=== PATIENT | female | born 1955 | race Caucasian/White ===

== ENCOUNTER 2016-07-10 08:30 | Outpatient (RCR) | payer MEDICARE, MEDICAID ==
[~2016-07-10 08:30] MED LIST: ESTR1TAB3 PO; SENN8.6C PO; TOPA100T8 PO; VITA400T PO
== END 2016-07-15 ==
LOC: M PT 08:30
PROVIDERS: ATTEND Physician Assistant Medical
DX: Z51.89 Encounter for other specified aftercare (principal); M54.5 Low back pain

== ENCOUNTER 2016-07-16 15:49 | Outpatient (RCR) | payer MEDICARE, MEDICAID | END 2016-08-12 | LOC: M PT 15:49 | PROVIDERS: ATTEND Physician Assistant Medical | DX: Z51.89 Encounter for other specified aftercare (principal); M54.5 Low back pain | CPT/HCPCS: 97110; G8979; G8980 ==

== ENCOUNTER → 2016-07-24 | Outpatient (CLI) | payer MEDICARE, MEDICAID | LOC: M HL 11:14 | PROVIDERS: ATTEND Family Medicine | DX: F50.2 Bulimia nervosa (principal) ==

== ENCOUNTER → 2016-10-17 | Outpatient (CLI) | payer MEDICARE, MEDICAID ==
--- NOTE | 2016-10-17 18:01 | REP ---
LEFT SHOULDER: REASON: Pain. PRIOR EXAM: None. FINDINGS: Three views of the left shoulder were performed. The acromioclavicular and glenohumeral relationships are within normal limits. There is no acute fracture or destructive osseous lesion. Signed by Mehul Alberto DO 10/17/2016 07:20 P
== END ==
LOC: M LAB 10:34
PROVIDERS: ATTEND Physician Assistant Medical
DX: M25.512 Pain in left shoulder (principal)

== ENCOUNTER 2016-11-11 15:13 | Outpatient (RCR) | payer MEDICARE, MEDICAID | END 2016-11-12 | LOC: M PT 15:13 | PROVIDERS: ATTEND Physician Assistant Medical | DX: Z51.89 Encounter for other specified aftercare (principal); M25.512 Pain in left shoulder | CPT/HCPCS: 97110; 97140; 97161; G8978; G8979 ==

== ENCOUNTER 2016-12-10 07:00 | Outpatient (RCR) | payer MEDICARE, MEDICAID ==
[~2016-12-10 07:00] MED LIST changes: +TOPA100T12 PO; -TOPA100T8 PO
== END 2016-12-12 ==
LOC: M PT 07:00
PROVIDERS: ATTEND Physician Assistant Medical
DX: Z51.89 Encounter for other specified aftercare (principal); M25.512 Pain in left shoulder
CPT/HCPCS: 97110; 97140; G8978; G8979

== ENCOUNTER → 2017-01-12 | Outpatient (RCR) | payer MEDICARE, MEDICAID ==
[~2017-01-12] MED LIST changes: +CEFD1CAP8 PO; +PROBCAP4 PO; +SUCR1SUS PO
== END ==
LOC: M PT 12-17 07:47
PROVIDERS: ATTEND Physician Assistant Medical
DX: Z51.89 Encounter for other specified aftercare (principal); M25.512 Pain in left shoulder
CPT/HCPCS: 97110; 97140; G8978; G8979

== ENCOUNTER 2017-01-28 07:00 | Outpatient (RCR) | payer MEDICARE, MEDICAID ==
[~2017-01-28 07:00] MED LIST changes: -CEFD1CAP8 PO; -PROBCAP4 PO; -SUCR1SUS PO
[2017-02-09] MEDS ORDERED: PROBCAP4 PO (15:52)
[2017-02-09] MEDS ORDERED: SUCR1SUS PO (15:52)
[2017-02-09] MEDS ORDERED: CEFD1CAP8 PO (15:52)
== END 2017-02-12 ==
LOC: M PT 07:00
PROVIDERS: ATTEND Physician Assistant Medical
DX: Z51.89 Encounter for other specified aftercare (principal); M25.512 Pain in left shoulder
CPT/HCPCS: 97110; 97140; G8978; G8979; G8980

== ENCOUNTER → 2017-02-03 | Outpatient (CLI) | payer MEDICARE, MEDICAID ==
[~2017-02-03] MED LIST changes: +CEFD1CAP8 PO; +PROBCAP4 PO; +SUCR1SUS PO
--- NOTE | 2017-02-04 08:11 | REP ---
Chest x-ray: Two views. History: Bronchitis. Comparison chest x-ray June 17, 2012. Findings: Ventral discectomy and fusion plating is seen in the lower cervical spine. The lungs are well inflated and clear. Heart size is normal. Pulmonary vasculature is not increased. No significant bony abnormality is seen. Impression: No active disease. Signed by Melquiades Rain MD 02/04/2017 08:30 A
== END ==
LOC: M RAD 18:57
PROVIDERS: ATTEND Family Medicine
DX: J40 Bronchitis, not specified as acute or chronic (principal)
CPT/HCPCS: 71020; G0463

== ENCOUNTER → 2017-02-05 | Outpatient (CLI) | payer MEDICARE, MEDICAID ==
--- NOTE | 2017-02-06 10:54 | REP ---
Cervical spine series: Seven views. History: Neck pain. Comparison study April 22, 2013. Findings: The patient is status post ventral discectomy and fusion from C4 through C7. There is straightening. Alignment and appearance is unchanged from the comparison study of April 22, 2013. No subluxation or instability is seen although limited range of motion is seen on flexion/extension views. AP and open mouth odontoid views are unremarkable except for the fusion plate. Oblique images demonstrate intact neural foramina bilaterally at each cervical level and normally aligned facets. Impression: Status post ventral discectomy and fusion plating. Straightening. There is degenerative discogenic spurring at the C3-4 level unchanged from the 2013 comparison study. No neural foraminal narrowing. Signed by Melquiades Rain MD 02/06/2017 09:22 A
== END ==
LOC: M RAD 19:03
PROVIDERS: ATTEND Physician Assistant Medical
DX: M54.2 Cervicalgia (principal); K21.9 Gastro-esophageal reflux disease without esophagitis

== ENCOUNTER → 2017-02-05 | Outpatient (CLI) | payer MEDICARE, MEDICAID ==
[~2017-02-05] MED LIST changes: +E-Z-GAS II EFFERVESCENT PACKET (SODIUM BICARB./CITRIC ACID/SIMETHICONE) As Ordered ONE; +E-Z-HD 98% w/w 340GM SUSP BTL As Ordered ONE; +E-Z-PAQUE 96% w/w SUSP 176GM BTL As Ordered ONE
--- NOTE | 2017-02-06 13:19 | REP ---
Double contrast upper GI series: History: Reflux. 1 minute 14 seconds of fluoroscopy time was utilized. Findings: Preliminary commissioner of conciliation view is noncontributory. Incidental note is made of ventral cervical discectomy fusion plate. No morphologic abnormality is seen in the esophagus. Gastroesophageal reflux was observed in the prone position. The stomach displays normal rugal folds and a normal mucosal pattern. No mass or ulcer seen. Pylorus is smooth. Duodenal bulb was fully distensible and clear. C-loop is not widened. Remainder the visualized small bowel is unremarkable. Impression: Gastroesophageal reflux noted. Otherwise negative. Signed by Melquiades Rain MD 02/05/2017 10:48 A
== END ==
LOC: M RAD 09:19
PROVIDERS: ATTEND Surgery
DX: K21.9 Gastro-esophageal reflux disease without esophagitis (principal)

== ENCOUNTER 2017-02-11 07:52 | Outpatient (CLI) | payer MEDICARE, MEDICAID ==
[~2017-02-11] VITALS: Ht 152.4 cm; Wt 49.4 kg
[~2017-02-11 07:52] MED LIST changes: -E-Z-GAS II EFFERVESCENT PACKET (SODIUM BICARB./CITRIC ACID/SIMETHICONE) As Ordered ONE; -E-Z-HD 98% w/w 340GM SUSP BTL As Ordered ONE; -E-Z-PAQUE 96% w/w SUSP 176GM BTL As Ordered ONE
[2017-02-11] MEDS ORDERED: NS 1,000 ML IV ONE (08:15)
[2017-02-11] MEDS ORDERED: fentaNYL 100 MCG/2 ML INJECTION (J3010) As Ordered ONE (09:34)
[2017-02-11] MEDS ORDERED: PROPOFOL 200 MG/20 ML VIAL As Ordered ONE (09:45)
[2017-02-11] MEDS ORDERED: LIDOCAINE 2% INJ 100 MG/5 ML SDV (FOR ANES.) As Ordered ONE (09:45)
--- NOTE | 2017-02-11 09:58 | ROOR ---
Patient Name: Chasidy Casas Procedure Date: 02/11/2017 9:33 AM Date of : 1955 Age: 62 Room: [facility] Gender: Female Note Status: Finalized Procedure: Upper GI endoscopy Indications: Pharyngeal phase dysphagia, Globus sensation Providers: Pranay Duffy MD Referring MD: Tj Caal MD Requesting Provider: Medicines: Monitored Anesthesia Care Complications: No immediate complications. Procedure: Pre-Anesthesia Assessment: - Prior to the procedure, a History and Physical was performed, and patient medications and allergies were reviewed. The patient is competent. The risks and benefits of the procedure and the sedation options and risks were discussed with the patient. All questions were answered and informed consent was obtained. Patient identification and proposed procedure were verified by the physician, the nurse and the shelter supervisor in the endoscopy suite. Mental Status Examination: alert and oriented. Airway Examination: normal oropharyngeal airway and neck mobility. Respiratory Examination: clear to auscultation. CV Examination: normal. Prophylactic Antibiotics: The patient does not require prophylactic antibiotics. Prior Anticoagulants: The patient has taken no previous anticoagulant or antiplatelet agents. ASA Grade Assessment: II - A patient with mild systemic disease. After reviewing the risks and benefits, the patient was deemed in satisfactory condition to undergo the procedure. The anesthesia plan was to use monitored anesthesia care (MAC). Immediately prior to administration of medications, the patient was re-assessed for adequacy to receive sedatives. The heart rate, respiratory rate, oxygen saturations, blood pressure, adequacy of pulmonary ventilation, and response to care were monitored throughout the procedure. The physical status of the patient was re-assessed after the procedure. The Endoscope was introduced through the mouth, and advanced to the third part of duodenum. The upper GI endoscopy was accomplished without difficulty. The patient tolerated the procedure well. Findings: The Z-line was irregular and was found 38 cm from the incisors. Biopsies were taken with a cold forceps for histology. Estimated blood loss was minimal. A small hiatal hernia was present. Estimated blood loss: none. One diminutive sessile polyp with no bleeding and no stigmata of recent bleeding was found in the stomach. The polyp was removed with a jumbo cold forceps. Resection and retrieval were complete. Estimated blood loss was minimal. Diffuse nodular mucosa was found in the duodenal bulb. Biopsies were taken with a cold forceps for histology. Estimated blood loss was minimal. Impression: - Z-line irregular, 38 cm from the incisors. Biopsied. - Small hiatal hernia. - One gastric polyp. Resected and retrieved. - Nodular mucosa in the duodenal bulb. Biopsied. Recommendation: - Discharge patient to home (ambulatory). - Telephone my office for pathology results in 2 weeks. Pranay Duffy MD Pranay Duffy MD 02/11/2017 9:57:39 AM This report has been signed electronically. Number of Addenda: 0 Note Initiated On: 02/11/2017 9:33 AM Estimated Blood Loss: Estimated blood loss was minimal.
[2017-02-11 10:28] VITALS: BP 110/65
== END 2017-02-11 10:26 | disposition home or self-care (01) ==
LOC: M OPP 07:52
PROVIDERS: ATTEND Surgery
DX: K21.9 Gastro-esophageal reflux disease without esophagitis (principal); K22.8 Other specified diseases of esophagus; K44.9 Diaphragmatic hernia without obstruction or gangrene; K31.7 Polyp of stomach and duodenum; K31.89 Other diseases of stomach and duodenum; F33.9 Major depressive disorder, recurrent, unspecified; E55.9 Vitamin D deficiency, unspecified; Z77.120 Contact with and (suspected) exposure to mold (toxic); Z79.899 Other long term (current) drug therapy; Z88.5 Allergy status to narcotic agent; Z91.011 Allergy to milk products; Z88.2 Allergy status to sulfonamides; Z88.0 Allergy status to penicillin; Z88.1 Allergy status to other antibiotic agents; Z91.013 Allergy to seafood; Z87.891 Personal history of nicotine dependence
CPT/HCPCS: 43239; 88305; J3010

== ENCOUNTER → 2017-03-19 | Outpatient (REF) | payer MEDICARE, MEDICAID ==
[2017-03-19 17:48] LABS: MEAN CORPUSCULAR HEMOGLOBIN 30.7 pg (27.0-33.0); MEAN CORPUSCULAR HGB CONC 32.4 g/dl (32.0-36.5); MEAN CORPUSCULAR VOLUME 94.7 fl (80.0-96.0); RED CELL DISTRIBUTION WIDTH 12.4 % (11.5-14.5); WHITE BLOOD COUNT 6.3 10^3/uL (4.0-10.0)
[2017-03-19 17:51] LABS: CALCIUM OXALATE CRYSTALS SMALL
[2017-03-19 17:54] LABS: ALBUMIN 3.7 GM/DL (3.2-5.2); ALBUMIN/GLOBULIN RATIO 1.32 (1.00-1.93); ALKALINE PHOSPHATASE 95 U/L (45-117); ALT/SGPT 26 U/L (12-78); ANION GAP 5 MEQ/L (8-16); AST/SGOT 13 U/L (15-37); BILIRUBIN,TOTAL 0.3 MG/DL (0.2-1.0); BLOOD UREA NITROGEN 26 MG/DL (7-18); CALCIUM LEVEL 8.7 MG/DL (8.8-10.2); CARBON DIOXIDE LEVEL 28 MEQ/L (21-32); CHLORIDE LEVEL 112 MEQ/L (98-107); CREATININE FOR GFR 0.83 MG/DL (0.55-1.02); GLOMERULAR FILTRATION RATE > 60.0 (>45); GLUCOSE, FASTING 95 MG/DL (80-110); POTASSIUM SERUM 4.1 MEQ/L (3.5-5.1); SODIUM LEVEL 145 MEQ/L (136-145); TOTAL PROTEIN 6.5 GM/DL (6.4-8.2)
== END ==
LOC: M SFHCCLAY 11:50
PROVIDERS: ATTEND Family Medicine
DX: Z01.818 Encounter for other preprocedural examination (principal); K44.9 Diaphragmatic hernia without obstruction or gangrene; J38.3 Other diseases of vocal cords; Z79.899 Other long term (current) drug therapy

== ENCOUNTER → 2017-03-19 | Outpatient (CLI) | payer MEDICARE, MEDICAID ==
--- NOTE | 2017-03-19 14:27 | REP ---
PA and lateral chest: Comparison is 02/03/2017. The lung malin are clear. The cardiac size is normal The jun, mediastinum, and bony thorax are unremarkable except for a cervical spine stabilization plate, unchanged. Impression: Negative PA and lateral chest. There is no interval change.
== END ==
LOC: M CLY 12:30
PROVIDERS: ATTEND Family Medicine
DX: Z01.818 Encounter for other preprocedural examination (principal); K44.9 Diaphragmatic hernia without obstruction or gangrene; J38.3 Other diseases of vocal cords; Z79.899 Other long term (current) drug therapy
CPT/HCPCS: 71020; 80053; 81001; 83036; 85027; 93005; G0463

== ENCOUNTER 2017-05-18 15:54 | Outpatient (RCR) | payer MEDICARE, MEDICAID | END 2017-06-14 | LOC: M PT 15:54 | DX: Z51.89 Encounter for other specified aftercare (principal); M25.512 Pain in left shoulder | CPT/HCPCS: 97140 ==

== ENCOUNTER 2017-06-29 09:17 | Outpatient (RCR) | payer MEDICARE, MEDICAID | END 2017-07-15 | LOC: M PT 09:17 | DX: Z51.89 Encounter for other specified aftercare (principal); M75.122 Complete rotator cuff tear or rupture of left shoulder, not specified as traumatic | CPT/HCPCS: 97110 ==

== ENCOUNTER 2017-07-17 08:37 | Outpatient (RCR) | payer MEDICARE, MEDICAID | END 2017-08-12 | LOC: M PT 08:37 | DX: Z51.89 Encounter for other specified aftercare (principal); M75.122 Complete rotator cuff tear or rupture of left shoulder, not specified as traumatic | CPT/HCPCS: 97110 ==

== ENCOUNTER → 2017-08-04 | Outpatient (CLI) | payer MEDICARE, MEDICAID | LOC: M RAD 06:44 | DX: R59.1 Generalized enlarged lymph nodes (principal) | CPT/HCPCS: 76882 ==

== ENCOUNTER 2017-08-14 08:01 | Outpatient (RCR) | payer MEDICARE, MEDICAID | END 2017-09-12 | LOC: M PT 08:01 | DX: Z51.89 Encounter for other specified aftercare (principal); Z47.89 Encounter for other orthopedic aftercare | CPT/HCPCS: 97110 ==

== ENCOUNTER → 2017-09-11 | Outpatient (CLI) | payer MEDICARE, MEDICAID ==
[2017-09-11 12:41] LABS: C REACTIVE PROTEIN QUANTITATIV < 0.30 MG/DL (0.00-0.30)
[2017-09-11 13:09] LABS: ERYTHROCYTE SEDIMENTATION RATE 5 mm/hr (0-30)
== END ==
LOC: M LAB 11:34
DX: M35.3 Polymyalgia rheumatica (principal)
CPT/HCPCS: 86140

== ENCOUNTER 2017-09-14 07:57 | Outpatient (RCR) | payer MEDICARE, MEDICAID | END 2017-10-12 | LOC: M PT 07:57 | DX: Z51.89 Encounter for other specified aftercare (principal); M75.122 Complete rotator cuff tear or rupture of left shoulder, not specified as traumatic | CPT/HCPCS: 97110 ==

== ENCOUNTER → 2017-09-16 | Outpatient (CLI) | payer MEDICARE, MEDICAID | LOC: M PAIN 10:00 | DX: G89.29 Other chronic pain (principal); M79.1 Myalgia; M54.2 Cervicalgia; F50.2 Bulimia nervosa; F25.9 Schizoaffective disorder, unspecified; E73.9 Lactose intolerance, unspecified; Z79.899 Other long term (current) drug therapy; Z87.891 Personal history of nicotine dependence; Z88.0 Allergy status to penicillin; Z88.1 Allergy status to other antibiotic agents; Z88.5 Allergy status to narcotic agent; Z91.013 Allergy to seafood | CPT/HCPCS: G0463 ==

== ENCOUNTER → 2017-09-19 | Outpatient (REF) | payer MEDICARE, MEDICAID ==
[2017-09-23 14:34] LABS: FATS NEUTRAL Increased (.); FATS TOTAL Increased (.)
== END ==
LOC: M LAB REF 10:04
DX: R10.31 Right lower quadrant pain (principal); R19.7 Diarrhea, unspecified
CPT/HCPCS: 82705

== ENCOUNTER → 2017-09-25 | Outpatient (CLI) | payer MEDICARE, MEDICAID ==
[~2017-09-25] MED LIST changes: -CEFD1CAP8 PO; -ESTR1TAB3 PO; +GASTROGRAFIN SOLUTION 30ML (Q9963) As Ordered; +ISOVUE-370 76% 100ML VIAL (Q9967) As Ordered; -PROBCAP4 PO; -SENN8.6C PO; -SUCR1SUS PO; -TOPA100T12 PO; -VITA400T PO
== END ==
LOC: M RAD 07:46
DX: R10.11 Right upper quadrant pain (principal)
CPT/HCPCS: Q9963

== ENCOUNTER → 2017-09-30 | Outpatient (CLI) | payer MEDICARE, MEDICAID ==
[~2017-09-30] MED LIST changes: -ISOVUE-370 76% 100ML VIAL (Q9967) As Ordered
== END ==
LOC: M RAD 08:19
DX: K44.9 Diaphragmatic hernia without obstruction or gangrene (principal)
CPT/HCPCS: Q9963

== ENCOUNTER → 2017-10-01 | Outpatient (CLI) | payer MEDICARE, MEDICAID ==
[~2017-10-01] MED LIST changes: +BUPIVACAINE HCL 0.25% 10 ML VIAL As Ordered; +BUPIVACAINE HCL 0.25% 30 ML VIAL As Ordered; -GASTROGRAFIN SOLUTION 30ML (Q9963) As Ordered; +TRIAMCINOLONE ACETONIDE SUSP 40 MG/ML VIAL (J3301) As Ordered
== END ==
LOC: M PAIN 10:30
DX: G89.29 Other chronic pain (principal); M79.1 Myalgia; E04.1 Nontoxic single thyroid nodule; F50.2 Bulimia nervosa; F25.9 Schizoaffective disorder, unspecified; Z87.891 Personal history of nicotine dependence; Z79.899 Other long term (current) drug therapy; Z88.0 Allergy status to penicillin; Z88.8 Allergy status to other drugs, medicaments and biological substances; Z91.013 Allergy to seafood
CPT/HCPCS: J3301

== ENCOUNTER 2017-10-14 08:24 | Outpatient (RCR) | payer MEDICARE, MEDICAID | END 2017-11-12 | LOC: M PT 08:24 | DX: Z51.89 Encounter for other specified aftercare (principal); M75.122 Complete rotator cuff tear or rupture of left shoulder, not specified as traumatic | CPT/HCPCS: 97110 ==

== ENCOUNTER → 2017-10-15 | Outpatient (CLI) | payer MEDICARE, MEDICAID | LOC: M PAIN 11:30 | DX: G89.29 Other chronic pain (principal); M79.1 Myalgia; M54.2 Cervicalgia; E04.1 Nontoxic single thyroid nodule; K90.0 Celiac disease; F50.2 Bulimia nervosa; Z87.891 Personal history of nicotine dependence; Z91.013 Allergy to seafood; Z88.0 Allergy status to penicillin; Z88.1 Allergy status to other antibiotic agents; Z88.5 Allergy status to narcotic agent | CPT/HCPCS: G0463 ==

== ENCOUNTER → 2017-10-29 | Outpatient (CLI) | payer MEDICARE, MEDICAID ==
[2017-10-29 23:36] LABS: FREE T4 1.11 NG/DL (0.76-1.46)
[2017-10-30 11:31] LABS: HEPATITIS C VIRUS ABY INDEX < 0.0 INDEX (<0.8)
[2017-11-04 00:06] LABS: PANCREATIC ELASTASE STOOL >500 (>200)
[2017-11-04 00:06] LABS: DEAMIDATED GLIADIN ABS, IgA 3 units (0-19); DEAMIDATED GLIADIN ABS, IgG 4 units (0-19); ENDOMYSIAL ANTIBODY IgA Negative (Negative); IMMUNOGLOBULIN A 78 mg/dL (87-352); t-TRANSGLUTAMINASE(tTG) IgA <2 U/mL (0-3); t-TRANSGLUTAMINASE(tTG) IgG <2 U/mL (0-5)
== END ==
LOC: M LAB 17:39
DX: R53.82 Chronic fatigue, unspecified (principal); R19.7 Diarrhea, unspecified; Z11.59 Encounter for screening for other viral diseases; K90.9 Intestinal malabsorption, unspecified
CPT/HCPCS: 84443

== ENCOUNTER → 2017-11-03 | Outpatient (CLI) | payer MEDICARE, MEDICAID ==
[2017-11-03 09:55] LABS: INR 0.86; PROTHROMBIN TIME 11.8 SECONDS (12.4-14.5)
[2017-11-03 09:56] LABS: PARTIAL THROMBOPLASTIN TIME 30.6 SECONDS (26.8-37.9)
== END ==
LOC: M RAD 08:32
DX: Z12.31 Encounter for screening mammogram for malignant neoplasm of breast (principal); R59.1 Generalized enlarged lymph nodes
CPT/HCPCS: 77067

== ENCOUNTER → 2017-11-11 | Outpatient (CLI) | payer MEDICARE, MEDICAID ==
[~2017-11-11] MED LIST changes: -BUPIVACAINE HCL 0.25% 10 ML VIAL As Ordered; -BUPIVACAINE HCL 0.25% 30 ML VIAL As Ordered; +LIDOCAINE 1% MDV 20ML VIAL As Ordered; -TRIAMCINOLONE ACETONIDE SUSP 40 MG/ML VIAL (J3301) As Ordered
== END ==
LOC: M RADPRO 10:05
DX: R59.0 Localized enlarged lymph nodes (principal)
CPT/HCPCS: 38505

== ENCOUNTER → 2017-12-22 | Outpatient (CLI) | payer MEDICARE, MEDICAID | LOC: M PAIN 11:00 | DX: M46.92 Unspecified inflammatory spondylopathy, cervical region (principal); M79.1 Myalgia; M54.2 Cervicalgia; G89.29 Other chronic pain; F25.9 Schizoaffective disorder, unspecified; E73.9 Lactose intolerance, unspecified; Z79.899 Other long term (current) drug therapy; Z88.1 Allergy status to other antibiotic agents; Z88.5 Allergy status to narcotic agent; Z88.8 Allergy status to other drugs, medicaments and biological substances; Z91.013 Allergy to seafood; Z86.59 Personal history of other mental and behavioral disorders; Z87.891 Personal history of nicotine dependence | CPT/HCPCS: G0463 ==

== ENCOUNTER → 2018-01-06 | Outpatient (CLI) | payer MEDICARE, MEDICAID ==
[~2018-01-06] MED LIST changes: +BUPIVACAINE HCL 0.25% 30 ML VIAL As Ordered; +ISOVUE-M 300 61% 15ML VIAL (Q9967) As Ordered; -LIDOCAINE 1% MDV 20ML VIAL As Ordered; +LIDOCAINE 1% SDV INJ 30 ML VIAL As Ordered; +TRIAMCINOLONE ACETONIDE SUSP 40 MG/ML VIAL (J3301) As Ordered
== END ==
LOC: M PAIN 10:45
DX: G89.29 Other chronic pain (principal); M47.812 Spondylosis without myelopathy or radiculopathy, cervical region; F25.9 Schizoaffective disorder, unspecified; Z79.899 Other long term (current) drug therapy; Z88.1 Allergy status to other antibiotic agents; Z88.5 Allergy status to narcotic agent; Z88.8 Allergy status to other drugs, medicaments and biological substances; Z91.013 Allergy to seafood; Z86.59 Personal history of other mental and behavioral disorders; Z87.891 Personal history of nicotine dependence
CPT/HCPCS: J3301

== ENCOUNTER 2018-01-11 10:17 | Emergency (ER) | payer MEDICARE, MEDICAID ==
[2018-01-11] MEDS ORDERED: LIDOCAINE W/EPINEPHRINE 1% 20ML VIAL As Ordered (12:49)
[2018-01-11] MEDS: NORCO, ANEXSIA 5/325MG TABLET (HYDROcodone/ACETAMINOPHEN) PO (13:16)
[2018-01-11] MEDS: LIDOCAINE W/EPINEPHRINE 1% 20ML VIAL SC (13:17)
== END 2018-01-11 14:34 | disposition home or self-care (01) ==
LOC: M ED 10:17
DX: S42.215A Unspecified nondisplaced fracture of surgical neck of left humerus, initial encounter for closed fracture (principal); S01.112A Laceration without foreign body of left eyelid and periocular area, initial encounter; T14.8XXA Other injury of unspecified body region, initial encounter; W10.8XXA Fall (on) (from) other stairs and steps, initial encounter; Y92.89 Other specified places as the place of occurrence of the external cause; K21.9 Gastro-esophageal reflux disease without esophagitis; Z88.0 Allergy status to penicillin; Z88.8 Allergy status to other drugs, medicaments and biological substances; Z88.2 Allergy status to sulfonamides; Z91.018 Allergy to other foods; Z91.011 Allergy to milk products; Z79.899 Other long term (current) drug therapy; Z87.891 Personal history of nicotine dependence
CPT/HCPCS: 73030

== ENCOUNTER → 2018-01-19 | Outpatient (REF) | payer MEDICARE, MEDICAID ==
[2018-01-20 11:53] LABS: HEMATOCRIT 38.8 % (36.0-47.0); MEAN CORPUSCULAR HEMOGLOBIN 31.5 pg (27.0-33.0); MEAN CORPUSCULAR HGB CONC 33.5 g/dl (32.0-36.5); MEAN CORPUSCULAR VOLUME 93.9 fl (80.0-96.0); PLATELET COUNT, AUTOMATED 279 10^3/uL (150-450); RED BLOOD COUNT 4.13 10^6/uL (4.00-5.40); RED CELL DISTRIBUTION WIDTH 12.6 % (11.5-14.5); WHITE BLOOD COUNT 7.8 10^3/uL (4.0-10.0)
[2018-01-20 12:21] LABS: ANION GAP 10 MEQ/L (8-16); BLOOD UREA NITROGEN 11 MG/DL (7-18); CARBON DIOXIDE LEVEL 26 MEQ/L (21-32); CHLORIDE LEVEL 110 MEQ/L (98-107); CREATININE FOR GFR 0.87 MG/DL (0.55-1.30); GLOMERULAR FILTRATION RATE > 60.0 (>45); GLUCOSE, FASTING 71 MG/DL (70-100); MAGNESIUM LEVEL 2.5 MG/DL (1.8-2.4); POTASSIUM SERUM 3.9 MEQ/L (3.5-5.1); SODIUM LEVEL 146 MEQ/L (136-145)
== END ==
LOC: M SFHCCLAY 11:36
DX: R42 Dizziness and giddiness (principal)
CPT/HCPCS: 83735

== ENCOUNTER → 2018-02-17 | Outpatient (CLI) | payer MEDICARE, MEDICAID | LOC: M PAIN 13:45 | DX: M46.92 Unspecified inflammatory spondylopathy, cervical region (principal); M79.1 Myalgia; M54.2 Cervicalgia; F25.9 Schizoaffective disorder, unspecified; K90.0 Celiac disease; E73.9 Lactose intolerance, unspecified; Z79.899 Other long term (current) drug therapy; Z88.1 Allergy status to other antibiotic agents; Z88.5 Allergy status to narcotic agent; Z88.8 Allergy status to other drugs, medicaments and biological substances; Z91.013 Allergy to seafood; Z86.59 Personal history of other mental and behavioral disorders; Z87.891 Personal history of nicotine dependence | CPT/HCPCS: G0463 ==

== ENCOUNTER → 2018-02-24 | Outpatient (CLI) | payer MEDICARE, MEDICAID | LOC: M RAD 08:16 | DX: R10.11 Right upper quadrant pain (principal) | CPT/HCPCS: J2805 ==

== ENCOUNTER → 2018-03-23 | Outpatient (CLI) | payer MEDICARE, MEDICAID ==
[~2018-03-23] MED LIST changes: +BUPIVACAINE HCL 0.25% 10 ML VIAL As Ordered; -ISOVUE-M 300 61% 15ML VIAL (Q9967) As Ordered; -LIDOCAINE 1% SDV INJ 30 ML VIAL As Ordered
== END ==
LOC: M PAIN 10:30
DX: G89.29 Other chronic pain (principal); M79.12 Myalgia of auxiliary muscles, head and neck; M54.2 Cervicalgia; M25.511 Pain in right shoulder; M25.512 Pain in left shoulder; M54.6 Pain in thoracic spine; E73.9 Lactose intolerance, unspecified; Z79.899 Other long term (current) drug therapy; Z88.1 Allergy status to other antibiotic agents; Z88.5 Allergy status to narcotic agent; Z88.8 Allergy status to other drugs, medicaments and biological substances; Z91.013 Allergy to seafood; Z87.19 Personal history of other diseases of the digestive system; Z86.59 Personal history of other mental and behavioral disorders; Z87.891 Personal history of nicotine dependence
CPT/HCPCS: J3301

== ENCOUNTER 2018-03-24 07:10 | Day surgery (SDC) | payer MEDICARE, MEDICAID ==
[2018-03-24] MEDS: NS 1,000 ML IV (06:00)
[~2018-03-24 07:10] MED LIST changes: -BUPIVACAINE HCL 0.25% 10 ML VIAL As Ordered; -BUPIVACAINE HCL 0.25% 30 ML VIAL As Ordered; +LIDOCAINE 2% INJ 100 MG/5 ML SDV (FOR ANES.) As Ordered; +PROPOFOL 200 MG/20 ML VIAL As Ordered; -TRIAMCINOLONE ACETONIDE SUSP 40 MG/ML VIAL (J3301) As Ordered
[2018-03-24] MEDS ORDERED: PROPOFOL 200 MG/20 ML VIAL As Ordered (08:26)
== END 2018-03-24 09:13 | disposition home or self-care (01) ==
LOC: M OPP 07:10
DX: R10.11 Right upper quadrant pain (principal); R14.0 Abdominal distension (gaseous); R14.3 Flatulence; K44.9 Diaphragmatic hernia without obstruction or gangrene; K22.8 Other specified diseases of esophagus; K31.89 Other diseases of stomach and duodenum; Z98.0 Intestinal bypass and anastomosis status; R07.89 Other chest pain; K21.9 Gastro-esophageal reflux disease without esophagitis; R12 Heartburn; Z87.81 Personal history of (healed) traumatic fracture; M19.90 Unspecified osteoarthritis, unspecified site; F32.9 Major depressive disorder, single episode, unspecified; G43.909 Migraine, unspecified, not intractable, without status migrainosus; R56.9 Unspecified convulsions; Z87.828 Personal history of other (healed) physical injury and trauma; Z98.1 Arthrodesis status; Z87.891 Personal history of nicotine dependence; Z88.0 Allergy status to penicillin; Z88.2 Allergy status to sulfonamides; Z91.018 Allergy to other foods; Z88.3 Allergy status to other anti-infective agents; Z91.011 Allergy to milk products; Z79.899 Other long term (current) drug therapy; Z80.8 Family history of malignant neoplasm of other organs or systems
CPT/HCPCS: 43239

== ENCOUNTER → 2018-04-08 | Outpatient (CLI) | payer MEDICARE, MEDICAID | LOC: M PAIN 09:15 | DX: M46.92 Unspecified inflammatory spondylopathy, cervical region (principal); M79.18 Myalgia, other site; M54.2 Cervicalgia; F50.2 Bulimia nervosa; E73.9 Lactose intolerance, unspecified; Z79.899 Other long term (current) drug therapy; Z88.1 Allergy status to other antibiotic agents; Z88.5 Allergy status to narcotic agent; Z88.8 Allergy status to other drugs, medicaments and biological substances; Z91.013 Allergy to seafood; Z86.59 Personal history of other mental and behavioral disorders; Z87.19 Personal history of other diseases of the digestive system; Z87.891 Personal history of nicotine dependence | CPT/HCPCS: G0463 ==

== ENCOUNTER → 2018-04-28 | Outpatient (CLI) | payer MEDICARE, MEDICAID ==
[~2018-04-28] MED LIST changes: +BUPIVACAINE HCL 0.25% 30 ML VIAL As Ordered; +ISOVUE-M 300 61% 15ML VIAL (Q9967) As Ordered; +LIDOCAINE 1% SDV INJ 30 ML VIAL As Ordered; -LIDOCAINE 2% INJ 100 MG/5 ML SDV (FOR ANES.) As Ordered; -PROPOFOL 200 MG/20 ML VIAL As Ordered; +TRIAMCINOLONE ACETONIDE SUSP 40 MG/ML VIAL (J3301) As Ordered
== END ==
LOC: M PAIN 11:00
DX: G89.29 Other chronic pain (principal); M47.812 Spondylosis without myelopathy or radiculopathy, cervical region; E73.9 Lactose intolerance, unspecified; Z79.899 Other long term (current) drug therapy; Z88.1 Allergy status to other antibiotic agents; Z88.5 Allergy status to narcotic agent; Z88.8 Allergy status to other drugs, medicaments and biological substances; Z91.013 Allergy to seafood; Z87.19 Personal history of other diseases of the digestive system; Z86.59 Personal history of other mental and behavioral disorders; Z87.891 Personal history of nicotine dependence
CPT/HCPCS: J3301

== ENCOUNTER → 2018-05-12 | Outpatient (CLI) | payer MEDICARE, MEDICAID | LOC: M PAIN 11:15 | DX: M54.81 Occipital neuralgia (principal); Z79.899 Other long term (current) drug therapy; Z88.0 Allergy status to penicillin; Z88.1 Allergy status to other antibiotic agents; Z88.5 Allergy status to narcotic agent; Z91.013 Allergy to seafood; E73.9 Lactose intolerance, unspecified; Z86.19 Personal history of other infectious and parasitic diseases; Z87.19 Personal history of other diseases of the digestive system; Z87.891 Personal history of nicotine dependence | CPT/HCPCS: G0463 ==

== ENCOUNTER → 2018-06-09 | Outpatient (REF) | payer MEDICARE, MEDICAID ==
[~2018-06-09] MED LIST changes: +BREO1INH INH; -BUPIVACAINE HCL 0.25% 30 ML VIAL As Ordered; +CEFD1CAP8 PO; +ESTR1TAB3 PO; +ESTR625TA PV; +FLON1SPR; +FLUT1INH2 IN; +FLUT1LOT AD; +FLUT1LOT EX; -ISOVUE-M 300 61% 15ML VIAL (Q9967) As Ordered; -LIDOCAINE 1% SDV INJ 30 ML VIAL As Ordered; +NORCOTAB PO; +PANT40TA3 PO; +PROBCAP4 PO; +RANI300C PO; +SENN8.6C PO; +SUCR1SUS PO; +TOPA100T12 PO; -TRIAMCINOLONE ACETONIDE SUSP 40 MG/ML VIAL (J3301) As Ordered; +VITA400T PO; +ZANTTAB PO
[2018-06-09 15:56] LABS: APPEARANCE, URINE CLEAR (CLEAR); BACTERIA, URINE AUTO NEGATIVE (NEGATIVE); BILIRUBIN, URINE AUTO NEGATIVE (NEGATIVE); BLOOD, URINE BLOOD NEGATIVE (NEGATIVE); COLOR, URINE STRAW (YELLOW); GLUCOSE, URINE (UA) AUTO NEGATIVE (NEGATIVE); KETONE, URINE AUTO NEGATIVE (NEGATIVE); LEUKOCYTE ESTERASE, URINE AUTO 2+ (NEGATIVE); NITRITE, URINE AUTO NEGATIVE (NEGATIVE); PROTEIN, URINE AUTO NEGATIVE (NEGATIVE); RBC, URINE AUTO 1 /HPF (0-3); SPECIFIC GRAVITY URINE AUTO 1.003 (1.002-1.035); SQUAMOUS EPITHELIAL CELL UR AU 1 /HPF (0-6); UROBILINOGEN, URINE AUTO 0.2 mg/dL (0.0-2.0); WBC, URINE AUTO 4 /HPF (0-3)
== END ==
LOC: M LAB REF 15:19
PROVIDERS: ATTEND Physician Assistant
DX: N39.0 Urinary tract infection, site not specified (principal)

== ENCOUNTER → 2018-06-16 | Outpatient (CLI) | payer MEDICARE, MEDICAID ==
[~2018-06-16] MED LIST changes: +BUPIVACAINE HCL 0.25% 10 ML VIAL As Ordered ONE; +BUPIVACAINE HCL 0.25% 30 ML VIAL As Ordered ONE; +TRIAMCINOLONE ACETONIDE SUSP 40 MG/ML VIAL (J3301) As Ordered ONE
--- NOTE | 2018-07-03 23:36 | ECWPNPC ---
PATIENT NAME: BRIAN DAWSON : 1955 GENDER: FEMALE VISIT DATE: 06/16/2018 DISCHARGE DATE: 06/16/18 1054 VISIT LOCKED DATE TIME: PHYSICIAN: MARY JANE DON MD PHYSICIAN PAGER NO: [phone] RESOURCE: MARY JANE DON MD REASON FOR APPOINTMENT 1. BILAT OCCIPITAL NERVE BLOCK HISTORY OF PRESENT ILLNESS HISTORY OF PRESENT ILLNESS: PAIN THE PATIENT DESCRIBES THE PAIN... FALL RISK SCREENING: SCREENING :NO FALLS IN THE PAST YEAR CURRENT MEDICATIONS TAKING TOPAMAX 100 MG TABLET 1 TABLET ORALLY TWICE A DAY, NOTES: 06-16-17 0600 TAKING PREMARIN 0.625 MG/GM CREAM 1 VAGINAL TWICE A WEEK TAKING PANTOPRAZOLE SODIUM 40 MG TABLET DELAYED RELEASE 1 TABLET ORALLY ONCE A DAY TAKING CIPRO 500 MG TABLET 1 TABLET ORALLY EVERY 12 HRS UNKNOWN FLUTICASONE PROPIONATE 50 MCG/ACT SUSPENSION 1 SPRAY IN EACH NOSTRIL NASALLY NEEDED ONLY, NOTES: 06-15-18 2100 UNKNOWN RANITIDINE HCL 300 MG TABLET 1 TABLET AT BEDTIME ORALLY BID MEDICATION LIST REVIEWED AND RECONCILED WITH THE PATIENT PAST MEDICAL HISTORY THYROID NODULE LARYNGEAL NODULE CANDIDIASIS/BV-FREQUENTLY BULIMIA NERVOSA/SCHOZOAFFECTIVE D/O ([facility], 2012) 04-05-2014 DISTAL FIBULA FRACTURE 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 NODE, NEGATIVE BX, 2018 ALLERGIES DOXYCYCLINE HYCLATE: PHOTODERMATITIS: ALLERGY LACTOSE INTOLERANT: DIARRHEA: ALLERGY DEMEROL: LOW BP: CONTRAINDICATION DARVOCET-N 100: LOW BP: CONTRAINDICATION AMOXICILLIN: SWELLING: ALLERGY SHELLFISH: HIVES: ALLERGY SURGICAL HISTORY NECK SURGERY X 2 LEFT KNEE SURGERY BUNIONECTOMY OBDULIO FEET HYSTERECTOMY ABDOMINAL LAPOROSCOPY ABD BEFORE HYSTERECTOMY LASER EYE SURGERY OBDULIO COLONOSCOPY 08/2013 STERIOD INJECTIONS TO NECK BY 02/2016 HERNIA REPAIR 03/2017 FAMILY HISTORY FATHER: 84 YRS, PANCREATIC CANCER, DIAGNOSED WITH CANCER MOTHER: ALIVE, HYPERLIPIDEMIA, DIAGNOSED WITH DIABETES, HYPERTENSION, HEART DISEASE, CANCER 1 BROTHER(S) , 4 SISTER(S) - HEALTHY. 1 SON(S) , 1 DAUGHTER(S) - HEALTHY. FATHER ALSO POSITIVE FOR COLON, PANCREATIC CANCERMOM--SKIN CABROTHER-MISISTER BACK PROBLEMSSISTER X 2 LUPUSDAUGHTER-BRITTLE DIABETIC. HOSPITALIZATION/MAJOR DIAGNOSTIC PROCEDURE EATING DISORDER 01/20/2013 SURGERY REVIEW OF SYSTEMS REVIEWED BY: PROVIDER: . CONSTITUTIONAL: ANY CHANGE IN YOUR MEDICAL CONDITION? NO . CHILLS NO . FEVER NO . INFECTION: DO YOU HAVE NEW INFECTIONS? YES . DO YOU HAVE HISTORY OF MRSA? NO . MUSCULOSKELETAL: ANY NEW PATTERNS OF PAIN OR NUMBNESS? NO . GASTROENTEROLOGY: ANY NEW CHANGE IN BOWEL CONTROL? NO . GENITOURINARY: ANY NEW CHANGE IN BLADDER CONTROL? NO . IS THERE A CHANCE YOU COULD BE ? NO . HEMATOLOGY/LYMPH: DO YOU TAKE ANY BLOOD THINNERS? (FOR EXAMPLE- COUMADIN, PLAVIX, AGGRENOX, PLATEL, PRADAXA, OR XARELTO) NO . WHEN WAS YOUR LAST DOSE? DATE: TIME: . NEUROLOGY: HAVE YOU FALLEN IN THE PAST 6 MONTHS? NO . ANY NEW EXTREMITY NUMBNESS OR WEAKNESS? NO . CARDIOLOGY: DO YOU HAVE A PACEMAKER OR DEFIBRILLATOR? NO . RESPIRATORY: HAVE YOU BEEN SICK IN THE PAST WEEK? NO . FEVER NO . FLU LIKE SYMPTOMS? NO . COUGH NO . INTEGUMENTARY: DO YOU HAVE ANY RASHES OR OPEN SORES? NO . ALLERGIC/IMMUNO: ARE YOU ALLERGIC TO SHELLFISH OR IV DYE? NO . ANY NEW ALLERGIES? NO . PSYCHIATRIC: DO YOU HAVE THOUGHTS OF HURTING YOURSELF OR SOMEONE ELSE? NO . ARE YOU ABUSED, NEGLECTED, OR IN AN UNSAFE ENVIRONMENT? NO . ENDOCRINOLOGY: ARE YOU DIABETIC? NO . OTHER: DO YOU NEED ANY PRESCRIPTIONS? NO . IF YES, PLEASE LIST: ____ . ANY NEW PROBLEMS WITH YOUR MEDICATIONS? NO . WHEN DID YOU LAST EAT? ____LAST NIGHT 8 PM . WHEN DID YOU LAST DRINK? ____630 THIS MORNING . WHAT DID YOU LAST DRINK? ____WATER . NAME OF PERSON DRIVING YOU HOME? ____STEVE . DO YOU HAVE ANY OTHER QUESTIONS OR CONCERNS NO . VITAL SIGNS WT 106.2 LBS, HT 61 IN, BMI 20.06 INDEX, BP 138/74 MM HG, HR 85 /MIN, RR 18 /MIN, TEMP 98.3 F, OXYGEN SAT % 99%, SAFE IN ENV? (Y/N) YES, NA INITIALS AW 0936, KG. 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 MARY JANE DON OUTSIDE MACHINIST HELPER NONE ANESTHESIA LOCAL PRE PROCEDURE NOTE PATIENT WITH A HISTORY OF CHRONIC OCCIPITAL PAIN. THE PAIN IS LOCATED OVER THE OCCIPITAL AREA WITH RADIATION TOWARDS THE TEMPORAL AREA AND ALSO TO THE PARIETAL AREA OF THE CRANIUM. I EVALUATED THE PATIENT AND REVIEWED THE CHART. I WENT OVER THE RISKS, ALTERNATIVES, AND BENEFITS ASSOCIATED WITH THIS PROCEDURE. THE PATIENT WOULD LIKE TO PROCEED AND GAVE CONSENT TO PERFORM THE PROCEDURE. THE PATIENT DENIES UNEXPLAINABLE WEIGHT LOSS, FEVER, CHILLS, OR NEW CHANGES IN URINARY OR BOWEL CONTROL DESCRIPTION OF PROCEDURE THE PATIENT WAS BROUGHT TO THE PROCEDURE ROOM AND PLACED IN THE SITTING POSITION. THE RIGHT AND LEFT OCCIPITAL AREA WAS CLEANED WITH ALCOHOL. THE PROCEDURE WAS DONE USING STERILE TECHNIQUES. I CHECKED LATERALITY AND THE LEVEL WHERE THE PROCEDURE WAS GOING TO BE PERFORMED WITH THE PATIENT AND THE SUPPORTING STAFF AT THE MOMENT OF THE TIME OUT IN THE PROCEDURE ROOM. USING A 25-GAUGE NEEDLE, THE OCCIPITAL NERVES, BOTH THE GREATER AND THE LESSER WERE INJECTED AT THE RIGHT AND LEFT SIDE AT THE NUCHAL LINE, THE GREATER 1-INCH LATERAL OF MIDLINE AND THE LESSER 1-1/2 INCH LATERAL OF THE MIDLINE. I USED A TOTAL OF 10 ML OF BUPIVACAINE 0.25% WITH KENALOG 10 MG AT EACH NERVE. THERE WAS NO EVIDENCE OF BLOOD, PARESTHESIA OR CEREBROSPINAL FLUID DURING THE PROCEDURE. THE PATIENT WAS SENT TO THE RECOVERY ROOM. THE PATIENT WAS MOVING THE EXTREMITIES AND DOING WELL. THERE WAS NO COMPLICATION DURING THE PROCEDURE. POST PROCEDURE NOTE THE PATIENT WILL BE SEEN IN A FOLLOW UP IN THE NEXT FEW WEEKS. INSTRUCTIONS WERE GIVEN, QUESTIONS WERE ANSWERED, AND THE PATIENT EXPRESSED UNDERSTANDING AND AGREED WITH THE PLAN. I, TIAGO GUADARRAMA, DOCUMENTED THE ABOVE INFORMATION ACTING A SCRIBE FOR DR. DON. I HAVE REVIEWED THE ABOVE DOCUMENT, WRITTEN BY TIAGO GUADARRAMA SCRIBSerafin AND I VERIFY THAT IT IS ACCURATE PROCEDURE CODES 68594 N BLOCK INJ OCCIPITAL, MODIFIERS: 50 DISPOSITION & COMMUNICATION FOLLOW UP 3 WEEKS ELECTRONICALLY SIGNED BY MARY JANE DON MD, MD ON 07/03/2018 AT 06:57 PM EST DISCLAIMER : THIS IS A VISIT SUMMARY EXTRACTED FROM THE [facility] CHART. IT IS NOT A COPY OF THE [facility] PROGRESS NOTE. VARUN
== END ==
LOC: M PAIN 10:00
PROVIDERS: ATTEND Anesthesiology
DX: G89.29 Other chronic pain (principal); M54.81 Occipital neuralgia; E73.9 Lactose intolerance, unspecified; Z79.899 Other long term (current) drug therapy; Z88.1 Allergy status to other antibiotic agents; Z88.5 Allergy status to narcotic agent; Z88.8 Allergy status to other drugs, medicaments and biological substances; Z91.013 Allergy to seafood; Z86.59 Personal history of other mental and behavioral disorders; Z87.19 Personal history of other diseases of the digestive system
CPT/HCPCS: 64405; J3301

== ENCOUNTER → 2018-07-20 | Outpatient (CLI) | payer MEDICARE, MEDICAID ==
[~2018-07-20] MED LIST changes: -BUPIVACAINE HCL 0.25% 10 ML VIAL As Ordered ONE; -BUPIVACAINE HCL 0.25% 30 ML VIAL As Ordered ONE; -TRIAMCINOLONE ACETONIDE SUSP 40 MG/ML VIAL (J3301) As Ordered ONE
--- NOTE | 2018-08-05 00:24 | ECWPNPC ---
PATIENT NAME: BRIAN DAWSON : 1955 GENDER: FEMALE VISIT DATE: 07/20/2018 DISCHARGE DATE: 07/20/18 1233 VISIT LOCKED DATE TIME: PHYSICIAN: SUKHI GONZALES PHYSICIAN PAGER NO: [phone] RESOURCE: SUKHI GONZALES REASON FOR APPOINTMENT 1. POST PROC HISTORY OF PRESENT ILLNESS HISTORY OF PRESENT ILLNESS: HERE FOR POST PROCEDURE F/U.HAD BILAT.OCCIPITAL BLOCK ON 06-16-18.REPORTING GREATER THAN 50% IMPROVEMENT IN PAIN THAT CONTINUES TODAY.REPORTING A FALL 07/13 INJURING LOW BACK.FOLLOWING WITH DR. DYER ENCOURAGED CLOSE FOLLOW UP W PRIMARY CARE REGARDING THIS. PAIN THE PATIENT DESCRIBES THE PAIN... FALL RISK SCREENING: SCREENING :NO FALLS IN THE PAST YEAR CURRENT MEDICATIONS TAKING TOPAMAX 100 MG TABLET 1 TABLET ORALLY TWICE A DAY TAKING PREMARIN 0.625 MG/GM CREAM 1 VAGINAL TWICE A WEEK TAKING PANTOPRAZOLE SODIUM 40 MG TABLET DELAYED RELEASE 1 TABLET ORALLY ONCE A DAY TAKING SULFAMETHOXAZOLE-TRIMETHOPRIM 800-160 MG TABLET 1 TABLET ORALLY TWICE A DAY TAKING FLUTICASONE PROPIONATE 50 MCG/ACT SUSPENSION 1 SPRAY IN EACH NOSTRIL NASALLY ONCE A DAY MEDICATION LIST REVIEWED AND RECONCILED WITH THE PATIENT PAST MEDICAL HISTORY THYROID NODULE LARYNGEAL NODULE CANDIDIASIS/BV-FREQUENTLY BULIMIA NERVOSA/SCHOZOAFFECTIVE D/O ([facility], 2012) 04-05-2014 DISTAL FIBULA FRACTURE 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 NODE, NEGATIVE BX, 2018 ALLERGIES DOXYCYCLINE HYCLATE: PHOTODERMATITIS: ALLERGY LACTOSE INTOLERANT: DIARRHEA: ALLERGY DEMEROL: LOW BP: CONTRAINDICATION DARVOCET-N 100: LOW BP: CONTRAINDICATION AMOXICILLIN: SWELLING: ALLERGY SHELLFISH: HIVES: ALLERGY SURGICAL HISTORY NECK SURGERY X 2 LEFT KNEE SURGERY BUNIONECTOMY OBDULIO FEET HYSTERECTOMY ABDOMINAL LAPOROSCOPY ABD BEFORE HYSTERECTOMY LASER EYE SURGERY OBDULIO COLONOSCOPY 08/2013 STERIOD INJECTIONS TO NECK BY 02/2016 HERNIA REPAIR 03/2017 FAMILY HISTORY FATHER: 84 YRS, PANCREATIC CANCER, DIAGNOSED WITH CANCER MOTHER: ALIVE, HYPERLIPIDEMIA, DIAGNOSED WITH DIABETES, HYPERTENSION, HEART DISEASE, CANCER 1 BROTHER(S) , 4 SISTER(S) - HEALTHY. 1 SON(S) , 1 DAUGHTER(S) - HEALTHY. FATHER ALSO POSITIVE FOR COLON, PANCREATIC CANCERMOM--SKIN CABROTHER-MISISTER BACK PROBLEMSSISTER X 2 LUPUSDAUGHTER-BRITTLE DIABETIC. SOCIAL HISTORY GENERAL: TOBACCO USE ARE YOU A:FORMER SMOKER FORMER SMOKER HOW LONG HAS IT BEEN SINCE YOU LAST SMOKED?> 10 YEARS QUIT 2006 ADDITIONAL FINDINGS: TOBACCO USER NO ADDITIONAL FINDINGS: TOBACCO NON-USERCURRENT NON-SMOKER VAPORNO E-CIGARETTENO LUNG CANCER SCREENING SMOKING STATUS:FORMER SMOKER IS THE PATIENT BETWEEN THE AGE OF 57 AND 79?YES HAVE YOU QUIT SMOKING WITHIN THE PAST 15 YEARS?YES HAS THE PATIENT EVER BEEN DIAGNOSED WITH LUNG CANCER?NO BMI CARE GOAL FOLLOW-UP BELOW NORMAL BMI FOLLOW-UPDIETARY EDUCATION FOR WEIGHT GAIN ALCOHOL SCREENING DID YOU HAVE A DRINK CONTAINING ALCOHOL IN THE PAST YEAR?NO POINTS0 INTERPRETATIONNEGATIVE RECREATIONAL DRUG USE DRUG USE?NO DENIES 07/08/2018 CAFFEINE CAFFEINE USE?NO SEXUAL HX HAD SEX IN THE LAST 12 MONTHS (VAGINAL, ORAL, OR ANAL)?NO HAVE YOU EVER HAD AN STD?NO LMP:HYSTERECTOMY HIV / HEP-C SCREENING HIV TEST OFFERED TO PATIENT:YES DATE OFFERED:07/08/2018 TEST ACCEPTED:NO REASON:PATIENT DECLINED CONSENT ON FILE BROCHURE PROVIDED TO PATIENTNO HEP-C TEST OFFERED TO PATIENT:YES DATE OFFERED:07/08/2018 TEST ACCEPTED:YES CONSENT SIGNED CATHOLIC LUTHERAN. LANGUAGE [place]. EDUCATION SOME COLLEGE. LEARNING BARRIERS / SPECIAL NEEDS CHANGE FROM LAST VISIT?NO 07/08/2018 BARRIERS TO LEARNING?NO HEARING IMPAIRED?NO VISION IMPAIRED?YES :CORRECTIVE LENSES COGNITIVELY IMPAIRED?NO READINESS TO LEARN?YES LEARNING PREFERENCES?NO LEARNING CAPABILITIES PRESENT?YES EMOTIONAL BARRIERS?NO SPECIAL DEVICES?NO ATHLETIC EQUIPMENT CUSTODIAN NEEDED?NO DOMESTIC VIOLENCE NONE. 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 DIET: DIET ANGELA.. EXERCISE: DAILY-- ABLE. MARITAL STATUS: SINGLE, .. OTHERS AT HOME: LIVES ALONE. PAIN CLINIC PFS, CLERGY, PUBLIC HEALTH REFERRALS HAS THE PATIENT BEEN EDUCATED REGARDING HIS/HER PLAN OF CARE?YES HAS THE PATIENT BEEN EDUCATED REGARDING PAIN, THE RISK FOR PAIN, THE IMPORTANCE OF EFFECTIVE PAIN MANAGEMENT, AND THE PAIN ASSESSMENT PROCESS?YES HOUSING: RENTS APARTMENT. ADVANCE DIRECTIVE ADVANCE DIRECTIVE DISCUSSED WITH PATIENT:YES HCP - [facility] - SISTER [phone](C) [phone](W) ALSO HAS POA--SISTER-[facility]; LIVING WILL REVIEWED NL 05/12/18REVIEWED [facility] 07/20/18 1215. HOSPITALIZATION/MAJOR DIAGNOSTIC PROCEDURE EATING DISORDER 01/20/2013 SURGERY REVIEW OF SYSTEMS REVIEWED BY: PROVIDER: SUKHI ARIAS . CONSTITUTIONAL: ANY CHANGE IN YOUR MEDICAL CONDITION? NO . CHILLS NO . FEVER NO . INFECTION: DO YOU HAVE NEW INFECTIONS? NO . DO YOU HAVE HISTORY OF MRSA? NO . MUSCULOSKELETAL: ANY NEW PATTERNS OF PAIN OR NUMBNESS? NO . GASTROENTEROLOGY: ANY NEW CHANGE IN BOWEL CONTROL? NO . GENITOURINARY: ANY NEW CHANGE IN BLADDER CONTROL? NO . IS THERE A CHANCE YOU COULD BE ? NO . HEMATOLOGY/LYMPH: DO YOU TAKE ANY BLOOD THINNERS? (FOR EXAMPLE- COUMADIN, PLAVIX, AGGRENOX, PLATEL, PRADAXA, OR XARELTO) NO . WHEN WAS YOUR LAST DOSE? DATE: TIME: . NEUROLOGY: HAVE YOU FALLEN IN THE PAST 12 MONTHS? YES PT OUT CLEANING HER CAR 07/13, SLIPPED IN SNOW AND FELL ON HER BUTT, CAUGHT HERSELF WITH LEFT ARM. . ANY NEW EXTREMITY NUMBNESS OR WEAKNESS? YES FELL 07/13, STATES LEFT THIGH/BUTTOCKS/HIP WEAK, HAS ALWAYS BEEN WEAK, BUT WORSENED BY FALL. . CARDIOLOGY: DO YOU HAVE A PACEMAKER OR DEFIBRILLATOR? NO . RESPIRATORY: HAVE YOU BEEN SICK IN THE PAST WEEK? YES CHEST/HEAD COLD FOR THE LAST COUPLE OF WEEKS, SEEN BY HER PRIMARY, ON ANTIBIOTICS.. . FEVER NO . FLU LIKE SYMPTOMS? NO . COUGH NO . INTEGUMENTARY: DO YOU HAVE ANY RASHES OR OPEN SORES? NO . ALLERGIC/IMMUNO: ARE YOU ALLERGIC TO IV DYE? NO . ANY NEW ALLERGIES? NO . PSYCHIATRIC: DO YOU HAVE THOUGHTS OF HURTING YOURSELF OR SOMEONE ELSE? NO . ARE YOU ABUSED, NEGLECTED, OR IN AN UNSAFE ENVIRONMENT? NO . ENDOCRINOLOGY: ARE YOU DIABETIC? NO . OTHER: DO YOU NEED ANY PRESCRIPTIONS? NO . IF YES, PLEASE LIST: ____ . ANY NEW PROBLEMS WITH YOUR MEDICATIONS? NO . WHEN DID YOU LAST EAT? ____ . WHEN DID YOU LAST DRINK? ____ . WHAT DID YOU LAST DRINK? ____ . NAME OF PERSON DRIVING YOU HOME? ____ . DO YOU HAVE ANY OTHER QUESTIONS OR CONCERNS NO . VITAL SIGNS WT 102 LBS, HT 61 IN, BMI 19.27 INDEX, BP 115/69 MM HG, HR 84 /MIN, RR 18 /MIN, TEMP 96.0 F, OXYGEN SAT % 99%, SAFE IN ENV? (Y/N) YES, NA INITIALS AW 1153, REVIEWED BY: DEANDRE. EXAMINATION GENERAL EXAMINATION: GENERAL APPEARANCE:AWAKE,ALERT ,PLEAASANT . PSYCHAFFECT NORMAL . LUNGS:LUNG VAZ ARE CLEAR TO AUSCULTATION BILATERALLY. GOOD MOVEMENT OF AIR . HEART:S1, S2 IN A REGULAR RATE AND RHYTHM. NO SIGNIFICANT MURMURS, RUBS OR GALLOPS NOTED . 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 PROCEDURE CODES FA211 ESTABILISHED PATIENT [facility] CHARGE DISPOSITION & COMMUNICATION FOLLOW UP 2 MONTHS (REASON: NECK F/U) ELECTRONICALLY SIGNED BY HUGO NICOLE ON 08/04/2018 AT 01:18 PM EST DISCLAIMER : THIS IS A VISIT SUMMARY EXTRACTED FROM THE [employer] CHART. IT IS NOT A COPY OF THE [employer] PROGRESS NOTE. VARUN
== END ==
LOC: M PAIN 11:30
PROVIDERS: ATTEND Nurse Practitioner Family
DX: M46.92 Unspecified inflammatory spondylopathy, cervical region (principal); M79.18 Myalgia, other site; M54.2 Cervicalgia; E04.1 Nontoxic single thyroid nodule; F25.9 Schizoaffective disorder, unspecified; K90.0 Celiac disease; F50.2 Bulimia nervosa; Z87.891 Personal history of nicotine dependence; Z79.899 Other long term (current) drug therapy; Z88.0 Allergy status to penicillin; Z88.1 Allergy status to other antibiotic agents; Z88.8 Allergy status to other drugs, medicaments and biological substances; Z88.5 Allergy status to narcotic agent

== ENCOUNTER → 2018-08-04 | Outpatient (CLI) | payer MEDICARE, MEDICAID ==
--- NOTE | 2018-08-17 01:10 | ECWPNPC ---
PATIENT NAME: BRIAN DAWSON : 1955 GENDER: FEMALE VISIT DATE: 08/04/2018 DISCHARGE DATE: 08/04/18 1011 VISIT LOCKED DATE TIME: PHYSICIAN: SUKHI GONZALES PHYSICIAN PAGER NO: [phone] RESOURCE: SUKHI GONZALES REASON FOR APPOINTMENT 1. BACK PAIN- W/ SUKHI 30 MIN, NEW BODY PART HISTORY OF PRESENT ILLNESS HISTORY OF PRESENT ILLNESS: HERE FOR F/U OF CHRONIC LOW BACK PAIN AND LEFT LEG PAIN.PAIN BEGAN AFTER FALL INJURY June.IS ATTENDING PT AND DOING WELL.CHIEF AREA OF PAIN IS LEFT BUTTOCK. PAIN THE PATIENT DESCRIBES THE PAIN... FALL RISK SCREENING: SCREENING : NO FALLS IN THE PAST YEAR. CURRENT MEDICATIONS TAKING TOPAMAX 100 MG TABLET 1 TABLET ORALLY TWICE A DAY TAKING PREMARIN 0.625 MG/GM CREAM 1 VAGINAL TWICE A WEEK TAKING PANTOPRAZOLE SODIUM 40 MG TABLET DELAYED RELEASE 1 TABLET ORALLY ONCE A DAY TAKING FLUTICASONE PROPIONATE 50 MCG/ACT SUSPENSION 1 SPRAY IN EACH NOSTRIL NASALLY ONCE A DAY NOT-TAKING SULFAMETHOXAZOLE-TRIMETHOPRIM 800-160 MG TABLET 1 TABLET ORALLY TWICE A DAY MEDICATION LIST REVIEWED AND RECONCILED WITH THE PATIENT PAST MEDICAL HISTORY THYROID NODULE LARYNGEAL NODULE CANDIDIASIS/BV-FREQUENTLY BULIMIA NERVOSA/SCHOZOAFFECTIVE D/O ([facility], 2013) 04-05-2014 DISTAL FIBULA FRACTURE 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 NODE, NEGATIVE BX, 2018 ALLERGIES DOXYCYCLINE HYCLATE: PHOTODERMATITIS: ALLERGY LACTOSE INTOLERANT: DIARRHEA: ALLERGY DEMEROL: LOW BP: CONTRAINDICATION DARVOCET-N 100: LOW BP: CONTRAINDICATION AMOXICILLIN: SWELLING: ALLERGY SHELLFISH: HIVES: ALLERGY SURGICAL HISTORY NECK SURGERY X 2 LEFT KNEE SURGERY BUNIONECTOMY OBDULIO FEET HYSTERECTOMY ABDOMINAL LAPOROSCOPY ABD BEFORE HYSTERECTOMY LASER EYE SURGERY OBDULIO COLONOSCOPY 08/2013 STERIOD INJECTIONS TO NECK BY 02/2016 HERNIA REPAIR 03/2017 FAMILY HISTORY FATHER: 84 YRS, PANCREATIC CANCER, DIAGNOSED WITH CANCER MOTHER: ALIVE, HYPERLIPIDEMIA, DIAGNOSED WITH DIABETES, HYPERTENSION, HEART DISEASE, CANCER 1 BROTHER(S) , 4 SISTER(S) - HEALTHY. 1 SON(S) , 1 DAUGHTER(S) - HEALTHY. FATHER ALSO POSITIVE FOR COLON, PANCREATIC CANCERMOM--SKIN CABROTHER-MISISTER BACK PROBLEMSSISTER X 2 LUPUSDAUGHTER-BRITTLE DIABETIC. SOCIAL HISTORY REVIEWED NL 05/12/18REVIEWED LAS 07/20/18 1215. HOSPITALIZATION/MAJOR DIAGNOSTIC PROCEDURE EATING DISORDER 01/20/2013 SURGERY REVIEW OF SYSTEMS REVIEWED BY: PROVIDER: SUKHI ARIAS . CONSTITUTIONAL: ANY CHANGE IN YOUR MEDICAL CONDITION? NO . CHILLS NO . FEVER NO . INFECTION: DO YOU HAVE NEW INFECTIONS? YES, SINUSITIS RESOLVED . DO YOU HAVE HISTORY OF MRSA? NO . MUSCULOSKELETAL: ANY NEW PATTERNS OF PAIN OR NUMBNESS? YES, LOW BACK, BUTTOCKS, LEFT THIGH . GASTROENTEROLOGY: ANY NEW CHANGE IN BOWEL CONTROL? YES, FREQUENT BOWELS 5X/DAY X 1 1/2 MOS . GENITOURINARY: ANY NEW CHANGE IN BLADDER CONTROL? NO . IS THERE A CHANCE YOU COULD BE ? NO . HEMATOLOGY/LYMPH: DO YOU TAKE ANY BLOOD THINNERS? (FOR EXAMPLE- COUMADIN, PLAVIX, AGGRENOX, PLATEL, PRADAXA, OR XARELTO) NO . WHEN WAS YOUR LAST DOSE? DATE: TIME: . NEUROLOGY: HAVE YOU FALLEN IN THE PAST 12 MONTHS? YES, PRIOR TO LAST VISIT . ANY NEW EXTREMITY NUMBNESS OR WEAKNESS? YES, LEFT LEG . CARDIOLOGY: DO YOU HAVE A PACEMAKER OR DEFIBRILLATOR? NO . RESPIRATORY: HAVE YOU BEEN SICK IN THE PAST WEEK? NO . FEVER NO . FLU LIKE SYMPTOMS? NO . COUGH NO . INTEGUMENTARY: DO YOU HAVE ANY RASHES OR OPEN SORES? NO . ALLERGIC/IMMUNO: ARE YOU ALLERGIC TO IV DYE? NO . ANY NEW ALLERGIES? NO . PSYCHIATRIC: DO YOU HAVE THOUGHTS OF HURTING YOURSELF OR SOMEONE ELSE? NO . ARE YOU ABUSED, NEGLECTED, OR IN AN UNSAFE ENVIRONMENT? NO . ENDOCRINOLOGY: ARE YOU DIABETIC? NO . OTHER: DO YOU NEED ANY PRESCRIPTIONS? NO . IF YES, PLEASE LIST: ____ . ANY NEW PROBLEMS WITH YOUR MEDICATIONS? NO . WHEN DID YOU LAST EAT? ____ . WHEN DID YOU LAST DRINK? ____ . WHAT DID YOU LAST DRINK? ____ . NAME OF PERSON DRIVING YOU HOME? ____ . DO YOU HAVE ANY OTHER QUESTIONS OR CONCERNS NO . VITAL SIGNS WT 101.2 LBS, HT 61 IN, BMI 19.12 INDEX, BP 127/71 MM HG, HR 84 /MIN, RR 18 /MIN, TEMP 97.8 F, OXYGEN SAT % 99%, NA INITIALS SC 09:11, REVIEWED BY: EM. EXAMINATION GENERAL EXAMINATION: GENERAL APPEARANCE:ALERT,NO DISTRESS . PSYCHAFFECT NORMAL . LUNGS:LUNG SOUNDS ARE CLEAR . HEART:HEART RATE REGULAR . MUSCULOSKELETAL:MST 5/5 BILAT. LOWER EXTREMITIES . LUMBAR SACRAL SPINELEFT. SIJ TENDERNESS.POSITIVE SLE AT 45 DEGREES BILAT L>R. NEUROLOGIC EXAM:DTR'S-2/4 BILAT . DIAGNOSTIC TESTS REVIEWEDCT L/S [id number] . ASSESSMENTS SACROILIITIS - M46.1 (PRIMARY) TREATMENT SACROILIITIS NOTES: LEFT SIJ. PROCEDURE CODES FA211 ESTABILISHED PATIENT [facility] CHARGE DISPOSITION & COMMUNICATION FOLLOW UP POST (REASON: LEFT SIJ) ELECTRONICALLY SIGNED BY HUGO NICOLE ON 08/16/2018 AT 01:24 PM EST DISCLAIMER : THIS IS A VISIT SUMMARY EXTRACTED FROM THE [employer] CHART. IT IS NOT A COPY OF THE [employer] PROGRESS NOTE. VARUN
== END ==
LOC: M PAIN 09:15
PROVIDERS: ATTEND Nurse Practitioner Family
DX: M46.1 Sacroiliitis, not elsewhere classified (principal); G89.29 Other chronic pain; Z86.59 Personal history of other mental and behavioral disorders; Z87.19 Personal history of other diseases of the digestive system; Z88.1 Allergy status to other antibiotic agents; Z88.5 Allergy status to narcotic agent; Z88.8 Allergy status to other drugs, medicaments and biological substances; Z91.013 Allergy to seafood; Z91.011 Allergy to milk products; Z79.899 Other long term (current) drug therapy

== ENCOUNTER → 2018-08-12 | Outpatient (RCR) | payer MEDICARE, MEDICAID | LOC: M PT 07-27 11:59 | PROVIDERS: ATTEND Physician Assistant Medical | DX: Z51.89 Encounter for other specified aftercare (principal); M54.5 Low back pain ==

== ENCOUNTER → 2018-08-18 | Outpatient (CLI) | payer MEDICARE, MEDICAID ==
[~2018-08-18] MED LIST changes: +BUPIVACAINE HCL 0.25% 30 ML VIAL As Ordered ONE; +ISOVUE-M 300 61% 15ML VIAL (Q9967) As Ordered ONE; +LIDOCAINE 1% SDV INJ 30 ML VIAL As Ordered ONE; +TRIAMCINOLONE ACETONIDE SUSP 40 MG/ML VIAL (J3301) As Ordered ONE
--- NOTE | 2018-08-18 13:24 | REP ---
Partial SI joint series: Three views. History: Bilateral SI joint block for pain. 20 seconds of fluoroscopy time is reported. Findings: A sequence of three last image hold fluoroscopically obtained spot radiographs of the SI joints bilaterally document various needle positions associated with injection procedure. Electronically Signed by Melquiades Rain MD 08/18/2018 05:03 P
--- NOTE | 2018-08-29 00:24 | ECWPNPC ---
PATIENT NAME: BRIAN DAWSON : 1955 GENDER: FEMALE VISIT DATE: 08/18/2018 DISCHARGE DATE: 08/18/18 1228 VISIT LOCKED DATE TIME: PHYSICIAN: MARY JANE DON MD PHYSICIAN PAGER NO: [phone] RESOURCE: MARY JANE DON MD REASON FOR APPOINTMENT 1. BILAT SI HISTORY OF PRESENT ILLNESS HISTORY OF PRESENT ILLNESS: PAIN THE PATIENT DESCRIBES THE PAIN... FALL RISK SCREENING: SCREENING : NO FALLS IN THE PAST YEAR. CURRENT MEDICATIONS TAKING TOPAMAX 100 MG TABLET 1 TABLET ORALLY TWICE A DAY, NOTES: 08/18/18 0500 TAKING PREMARIN 0.625 MG/GM CREAM 1 VAGINAL TWICE A WEEK, NOTES: 08/15/18 TAKING PANTOPRAZOLE SODIUM 40 MG TABLET DELAYED RELEASE 1 TABLET ORALLY ONCE A DAY, NOTES: 08/18/18 050 TAKING FLUTICASONE PROPIONATE 50 MCG/ACT SUSPENSION 1 SPRAY IN EACH NOSTRIL NASALLY ONCE A DAY, NOTES: 08/18/18 050 NOT-TAKING SULFAMETHOXAZOLE-TRIMETHOPRIM 800-160 MG TABLET 1 TABLET ORALLY TWICE A DAY DISCONTINUED FLUCONAZOLE 150 MG TABLET 1 TABLET ORALLY ONCE, REPEAT IN 3 DAYS MEDICATION LIST REVIEWED AND RECONCILED WITH THE PATIENT PAST MEDICAL HISTORY THYROID NODULE LARYNGEAL NODULE CANDIDIASIS/BV-FREQUENTLY BULIMIA NERVOSA/SCHOZOAFFECTIVE D/O ([facility], 2013) 04-05-2014 DISTAL FIBULA FRACTURE 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 NODE, NEGATIVE BX, 2018 ALLERGIES DOXYCYCLINE HYCLATE: PHOTODERMATITIS: ALLERGY LACTOSE INTOLERANT: DIARRHEA: ALLERGY DEMEROL: LOW BP: CONTRAINDICATION DARVOCET-N 100: LOW BP: CONTRAINDICATION AMOXICILLIN: SWELLING: ALLERGY SHELLFISH: HIVES: ALLERGY SURGICAL HISTORY NECK SURGERY X 2 LEFT KNEE SURGERY BUNIONECTOMY OBDULIO FEET HYSTERECTOMY ABDOMINAL LAPOROSCOPY ABD BEFORE HYSTERECTOMY LASER EYE SURGERY OBDULIO COLONOSCOPY 08/2013 STERIOD INJECTIONS TO NECK BY 02/2016 HERNIA REPAIR 03/2017 FAMILY HISTORY FATHER: 84 YRS, PANCREATIC CANCER, DIAGNOSED WITH CANCER MOTHER: ALIVE, HYPERLIPIDEMIA, DIAGNOSED WITH DIABETES, HYPERTENSION, HEART DISEASE, CANCER 1 BROTHER(S) , 4 SISTER(S) - HEALTHY. 1 SON(S) , 1 DAUGHTER(S) - HEALTHY. FATHER ALSO POSITIVE FOR COLON, PANCREATIC CANCERMOM--SKIN CABROTHER-MISISTER BACK PROBLEMSSISTER X 2 LUPUSDAUGHTER-BRITTLE DIABETIC. SOCIAL HISTORY GENERAL: TOBACCO USE ARE YOU A:FORMER SMOKER FORMER SMOKER HOW LONG HAS IT BEEN SINCE YOU LAST SMOKED?> 10 YEARS QUIT 2006 ADDITIONAL FINDINGS: TOBACCO USER NO ADDITIONAL FINDINGS: TOBACCO NON-USERCURRENT NON-SMOKER VAPORNO E-CIGARETTENO LATEX QUESTIONNAIRE LATEX ALLERGY : HAVE YOU EVER DEVELOPED ANY TYPE OF REACTION AFTER HANDLING LATEX PRODUCTS SUCH RUBBER GLOVES, CONDOMS, DIAPHRAGMS, BALLOONS, SOCKS, OR UNDERWEAR?NO LATEX ALLERGY : HAVE YOU EVER DEVELOPED ANY TYPE OF REACTION DURING OR AFTER DENTAL APPOINTMENT, VAGINAL/RECTAL EXAMINATION, SURGICAL PROCEDURE, OR ANY OTHER EXPOSURE?NO LATEX RISK : HAVE YOU EVER HAD ANY DIFFICULTY BREATHING OR HIVES AFTER EATING OR HANDLING ANY FRUITS, OR VEGETABLES; SUCH KIWI, BANANAS, STONE FRUITS, OR CHESTNUTSNO LATEX RISK : DO YOU HAVE A PREVIOUS PERSONAL HISTORY OF MORE THAN NINE SURGERIES, SPINA BIFIDA, OR REPEATED CATHERTIZATIONS? NO LATEX RISK : ARE YOU FREQUENTLY EXPOSED TO LATEX PRODUCTS IN YOUR OCCUPATION?NO DATE ASKED : 08/18/2018 LUNG CANCER SCREENING SMOKING STATUS:FORMER SMOKER IS THE PATIENT BETWEEN THE AGE OF 57 AND 79?YES HAVE YOU QUIT SMOKING WITHIN THE PAST 15 YEARS?YES HAS THE PATIENT EVER BEEN DIAGNOSED WITH LUNG CANCER?NO BMI CARE GOAL FOLLOW-UP BELOW NORMAL BMI FOLLOW-UPDIETARY EDUCATION FOR WEIGHT GAIN ALCOHOL SCREENING DID YOU HAVE A DRINK CONTAINING ALCOHOL IN THE PAST YEAR?NO POINTS0 INTERPRETATIONNEGATIVE RECREATIONAL DRUG USE DRUG USE?NO DENIES 07/08/2018 CAFFEINE CAFFEINE USE?NO SEXUAL HX HAD SEX IN THE LAST 12 MONTHS (VAGINAL, ORAL, OR ANAL)?NO HAVE YOU EVER HAD AN STD?NO LMP:HYSTERECTOMY HIV / HEP-C SCREENING HIV TEST OFFERED TO PATIENT:YES DATE OFFERED:07/08/2018 TEST ACCEPTED:NO REASON:PATIENT DECLINED CONSENT ON FILE BROCHURE PROVIDED TO PATIENTNO HEP-C TEST OFFERED TO PATIENT:YES DATE OFFERED:07/08/2018 TEST ACCEPTED:YES CONSENT SIGNED MANDAEN GNOSTICIST. LANGUAGE SIERRA LEONEAN. EDUCATION SOME COLLEGE. LEARNING BARRIERS / SPECIAL NEEDS CHANGE FROM LAST VISIT?NO 07/08/2018 BARRIERS TO LEARNING?NO HEARING IMPAIRED?NO VISION IMPAIRED?YES :CORRECTIVE LENSES COGNITIVELY IMPAIRED?NO READINESS TO LEARN?YES LEARNING PREFERENCES?NO LEARNING CAPABILITIES PRESENT?YES EMOTIONAL BARRIERS?NO SPECIAL DEVICES?NO SUPERVISOR VACUUM METALIZING NEEDED?NO DOMESTIC VIOLENCE NONE. 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 DIET: DIET ANGELA.. EXERCISE: DAILY-- ABLE. MARITAL STATUS: SINGLE, .. OTHERS AT HOME: LIVES ALONE. PAIN CLINIC PFS, CLERGY, PUBLIC HEALTH REFERRALS HAS THE PATIENT BEEN EDUCATED REGARDING HIS/HER PLAN OF CARE?YES HAS THE PATIENT BEEN EDUCATED REGARDING PAIN, THE RISK FOR PAIN, THE IMPORTANCE OF EFFECTIVE PAIN MANAGEMENT, AND THE PAIN ASSESSMENT PROCESS?YES HOUSING: RENTS APARTMENT. ADVANCE DIRECTIVE ADVANCE DIRECTIVE DISCUSSED WITH PATIENT:YES HCP - MU LEACH - SISTER [phone](C) [phone](W) ALSO HAS POA--SISTER-MU LEACH; LIVING WILL REVIEWED NL 05/12/18REVIEWED LAS 07/20/18 1215REVIEWED WITH PT 08/18/18 1113 BV. HOSPITALIZATION/MAJOR DIAGNOSTIC PROCEDURE EATING DISORDER 01/20/2013 SURGERY REVIEW OF SYSTEMS REVIEWED BY: PROVIDER: . CONSTITUTIONAL: ANY CHANGE IN YOUR MEDICAL CONDITION? NO . CHILLS NO . FEVER NO . INFECTION: DO YOU HAVE NEW INFECTIONS? NO . DO YOU HAVE HISTORY OF MRSA? NO . MUSCULOSKELETAL: ANY NEW PATTERNS OF PAIN OR NUMBNESS? NO . GASTROENTEROLOGY: ANY NEW CHANGE IN BOWEL CONTROL? NO . GENITOURINARY: ANY NEW CHANGE IN BLADDER CONTROL? NO . IS THERE A CHANCE YOU COULD BE ? NO . HEMATOLOGY/LYMPH: DO YOU TAKE ANY BLOOD THINNERS? (FOR EXAMPLE- COUMADIN, PLAVIX, AGGRENOX, PLATEL, PRADAXA, OR XARELTO) NO . WHEN WAS YOUR LAST DOSE? DATE: TIME: . NEUROLOGY: HAVE YOU FALLEN IN THE PAST 12 MONTHS? PT HAD A FALL IN JUNE, DUE TO LEGS GIVING OUT. PT WAS TREATED AT HOSPITAL AND MRI DONE. PT CURRENTLY GOING TO PHYSICAL THERAPY. . ANY NEW EXTREMITY NUMBNESS OR WEAKNESS? NO . CARDIOLOGY: DO YOU HAVE A PACEMAKER OR DEFIBRILLATOR? NO . RESPIRATORY: HAVE YOU BEEN SICK IN THE PAST WEEK? NO . FEVER NO . FLU LIKE SYMPTOMS? NO . COUGH NO . INTEGUMENTARY: DO YOU HAVE ANY RASHES OR OPEN SORES? NO . ALLERGIC/IMMUNO: ARE YOU ALLERGIC TO IV DYE? NO . ANY NEW ALLERGIES? NO . PSYCHIATRIC: DO YOU HAVE THOUGHTS OF HURTING YOURSELF OR SOMEONE ELSE? NO . ARE YOU ABUSED, NEGLECTED, OR IN AN UNSAFE ENVIRONMENT? NO . ENDOCRINOLOGY: ARE YOU DIABETIC? NO . OTHER: DO YOU NEED ANY PRESCRIPTIONS? NO . IF YES, PLEASE LIST: ____ . ANY NEW PROBLEMS WITH YOUR MEDICATIONS? NO . WHEN DID YOU LAST EAT? 08/18/18 0500 . WHEN DID YOU LAST DRINK? 08/18/18 0700 . WHAT DID YOU LAST DRINK? WATER . NAME OF PERSON DRIVING YOU HOME? GLORIA . DO YOU HAVE ANY OTHER QUESTIONS OR CONCERNS NO . VITAL SIGNS WT 100.2 LBS, HT 61 IN, BMI 18.93 INDEX, BP 114/74 MM HG, HR 100 /MIN, RR 18 /MIN, TEMP 97.3 F, OXYGEN SAT % 99%, NA INITIALS AW 1044, REVIEWED BY: BV. ASSESSMENTS SACROILIITIS - M46.1 (PRIMARY) TREATMENT SACROILIITIS [facility] FLUORO GUIDANCE (PAIN)[id number] PROCEDURES PN SI PRE PROCEDURE DIAGNOSIS SACROILIITIS, SACROILIAC JOINT DYSFUNCTION POST PROCEDURE DIAGNOSIS SACROILIITIS, SACROILIAC JOINT DYSFUNCTION PROCEDURE BILATERAL SACROILIAC JOINT BLOCK SURGEON DR. MARY JANE DON MEDICAL REVIEW SPECIALIST NONE ANESTHESIA LOCAL PRE PROCEDURE NOTE PATIENT WITH HISTORY OF CHRONIC LOW BACK PAIN. I EVALUATED THE PATIENT AND REVIEWED THE CHART. I WENT OVER THE RISKS, ALTERNATIVES, AND BENEFITS ASSOCIATED WITH THIS PROCEDURE. THE PATIENT WOULD LIKE TO PROCEED AND GAVE CONSENT TO PERFORM THE PROCEDURE. THE PATIENT DENIES UNEXPLAINABLE WEIGHT LOSS, FEVER, CHILLS, OR NEW CHANGES IN URINARY OR BOWEL CONTROL DESCRIPTION OF PROCEDURE THE PATIENT WAS BROUGHT TO THE PROCEDURE ROOM AND PLACED IN THE PRONE POSITION. THE LUMBOSACRAL AREA WAS CLEANED WITH CHLORAPREP SOLUTION AND DRAPED ASEPTICALLY. THE PROCEDURE WAS DONE UNDER STERILE CONDITIONS. I CHECKED LATERALITY AND THE LEVEL WHERE THE PROCEDURE WAS GOING TO BE PERFORMED WITH THE PATIENT AND THE SUPPORTING STAFF AT THE MOMENT OF THE TIME OUT IN THE PROCEDURE ROOM. UNDER FLUOROSCOPIC GUIDANCE, TARGET POINT WAS SELECTED AT THE LOWER BORDER OF THE RIGHT AND LEFT SACROILIAC JOINT. TARGET POINT WAS SELECTED AFTER MEDIAL ROTATION AND TILT OF THE MAGNIFIER OF THE C-ARM. LIDOCAINE WAS USED TO NUMB THE SKIN AND SUBCUTANEOUS TISSUE BELOW IT. A SPINAL NEEDLE, 22-GAUGE, WAS ADVANCED UNDER FLUOROSCOPIC GUIDANCE AND FOLLOWING PATIENT FEEDBACK UNTIL THE TARGET AREA WAS TOUCHED. THE POSITION OF THE NEEDLE WAS VERIFIED WITH AP AND LATERAL VIEWS. AFTER PROPER POSITION OF THE NEEDLE WAS ACHIEVED, ISOVUE M DYE 30%, 0.25 ML, WAS INJECTED SHOWING SPREAD OF THE DYE. THEN, A SOLUTION OF 20 MG OF KENALOG WAS INJECTED IN RIGHT AND LEFT JOINT WITH 3 ML OF BUPIVACAINE 0.125%. THERE WAS NO EVIDENCE OF BLOOD, PARESTHESIA OR CEREBROSPINAL FLUID DURING THE PROCEDURE. THE PATIENT WAS SENT TO THE RECOVERY ROOM. THE PATIENT WAS MOVING THE EXTREMITIES AND DOING WELL. THERE WAS NO COMPLICATION DURING THE PROCEDURE. FLUOROSCOPY TIME WAS 20 SECONDS POST PROCEDURE NOTE THE PATIENT WILL BE SEEN IN A FOLLOW UP IN THE NEXT FEW WEEKS. INSTRUCTIONS WERE GIVEN, QUESTIONS WERE ANSWERED, AND THE PATIENT EXPRESSED UNDERSTANDING AND AGREED WITH THE PLAN. I, ERICK JESSICA, DOCUMENTED THE ABOVE INFORMATION ACTING A SCRIBE FOR DR. DON. I HAVE REVIEWED THE ABOVE DOCUMENT, WRITTEN BY ERICK FISHER AND I VERIFY THAT IT IS ACCURATE. PROCEDURE CODES 6045F RADXPS IN END [id number] PXD [id number] INJECT SACROILIAC JOINT, MODIFIERS: 50 DISPOSITION & COMMUNICATION FOLLOW UP 3 WEEKS ELECTRONICALLY SIGNED BY MARY JANE DON MD, MD ON 08/28/2018 AT 07:52 PM EDT DISCLAIMER : THIS IS A VISIT SUMMARY EXTRACTED FROM THE [employer] CHART. IT IS NOT A COPY OF THE [employer] PROGRESS NOTE. MTDD
== END ==
LOC: M PAIN 11:00
PROVIDERS: ATTEND Anesthesiology
DX: G89.29 Other chronic pain (principal); M46.1 Sacroiliitis, not elsewhere classified; M53.88 Other specified dorsopathies, sacral and sacrococcygeal region; Z79.899 Other long term (current) drug therapy; Z88.1 Allergy status to other antibiotic agents; Z88.5 Allergy status to narcotic agent; Z88.8 Allergy status to other drugs, medicaments and biological substances; Z91.013 Allergy to seafood; Z87.19 Personal history of other diseases of the digestive system; Z86.59 Personal history of other mental and behavioral disorders; Z87.891 Personal history of nicotine dependence
CPT/HCPCS: G0260; J3301; Q9967

== ENCOUNTER 2018-09-09 07:00 | Outpatient (RCR) | payer MEDICARE, MEDICAID ==
[~2018-09-09 07:00] MED LIST changes: -BUPIVACAINE HCL 0.25% 30 ML VIAL As Ordered ONE; -ISOVUE-M 300 61% 15ML VIAL (Q9967) As Ordered ONE; -LIDOCAINE 1% SDV INJ 30 ML VIAL As Ordered ONE; -TRIAMCINOLONE ACETONIDE SUSP 40 MG/ML VIAL (J3301) As Ordered ONE
== END 2018-09-12 ==
LOC: M PT 07:00
PROVIDERS: ATTEND Physician Assistant Medical
DX: Z51.89 Encounter for other specified aftercare (principal); M54.5 Low back pain

== ENCOUNTER → 2018-09-17 | Outpatient (CLI) | payer MEDICARE, MEDICAID ==
[~2018-09-17] MED LIST changes: +HYDR-3715 PO; -NORCOTAB PO
--- NOTE | 2018-10-07 01:17 | ECWPNPC ---
PATIENT NAME: BRIAN DAWSON : 1955 GENDER: FEMALE VISIT DATE: 09/17/2018 DISCHARGE DATE: 09/17/18 1119 VISIT LOCKED DATE TIME: PHYSICIAN: SUKHI GONZALES PHYSICIAN PAGER NO: [phone] RESOURCE: SUKHI GONZALES REASON FOR APPOINTMENT 1. NECK 2 MONTHS HISTORY OF PRESENT ILLNESS HISTORY OF PRESENT ILLNESS: HERE FOR POST PROCEDURE F/U.HAD BILAT. SIJ ON 08/18/18.DOING VERY WELL POST PROCEDURE.CONTINUES WITH PT.CHIEF AREA OF PAIN IS LEFT NECK AND OCCIPITAL PAIN THAT CAUSES TEMPORAL/OCCIPITAL HEADACHE. PAIN THE PATIENT DESCRIBES THE PAIN... FALL RISK SCREENING: SCREENING :NO FALLS REPORTED IN THE LAST YEAR CURRENT MEDICATIONS TAKING TOPAMAX 100 MG TABLET 1 TABLET ORALLY TWICE A DAY, NOTES: 08/18/18 0500 TAKING PREMARIN 0.625 MG/GM CREAM 1 VAGINAL TWICE A WEEK, NOTES: 08/15/18 TAKING PANTOPRAZOLE SODIUM 40 MG TABLET DELAYED RELEASE 1 TABLET ORALLY ONCE A DAY, NOTES: 08/18/18 050 TAKING FLUTICASONE PROPIONATE 50 MCG/ACT SUSPENSION 1 SPRAY IN EACH NOSTRIL NASALLY ONCE A DAY, NOTES: 08/18/18 0500 TAKING PROBIOTIC ACIDOPHILUS - TABLET DIRECTED ORALLY NOT-TAKING LEVOFLOXACIN 500 MG TABLET 1 TABLET ORALLY ONCE A DAY NOT-TAKING SULFAMETHOXAZOLE-TRIMETHOPRIM 800-160 MG TABLET 1 TABLET ORALLY TWICE A DAY MEDICATION LIST REVIEWED AND RECONCILED WITH THE PATIENT PAST MEDICAL HISTORY THYROID NODULE LARYNGEAL NODULE CANDIDIASIS/BV-FREQUENTLY BULIMIA NERVOSA/SCHOZOAFFECTIVE D/O ([facility], 2012) 04-05-2014 DISTAL FIBULA FRACTURE 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 NODE, NEGATIVE BX, 2018 ALLERGIES DOXYCYCLINE HYCLATE: PHOTODERMATITIS - ALLERGY LACTOSE INTOLERANT: DIARRHEA - ALLERGY DEMEROL: LOW BP - CONTRAINDICATION DARVOCET-N 100: LOW BP - CONTRAINDICATION AMOXICILLIN: SWELLING - ALLERGY SHELLFISH: HIVES - ALLERGY GLUTEN SURGICAL HISTORY NECK SURGERY X 2 LEFT KNEE SURGERY BUNIONECTOMY OBDULIO FEET HYSTERECTOMY ABDOMINAL LAPOROSCOPY ABD BEFORE HYSTERECTOMY LASER EYE SURGERY OBDULIO COLONOSCOPY 08/2013 STERIOD INJECTIONS TO NECK BY 02/2016 HERNIA REPAIR 03/2017 SKIN CANCER LESION REMOVED 2018 FAMILY HISTORY FATHER: 84 YRS, PANCREATIC CANCER, DIAGNOSED WITH CANCER MOTHER: ALIVE, HYPERLIPIDEMIA, CANCER, DIABETES, HYPERTENSION, HEART DISEASE 1 BROTHER(S) , 4 SISTER(S) - HEALTHY. 1 SON(S) , 1 DAUGHTER(S) - HEALTHY. FATHER ALSO POSITIVE FOR COLON, PANCREATIC CANCER\\NMOM--SKIN CA\\NBROTHER-LA\\NSISTER BACK PROBLEMS\\NSISTER X 2 LUPUS\\NDAUGHTER-BRITTLE DIABETIC\\N\N\NFATHER OF PANCREATIC CANCER, MOTHER AND SISTER HAD SKIN CANCER, UNKNOWN IF IT WAS MELANOMA. SOCIAL HISTORY GENERAL: TOBACCO USE ARE YOU A:FORMER SMOKER FORMER SMOKER HOW LONG HAS IT BEEN SINCE YOU LAST SMOKED?> 10 YEARS QUIT 2006 ADDITIONAL FINDINGS: TOBACCO USER NO ADDITIONAL FINDINGS: TOBACCO NON-USERCURRENT NON-SMOKER VAPORNO E-CIGARETTENO LATEX QUESTIONNAIRE LATEX ALLERGY : HAVE YOU EVER DEVELOPED ANY TYPE OF REACTION AFTER HANDLING LATEX PRODUCTS SUCH RUBBER GLOVES, CONDOMS, DIAPHRAGMS, BALLOONS, SOCKS, OR UNDERWEAR?NO LATEX ALLERGY : HAVE YOU EVER DEVELOPED ANY TYPE OF REACTION DURING OR AFTER DENTAL APPOINTMENT, VAGINAL/RECTAL EXAMINATION, SURGICAL PROCEDURE, OR ANY OTHER EXPOSURE?NO LATEX RISK : HAVE YOU EVER HAD ANY DIFFICULTY BREATHING OR HIVES AFTER EATING OR HANDLING ANY FRUITS, OR VEGETABLES; SUCH KIWI, BANANAS, STONE FRUITS, OR CHESTNUTSNO LATEX RISK : DO YOU HAVE A PREVIOUS PERSONAL HISTORY OF MORE THAN NINE SURGERIES, SPINA BIFIDA, OR REPEATED CATHERTIZATIONS? NO LATEX RISK : ARE YOU FREQUENTLY EXPOSED TO LATEX PRODUCTS IN YOUR OCCUPATION?NO DATE ASKED : 08/18/2018 LUNG CANCER SCREENING SMOKING STATUS:FORMER SMOKER IS THE PATIENT BETWEEN THE AGE OF 57 AND 79?YES HAVE YOU QUIT SMOKING WITHIN THE PAST 15 YEARS?YES HAS THE PATIENT EVER BEEN DIAGNOSED WITH LUNG CANCER?NO BMI CARE GOAL FOLLOW-UP BELOW NORMAL BMI FOLLOW-UPDIETARY EDUCATION FOR WEIGHT GAIN ALCOHOL SCREENING DID YOU HAVE A DRINK CONTAINING ALCOHOL IN THE PAST YEAR?NO POINTS0 INTERPRETATIONNEGATIVE RECREATIONAL DRUG USE DRUG USE?NO DENIES 07/08/2018 CAFFEINE CAFFEINE USE?NO SEXUAL HX HAD SEX IN THE LAST 12 MONTHS (VAGINAL, ORAL, OR ANAL)?NO HAVE YOU EVER HAD AN STD?NO LMP:HYSTERECTOMY HIV / HEP-C SCREENING HIV TEST OFFERED TO PATIENT:YES DATE OFFERED:07/08/2018 TEST ACCEPTED:NO REASON:PATIENT DECLINED CONSENT ON FILE BROCHURE PROVIDED TO PATIENTNO HEP-C TEST OFFERED TO PATIENT:YES DATE OFFERED:07/08/2018 TEST ACCEPTED:YES CONSENT SIGNED BUDDHIST BAPTISM. LANGUAGE SERBIAN. EDUCATION SOME COLLEGE. LEARNING BARRIERS / SPECIAL NEEDS CHANGE FROM LAST VISIT?NO 07/08/2018 BARRIERS TO LEARNING?NO HEARING IMPAIRED?NO VISION IMPAIRED?YES :CORRECTIVE LENSES COGNITIVELY IMPAIRED?NO READINESS TO LEARN?YES LEARNING PREFERENCES?NO LEARNING CAPABILITIES PRESENT?YES EMOTIONAL BARRIERS?NO SPECIAL DEVICES?NO DIVE SUPERINTENDENT NEEDED?NO DOMESTIC VIOLENCE NONE. 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 DIET: DIET ANGELA.. EXERCISE: DAILY-- ABLE. MARITAL STATUS: SINGLE, .. OTHERS AT HOME: LIVES ALONE. PAIN CLINIC PFS, CLERGY, PUBLIC HEALTH REFERRALS HAS THE PATIENT BEEN EDUCATED REGARDING HIS/HER PLAN OF CARE?YES HAS THE PATIENT BEEN EDUCATED REGARDING PAIN, THE RISK FOR PAIN, THE IMPORTANCE OF EFFECTIVE PAIN MANAGEMENT, AND THE PAIN ASSESSMENT PROCESS?YES HOUSING: RENTS APARTMENT. ADVANCE DIRECTIVE ADVANCE DIRECTIVE DISCUSSED WITH PATIENT:YES HCP - MU LEACH - SISTER [phone](C) [phone](W) ALSO HAS POA--SISTER-MU LEACH; LIVING WILL REVIEWED NL 05/12/18REVIEWED LAS 07/20/18 1215REVIEWED WITH PT 08/18/18 1113 BVREVIEWED WITH PT 09/17/18 1035 LAS. HOSPITALIZATION/MAJOR DIAGNOSTIC PROCEDURE EATING DISORDER 01/20/2013 SURGERY REVIEW OF SYSTEMS REVIEWED BY: PROVIDER: SUKHI ARIAS . CONSTITUTIONAL: ANY CHANGE IN YOUR MEDICAL CONDITION? NO . CHILLS NO . FEVER NO . INFECTION: DO YOU HAVE NEW INFECTIONS? NO . DO YOU HAVE HISTORY OF MRSA? NO . MUSCULOSKELETAL: ANY NEW PATTERNS OF PAIN OR NUMBNESS? NO . GASTROENTEROLOGY: ANY NEW CHANGE IN BOWEL CONTROL? NO . GENITOURINARY: ANY NEW CHANGE IN BLADDER CONTROL? NO . IS THERE A CHANCE YOU COULD BE ? NO . HEMATOLOGY/LYMPH: DO YOU TAKE ANY BLOOD THINNERS? (FOR EXAMPLE- COUMADIN, PLAVIX, AGGRENOX, PLATEL, PRADAXA, OR XARELTO) NO . WHEN WAS YOUR LAST DOSE? DATE: TIME: . NEUROLOGY: HAVE YOU FALLEN IN THE PAST 12 MONTHS? NO . ANY NEW EXTREMITY NUMBNESS OR WEAKNESS? NO . CARDIOLOGY: DO YOU HAVE A PACEMAKER OR DEFIBRILLATOR? NO . RESPIRATORY: HAVE YOU BEEN SICK IN THE PAST WEEK? NO . FEVER NO . FLU LIKE SYMPTOMS? NO . COUGH NO . INTEGUMENTARY: DO YOU HAVE ANY RASHES OR OPEN SORES? NO . ALLERGIC/IMMUNO: ARE YOU ALLERGIC TO IV DYE? NO . ANY NEW ALLERGIES? NO . PSYCHIATRIC: DO YOU HAVE THOUGHTS OF HURTING YOURSELF OR SOMEONE ELSE? NO . ARE YOU ABUSED, NEGLECTED, OR IN AN UNSAFE ENVIRONMENT? NO . ENDOCRINOLOGY: ARE YOU DIABETIC? NO . OTHER: DO YOU NEED ANY PRESCRIPTIONS? NO . IF YES, PLEASE LIST: ____ . ANY NEW PROBLEMS WITH YOUR MEDICATIONS? NO . WHEN DID YOU LAST EAT? ____ . WHEN DID YOU LAST DRINK? ____ . WHAT DID YOU LAST DRINK? ____ . NAME OF PERSON DRIVING YOU HOME? ____ . DO YOU HAVE ANY OTHER QUESTIONS OR CONCERNS NO . VITAL SIGNS WT 97.0 LBS, HT 61 IN, BMI 18.33 INDEX, BP 107/65 MM HG, HR 78 /MIN, RR 18 /MIN, TEMP 98.1 F, OXYGEN SAT % 98%, SAFE IN ENV? (Y/N) YES, NA INITIALS AW [id number], REVIEWED BY: DEANDRE. EXAMINATION GENERAL EXAMINATION: GENERAL APPEARANCE:ALERT,NO DISTRESS . LUNGS:LUNG VAZ ARE CLEAR TO AUSCULTATION BILATERALLY. GOOD MOVEMENT OF AIR . HEART:S1, S2 IN A REGULAR RATE AND RHYTHM. NO SIGNIFICANT MURMURS, RUBS OR GALLOPS NOTED . CERVICALTENDER WIH PALPATION OVER OCCIPITAL NERVE ROUTES BILAT. DIAGNOSTIC TESTS REVIEWEDMRI CERVICAL [id number]. 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 OCCIPITAL NERVE BLOCK . PROCEDURE CODES [id number] ESTABILISHED PATIENT [facility] FACILITY CHARGE DISPOSITION & COMMUNICATION FOLLOW UP POST (REASON: BILAT. OCCIPITAL NERVE BLOCK) ELECTRONICALLY SIGNED BY HUGO NICOLE ON 10/04/2018 AT 05:28 PM EDT DISCLAIMER : THIS IS A VISIT SUMMARY EXTRACTED FROM THE [facility] CHART. IT IS NOT A COPY OF THE [email or web address] PROGRESS NOTE. VARUN
== END ==
LOC: M PAIN 10:00
PROVIDERS: ATTEND Nurse Practitioner Family
DX: M54.81 Occipital neuralgia (principal); M54.2 Cervicalgia; Z87.891 Personal history of nicotine dependence; Z88.1 Allergy status to other antibiotic agents; Z91.011 Allergy to milk products; Z88.5 Allergy status to narcotic agent; Z91.013 Allergy to seafood; Z91.018 Allergy to other foods; Z79.899 Other long term (current) drug therapy

== ENCOUNTER → 2018-09-22 | Outpatient (CLI) | payer MEDICARE, MEDICAID ==
[~2018-09-22] MED LIST changes: +BUPIVACAINE HCL 0.25% 10 ML VIAL As Ordered ONE; +BUPIVACAINE HCL 0.25% 30 ML VIAL As Ordered ONE; +TRIAMCINOLONE ACETONIDE SUSP 40 MG/ML VIAL (J3301) As Ordered ONE
--- NOTE | 2018-10-11 00:20 | ECWPNPC ---
PATIENT NAME: BRIAN DAWSON : 1955 GENDER: FEMALE VISIT DATE: 09/22/2018 DISCHARGE DATE: 09/22/18 1128 VISIT LOCKED DATE TIME: PHYSICIAN: MARY JANE DON MD PHYSICIAN PAGER NO: [phone] RESOURCE: MARY JANE DON MD REASON FOR APPOINTMENT 1. OCCIPITAL FB HISTORY OF PRESENT ILLNESS HISTORY OF PRESENT ILLNESS: PAIN THE PATIENT DESCRIBES THE PAIN... FALL RISK SCREENING: SCREENING :NO FALLS REPORTED IN THE LAST YEAR CURRENT MEDICATIONS TAKING TOPAMAX 100 MG TABLET 1 TABLET ORALLY TWICE A DAY, NOTES: 09/22/18 0600 TAKING PREMARIN 0.625 MG/GM CREAM 1 VAGINAL TWICE A WEEK, NOTES: 09/22/18 TAKING PANTOPRAZOLE SODIUM 40 MG TABLET DELAYED RELEASE 1 TABLET ORALLY ONCE A DAY, NOTES: 09/21/18 TAKING FLUTICASONE PROPIONATE 50 MCG/ACT SUSPENSION 1 SPRAY IN EACH NOSTRIL NASALLY ONCE A DAY, NOTES: 09/21/18 TAKING PROBIOTIC ACIDOPHILUS - TABLET DIRECTED ORALLY , NOTES: 09/21/18 NOT-TAKING LEVOFLOXACIN 500 MG TABLET 1 TABLET ORALLY ONCE A DAY NOT-TAKING SULFAMETHOXAZOLE-TRIMETHOPRIM 800-160 MG TABLET 1 TABLET ORALLY TWICE A DAY MEDICATION LIST REVIEWED AND RECONCILED WITH THE PATIENT PAST MEDICAL HISTORY THYROID NODULE LARYNGEAL NODULE CANDIDIASIS/BV-FREQUENTLY BULIMIA NERVOSA/SCHOZOAFFECTIVE D/O ([facility], 2013) 04-05-2014 DISTAL FIBULA FRACTURE 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 NODE, NEGATIVE BX, 2018 ALLERGIES DOXYCYCLINE HYCLATE: PHOTODERMATITIS - ALLERGY LACTOSE INTOLERANT: DIARRHEA - ALLERGY DEMEROL: LOW BP - CONTRAINDICATION DARVOCET-N 100: LOW BP - CONTRAINDICATION AMOXICILLIN: SWELLING - ALLERGY SHELLFISH: HIVES - ALLERGY GLUTEN SURGICAL HISTORY NECK SURGERY X 2 LEFT KNEE SURGERY BUNIONECTOMY OBDULIO FEET HYSTERECTOMY ABDOMINAL LAPOROSCOPY ABD BEFORE HYSTERECTOMY LASER EYE SURGERY OBDULIO COLONOSCOPY 08/2013 STERIOD INJECTIONS TO NECK BY 02/2016 HERNIA REPAIR 03/2017 SKIN CANCER LESION REMOVED 2018 FAMILY HISTORY FATHER: 84 YRS, PANCREATIC CANCER, DIAGNOSED WITH CANCER MOTHER: ALIVE, HYPERLIPIDEMIA, CANCER, DIABETES, HYPERTENSION, HEART DISEASE 1 BROTHER(S) , 4 SISTER(S) - HEALTHY. 1 SON(S) , 1 DAUGHTER(S) - HEALTHY. FATHER ALSO POSITIVE FOR COLON, PANCREATIC CANCER\\\\NMOM--SKIN CA\\\\NBROTHER-[place]\\\\NSISTER BACK PROBLEMS\\\\NSISTER X 2 LUPUS\\\\NDAUGHTER-BRITTLE DIABETIC\\\\N\\N\\NFATHER OF PANCREATIC CANCER, MOTHER AND SISTER HAD SKIN CANCER, UNKNOWN IF IT WAS MELANOMA. SOCIAL HISTORY GENERAL: TOBACCO USE ARE YOU A:FORMER SMOKER FORMER SMOKER HOW LONG HAS IT BEEN SINCE YOU LAST SMOKED?> 10 YEARS QUIT 2006 ADDITIONAL FINDINGS: TOBACCO USER NO ADDITIONAL FINDINGS: TOBACCO NON-USERCURRENT NON-SMOKER VAPORNO E-CIGARETTENO LATEX QUESTIONNAIRE LATEX ALLERGY : HAVE YOU EVER DEVELOPED ANY TYPE OF REACTION AFTER HANDLING LATEX PRODUCTS SUCH RUBBER GLOVES, CONDOMS, DIAPHRAGMS, BALLOONS, SOCKS, OR UNDERWEAR?NO LATEX ALLERGY : HAVE YOU EVER DEVELOPED ANY TYPE OF REACTION DURING OR AFTER DENTAL APPOINTMENT, VAGINAL/RECTAL EXAMINATION, SURGICAL PROCEDURE, OR ANY OTHER EXPOSURE?NO LATEX RISK : HAVE YOU EVER HAD ANY DIFFICULTY BREATHING OR HIVES AFTER EATING OR HANDLING ANY FRUITS, OR VEGETABLES; SUCH KIWI, BANANAS, STONE FRUITS, OR CHESTNUTSNO LATEX RISK : DO YOU HAVE A PREVIOUS PERSONAL HISTORY OF MORE THAN NINE SURGERIES, SPINA BIFIDA, OR REPEATED CATHERTIZATIONS? NO LATEX RISK : ARE YOU FREQUENTLY EXPOSED TO LATEX PRODUCTS IN YOUR OCCUPATION?NO DATE ASKED : 08/18/2018 LUNG CANCER SCREENING SMOKING STATUS:FORMER SMOKER IS THE PATIENT BETWEEN THE AGE OF 57 AND 79?YES HAVE YOU QUIT SMOKING WITHIN THE PAST 15 YEARS?YES HAS THE PATIENT EVER BEEN DIAGNOSED WITH LUNG CANCER?NO BMI CARE GOAL FOLLOW-UP BELOW NORMAL BMI FOLLOW-UPDIETARY EDUCATION FOR WEIGHT GAIN ALCOHOL SCREENING DID YOU HAVE A DRINK CONTAINING ALCOHOL IN THE PAST YEAR?NO POINTS0 INTERPRETATIONNEGATIVE RECREATIONAL DRUG USE DRUG USE?NO DENIES 07/08/2018 CAFFEINE CAFFEINE USE?NO SEXUAL HX HAD SEX IN THE LAST 12 MONTHS (VAGINAL, ORAL, OR ANAL)?NO HAVE YOU EVER HAD AN STD?NO LMP:HYSTERECTOMY HIV / HEP-C SCREENING HIV TEST OFFERED TO PATIENT:YES DATE OFFERED:07/08/2018 TEST ACCEPTED:NO REASON:PATIENT DECLINED CONSENT ON FILE BROCHURE PROVIDED TO PATIENTNO HEP-C TEST OFFERED TO PATIENT:YES DATE OFFERED:07/08/2018 TEST ACCEPTED:YES CONSENT SIGNED AMISH UATSDIN. LANGUAGE INDONESIAN. EDUCATION SOME COLLEGE. LEARNING BARRIERS / SPECIAL NEEDS CHANGE FROM LAST VISIT?NO 07/08/2018 BARRIERS TO LEARNING?NO HEARING IMPAIRED?NO VISION IMPAIRED?YES :CORRECTIVE LENSES COGNITIVELY IMPAIRED?NO READINESS TO LEARN?YES LEARNING PREFERENCES?NO LEARNING CAPABILITIES PRESENT?YES EMOTIONAL BARRIERS?NO SPECIAL DEVICES?NO PODIATRY DOCTOR NEEDED?NO DOMESTIC VIOLENCE NONE. 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 DIET: DIET ANGELA.. EXERCISE: DAILY-- ABLE. MARITAL STATUS: SINGLE, .. OTHERS AT HOME: LIVES ALONE. PAIN CLINIC PFS, CLERGY, PUBLIC HEALTH REFERRALS HAS THE PATIENT BEEN EDUCATED REGARDING HIS/HER PLAN OF CARE?YES HAS THE PATIENT BEEN EDUCATED REGARDING PAIN, THE RISK FOR PAIN, THE IMPORTANCE OF EFFECTIVE PAIN MANAGEMENT, AND THE PAIN ASSESSMENT PROCESS?YES HOUSING: RENTS APARTMENT. ADVANCE DIRECTIVE ADVANCE DIRECTIVE DISCUSSED WITH PATIENT:YES HCP - [facility] LEACH - SISTER [phone](C) [phone](W) ALSO HAS POA--SISTER-MU LEACH; LIVING WILL REVIEWED NL 05/12/18REVIEWED LAS 07/20/18 1215REVIEWED WITH PT 08/18/18 1113 BVREVIEWED WITH PT 09/17/18 1035 LAS. HOSPITALIZATION/MAJOR DIAGNOSTIC PROCEDURE EATING DISORDER 01/20/2013 SURGERY REVIEW OF SYSTEMS REVIEWED BY: PROVIDER: . CONSTITUTIONAL: ANY CHANGE IN YOUR MEDICAL CONDITION? NO . CHILLS NO . FEVER NO . INFECTION: DO YOU HAVE NEW INFECTIONS? NO . DO YOU HAVE HISTORY OF MRSA? NO . MUSCULOSKELETAL: ANY NEW PATTERNS OF PAIN OR NUMBNESS? NO . GASTROENTEROLOGY: ANY NEW CHANGE IN BOWEL CONTROL? NO . GENITOURINARY: ANY NEW CHANGE IN BLADDER CONTROL? NO . IS THERE A CHANCE YOU COULD BE ? NO . HEMATOLOGY/LYMPH: DO YOU TAKE ANY BLOOD THINNERS? (FOR EXAMPLE- COUMADIN, PLAVIX, AGGRENOX, PLATEL, PRADAXA, OR XARELTO) NO . WHEN WAS YOUR LAST DOSE? DATE: TIME: . NEUROLOGY: HAVE YOU FALLEN IN THE PAST 12 MONTHS? YES, PRIOR TO LAST VISIT . ANY NEW EXTREMITY NUMBNESS OR WEAKNESS? NO . CARDIOLOGY: DO YOU HAVE A PACEMAKER OR DEFIBRILLATOR? NO . RESPIRATORY: HAVE YOU BEEN SICK IN THE PAST WEEK? NO . FEVER NO . FLU LIKE SYMPTOMS? NO . COUGH NO . INTEGUMENTARY: DO YOU HAVE ANY RASHES OR OPEN SORES? NO . ALLERGIC/IMMUNO: ARE YOU ALLERGIC TO IV DYE? NO . ANY NEW ALLERGIES? NO . PSYCHIATRIC: DO YOU HAVE THOUGHTS OF HURTING YOURSELF OR SOMEONE ELSE? NO . ARE YOU ABUSED, NEGLECTED, OR IN AN UNSAFE ENVIRONMENT? NO . ENDOCRINOLOGY: ARE YOU DIABETIC? NO . OTHER: DO YOU NEED ANY PRESCRIPTIONS? NO . IF YES, PLEASE LIST: ____ . ANY NEW PROBLEMS WITH YOUR MEDICATIONS? NO . WHEN DID YOU LAST EAT? 09/22/18 0200 . WHEN DID YOU LAST DRINK? 09/22/18 0530 . WHAT DID YOU LAST DRINK? PROTEIN SHAKE . NAME OF PERSON DRIVING YOU HOME? GLORIA . DO YOU HAVE ANY OTHER QUESTIONS OR CONCERNS NO . VITAL SIGNS WT 96.2 LBS, HT 61 IN, BMI 18.17 INDEX, BP 110/64 MM HG, HR 80 /MIN, RR 18 /MIN, TEMP 97.3 F, OXYGEN SAT % 98%, NA INITIALS AW 1044. 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 POST PROCEDURE DIAGNOSIS OCCIPITAL NEURALGIA. PROCEDURE BILATERAL GREATER OCCIPITAL NERVE BLOCK SURGEON DR. MARY JANE DON HR DIRECTOR NONE ANESTHESIA LOCAL PRE PROCEDURE NOTE 63 YEAR-OLD PATIENT WITH HISTORY OF CHRONIC OCCIPITAL PAIN. THE PAIN IS LOCATED OVER THE OCCIPITAL AREA WITH RADIATION TOWARDS THE PARIETAL AREA OF THE CRANIUM. I EVALUATED THE PATIENT AND REVIEWED THE CHART. I WENT OVER THE RISKS, ALTERNATIVES, AND BENEFITS ASSOCIATED WITH THIS PROCEDURE. THE PATIENT WOULD LIKE TO PROCEED AND GAVE CONSENT TO PERFORM THE PROCEDURE. THE PATIENT DENIES UNEXPLAINABLE WEIGHT LOSS, FEVER, CHILLS, OR NEW CHANGES IN URINARY OR BOWEL CONTROL. DESCRIPTION OF PROCEDURE THE PATIENT WAS BROUGHT TO THE PROCEDURE ROOM AND PLACED IN THE SITTING POSITION. THE RIGHT AND LEFT OCCIPITAL AREA WAS CLEANED WITH ALCOHOL. THE PROCEDURE WAS DONE USING STERILE TECHNIQUES. I CHECKED LATERALITY AND THE LEVEL WHERE THE PROCEDURE WAS GOING TO BE PERFORMED WITH THE PATIENT AND THE SUPPORTING STAFF AT THE MOMENT OF THE TIME OUT IN THE PROCEDURE ROOM. USING A 25-GAUGE NEEDLE, THE RIGHT AND LEFT OCCIPITAL NERVES WERE INJECTED AT THE NUCHAL LINE, 1-INCH LATERAL OF MIDLINE. I USED A TOTAL OF 15 ML OF BUPIVACAINE 0.25% WITH KENALOG 20 MG AT EACH NERVE. THERE WAS NO EVIDENCE OF BLOOD, PARESTHESIA OR CEREBROSPINAL FLUID DURING THE PROCEDURE. THE PATIENT WAS SENT TO THE RECOVERY ROOM. THE PATIENT WAS MOVING THE EXTREMITIES AND DOING WELL. THERE WAS NO COMPLICATION DURING THE PROCEDURE. POST PROCEDURE NOTE THE PATIENT WILL BE SEEN IN A FOLLOW UP IN THE NEXT FEW WEEKS. INSTRUCTIONS WERE GIVEN, QUESTIONS WERE ANSWERED, AND THE PATIENT EXPRESSED UNDERSTANDING AND AGREED WITH THE PLAN. I, MONISHA DHALIWAL, DOCUMENTED THE ABOVE INFORMATION ACTING A SCRIBE FOR DR. DON. I HAVE REVIEWED THE ABOVE DOCUMENT, WRITTEN BY MONISHA RICEIBSerafin AND I VERIFY THAT IT IS ACCURATE. PROCEDURE CODES 89993 N BLOCK INJ OCCIPITAL, MODIFIERS: 50 DISPOSITION & COMMUNICATION FOLLOW UP 3 WEEKS ELECTRONICALLY SIGNED BY MARY JANE DON MD, MD ON 10/10/2018 AT 06:50 PM EDT DISCLAIMER : THIS IS A VISIT SUMMARY EXTRACTED FROM THE [employer] CHART. IT IS NOT A COPY OF THE [employer] PROGRESS NOTE. VARUN
== END ==
LOC: M PAIN 10:45
PROVIDERS: ATTEND Anesthesiology
DX: G89.29 Other chronic pain (principal); M54.81 Occipital neuralgia; Z79.899 Other long term (current) drug therapy; Z88.1 Allergy status to other antibiotic agents; Z88.5 Allergy status to narcotic agent; Z88.8 Allergy status to other drugs, medicaments and biological substances; Z91.013 Allergy to seafood; Z91.02 Food additives allergy status; Z87.19 Personal history of other diseases of the digestive system; Z86.59 Personal history of other mental and behavioral disorders; Z87.891 Personal history of nicotine dependence
CPT/HCPCS: 64405; J3301

== ENCOUNTER → 2018-10-08 | Outpatient (REF) | payer MEDICARE, MEDICAID ==
[~2018-10-08] MED LIST changes: -BUPIVACAINE HCL 0.25% 10 ML VIAL As Ordered ONE; -BUPIVACAINE HCL 0.25% 30 ML VIAL As Ordered ONE; -TRIAMCINOLONE ACETONIDE SUSP 40 MG/ML VIAL (J3301) As Ordered ONE
[2018-10-08 18:21] LABS: HEMATOCRIT 43.2 % (36.0-47.0); MEAN CORPUSCULAR HEMOGLOBIN 31.9 pg (27.0-33.0); MEAN CORPUSCULAR HGB CONC 32.4 g/dl (32.0-36.5); MEAN CORPUSCULAR VOLUME 98.4 fl (80.0-96.0); PLATELET COUNT, AUTOMATED 225 10^3/uL (150-450); RED BLOOD COUNT 4.39 10^6/uL (4.00-5.40); WHITE BLOOD COUNT 4.9 10^3/uL (4.0-10.0)
[2018-10-08 18:32] LABS: ALBUMIN 3.8 GM/DL (3.2-5.2); ALT/SGPT 31 U/L (12-78); BILIRUBIN,TOTAL 0.4 MG/DL (0.2-1.0); BLOOD UREA NITROGEN 17 MG/DL (7-18); CALCIUM LEVEL 8.5 MG/DL (8.8-10.2); CARBON DIOXIDE LEVEL 28 MEQ/L (21-32); CHLORIDE LEVEL 111 MEQ/L (98-107); CREATININE FOR GFR 0.93 MG/DL (0.55-1.30); FOLATE 8.6 NG/ML (>5.4); FREE T4 1.07 NG/DL (0.76-1.46); GLOMERULAR FILTRATION RATE > 60.0 (>45); GLUCOSE, FASTING 87 MG/DL (70-100); POTASSIUM SERUM 3.6 MEQ/L (3.5-5.1); SODIUM LEVEL 143 MEQ/L (136-145); TOTAL 25(OH) VITAMIN D 28.3 NG/ML (30.0-100.0); TOTAL PROTEIN 6.6 GM/DL (6.4-8.2); VITAMIN B12 LEVEL 480 PG/ML (247-911)
== END ==
LOC: M SFHCCLAY 11:23
PROVIDERS: ATTEND Family Medicine
DX: K90.9 Intestinal malabsorption, unspecified (principal)

== ENCOUNTER → 2018-10-09 | Outpatient (REF) | payer MEDICARE, MEDICAID | LOC: M LAB REF 10:42 | PROVIDERS: ATTEND Physician Assistant Medical | DX: N39.0 Urinary tract infection, site not specified (principal) ==

== ENCOUNTER → 2018-10-12 | Outpatient (RCR) | payer MEDICARE, MEDICAID | LOC: M PT 09-13 08:13 | PROVIDERS: ATTEND Physician Assistant Medical | DX: M75.112 Incomplete rotator cuff tear or rupture of left shoulder, not specified as traumatic (principal); M19.012 Primary osteoarthritis, left shoulder; M54.81 Occipital neuralgia; M54.2 Cervicalgia ==

== ENCOUNTER → 2018-10-15 | Outpatient (REF) | payer MEDICARE, MEDICAID ==
[2018-10-15 18:28] LABS: APPEARANCE, URINE CLEAR (CLEAR); BACTERIA, URINE AUTO NEGATIVE (NEGATIVE); BILIRUBIN, URINE AUTO NEGATIVE (NEGATIVE); BLOOD, URINE BLOOD NEGATIVE (NEGATIVE); COLOR, URINE YELLOW (YELLOW); GLUCOSE, URINE (UA) AUTO NEGATIVE (NEGATIVE); KETONE, URINE AUTO NEGATIVE (NEGATIVE); LEUKOCYTE ESTERASE, URINE AUTO NEGATIVE (NEGATIVE); NITRITE, URINE AUTO NEGATIVE (NEGATIVE); PROTEIN, URINE AUTO NEGATIVE (NEGATIVE); RBC, URINE AUTO 0 /HPF (0-3); SPECIFIC GRAVITY URINE AUTO 1.003 (1.002-1.035); SQUAMOUS EPITHELIAL CELL UR AU 0 /HPF (0-6); UROBILINOGEN, URINE AUTO 0.2 mg/dL (0.0-2.0); WBC, URINE AUTO 0 /HPF (0-3)
== END ==
LOC: M LAB REF 16:19
PROVIDERS: ATTEND Obstetrics & Gynecology
DX: N39.0 Urinary tract infection, site not specified (principal)

== ENCOUNTER 2018-10-20 07:00 | Outpatient (RCR) | payer MEDICARE, MEDICAID | END 2018-11-12 | LOC: M PT 07:00 | PROVIDERS: ATTEND Physician Assistant Medical | DX: M75.112 Incomplete rotator cuff tear or rupture of left shoulder, not specified as traumatic (principal); M19.012 Primary osteoarthritis, left shoulder; M54.81 Occipital neuralgia; M54.2 Cervicalgia ==

== ENCOUNTER → 2018-10-21 | Outpatient (CLI) | payer MEDICARE, MEDICAID ==
[2018-10-21 19:00] LABS: INR 0.91; PROTHROMBIN TIME 12.3 SECONDS (12.1-14.4)
[2018-10-21 19:01] LABS: PARTIAL THROMBOPLASTIN TIME 31.2 SECONDS (25.4-37.6)
== END ==
LOC: M LAB 18:17
PROVIDERS: ATTEND Family Medicine
DX: R23.8 Other skin changes (principal); R07.89 Other chest pain
CPT/HCPCS: 36415; 85610; 85730; 93005; G0463

== ENCOUNTER → 2018-10-26 | Outpatient (CLI) | payer MEDICARE, MEDICAID ==
--- NOTE | 2018-10-26 15:32 | NUR ---
Pt seen this date for Modified Barium Swallow Study d/t c/o pain and difficulty swallowing, particularly dense solids. Pt presents with mild pharyngeal phase dysphagia as characterized by significant pooling of dense solid requiring laryngeal pumping to initiate swallow. Recommend: Level 2 (NDD) solids (soft/moist and cut <dime size) and regular thin liquids. Keep bites small and well moistened with extra sauces and gravies. Alternate solids/liquids frequently throughout meal. Attempt chin tuck to swallow if it can be done without causing pain. Recommend: ENT consult to address chronic sore throat (given hx of laryngeal nodule and odynophagia) Recommend: Speech Therapy for exercises to facilitate hyoidal excursion thus improved inversion of the epiglottis. Addendum: 10/26/18 at 1535 by RODOLFO HOPKINS [facility] K[facility]STIN Amended: Links added.
--- NOTE | 2018-10-26 16:32 | REP ---
Modified barium swallow: Video fluoroscopy. History: Dysphagia. Chronic cough. Study is performed in conjunction with the swallowing therapist. Fluoroscopy time is to 1.8 minutes. Findings: There was no evidence of tracheal aspiration or laryngeal penetration. With thicker consistency material, there was some intraoral hesitancy in initiating a swallow with pooling in the vallecula. This was not observed with thinner liquids. No other abnormality. Lateral imaging demonstrates fusion plating in the cervical spine. Electronically Signed by Melquiades Rain MD 10/26/2018 05:30 P
== END ==
LOC: M ST 14:12
PROVIDERS: ATTEND Family Medicine
DX: R13.10 Dysphagia, unspecified (principal); R05 Cough

== ENCOUNTER → 2018-10-29 | Outpatient (CLI) | payer MEDICARE, MEDICAID ==
--- NOTE | 2018-11-17 01:23 | ECWPNPC ---
PATIENT NAME: BRIAN DAWSON : 1955 GENDER: FEMALE VISIT DATE: 10/29/2018 DISCHARGE DATE: 10/29/18 1021 VISIT LOCKED DATE TIME: PHYSICIAN: SUKHI GONZALES PHYSICIAN PAGER NO: [phone] RESOURCE: SUKHI GONZALES REASON FOR APPOINTMENT 1. POST PROC HISTORY OF PRESENT ILLNESS HISTORY OF PRESENT ILLNESS: HERE FOR POST PROCEDURE F/U.HAD BILAT. OCCIPITAL BLOCK ON 09/22/18.REPORTS IMPROVEMENT IN THIS AREA THAT CONTINUES TODAY.RATING PAIN VAS 5/10-NECK/HEAD.CONTINUES WITH LOW BACK PAIN-RATING LOW BACK PAIN 6/10 VAS.DISCUSED DIAGNOSTIC LUMBAR BLOCKS. PAIN THE PATIENT DESCRIBES THE PAIN... FALL RISK SCREENING: SCREENING :NO FALLS REPORTED IN THE LAST YEAR CURRENT MEDICATIONS TAKING PROBIOTIC ACIDOPHILUS - TABLET DIRECTED ORALLY TAKING TOPAMAX 100 MG TABLET ONE HALF TAB AM 1 TAB PM ORALLY TWICE A DAY TAKING FLUTICASONE PROPIONATE 50 MCG/ACT SUSPENSION 1 SPRAY IN EACH NOSTRIL NASALLY ONCE A DAY TAKING MAY HAVE - - 2 SCOOPS WITH FLAX MEALS ORAL 3X/DAY TAKING MAY HAVE - - PLANT FUSION PURE PROTEIN 1SCOOP IN FLAX MEAL ORAL 3X/DAY TAKING TIZANIDINE HCL 2 MG TABLET 1 TABLET NEEDED ORALLY THREE TIMES A DAY NEEDED FOR CRAMPS TAKING PANTOPRAZOLE SODIUM 40 MG TABLET DELAYED RELEASE 1 TABLET ORALLY ONCE A DAY TAKING ESTRING 2 MG RING DIRECTED VAGINAL TAKING CRANBERRY 450 MG CAPSULE 1 CAP ORALLY DAILY TAKING BIOFREEZE 4 % GEL 1 APPLICATION TO AFFECTED AREA NEEDED EXTERNALLY THREE TIMES A DAY TAKING SALINE 0.65 % SOLUTION 2 SPRAYS IN EACH NOSTRIL NEEDED NASALLY EVERY 2 HRS MEDICATION LIST REVIEWED AND RECONCILED WITH THE PATIENT PAST MEDICAL HISTORY LARYNGEAL NODULE CANDIDIASIS/BV-FREQUENTLY BULIMIA NERVOSA/SCHOZOAFFECTIVE D/O ([facility], 2013) 04-05-2014 DISTAL FIBULA FRACTURE 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 NODE, NEGATIVE BX, 2018 THYROID NODULE ALLERGIES DOXYCYCLINE HYCLATE: PHOTODERMATITIS - ALLERGY LACTOSE INTOLERANT: DIARRHEA - ALLERGY DEMEROL: LOW BP - CONTRAINDICATION DARVOCET-N 100: LOW BP - CONTRAINDICATION AMOXICILLIN: SWELLING - ALLERGY SHELLFISH: HIVES - ALLERGY GLUTEN SURGICAL HISTORY NECK SURGERY X 2 LEFT KNEE SURGERY BUNIONECTOMY OBDULIO FEET HYSTERECTOMY ABDOMINAL LAPOROSCOPY ABD BEFORE HYSTERECTOMY LASER EYE SURGERY OBDULIO COLONOSCOPY 08/2013 STERIOD INJECTIONS TO NECK BY 02/2016 HERNIA REPAIR 03/2017 SKIN CANCER LESION REMOVED 2018 FAMILY HISTORY FATHER: 84 YRS, PANCREATIC CANCER, DIAGNOSED WITH CANCER MOTHER: ALIVE, HYPERLIPIDEMIA, CANCER, DIABETES, HYPERTENSION, HEART DISEASE 1 BROTHER(S) , 4 SISTER(S) - HEALTHY. 1 SON(S) , 1 DAUGHTER(S) - HEALTHY. FATHER ALSO POSITIVE FOR COLON, PANCREATIC CANCER\\\\\\\\NMOM--SKIN CA\\\\\\\\NBROTHER-[place]\\\\\\\\NSISTER BACK PROBLEMS\\\\\\\\NSISTER X 2 LUPUS\\\\\\\\NDAUGHTER-BRITTLE DIABETIC\\\\\\\\N\\\\N\\\\NFATHER OF PANCREATIC CANCER, MOTHER AND SISTER HAD SKIN CANCER, UNKNOWN IF IT WAS MELANOMA. SOCIAL HISTORY GENERAL: TOBACCO USE ARE YOU A:FORMER SMOKER FORMER SMOKER HOW LONG HAS IT BEEN SINCE YOU LAST SMOKED?> 10 YEARS QUIT 2006 ADDITIONAL FINDINGS: TOBACCO USER NO ADDITIONAL FINDINGS: TOBACCO NON-USERCURRENT NON-SMOKER VAPORNO E-CIGARETTENO HIV / HEP-C SCREENING HIV TEST OFFERED TO PATIENT:YES DATE OFFERED:10/21/2018 TEST ACCEPTED:NO REASON:PATIENT DECLINED CONSENT ON FILE BROCHURE PROVIDED TO PATIENTNO HEP-C TEST OFFERED TO PATIENT:YES DATE OFFERED:10/21/2018 TEST ACCEPTED:YES CONSENT SIGNED OTHERS AT HOME: LIVES ALONE. HOUSING: RENTS APARTMENT. EDUCATION SOME COLLEGE. DIET: DIET ANGELA.. LANGUAGE MAORI. DOMESTIC VIOLENCE NONE. BMI CARE GOAL FOLLOW-UP BELOW NORMAL BMI FOLLOW-UPDIETARY EDUCATION FOR WEIGHT GAIN RECREATIONAL DRUG USE DRUG USE?NO DENIES 10/21/2018 EXERCISE: DAILY-- ABLE. LEARNING BARRIERS / SPECIAL NEEDS CHANGE FROM LAST VISIT?NO 10/21/2018 BARRIERS TO LEARNING?NO HEARING IMPAIRED?NO VISION IMPAIRED?YES :CORRECTIVE LENSES COGNITIVELY IMPAIRED?NO READINESS TO LEARN?YES LEARNING PREFERENCES?NO LEARNING CAPABILITIES PRESENT?YES EMOTIONAL BARRIERS?NO SPECIAL DEVICES?NO EXTRAS CASTING DIRECTOR NEEDED?NO LUNG CANCER SCREENING SMOKING STATUS:FORMER SMOKER IS THE PATIENT BETWEEN THE AGE OF 57 AND 79?YES HAVE YOU QUIT SMOKING WITHIN THE PAST 15 YEARS?YES HAS THE PATIENT EVER BEEN DIAGNOSED WITH LUNG CANCER?NO PAIN CLINIC PFS, CLERGY, PUBLIC HEALTH REFERRALS HAS THE PATIENT BEEN EDUCATED REGARDING HIS/HER PLAN OF CARE?YES HAS THE PATIENT BEEN EDUCATED REGARDING PAIN, THE RISK FOR PAIN, THE IMPORTANCE OF EFFECTIVE PAIN MANAGEMENT, AND THE PAIN ASSESSMENT PROCESS?YES LATEX QUESTIONNAIRE LATEX ALLERGY : HAVE YOU EVER DEVELOPED ANY TYPE OF REACTION AFTER HANDLING LATEX PRODUCTS SUCH RUBBER GLOVES, CONDOMS, DIAPHRAGMS, BALLOONS, SOCKS, OR UNDERWEAR?NO LATEX ALLERGY : HAVE YOU EVER DEVELOPED ANY TYPE OF REACTION DURING OR AFTER DENTAL APPOINTMENT, VAGINAL/RECTAL EXAMINATION, SURGICAL PROCEDURE, OR ANY OTHER EXPOSURE?NO LATEX RISK : HAVE YOU EVER HAD ANY DIFFICULTY BREATHING OR HIVES AFTER EATING OR HANDLING ANY FRUITS, OR VEGETABLES; SUCH KIWI, BANANAS, STONE FRUITS, OR CHESTNUTSNO LATEX RISK : DO YOU HAVE A PREVIOUS PERSONAL HISTORY OF MORE THAN NINE SURGERIES, SPINA BIFIDA, OR REPEATED CATHERTIZATIONS? NO LATEX RISK : ARE YOU FREQUENTLY EXPOSED TO LATEX PRODUCTS IN YOUR OCCUPATION?NO DATE ASKED : 10/21/2018 CAFFEINE CAFFEINE USE?NO ADVANCE DIRECTIVE ADVANCE DIRECTIVE DISCUSSED WITH PATIENT:YES HCP - [facility] LEACH - SISTER [phone](C) [phone](W) ALSO HAS POA--SISTER-MU LEACH; LIVING WILL [facility]. MARITAL STATUS: SINGLE, .. 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 SEXUAL HX HAD SEX IN THE LAST 12 MONTHS (VAGINAL, ORAL, OR ANAL)?NO HAVE YOU EVER HAD AN STD?NO LMP:HYSTERECTOMY REVIEWED NL 05/12/18REVIEWED LAS 07/20/18 1215REVIEWED WITH PT 08/18/18 1113 BVREVIEWED WITH PT 09/17/18 1035 LAS. HOSPITALIZATION/MAJOR DIAGNOSTIC PROCEDURE EATING DISORDER 01/20/2013 SURGERY REVIEW OF SYSTEMS REVIEWED BY: PROVIDER: SUKHI ARIAS . CONSTITUTIONAL: ANY CHANGE IN YOUR MEDICAL CONDITION? YES PT STATES FROM [place] TRICKY . CHILLS NO . FEVER NO . INFECTION: DO YOU HAVE NEW INFECTIONS? NO . DO YOU HAVE HISTORY OF MRSA? NO . MUSCULOSKELETAL: ANY NEW PATTERNS OF PAIN OR NUMBNESS? YES PT STATES LOWER LEG CRAMPS NOW TAKING TIZANIDINE . GASTROENTEROLOGY: ANY NEW CHANGE IN BOWEL CONTROL? NO . GENITOURINARY: ANY NEW CHANGE IN BLADDER CONTROL? NO . IS THERE A CHANCE YOU COULD BE ? NO . HEMATOLOGY/LYMPH: DO YOU TAKE ANY BLOOD THINNERS? (FOR EXAMPLE- COUMADIN, PLAVIX, AGGRENOX, PLATEL, PRADAXA, OR XARELTO) NO . WHEN WAS YOUR LAST DOSE? DATE: TIME: . NEUROLOGY: HAVE YOU FALLEN IN THE PAST 12 MONTHS? NO . ANY NEW EXTREMITY NUMBNESS OR WEAKNESS? NO . CARDIOLOGY: DO YOU HAVE A PACEMAKER OR DEFIBRILLATOR? NO . RESPIRATORY: HAVE YOU BEEN SICK IN THE PAST WEEK? NO . FEVER NO . FLU LIKE SYMPTOMS? NO . COUGH NO . INTEGUMENTARY: DO YOU HAVE ANY RASHES OR OPEN SORES? NO . ALLERGIC/IMMUNO: ARE YOU ALLERGIC TO IV DYE? NO . ANY NEW ALLERGIES? NO . PSYCHIATRIC: DO YOU HAVE THOUGHTS OF HURTING YOURSELF OR SOMEONE ELSE? NO . ARE YOU ABUSED, NEGLECTED, OR IN AN UNSAFE ENVIRONMENT? NO . ENDOCRINOLOGY: ARE YOU DIABETIC? NO . OTHER: DO YOU NEED ANY PRESCRIPTIONS? NO . IF YES, PLEASE LIST: ____ . ANY NEW PROBLEMS WITH YOUR MEDICATIONS? NO . WHEN DID YOU LAST EAT? ____ . WHEN DID YOU LAST DRINK? ____ . WHAT DID YOU LAST DRINK? ____ . NAME OF PERSON DRIVING YOU HOME? ____ . DO YOU HAVE ANY OTHER QUESTIONS OR CONCERNS NO . VITAL SIGNS WT 95.0 LBS, HT 61 IN, BMI 17.95 INDEX, BP 101/65 MM HG, HR 81 /MIN, RR 18 /MIN, TEMP 99.1 F, OXYGEN SAT % 98%, REVIEWED BY: CLAUDY. EXAMINATION GENERAL EXAMINATION: GENERAL APPEARANCE: AWAKE,ALERT ,PLEAASANT . PSYCH AFFECT NORMAL . LUNGS: LUNG VAZ ARE CLEAR TO AUSCULTATION BILATERALLY. GOOD MOVEMENT OF AIR . HEART: S1, S2 IN A REGULAR RATE AND RHYTHM. NO SIGNIFICANT MURMURS, RUBS OR GALLOPS NOTED . LUMBAR SACRAL SPINEPALPATION:TENDER OVER BILAT. L3/4-L4/5 LUMBAR FACETS WITH FACET LOADING.. DIAGNOSTIC TESTS REVIEWED MRI L/S SPINE-07/15/18. ASSESSMENTS FACET ARTHROPATHY, LUMBOSACRAL - M47.817 (PRIMARY) CERVICALGIA - M54.2 TREATMENT FACET ARTHROPATHY, LUMBOSACRAL NOTES: DIAGNOSTIC L3/4-L4/5 BLOCK BILAT. PROCEDURE CODES FA211 ESTABILISHED PATIENT [facility] CHARGE DISPOSITION & COMMUNICATION FOLLOW UP POST (REASON: DIAGNOSTIC L3/4-L4/5 BLOCK BILAT) ELECTRONICALLY SIGNED BY HUGO NICOLE ON 11/16/2018 AT 01:07 PM EDT DISCLAIMER : THIS IS A VISIT SUMMARY EXTRACTED FROM THE [employer] CHART. IT IS NOT A COPY OF THE [employer] PROGRESS NOTE. VARUN
== END ==
LOC: M PAIN 09:00
PROVIDERS: ATTEND Nurse Practitioner Family
DX: M47.817 Spondylosis without myelopathy or radiculopathy, lumbosacral region (principal); M54.2 Cervicalgia; Z79.899 Other long term (current) drug therapy; Z88.1 Allergy status to other antibiotic agents; Z88.5 Allergy status to narcotic agent; Z88.8 Allergy status to other drugs, medicaments and biological substances; Z91.013 Allergy to seafood; Z86.79 Personal history of other diseases of the circulatory system; Z86.59 Personal history of other mental and behavioral disorders; Z87.891 Personal history of nicotine dependence

== ENCOUNTER → 2018-11-05 | Outpatient (CLI) | payer MEDICARE, MEDICAID | LOC: M RAD 10:40 | PROVIDERS: ATTEND Obstetrics & Gynecology | DX: Z53.9 Procedure and treatment not carried out, unspecified reason (principal); Z12.31 Encounter for screening mammogram for malignant neoplasm of breast ==

== ENCOUNTER → 2018-11-11 | Outpatient (CLI) | payer MEDICARE, MEDICAID ==
[2018-11-11 07:48] LABS: HEMATOCRIT 42.4 % (36.0-47.0); HEMOGLOBIN 13.7 g/dl (12.0-15.5); MEAN CORPUSCULAR HEMOGLOBIN 32.5 pg (27.0-33.0); MEAN CORPUSCULAR HGB CONC 32.3 g/dl (32.0-36.5); MEAN CORPUSCULAR VOLUME 100.5 fl (80.0-96.0); PLATELET COUNT, AUTOMATED 189 10^3/uL (150-450); RED BLOOD COUNT 4.22 10^6/uL (4.00-5.40); WHITE BLOOD COUNT 4.4 10^3/uL (4.0-10.0)
[2018-11-11 08:20] LABS: ALBUMIN 3.8 GM/DL (3.2-5.2); ALT/SGPT 24 U/L (12-78); BILIRUBIN,TOTAL 0.6 MG/DL (0.2-1.0); BLOOD UREA NITROGEN 21 MG/DL (7-18); CARBON DIOXIDE LEVEL 26 MEQ/L (21-32); CHLORIDE LEVEL 114 MEQ/L (98-107); CREATININE FOR GFR 0.85 MG/DL (0.55-1.30); GLOMERULAR FILTRATION RATE > 60.0 (>45); GLUCOSE, FASTING 103 MG/DL (70-100); LIPASE 172 U/L (73-393); POTASSIUM SERUM 4.1 MEQ/L (3.5-5.1); SODIUM LEVEL 146 MEQ/L (136-145); TOTAL PROTEIN 6.1 GM/DL (6.4-8.2)
[2018-11-19 00:08] LABS: FATS NEUTRAL Normal (.); FATS TOTAL Normal (.); PANCREATIC ELASTASE STOOL >500 (>200)
== END ==
LOC: M LAB 06:49
PROVIDERS: ATTEND Family Medicine
DX: R10.84 Generalized abdominal pain (principal); R63.4 Abnormal weight loss

== ENCOUNTER → 2018-11-16 | Outpatient (CLI) | payer MEDICARE, MEDICAID ==
[~2018-11-16] MED LIST changes: +GASTROGRAFIN SOLUTION 30ML (Q9963) As Ordered ONE; +ISOVUE-370 76% 100ML VIAL (Q9967) As Ordered ONE
--- NOTE | 2018-11-16 10:46 | REP ---
REASON: Generalized abdominal pain and weight loss. COMPARISON: 09/25/2017 CONTRAST: 100 mL Isovue 370. The lung bases are unchanged. The liver, gallbladder, spleen, pancreas, adrenal glands, and kidneys are unchanged and again seen to be within normal limits. The abdominal aorta and para-aortic regions are unchanged. The bowel loops and their mesenteries are essentially unchanged. The colon is content-filled particularly on the right. There are multiple gas-filled nondilated small bowel loops but seen in a fashion essentially unchanged from the prior exam. There is no evidence of free fluid or free air. CT PELVIS: There is no evidence of free fluid or free air. There is no evidence of a mass or adenopathy. The bowel loops and their mesenteries are essentially unchanged. Note is again made of a pessary ring. Bone window technique throughout the exam shows no significant change in the appearance of the osseous structures. IMPRESSION: No significant change from the prior exam with nonspecific findings as described above. There is no evidence of acute intra-abdominal or intrapelvic disease. Electronically Signed by Mehul Alberto DO 11/16/2018 10:57 A
[2018-11-16 13:38] LABS: APPEARANCE, URINE CLEAR (CLEAR); BACTERIA, URINE AUTO NEGATIVE (NEGATIVE); BILIRUBIN, URINE AUTO NEGATIVE (NEGATIVE); BLOOD, URINE BLOOD NEGATIVE (NEGATIVE); COLOR, URINE STRAW (YELLOW); GLUCOSE, URINE (UA) AUTO NEGATIVE (NEGATIVE); KETONE, URINE AUTO NEGATIVE (NEGATIVE); LEUKOCYTE ESTERASE, URINE AUTO NEGATIVE (NEGATIVE); NITRITE, URINE AUTO NEGATIVE (NEGATIVE); PROTEIN, URINE AUTO NEGATIVE (NEGATIVE); RBC, URINE AUTO 0 /HPF (0-3); SPECIFIC GRAVITY URINE AUTO 1.055 (1.002-1.035); SQUAMOUS EPITHELIAL CELL UR AU 9 /HPF (0-6); UROBILINOGEN, URINE AUTO 0.2 mg/dL (0.0-2.0); WBC, URINE AUTO 1 /HPF (0-3)
== END ==
LOC: M RAD 07:44
PROVIDERS: ATTEND Family Medicine
DX: R30.0 Dysuria (principal); R10.84 Generalized abdominal pain; R63.4 Abnormal weight loss
CPT/HCPCS: 74177; 81001; 87086; Q9963; Q9967

== ENCOUNTER → 2018-11-20 | Outpatient (CLI) | payer MEDICARE, MEDICAID ==
[~2018-11-20] MED LIST changes: -GASTROGRAFIN SOLUTION 30ML (Q9963) As Ordered ONE; -ISOVUE-370 76% 100ML VIAL (Q9967) As Ordered ONE
[2018-11-22 11:15] LABS: FOLATE 12.1 NG/ML (>5.4)
== END ==
LOC: M LAB 09:07
PROVIDERS: ATTEND Family Medicine
DX: D75.89 Other specified diseases of blood and blood-forming organs (principal)

== ENCOUNTER → 2018-11-23 | Outpatient (CLI) | payer MEDICARE, MEDICAID ==
--- NOTE | 2018-11-23 09:11 | REPMRS ---
Patient History The patient states she had a clinical breast exam in October 2018. Family history of colorectal cancer at age 50 or over in father, breast cancer in mother, breast cancer at age 50 or over in paternal aunt, colorectal cancer in maternal grandmother. US Guided Breast Biopsy of the left breast, November 11, 2017. Taking estrogen for 2 years. Took unspecified hormones for 4 years. Digital Mammo Screening Bilat: November 23, 2018 - Exam #: [id number] Bilateral CC and MLO view(s) were taken. Technologist: Raquel Rodriguez, Technologist Prior study comparison: November 03, 2017, bilateral digital mammo screening bilat performed at [facility]. May 07, 2016, digital mammo diagnostic bilateral performed at [facility]. April 20, 2015, digital woman screen mammo, performed at [facility]. FINDINGS: The breast tissue is heterogeneously dense. This may lower the sensitivity of mammography. There is a moderate amount of heterogeneously dense fibroglandular tissue which is fairly symmetric. There is no interval development of dominant mass, architectural distortion, or clustered microcalcification typical of malignancy. There has been no change in the appearance of the mammogram from the prior studies. 3-D tomosynthesis shows no additional findings. Assessment: BI-RADS/ACR category 1 mammogram. Negative Mammogram. Recommendation Routine screening mammogram of both breasts in 1 year (for women over age 40). This patient's Lifetime Breast Cancer RIsk is estimated at 9.7 %. This mammogram was interpreted with the aid of an FDA-approved computer-aided dectection system. Electronically Signed By: Artur Rain MD 11/23/18 0916
== END ==
LOC: M RAD 07:53
PROVIDERS: ATTEND Obstetrics & Gynecology
DX: Z12.31 Encounter for screening mammogram for malignant neoplasm of breast (principal); Z79.890 Hormone replacement therapy; Z80.3 Family history of malignant neoplasm of breast

== ENCOUNTER → 2018-12-07 | Outpatient (CLI) | payer MEDICARE, MEDICAID ==
[~2018-12-07] MED LIST changes: +BUPIVACAINE HCL 0.25% 30 ML VIAL As Ordered ONE; +ISOVUE-M 300 61% 15ML VIAL (Q9967) As Ordered ONE; +LIDOCAINE 1% SDV INJ 30 ML VIAL As Ordered ONE
--- NOTE | 2018-12-07 12:53 | REP ---
Partial lumbar spine series: Two views . History: Injection procedure for pain. 29 seconds of fluoroscopy time is reported. Findings: A sequence of two fluoroscopically obtained last image hold procedural spot radiographs of the lumbar spine document needle position and contrast injection associated with injection procedure. Electronically Signed by Melquiades Rain MD 12/07/2018 12:44 P
--- NOTE | 2018-12-16 00:55 | ECWPNPC ---
PATIENT NAME: BRIAN DAWSON : 1955 GENDER: FEMALE VISIT DATE: 12/07/2018 DISCHARGE DATE: 12/07/18 1012 VISIT LOCKED DATE TIME: PHYSICIAN: MARY JANE DON MD PHYSICIAN PAGER NO: [phone] RESOURCE: MARY JANE DON MD REASON FOR APPOINTMENT 1. DIAGNOSTIC LUMBAR FACET BLOCK BILAT HISTORY OF PRESENT ILLNESS HISTORY OF PRESENT ILLNESS: PAIN THE PATIENT DESCRIBES THE PAIN... FALL RISK SCREENING: SCREENING :NO FALLS REPORTED IN THE LAST YEAR CURRENT MEDICATIONS TAKING PROBIOTIC ACIDOPHILUS - TABLET DIRECTED ORALLY , NOTES: 0400 TAKING TOPAMAX 100 MG TABLET ONE HALF TAB AM 1 TAB PM ORALLY TWICE A DAY, NOTES: 0400 TAKING FLUTICASONE PROPIONATE 50 MCG/ACT SUSPENSION 1 SPRAY IN EACH NOSTRIL NASALLY ONCE A DAY, NOTES: 12/06/18 TAKING MAY HAVE - - PLANT FUSION PURE PROTEIN 1SCOOP IN FLAX MEAL ORAL 3X/DAY, NOTES: 0400 TAKING PANTOPRAZOLE SODIUM 40 MG TABLET DELAYED RELEASE 1 TABLET ORALLY ONCE A DAY, NOTES: 0400 TAKING ESTRING 2 MG RING DIRECTED VAGINAL , NOTES: WEEKLY TAKING CRANBERRY 450 MG CAPSULE 1 CAP ORALLY DAILY, NOTES: 0400 TAKING BIOFREEZE 4 % GEL 1 APPLICATION TO AFFECTED AREA NEEDED EXTERNALLY THREE TIMES A DAY, NOTES: 12/06/18 PM TAKING SALINE 0.65 % SOLUTION 2 SPRAYS IN EACH NOSTRIL NEEDED NASALLY EVERY 2 HRS, NOTES: 12/06/18 NOT-TAKING MAY HAVE - - 2 SCOOPS WITH FLAX MEALS ORAL 3X/DAY NOT-TAKING TIZANIDINE HCL 2 MG TABLET 1 TABLET NEEDED ORALLY THREE TIMES A DAY NEEDED FOR CRAMPS MEDICATION LIST REVIEWED AND RECONCILED WITH THE PATIENT PAST MEDICAL HISTORY LARYNGEAL NODULE CANDIDIASIS/BV-FREQUENTLY BULIMIA NERVOSA/SCHOZOAFFECTIVE D/O ([facility], 2013) 04-05-2014 DISTAL FIBULA FRACTURE 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 NODE, NEGATIVE BX, 2018 THYROID NODULE HIATAL HERNIA RUPTURE BACK PAIN QUESTIONABLE BRAIN ANEURYSM ALLERGIES DOXYCYCLINE HYCLATE: PHOTODERMATITIS - ALLERGY LACTOSE INTOLERANT: DIARRHEA - ALLERGY DEMEROL: LOW BP - CONTRAINDICATION DARVOCET-N 100: LOW BP - CONTRAINDICATION AMOXICILLIN: SWELLING - ALLERGY SHELLFISH: HIVES - ALLERGY GLUTEN SURGICAL HISTORY NECK SURGERY X 2 LEFT KNEE SURGERY BUNIONECTOMY OBDULIO FEET HYSTERECTOMY ABDOMINAL LAPOROSCOPY ABD BEFORE HYSTERECTOMY LASER EYE SURGERY OBDULIO COLONOSCOPY 08/2013 STERIOD INJECTIONS TO NECK BY 02/2016 HERNIA REPAIR 03/2017 SKIN CANCER LESION REMOVED 2018 FAMILY HISTORY FATHER: 84 YRS, PANCREATIC CANCER, DIAGNOSED WITH CANCER MOTHER: ALIVE, HYPERLIPIDEMIA, DIABETES, HYPERTENSION, HEART DISEASE, CANCER 1 BROTHER(S) , 4 SISTER(S) - HEALTHY. 1 SON(S) , 1 DAUGHTER(S) - HEALTHY. FATHER ALSO POSITIVE FOR COLON, PANCREATIC CANCER\\\\\\\\NMOM--SKIN CA\\\\\\\\NBROTHER-NE\\\\\\\\NSISTER BACK PROBLEMS\\\\\\\\NSISTER X 2 LUPUS\\\\\\\\NDAUGHTER-BRITTLE DIABETIC\\\\\\\\N\\\\N\\\\NFATHER OF PANCREATIC CANCER, MOTHER AND SISTER HAD SKIN CANCER, UNKNOWN IF IT WAS MELANOMA. SOCIAL HISTORY GENERAL: TOBACCO USE ARE YOU A:FORMER SMOKER FORMER SMOKER HOW LONG HAS IT BEEN SINCE YOU LAST SMOKED?> 10 YEARS QUIT 2006 ADDITIONAL FINDINGS: TOBACCO USER NO ADDITIONAL FINDINGS: TOBACCO NON-USERCURRENT NON-SMOKER VAPORNO E-CIGARETTENO HIV / HEP-C SCREENING HIV TEST OFFERED TO PATIENT:YES DATE OFFERED:10/21/2018 TEST ACCEPTED:NO REASON:PATIENT DECLINED CONSENT ON FILE BROCHURE PROVIDED TO PATIENTNO HEP-C TEST OFFERED TO PATIENT:YES DATE OFFERED:10/21/2018 TEST ACCEPTED:YES CONSENT SIGNED OTHERS AT HOME: LIVES ALONE. HOUSING: RENTS APARTMENT. EDUCATION SOME COLLEGE. DIET: DIET ANGELA.. LANGUAGE TAMAZIGHT. DOMESTIC VIOLENCE NONE. BMI CARE GOAL FOLLOW-UP BELOW NORMAL BMI FOLLOW-UPDIETARY EDUCATION FOR WEIGHT GAIN RECREATIONAL DRUG USE DRUG USE?NO DENIES 10/21/2018 EXERCISE: DAILY-- ABLE. LEARNING BARRIERS / SPECIAL NEEDS CHANGE FROM LAST VISIT?NO 10/21/2018 BARRIERS TO LEARNING?NO HEARING IMPAIRED?NO VISION IMPAIRED?YES :CORRECTIVE LENSES COGNITIVELY IMPAIRED?NO READINESS TO LEARN?YES LEARNING PREFERENCES?NO LEARNING CAPABILITIES PRESENT?YES EMOTIONAL BARRIERS?NO SPECIAL DEVICES?NO CHARGE WEIGHER NEEDED?NO LUNG CANCER SCREENING SMOKING STATUS:FORMER SMOKER IS THE PATIENT BETWEEN THE AGE OF 57 AND 79?YES HAVE YOU QUIT SMOKING WITHIN THE PAST 15 YEARS?YES HAS THE PATIENT EVER BEEN DIAGNOSED WITH LUNG CANCER?NO PAIN CLINIC PFS, CLERGY, PUBLIC HEALTH REFERRALS HAS THE PATIENT BEEN EDUCATED REGARDING HIS/HER PLAN OF CARE?YES HAS THE PATIENT BEEN EDUCATED REGARDING PAIN, THE RISK FOR PAIN, THE IMPORTANCE OF EFFECTIVE PAIN MANAGEMENT, AND THE PAIN ASSESSMENT PROCESS?YES LATEX QUESTIONNAIRE LATEX ALLERGY : HAVE YOU EVER DEVELOPED ANY TYPE OF REACTION AFTER HANDLING LATEX PRODUCTS SUCH RUBBER GLOVES, CONDOMS, DIAPHRAGMS, BALLOONS, SOCKS, OR UNDERWEAR?NO LATEX ALLERGY : HAVE YOU EVER DEVELOPED ANY TYPE OF REACTION DURING OR AFTER DENTAL APPOINTMENT, VAGINAL/RECTAL EXAMINATION, SURGICAL PROCEDURE, OR ANY OTHER EXPOSURE?NO LATEX RISK : HAVE YOU EVER HAD ANY DIFFICULTY BREATHING OR HIVES AFTER EATING OR HANDLING ANY FRUITS, OR VEGETABLES; SUCH KIWI, BANANAS, STONE FRUITS, OR CHESTNUTSNO LATEX RISK : DO YOU HAVE A PREVIOUS PERSONAL HISTORY OF MORE THAN NINE SURGERIES, SPINA BIFIDA, OR REPEATED CATHERTIZATIONS? NO LATEX RISK : ARE YOU FREQUENTLY EXPOSED TO LATEX PRODUCTS IN YOUR OCCUPATION?NO DATE ASKED : 10/21/2018 CAFFEINE CAFFEINE USE?NO ADVANCE DIRECTIVE ADVANCE DIRECTIVE DISCUSSED WITH PATIENT:YES HCP - MU LEACH - SISTER [phone](C) [phone](W) ALSO HAS POA--SISTER-MU LEACH; LIVING WILL [employer] NONDENOMINATIONAL. MARITAL STATUS: SINGLE, .. 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 SEXUAL HX HAD SEX IN THE LAST 12 MONTHS (VAGINAL, ORAL, OR ANAL)?NO HAVE YOU EVER HAD AN STD?NO LMP:HYSTERECTOMY REVIEWED NL 05/12/18REVIEWED LAS 07/20/18 1215REVIEWED WITH PT 08/18/18 1113 BVREVIEWED WITH PT 09/17/18 1035 LASREVIEWED WITH PATIENT 12/07/18 0852 JS. HOSPITALIZATION/MAJOR DIAGNOSTIC PROCEDURE EATING DISORDER 01/20/2013 SURGERY REVIEW OF SYSTEMS REVIEWED BY: PROVIDER: . CONSTITUTIONAL: ANY CHANGE IN YOUR MEDICAL CONDITION? NO . CHILLS NO . FEVER NO . INFECTION: DO YOU HAVE NEW INFECTIONS? NO . DO YOU HAVE HISTORY OF MRSA? NO . MUSCULOSKELETAL: ANY NEW PATTERNS OF PAIN OR NUMBNESS? NO . GASTROENTEROLOGY: ANY NEW CHANGE IN BOWEL CONTROL? NO . GENITOURINARY: ANY NEW CHANGE IN BLADDER CONTROL? NO . IS THERE A CHANCE YOU COULD BE ? NO . HEMATOLOGY/LYMPH: DO YOU TAKE ANY BLOOD THINNERS? (FOR EXAMPLE- COUMADIN, PLAVIX, AGGRENOX, PLATEL, PRADAXA, OR XARELTO) NO . WHEN WAS YOUR LAST DOSE? DATE: TIME: . NEUROLOGY: HAVE YOU FALLEN IN THE PAST 12 MONTHS? YES, STATES FALL PRIOR TO LAST VISIT, DISCUSSED AT LAST VISIT . ANY NEW EXTREMITY NUMBNESS OR WEAKNESS? NO . CARDIOLOGY: DO YOU HAVE A PACEMAKER OR DEFIBRILLATOR? NO . RESPIRATORY: HAVE YOU BEEN SICK IN THE PAST WEEK? NO . FEVER NO . FLU LIKE SYMPTOMS? NO . COUGH NO . INTEGUMENTARY: DO YOU HAVE ANY RASHES OR OPEN SORES? NO . ALLERGIC/IMMUNO: ARE YOU ALLERGIC TO IV DYE? NO . ANY NEW ALLERGIES? NO . PSYCHIATRIC: DO YOU HAVE THOUGHTS OF HURTING YOURSELF OR SOMEONE ELSE? NO . ARE YOU ABUSED, NEGLECTED, OR IN AN UNSAFE ENVIRONMENT? NO . ENDOCRINOLOGY: ARE YOU DIABETIC? NO . OTHER: DO YOU NEED ANY PRESCRIPTIONS? NO . IF YES, PLEASE LIST: ____ . ANY NEW PROBLEMS WITH YOUR MEDICATIONS? NO . WHEN DID YOU LAST EAT? ____12/07/18399 - ON LIQUID DIET CURRENTLY - ONLY WATER THIS AM . WHEN DID YOU LAST DRINK? ____12/07/18 0400 . WHAT DID YOU LAST DRINK? ____WATER . NAME OF PERSON DRIVING YOU HOME? ____STEVE . DO YOU HAVE ANY OTHER QUESTIONS OR CONCERNS NO . VITAL SIGNS WT 92.2 LBS, HT 61 IN, BMI 17.42 INDEX, BP 105/64 MM HG, HR 78 /MIN, RR 18 /MIN, TEMP 96.8 F, OXYGEN SAT % 100%, SAFE IN ENV? (Y/N) YES, NA INITIALS IN 08:47, REVIEWED BY: CLAUDY. ASSESSMENTS SPONDYLOSIS OF LUMBAR REGION WITHOUT MYELOPATHY OR RADICULOPATHY - M47.816 (PRIMARY) SPONDYLOSIS OF LUMBOSACRAL REGION WITHOUT MYELOPATHY OR RADICULOPATHY - M47.817 PROCEDURES PN LUMBAR FACET BLOCK DIAGNOSTIC PRE PROCEDURE DIAGNOSIS LUMBAR SPONDYLOSIS, LUMBOSACRAL SPONDYLOSIS POST PROCEDURE DIAGNOSIS LUMBAR SPONDYLOSIS, LUMBOSACRAL SPONDYLOSIS PROCEDURE BILATERAL L4-L5 AND BILATERAL L5-S1 FACET BLOCK DIAGNOSTIC NUMBER [address] MARY JANE DON HEAD FILTER PRESS TENDER NONE ANESTHESIA LOCAL PRE PROCEDURE NOTE THE PATIENT WITH HISTORY OF CHRONIC LOW BACK PAIN. I EVALUATED THE PATIENT AND REVIEWED THE CHART. I WENT OVER THE RISKS, ALTERNATIVES, AND BENEFITS ASSOCIATED WITH THIS PROCEDURE. THE PATIENT WOULD LIKE TO PROCEED AND GAVE CONSENT TO PERFORM THE PROCEDURE. AGREED WITH THE PATIENT WE ARE DOING THIS PROCEDURE TO DETERMINE IF THE PATIENT IS A CANDIDATE FOR A RADIOFREQUENCY ABLATION OF THE FACETS JOINTS. THE PATIENT DENIES UNEXPLAINABLE WEIGHT LOSS, FEVER, CHILLS, OR NEW CHANGES IN URINARY OR BOWEL CONTROL DESCRIPTION OF PROCEDURE THE PATIENT WAS BROUGHT TO THE PROCEDURE ROOM AND PLACED IN THE PRONE POSITION. THE LUMBOSACRAL AREA WAS CLEANED WITH CHLORAPREP SOLUTION AND DRAPED ASEPTICALLY. THE PROCEDURE WAS DONE UNDER STERILE CONDITIONS. I CHECKED LATERALITY AND THE LEVEL WHERE THE PROCEDURE WAS GOING TO BE PERFORMED WITH THE PATIENT AND THE SUPPORTING STAFF AT THE MOMENT OF THE TIME OUT IN THE PROCEDURE ROOM. UNDER FLUOROSCOPIC GUIDANCE, TARGETS WERE SELECTED AT THE INTERSECTION OF THE RIGHT AND LEFT TRANSVERSE PROCESS OF L4, L5 AND ALA OF S1 WITH ITS RESPECTIVE SUPERIOR ARTICULAR PROCESS. LIDOCAINE WAS USED TO NUMB THE SKIN AND THE SUBCUTANEOUS TISSUE BELOW IT. SPINAL NEEDLE, 22-GAUGE WAS ADVANCED UNDER FLUOROSCOPIC GUIDANCE AND FOLLOWING PATIENT FEEDBACK UNTIL THE TARGETS WERE REACHED. POSITION OF THE NEEDLES WAS VERIFIED WITH AP AND LATERAL VIEWS. AFTER PROPER POSITION OF THE NEEDLES WAS ACHIEVED, ISOVUE-M DYE 30% 0.1 ML WAS INJECTED AT EACH SITE SHOWING ADEQUATE SPREAD OF THE DYE. THEN A SOLUTION OF 0.4 ML OF BUPIVACAINE 0.25% WAS INJECTED AT EACH SITE. THERE WAS NO EVIDENCE OF BLOOD, PARESTHESIA OR CEREBROSPINAL FLUID DURING THE PROCEDURE. THE PATIENT WAS SENT TO THE RECOVERY ROOM. THE PATIENT WAS MOVING THE EXTREMITIES AND DOING WELL. THERE WAS NO COMPLICATION DURING THE PROCEDURE. FLUOROSCOPY TIME WAS 29 SECONDS POST PROCEDURE NOTE THE PATIENT WILL DOCUMENT HIS PAIN LEVEL AND RESPONSE TO THIS PROCEDURE EVERY 30 MINUTES. THE PATIENT WILL BE SEEN IN A FOLLOW UP IN THE NEXT FEW WEEKS. FURTHER DETERMINATION FOR HIS CASE WILL BE DONE AT THE NEXT VISIT. INSTRUCTIONS WERE GIVEN, QUESTIONS WERE ANSWERED, AND THE PATIENT EXPRESSED UNDERSTANDING AND AGREED WITH THE PLAN. I, ERICK JESSICA, DOCUMENTED THE ABOVE INFORMATION ACTING A SCRIBE FOR DR. DON. I HAVE REVIEWED THE ABOVE DOCUMENT, WRITTEN BY ERICK JESSICA SCRIBE AND I VERIFY THAT IT IS ACCURATE. DIAGNOSTIC IMAGING [facility] FACET BLOCK (PAIN)[id number] PROCEDURE CODES 6045F RADXPS IN END [id number] PXD 05042 INJ PARAVERT F JNT L/S 1 LEV, MODIFIERS: 50 [id number] INJ PARAVERT F JNT L/S 2 LEV, MODIFIERS: 50 DISPOSITION & COMMUNICATION FOLLOW UP 3 WEEKS ELECTRONICALLY SIGNED BY MARY JANE DON MD, MD ON 12/15/2018 AT 12:48 PM EDT DISCLAIMER : THIS IS A VISIT SUMMARY EXTRACTED FROM THE [employer] CHART. IT IS NOT A COPY OF THE [employer] PROGRESS NOTE. MTDD
== END ==
LOC: M PAIN 09:15
PROVIDERS: ATTEND Anesthesiology
DX: M47.816 Spondylosis without myelopathy or radiculopathy, lumbar region (principal); M47.817 Spondylosis without myelopathy or radiculopathy, lumbosacral region; K90.0 Celiac disease; E04.1 Nontoxic single thyroid nodule; F50.2 Bulimia nervosa; Z85.828 Personal history of other malignant neoplasm of skin; Z87.891 Personal history of nicotine dependence; Z88.1 Allergy status to other antibiotic agents; Z88.5 Allergy status to narcotic agent; Z88.0 Allergy status to penicillin; Z91.013 Allergy to seafood; Z79.899 Other long term (current) drug therapy
CPT/HCPCS: 64493; 64494; Q9967

== ENCOUNTER → 2019-01-24 | Outpatient (CLI) | payer MEDICARE, MEDICAID ==
[~2019-01-24] MED LIST changes: -BUPIVACAINE HCL 0.25% 30 ML VIAL As Ordered ONE; -ISOVUE-M 300 61% 15ML VIAL (Q9967) As Ordered ONE; -LIDOCAINE 1% SDV INJ 30 ML VIAL As Ordered ONE; +ZANT150T40 PO; -ZANTTAB PO
--- NOTE | 2019-02-10 00:25 | ECWPNPC ---
PATIENT NAME: BRIAN DAWSON : 1955 GENDER: FEMALE VISIT DATE: 01/24/2019 DISCHARGE DATE: 01/24/19 1012 VISIT LOCKED DATE TIME: PHYSICIAN: SUKHI GONZALES PHYSICIAN PAGER NO: [phone] RESOURCE: SUKHI GONZALES REASON FOR APPOINTMENT 1. POST DIAGNOSTIC L3/4-L4/5 BLOCK BILAT HISTORY OF PRESENT ILLNESS HISTORY OF PRESENT ILLNESS: HERE FOR POSTR PROCEDURE F/U.HAD BILAT. L3/4 DIAGNOSTIC BLOCK ON 12/07/18.REPORTING 80 % REDUCTION IN PAIN X 24 HRS POST PEOCEDURE.COMPLAINING OF LEFT LOW BACK PAIN >RIGHT.RATING PAIN VAS 5/10.CURRENTLY BEING EVALUATED IN [place] FOR LESION IN [place].FURTHER WORKUP PENDING THIS MONTH. PAIN THE PATIENT DESCRIBES THE PAIN... FALL RISK SCREENING: SCREENING :NO FALLS REPORTED IN THE LAST YEAR CURRENT MEDICATIONS TAKING MAY HAVE - - PLANT FUSION PURE PROTEIN 1SCOOP IN FLAX MEAL ORAL 3X/DAY TAKING PROBIOTIC ACIDOPHILUS - TABLET DIRECTED ORALLY TAKING TOPAMAX 100 MG TABLET 1 TAB ORALLY TWICE A DAY TAKING FLUTICASONE PROPIONATE 50 MCG/ACT SUSPENSION 1 SPRAY IN EACH NOSTRIL NASALLY ONCE A DAY TAKING PANTOPRAZOLE SODIUM 40 MG TABLET DELAYED RELEASE 1 TABLET ORALLY ONCE A DAY TAKING ESTRING 2 MG RING DIRECTED VAGINAL TAKING CRANBERRY 450 MG CAPSULE 1 CAP ORALLY DAILY TAKING BIOFREEZE 4 % GEL 1 APPLICATION TO AFFECTED AREA NEEDED EXTERNALLY THREE TIMES A DAY TAKING SALINE 0.65 % SOLUTION 2 SPRAYS IN EACH NOSTRIL NEEDED NASALLY EVERY 2 HRS TAKING MIRALAX - PACKET 1 PACKET MIXED WITH 8 OUNCES OF FLUID ORALLY ONCE A DAY MEDICATION LIST REVIEWED AND RECONCILED WITH THE PATIENT PAST MEDICAL HISTORY LARYNGEAL NODULE CANDIDIASIS/BV-FREQUENTLY BULIMIA NERVOSA/SCHOZOAFFECTIVE D/O ([facility], 2013) 04-05-2014 DISTAL FIBULA FRACTURE 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 NODE, NEGATIVE BX, 2018 THYROID NODULE HIATAL HERNIA RUPTURE BACK PAIN BRAIN ANEURYSM ALLERGIES DOXYCYCLINE HYCLATE: PHOTODERMATITIS - ALLERGY LACTOSE INTOLERANT: DIARRHEA - ALLERGY DEMEROL: LOW BP - CONTRAINDICATION DARVOCET-N 100: LOW BP - CONTRAINDICATION AMOXICILLIN: SWELLING - ALLERGY SHELLFISH: HIVES - ALLERGY GLUTEN SURGICAL HISTORY NECK SURGERY X 2 LEFT KNEE SURGERY BUNIONECTOMY OBDULIO FEET HYSTERECTOMY ABDOMINAL LAPOROSCOPY ABD BEFORE HYSTERECTOMY LASER EYE SURGERY OBDULIO COLONOSCOPY 08/2013 STERIOD INJECTIONS TO NECK BY 02/2016 HERNIA REPAIR 03/2017 SKIN CANCER LESION REMOVED 2018 FAMILY HISTORY FATHER: 84 YRS, PANCREATIC CANCER, DIAGNOSED WITH CANCER MOTHER: ALIVE, HYPERLIPIDEMIA, HYPERTENSION, HEART DISEASE, CANCER, DIABETES 1 BROTHER(S) , 4 SISTER(S) - HEALTHY. 1 SON(S) , 1 DAUGHTER(S) - HEALTHY. FATHER ALSO POSITIVE FOR COLON, PANCREATIC CANCER\\\\\\\\NMOM--SKIN CA\\\\\\\\NBROTHER-FL\\\\\\\\NSISTER BACK PROBLEMS\\\\\\\\NSISTER X 2 LUPUS\\\\\\\\NDAUGHTER-BRITTLE DIABETIC\\\\\\\\N\\\\N\\\\NFATHER OF PANCREATIC CANCER, MOTHER AND SISTER HAD SKIN CANCER, UNKNOWN IF IT WAS MELANOMA. SOCIAL HISTORY GENERAL: TOBACCO USE ARE YOU A:FORMER SMOKER FORMER SMOKER HOW LONG HAS IT BEEN SINCE YOU LAST SMOKED?> 10 YEARS QUIT 2006 ADDITIONAL FINDINGS: TOBACCO USER NO ADDITIONAL FINDINGS: TOBACCO NON-USERCURRENT NON-SMOKER VAPORNO E-CIGARETTENO HIV / HEP-C SCREENING HIV TEST OFFERED TO PATIENT:YES DATE OFFERED:01/20/2019 TEST ACCEPTED:NO REASON:PATIENT DECLINED CONSENT ON FILE BROCHURE PROVIDED TO PATIENTNO HEP-C TEST OFFERED TO PATIENT:YES DATE OFFERED:01/20/2019 TEST ACCEPTED:YES CONSENT SIGNED OTHERS AT HOME: LIVES ALONE. HOUSING: RENTS APARTMENT. EDUCATION SOME COLLEGE. DIET: DIET ANGELA.. LANGUAGE ESTONIAN. DOMESTIC VIOLENCE NONE. BMI CARE GOAL FOLLOW-UP BELOW NORMAL BMI FOLLOW-UPDIETARY EDUCATION FOR WEIGHT GAIN RECREATIONAL DRUG USE DRUG USE?NO DENIES 10/21/2018 EXERCISE: DAILY-- ABLE. LEARNING BARRIERS / SPECIAL NEEDS CHANGE FROM LAST VISIT?NO 01/20/2019 BARRIERS TO LEARNING?NO HEARING IMPAIRED?NO VISION IMPAIRED?YES :CORRECTIVE LENSES COGNITIVELY IMPAIRED?NO READINESS TO LEARN?YES LEARNING PREFERENCES?NO LEARNING CAPABILITIES PRESENT?YES EMOTIONAL BARRIERS?NO SPECIAL DEVICES?NO HYPERION ADMINISTRATOR NEEDED?NO LUNG CANCER SCREENING SMOKING STATUS:FORMER SMOKER IS THE PATIENT BETWEEN THE AGE OF 57 AND 79?YES HAVE YOU QUIT SMOKING WITHIN THE PAST 15 YEARS?YES HAS THE PATIENT EVER BEEN DIAGNOSED WITH LUNG CANCER?NO PAIN CLINIC PFS, CLERGY, PUBLIC HEALTH REFERRALS WAS THE PROVIDER NOTIFIED OF ANY PERTINENT INFO?YES HAS THE PATIENT BEEN EDUCATED REGARDING HIS/HER PLAN OF CARE?YES HAS THE PATIENT BEEN EDUCATED REGARDING PAIN, THE RISK FOR PAIN, THE IMPORTANCE OF EFFECTIVE PAIN MANAGEMENT, AND THE PAIN ASSESSMENT PROCESS?YES LATEX QUESTIONNAIRE LATEX ALLERGY : HAVE YOU EVER DEVELOPED ANY TYPE OF REACTION AFTER HANDLING LATEX PRODUCTS SUCH RUBBER GLOVES, CONDOMS, DIAPHRAGMS, BALLOONS, SOCKS, OR UNDERWEAR?NO LATEX ALLERGY : HAVE YOU EVER DEVELOPED ANY TYPE OF REACTION DURING OR AFTER DENTAL APPOINTMENT, VAGINAL/RECTAL EXAMINATION, SURGICAL PROCEDURE, OR ANY OTHER EXPOSURE?NO LATEX RISK : HAVE YOU EVER HAD ANY DIFFICULTY BREATHING OR HIVES AFTER EATING OR HANDLING ANY FRUITS, OR VEGETABLES; SUCH KIWI, BANANAS, STONE FRUITS, OR CHESTNUTSNO LATEX RISK : DO YOU HAVE A PREVIOUS PERSONAL HISTORY OF MORE THAN NINE SURGERIES, SPINA BIFIDA, OR REPEATED CATHERIZATIONS? 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 MARITAL STATUS: SINGLE, .. ALCOHOL SCREENING DID YOU HAVE A DRINK CONTAINING ALCOHOL IN THE PAST YEAR?NO POINTS0 INTERPRETATIONNEGATIVE OCCUPATION: DISABILITY WORKING AT [employer]. SEXUAL HX HAD SEX IN THE LAST 12 MONTHS (VAGINAL, ORAL, OR ANAL)?NO HAVE YOU EVER HAD AN STD?NO LMP:HYSTERECTOMY REVIEWED NL 05/12/18REVIEWED LAS 07/20/18 1215REVIEWED WITH PT 08/18/18 1113 BVREVIEWED WITH PT 09/17/18 1035 LASREVIEWED WITH PATIENT 12/07/18 0852 JS. HOSPITALIZATION/MAJOR DIAGNOSTIC PROCEDURE EATING DISORDER 01/20/2013 SURGERY REVIEW OF SYSTEMS REVIEWED BY: PROVIDER: SUKHI ARIAS . CONSTITUTIONAL: ANY CHANGE IN YOUR MEDICAL CONDITION? NO . CHILLS NO . FEVER NO . INFECTION: DO YOU HAVE NEW INFECTIONS? NO . DO YOU HAVE HISTORY OF MRSA? NO . MUSCULOSKELETAL: ANY NEW PATTERNS OF PAIN OR NUMBNESS? NO . GASTROENTEROLOGY: ANY NEW CHANGE IN BOWEL CONTROL? NO . GENITOURINARY: ANY NEW CHANGE IN BLADDER CONTROL? NO . IS THERE A CHANCE YOU COULD BE ? NO . HEMATOLOGY/LYMPH: DO YOU TAKE ANY BLOOD THINNERS? (FOR EXAMPLE- COUMADIN, PLAVIX, AGGRENOX, PLATEL, PRADAXA, OR XARELTO) NO . WHEN WAS YOUR LAST DOSE? DATE: TIME: . NEUROLOGY: HAVE YOU FALLEN IN THE PAST 12 MONTHS? NO . ANY NEW EXTREMITY NUMBNESS OR WEAKNESS? NO . CARDIOLOGY: DO YOU HAVE A PACEMAKER OR DEFIBRILLATOR? NO . RESPIRATORY: HAVE YOU BEEN SICK IN THE PAST WEEK? NO . FEVER NO . FLU LIKE SYMPTOMS? NO . COUGH NO . INTEGUMENTARY: DO YOU HAVE ANY RASHES OR OPEN SORES? NO . ALLERGIC/IMMUNO: ARE YOU ALLERGIC TO IV DYE? NO . ANY NEW ALLERGIES? NO . PSYCHIATRIC: DO YOU HAVE THOUGHTS OF HURTING YOURSELF OR SOMEONE ELSE? NO . ARE YOU ABUSED, NEGLECTED, OR IN AN UNSAFE ENVIRONMENT? NO . ENDOCRINOLOGY: ARE YOU DIABETIC? NO . OTHER: DO YOU NEED ANY PRESCRIPTIONS? NO . IF YES, PLEASE LIST: ____ . ANY NEW PROBLEMS WITH YOUR MEDICATIONS? NO . WHEN DID YOU LAST EAT? ____ . WHEN DID YOU LAST DRINK? ____ . WHAT DID YOU LAST DRINK? ____ . NAME OF PERSON DRIVING YOU HOME? ____ . DO YOU HAVE ANY OTHER QUESTIONS OR CONCERNS NO . VITAL SIGNS WT 95.8 LBS, HT 61 IN, BMI 18.10 INDEX, BP 101/57 MM HG, HR 77 /MIN, RR 16 /MIN, TEMP 97.6 F, OXYGEN SAT % 100%, SAFE IN ENV? (Y/N) Y, NA INITIALS [place] 09:12, REVIEWED BY: GOYO. EXAMINATION GENERAL EXAMINATION: GENERAL AWAKE,ALERT ,PLEAASANT . PSYCH AFFECT NORMAL . LUNGS: LUNG VAZ ARE CLEAR TO AUSCULTATION BILATERALLY. GOOD MOVEMENT OF AIR . HEART: S1, S2 IN A REGULAR RATE AND RHYTHM. NO SIGNIFICANT MURMURS, RUBS OR GALLOPS NOTED . LUMBAR SACRAL SPINEPALPATION:TENDER OVER BILAT. L3/4-L4/5 LUMBAR FACETS WITH FACET LOADING.. DIAGNOSTIC TESTS REVIEWED MRI L/S SPINE-07/15/18. ASSESSMENTS FACET ARTHROPATHY, LUMBOSACRAL - M47.817 (PRIMARY) TREATMENT FACET ARTHROPATHY, LUMBOSACRAL NOTES: IN 6 WKS LEFT LFB DX#2. PROCEDURE CODES FA211 ESTABILISHED PATIENT [facility] CHARGE DISPOSITION & COMMUNICATION FOLLOW UP POST (REASON: IN 6 WKS LEFT LFB DX#2) ELECTRONICALLY SIGNED BY HUGO NICOLE ON 02/09/2019 AT 08:24 AM EDT DISCLAIMER : THIS IS A VISIT SUMMARY EXTRACTED FROM THE [employer] CHART. IT IS NOT A COPY OF THE [employer] PROGRESS NOTE. VARUN
== END ==
LOC: M PAIN 09:15
PROVIDERS: ATTEND Nurse Practitioner Family
DX: M47.817 Spondylosis without myelopathy or radiculopathy, lumbosacral region (principal); Z87.891 Personal history of nicotine dependence; Z88.1 Allergy status to other antibiotic agents; Z88.5 Allergy status to narcotic agent; Z91.011 Allergy to milk products; Z91.013 Allergy to seafood; Z91.018 Allergy to other foods; Z79.899 Other long term (current) drug therapy

== ENCOUNTER → 2019-01-25 | Outpatient (CLI) | payer MEDICARE, MEDICAID ==
[2019-01-25 11:17] LABS: DRVV SCREEN 31.5 SEC
[2019-01-25 11:50] LABS: PTT LUPUS TYPE ANTICOAG SCREEN 0.8 (0-1.2)
[2019-01-26 14:12] LABS: ANTINUCLEAR ANTIBODIES DIRECT Negative (Negative)
== END ==
LOC: M LAB 10:03
PROVIDERS: ATTEND Physician Assistant Medical
DX: M79.643 Pain in unspecified hand (principal)

== ENCOUNTER → 2019-03-10 | Outpatient (CLI) | payer MEDICARE, MEDICAID ==
[~2019-03-10] MED LIST changes: +BUPIVACAINE HCL 0.25% 30 ML VIAL As Ordered ONE; +ISOVUE-M 300 61% 15ML VIAL (Q9967) As Ordered ONE; +LIDOCAINE 1% SDV INJ 30 ML VIAL As Ordered ONE
--- NOTE | 2019-03-10 11:40 | REP ---
Partial lumbar spine series: Single view. . History: Injection procedure for pain. 10 seconds of fluoroscopy time is reported. Findings: A single fluoroscopically obtained last image hold procedural spot radiograph of the lumbar spine documents needle position and contrast injection associated with injection procedure. Electronically Signed by Melquiades Rain MD 03/10/2019 11:32 A
--- NOTE | 2019-03-20 23:57 | ECWPNPC ---
PATIENT NAME: BRIAN DAWSON : 1955 GENDER: FEMALE VISIT DATE: 03/10/2019 DISCHARGE DATE: 03/10/19 1119 VISIT LOCKED DATE TIME: PHYSICIAN: MARY JANE DON MD PHYSICIAN PAGER NO: [phone] RESOURCE: MARY JANE DON MD REASON FOR APPOINTMENT 1. LEFT LFB DX#2 HISTORY OF PRESENT ILLNESS HISTORY OF PRESENT ILLNESS: PAIN THE PATIENT DESCRIBES THE PAIN... FALL RISK SCREENING: SCREENING :NO FALLS REPORTED IN THE LAST YEAR CURRENT MEDICATIONS TAKING MAY HAVE - - PLANT FUSION PURE PROTEIN 1SCOOP IN FLAX MEAL ORAL 3X/DAY TAKING PROBIOTIC ACIDOPHILUS - TABLET DIRECTED ORALLY TAKING TOPAMAX 100 MG TABLET 1 TAB ORALLY TWICE A DAY TAKING FLUTICASONE PROPIONATE 50 MCG/ACT SUSPENSION 1 SPRAY IN EACH NOSTRIL NASALLY ONCE A DAY TAKING PANTOPRAZOLE SODIUM 40 MG TABLET DELAYED RELEASE 1 TABLET ORALLY ONCE A DAY TAKING ESTRING 2 MG RING DIRECTED VAGINAL TAKING CRANBERRY 450 MG CAPSULE 1 CAP ORALLY DAILY TAKING BIOFREEZE 4 % GEL 1 APPLICATION TO AFFECTED AREA NEEDED EXTERNALLY THREE TIMES A DAY TAKING SALINE 0.65 % SOLUTION 2 SPRAYS IN EACH NOSTRIL NEEDED NASALLY EVERY 2 HRS TAKING MIRALAX - PACKET 1 PACKET MIXED WITH 8 OUNCES OF FLUID ORALLY ONCE A DAY TAKING LINZESS 290 MCG CAPSULE 1 CAPSULE ORALLY ONCE A DAY MEDICATION LIST REVIEWED AND RECONCILED WITH THE PATIENT PAST MEDICAL HISTORY LARYNGEAL NODULE CANDIDIASIS/BV-FREQUENTLY BULIMIA NERVOSA/SCHOZOAFFECTIVE D/O ([facility], 2012) 04-05-2014 DISTAL FIBULA FRACTURE 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 NODE, NEGATIVE BX, 2018 THYROID NODULE HIATAL HERNIA RUPTURE BACK PAIN BRAIN ANEURYSM ALLERGIES DOXYCYCLINE HYCLATE: PHOTODERMATITIS - ALLERGY LACTOSE INTOLERANT: DIARRHEA - ALLERGY DEMEROL: LOW BP - CONTRAINDICATION DARVOCET-N 100: LOW BP - CONTRAINDICATION AMOXICILLIN: SWELLING - ALLERGY SHELLFISH: HIVES - ALLERGY GLUTEN SURGICAL HISTORY NECK SURGERY X 2 LEFT KNEE SURGERY BUNIONECTOMY OBDULIO FEET HYSTERECTOMY ABDOMINAL LAPOROSCOPY ABD BEFORE HYSTERECTOMY LASER EYE SURGERY OBDULIO COLONOSCOPY 08/2013 STERIOD INJECTIONS TO NECK BY 02/2016 HERNIA REPAIR 03/2017 SKIN CANCER LESION REMOVED 2018 FAMILY HISTORY FATHER: 84 YRS, PANCREATIC CANCER, DIAGNOSED WITH OTHER MALIGNANT NEOPLASM OF UNSPECIFIED SITE MOTHER: ALIVE, HYPERLIPIDEMIA, DIABETES, HYPERTENSION, UNSPECIFIED HEART DISEASE, OTHER MALIGNANT NEOPLASM OF UNSPECIFIED SITE 1 BROTHER(S) , 4 SISTER(S) - HEALTHY. 1 SON(S) , 1 DAUGHTER(S) - HEALTHY. FATHER ALSO POSITIVE FOR COLON, PANCREATIC CANCER\\\\\\\\NMOM--SKIN [place]\\\\\\\\NBROTHER-[place]\\\\\\\\NSISTER BACK PROBLEMS\\\\\\\\NSISTER X 2 LUPUS\\\\\\\\NDAUGHTER-BRITTLE DIABETIC\\\\\\\\N\\\\N\\\\NFATHER OF PANCREATIC CANCER, MOTHER AND SISTER HAD SKIN CANCER, UNKNOWN IF IT WAS MELANOMA. SOCIAL HISTORY GENERAL: TOBACCO USE ARE YOU A:FORMER SMOKER FORMER SMOKER HOW LONG HAS IT BEEN SINCE YOU LAST SMOKED?> 10 YEARS QUIT 2006 ADDITIONAL FINDINGS: TOBACCO USER NO ADDITIONAL FINDINGS: TOBACCO NON-USERCURRENT NON-SMOKER VAPORNO E-CIGARETTENO HIV / HEP-C SCREENING HIV TEST OFFERED TO PATIENT:YES DATE OFFERED:01/20/2019 TEST ACCEPTED:NO HEP-C TEST OFFERED TO PATIENT:YES DATE OFFERED:01/20/2019 REASON:PATIENT DECLINED CONSENT ON FILE TEST ACCEPTED:YES CONSENT SIGNED BROCHURE PROVIDED TO PATIENTNO OTHERS AT HOME: LIVES ALONE. HOUSING: RENTS APARTMENT. EDUCATION SOME COLLEGE. DIET: DIET ANGELA.. LANGUAGE SUDANESE. DOMESTIC VIOLENCE NONE. BMI CARE GOAL FOLLOW-UP BELOW NORMAL BMI FOLLOW-UPDIETARY EDUCATION FOR WEIGHT GAIN RECREATIONAL DRUG USE DRUG USE?NO DENIES 10/21/2018 EXERCISE: DAILY-- ABLE. LEARNING BARRIERS / SPECIAL NEEDS CHANGE FROM LAST VISIT?NO 01/20/2019 BARRIERS TO LEARNING?NO HEARING IMPAIRED?NO VISION IMPAIRED?YES COGNITIVELY IMPAIRED?NO :CORRECTIVE LENSES READINESS TO LEARN?YES LEARNING PREFERENCES?NO LEARNING CAPABILITIES PRESENT?YES EMOTIONAL BARRIERS?NO SPECIAL DEVICES?NO BREAD JOCKEY NEEDED?NO LUNG CANCER SCREENING SMOKING STATUS:FORMER SMOKER IS THE PATIENT BETWEEN THE AGE OF 57 AND 79?YES HAVE YOU QUIT SMOKING WITHIN THE PAST 15 YEARS?YES HAS THE PATIENT EVER BEEN DIAGNOSED WITH LUNG CANCER?NO PAIN CLINIC PFS, CLERGY, PUBLIC HEALTH REFERRALS WAS THE PROVIDER NOTIFIED OF ANY PERTINENT INFO?YES HAS THE PATIENT BEEN EDUCATED REGARDING HIS/HER PLAN OF CARE?YES HAS THE PATIENT BEEN EDUCATED REGARDING PAIN, THE RISK FOR PAIN, THE IMPORTANCE OF EFFECTIVE PAIN MANAGEMENT, AND THE PAIN ASSESSMENT PROCESS?YES LATEX QUESTIONNAIRE LATEX ALLERGY : HAVE YOU EVER DEVELOPED ANY TYPE OF REACTION AFTER HANDLING LATEX PRODUCTS SUCH RUBBER GLOVES, CONDOMS, DIAPHRAGMS, BALLOONS, SOCKS, OR UNDERWEAR?NO LATEX ALLERGY : HAVE YOU EVER DEVELOPED ANY TYPE OF REACTION DURING OR AFTER DENTAL APPOINTMENT, VAGINAL/RECTAL EXAMINATION, SURGICAL PROCEDURE, OR ANY OTHER EXPOSURE?NO DATE ASKED : 01/24/2019 LATEX RISK : HAVE YOU EVER HAD ANY DIFFICULTY BREATHING OR HIVES AFTER EATING OR HANDLING ANY FRUITS, OR VEGETABLES; SUCH KIWI, BANANAS, STONE FRUITS, OR CHESTNUTSNO LATEX RISK : DO YOU HAVE A PREVIOUS PERSONAL HISTORY OF MORE THAN NINE SURGERIES, SPINA BIFIDA, OR REPEATED CATHERIZATIONS? NO LATEX RISK : ARE YOU FREQUENTLY EXPOSED TO LATEX PRODUCTS IN YOUR OCCUPATION?NO CAFFEINE CAFFEINE USE?NO ADVANCE DIRECTIVE ADVANCE DIRECTIVE DISCUSSED WITH PATIENT:YES HCP - MU LEACH - SISTER [phone](C) [phone](W) ALSO HAS POA--SISTER-MU LEACH; LIVING WILL [employer] YAZIDISM. MARITAL STATUS: SINGLE, .. ALCOHOL SCREENING DID YOU HAVE A DRINK CONTAINING ALCOHOL IN THE PAST YEAR?NO POINTS0 INTERPRETATIONNEGATIVE OCCUPATION: DISABILITY WORKING AT [employer]. SEXUAL HX HAD SEX IN THE LAST 12 MONTHS (VAGINAL, ORAL, OR ANAL)?NO LMP:HYSTERECTOMY HAVE YOU EVER HAD AN STD?NO REVIEWED NL 05/12/18REVIEWED LAS 07/20/18 1215REVIEWED WITH PT 08/18/18 1113 BVREVIEWED WITH PT 09/17/18 1035 LASREVIEWED WITH PATIENT 12/07/18 0852 JS. HOSPITALIZATION/MAJOR DIAGNOSTIC PROCEDURE EATING DISORDER 01/20/2013 SURGERY REVIEW OF SYSTEMS REVIEWED BY: PROVIDER: . CONSTITUTIONAL: ANY CHANGE IN YOUR MEDICAL CONDITION? NO . CHILLS NO . FEVER NO . INFECTION: DO YOU HAVE NEW INFECTIONS? NO . DO YOU HAVE HISTORY OF MRSA? NO . MUSCULOSKELETAL: ANY NEW PATTERNS OF PAIN OR NUMBNESS? NO . GASTROENTEROLOGY: ANY NEW CHANGE IN BOWEL CONTROL? NO . GENITOURINARY: ANY NEW CHANGE IN BLADDER CONTROL? NO . IS THERE A CHANCE YOU COULD BE ? NO . HEMATOLOGY/LYMPH: DO YOU TAKE ANY BLOOD THINNERS? (FOR EXAMPLE- COUMADIN, PLAVIX, AGGRENOX, PLATEL, PRADAXA, OR XARELTO) NO . WHEN WAS YOUR LAST DOSE? DATE: TIME: . NEUROLOGY: HAVE YOU FALLEN IN THE PAST 12 MONTHS? NO . ANY NEW EXTREMITY NUMBNESS OR WEAKNESS? NO . CARDIOLOGY: DO YOU HAVE A PACEMAKER OR DEFIBRILLATOR? NO . RESPIRATORY: HAVE YOU BEEN SICK IN THE PAST WEEK? NO . FEVER NO . FLU LIKE SYMPTOMS? NO . COUGH NO . INTEGUMENTARY: DO YOU HAVE ANY RASHES OR OPEN SORES? NO . ALLERGIC/IMMUNO: ARE YOU ALLERGIC TO IV DYE? NO . ANY NEW ALLERGIES? NO . PSYCHIATRIC: DO YOU HAVE THOUGHTS OF HURTING YOURSELF OR SOMEONE ELSE? NO . ARE YOU ABUSED, NEGLECTED, OR IN AN UNSAFE ENVIRONMENT? NO . ENDOCRINOLOGY: ARE YOU DIABETIC? NO . OTHER: DO YOU NEED ANY PRESCRIPTIONS? NO . IF YES, PLEASE LIST: ____ . ANY NEW PROBLEMS WITH YOUR MEDICATIONS? NO . WHEN DID YOU LAST EAT? ____LAST NIIGHT AT MIDNIGHT 03-09-19 . WHEN DID YOU LAST DRINK? ____03-09-19 . WHAT DID YOU LAST DRINK? ____S MORNING 6 AM . NAME OF PERSON DRIVING YOU HOME? ____STEVE . DO YOU HAVE ANY OTHER QUESTIONS OR CONCERNS NO . VITAL SIGNS WT 95.4 LBS, HT 61 IN, BMI 18.02 INDEX, BP 112/66 MM HG, HR 95 /MIN, RR 18 /MIN, TEMP 97.7 F, OXYGEN SAT % 96%, NA INITIALS SC 10:12. ASSESSMENTS SPONDYLOSIS OF LUMBAR REGION WITHOUT MYELOPATHY OR RADICULOPATHY - M47.816 (PRIMARY) SPONDYLOSIS OF LUMBOSACRAL REGION WITHOUT MYELOPATHY OR RADICULOPATHY - M47.817 PROCEDURES PN LUMBAR FACET BLOCK DIAGNOSTIC PRE PROCEDURE DIAGNOSIS LUMBAR SPONDYLOSIS, LUMBOSACRAL SPONDYLOSIS POST PROCEDURE DIAGNOSIS LUMBAR SPONDYLOSIS, LUMBOSACRAL SPONDYLOSIS PROCEDURE LEFT L4-L5 AND LEFT L5-S1 FACET BLOCK DIAGNOSTIC NUMBER [address] MARY JANE DON PERIODONTIST NONE ANESTHESIA LOCAL PRE PROCEDURE NOTE THE PATIENT WITH HISTORY OF CHRONIC LOW BACK PAIN. I EVALUATED THE PATIENT AND REVIEWED THE CHART. I WENT OVER THE RISKS, ALTERNATIVES, AND BENEFITS ASSOCIATED WITH THIS PROCEDURE. THE PATIENT WOULD LIKE TO PROCEED AND GAVE CONSENT TO PERFORM THE PROCEDURE. AGREED WITH THE PATIENT WE ARE DOING THIS PROCEDURE TO DETERMINE IF THE PATIENT IS A CANDIDATE FOR A RADIOFREQUENCY ABLATION OF THE FACETS JOINTS. THE PATIENT DENIES UNEXPLAINABLE WEIGHT LOSS, FEVER, CHILLS, OR NEW CHANGES IN URINARY OR BOWEL CONTROL DESCRIPTION OF PROCEDURE THE PATIENT WAS BROUGHT TO THE PROCEDURE ROOM AND PLACED IN THE PRONE POSITION. THE LUMBOSACRAL AREA WAS CLEANED WITH CHLORAPREP SOLUTION AND DRAPED ASEPTICALLY. THE PROCEDURE WAS DONE UNDER STERILE CONDITIONS. I CHECKED LATERALITY AND THE LEVEL WHERE THE PROCEDURE WAS GOING TO BE PERFORMED WITH THE PATIENT AND THE SUPPORTING STAFF AT THE MOMENT OF THE TIME OUT IN THE PROCEDURE ROOM. UNDER FLUOROSCOPIC GUIDANCE, TARGETS WERE SELECTED AT THE INTERSECTION OF THE LEFT TRANSVERSE PROCESS OF L4, L5 AND ALA OF S1 WITH ITS RESPECTIVE SUPERIOR ARTICULAR PROCESS. LIDOCAINE WAS USED TO NUMB THE SKIN AND THE SUBCUTANEOUS TISSUE BELOW IT. SPINAL NEEDLE, 22-GAUGE WAS ADVANCED UNDER FLUOROSCOPIC GUIDANCE AND FOLLOWING PATIENT FEEDBACK UNTIL THE TARGETS WERE REACHED. POSITION OF THE NEEDLES WAS VERIFIED WITH AP AND LATERAL VIEWS. AFTER PROPER POSITION OF THE NEEDLES WAS ACHIEVED, ISOVUE-M DYE 30% 0.1 ML WAS INJECTED AT EACH SITE SHOWING ADEQUATE SPREAD OF THE DYE. THEN A SOLUTION OF 0.4 ML OF BUPIVACAINE 0.25% WAS INJECTED AT EACH SITE. THERE WAS NO EVIDENCE OF BLOOD, PARESTHESIA OR CEREBROSPINAL FLUID DURING THE PROCEDURE. THE PATIENT WAS SENT TO THE RECOVERY ROOM. THE PATIENT WAS MOVING THE EXTREMITIES AND DOING WELL. THERE WAS NO COMPLICATION DURING THE PROCEDURE. FLUOROSCOPY TIME WAS 10 SECONDS POST PROCEDURE NOTE THE PATIENT WILL DOCUMENT HIS PAIN LEVEL AND RESPONSE TO THIS PROCEDURE EVERY 30 MINUTES. THE PATIENT WILL BE SEEN IN A FOLLOW UP IN THE NEXT FEW WEEKS. FURTHER DETERMINATION FOR HIS CASE WILL BE DONE AT THE NEXT VISIT. INSTRUCTIONS WERE GIVEN, QUESTIONS WERE ANSWERED, AND THE PATIENT EXPRESSED UNDERSTANDING AND AGREED WITH THE PLAN. I, BIANCA OLIVER, DOCUMENTED THE ABOVE INFORMATION ACTING A SCRIBE FOR DR. DON. I HAVE REVIEWED THE ABOVE DOCUMENT, WRITTEN BY BIANCA FISHER AND I VERIFY THAT IT IS ACCURATE. DIAGNOSTIC IMAGING [facility] FACET BLOCK (PAIN)[id number] PROCEDURE CODES 46032 INJ PARAVERT F JNT L/S 1 LEV, [place]: [place] [address] INJ PARAVERT F JNT L/S 2 LEV, MODIFIERS: LT 6045F RADXPS IN END [id number] PXD DISPOSITION & COMMUNICATION FOLLOW UP 3 WEEKS ELECTRONICALLY SIGNED BY MARY JANE DON MD, MD ON 03/20/2019 AT 12:19 PM EDT DISCLAIMER : THIS IS A VISIT SUMMARY EXTRACTED FROM THE [employer] CHART. IT IS NOT A COPY OF THE [employer] PROGRESS NOTE. VARUN
== END ==
LOC: M PAIN 10:00
PROVIDERS: ATTEND Anesthesiology
DX: M47.816 Spondylosis without myelopathy or radiculopathy, lumbar region (principal); M47.817 Spondylosis without myelopathy or radiculopathy, lumbosacral region; F50.2 Bulimia nervosa; K90.0 Celiac disease; E04.1 Nontoxic single thyroid nodule; Z85.828 Personal history of other malignant neoplasm of skin; Z90.710 Acquired absence of both cervix and uterus; Z87.891 Personal history of nicotine dependence; Z79.899 Other long term (current) drug therapy; Z88.0 Allergy status to penicillin; Z88.1 Allergy status to other antibiotic agents; Z88.5 Allergy status to narcotic agent; Z88.8 Allergy status to other drugs, medicaments and biological substances; Z91.013 Allergy to seafood
CPT/HCPCS: 64493; 64494; Q9967

== ENCOUNTER → 2019-03-30 | Outpatient (CLI) | payer MEDICARE, MEDICAID ==
[~2019-03-30] MED LIST changes: -BUPIVACAINE HCL 0.25% 30 ML VIAL As Ordered ONE; -ISOVUE-M 300 61% 15ML VIAL (Q9967) As Ordered ONE; -LIDOCAINE 1% SDV INJ 30 ML VIAL As Ordered ONE
--- NOTE | 2019-04-04 13:06 | ECWPNPC ---
PATIENT NAME: BRIAN DAWSON : 1955 GENDER: FEMALE VISIT DATE: 03/30/2019 DISCHARGE DATE: 03/30/19 1019 VISIT LOCKED DATE TIME: PHYSICIAN: SUKHI GONZALES PHYSICIAN PAGER NO: [phone] RESOURCE: SUKHI GONZALES REASON FOR APPOINTMENT 1. POST PROCEDURE HISTORY OF PRESENT ILLNESS HISTORY OF PRESENT ILLNESS: HERE FOR POST PROCEDURE F/U.HAD LEFT L4/5-L5/S1 LFBDX ON 03/10/19.REPORTING >80% REDUCTION IN PAIN X 24 HRS POST PROCEDURE .COMPLAING OF LBP L>R AT LEVEL 7/10 TODAY.DISCUSSED RF PROCEDURE. PAIN THE PATIENT DESCRIBES THE PAIN... FALL RISK SCREENING: SCREENING :NO FALLS REPORTED IN THE LAST YEAR CURRENT MEDICATIONS TAKING MAY HAVE - - PLANT FUSION PURE PROTEIN 1SCOOP IN FLAX MEAL ORAL 3X/DAY TAKING PROBIOTIC ACIDOPHILUS - TABLET DIRECTED ORALLY TAKING TOPAMAX 100 MG TABLET 1 TAB ORALLY TWICE A DAY TAKING FLUTICASONE PROPIONATE 50 MCG/ACT SUSPENSION 1 SPRAY IN EACH NOSTRIL NASALLY ONCE A DAY TAKING PANTOPRAZOLE SODIUM 40 MG TABLET DELAYED RELEASE 1 TABLET ORALLY ONCE A DAY TAKING ESTRING 2 MG RING DIRECTED VAGINAL TAKING CRANBERRY 450 MG CAPSULE 1 CAP ORALLY DAILY TAKING BIOFREEZE 4 % GEL 1 APPLICATION TO AFFECTED AREA NEEDED EXTERNALLY THREE TIMES A DAY TAKING SALINE 0.65 % SOLUTION 2 SPRAYS IN EACH NOSTRIL NEEDED NASALLY EVERY 2 HRS TAKING MIRALAX - PACKET 1 PACKET MIXED WITH 8 OUNCES OF FLUID ORALLY ONCE A DAY TAKING LINZESS 290 MCG CAPSULE 1 CAPSULE ORALLY ONCE A DAY MEDICATION LIST REVIEWED AND RECONCILED WITH THE PATIENT PAST MEDICAL HISTORY LARYNGEAL NODULE CANDIDIASIS/BV-FREQUENTLY BULIMIA NERVOSA/SCHOZOAFFECTIVE D/O ([facility], 2013) 04-05-2014 DISTAL FIBULA FRACTURE 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 NODE, NEGATIVE BX, 2018 THYROID NODULE HIATAL HERNIA RUPTURE BACK PAIN BRAIN ANEURYSM ALLERGIES DOXYCYCLINE HYCLATE: PHOTODERMATITIS - ALLERGY LACTOSE INTOLERANT: DIARRHEA - ALLERGY DEMEROL: LOW BP - CONTRAINDICATION DARVOCET-N 100: LOW BP - CONTRAINDICATION AMOXICILLIN: SWELLING - ALLERGY SHELLFISH: HIVES - ALLERGY GLUTEN SURGICAL HISTORY NECK SURGERY X 2 LEFT KNEE SURGERY BUNIONECTOMY ODBULIO FEET HYSTERECTOMY ABDOMINAL LAPOROSCOPY ABD BEFORE HYSTERECTOMY LASER EYE SURGERY OBDULIO COLONOSCOPY 08/2013 STERIOD INJECTIONS TO NECK BY 02/2016 HERNIA REPAIR 03/2017 SKIN CANCER LESION REMOVED 2018 FAMILY HISTORY FATHER: 84 YRS, PANCREATIC CANCER, DIAGNOSED WITH OTHER MALIGNANT NEOPLASM OF UNSPECIFIED SITE MOTHER: ALIVE, HYPERLIPIDEMIA, DIABETES, HYPERTENSION, UNSPECIFIED HEART DISEASE, OTHER MALIGNANT NEOPLASM OF UNSPECIFIED SITE 1 BROTHER(S) , 4 SISTER(S) - HEALTHY. 1 SON(S) , 1 DAUGHTER(S) - HEALTHY. FATHER ALSO POSITIVE FOR COLON, PANCREATIC CANCER\\\\\\\\NMOM--SKIN CA\\\\\\\\NBROTHER-[place]\\\\\\\\NSISTER BACK PROBLEMS\\\\\\\\NSISTER X 2 LUPUS\\\\\\\\NDAUGHTER-BRITTLE DIABETIC\\\\\\\\N\\\\N\\\\NFATHER OF PANCREATIC CANCER, MOTHER AND SISTER HAD SKIN CANCER, UNKNOWN IF IT WAS MELANOMA. SOCIAL HISTORY GENERAL: TOBACCO USE ARE YOU A:FORMER SMOKER FORMER SMOKER HOW LONG HAS IT BEEN SINCE YOU LAST SMOKED?> 10 YEARS QUIT 2006 ADDITIONAL FINDINGS: TOBACCO USER NO ADDITIONAL FINDINGS: TOBACCO NON-USERCURRENT NON-SMOKER VAPORNO E-CIGARETTENO HIV / HEP-C SCREENING HIV TEST OFFERED TO PATIENT:YES DATE OFFERED:01/20/2019 TEST ACCEPTED:NO HEP-C TEST OFFERED TO PATIENT:YES DATE OFFERED:01/20/2019 REASON:PATIENT DECLINED CONSENT ON FILE TEST ACCEPTED:YES CONSENT SIGNED BROCHURE PROVIDED TO PATIENTNO OTHERS AT HOME: LIVES ALONE. HOUSING: RENTS APARTMENT. EDUCATION SOME COLLEGE. DIET: DIET ANGELA.. LANGUAGE TAMAZIGHT. DOMESTIC VIOLENCE NONE. BMI CARE GOAL FOLLOW-UP BELOW NORMAL BMI FOLLOW-UPDIETARY EDUCATION FOR WEIGHT GAIN RECREATIONAL DRUG USE DRUG USE?NO DENIES 10/21/2018 EXERCISE: DAILY-- ABLE. LEARNING BARRIERS / SPECIAL NEEDS CHANGE FROM LAST VISIT?NO 01/20/2019 BARRIERS TO LEARNING?NO HEARING IMPAIRED?NO VISION IMPAIRED?YES COGNITIVELY IMPAIRED?NO :CORRECTIVE LENSES READINESS TO LEARN?YES LEARNING PREFERENCES?NO LEARNING CAPABILITIES PRESENT?YES EMOTIONAL BARRIERS?NO SPECIAL DEVICES?NO SIX SIGMA BLACK BELT ENGINEER NEEDED?NO LUNG CANCER SCREENING SMOKING STATUS:FORMER SMOKER IS THE PATIENT BETWEEN THE AGE OF 57 AND 79?YES HAVE YOU QUIT SMOKING WITHIN THE PAST 15 YEARS?YES HAS THE PATIENT EVER BEEN DIAGNOSED WITH LUNG CANCER?NO PAIN CLINIC PFS, CLERGY, PUBLIC HEALTH REFERRALS WAS THE PROVIDER NOTIFIED OF ANY PERTINENT INFO?YES HAS THE PATIENT BEEN EDUCATED REGARDING HIS/HER PLAN OF CARE?YES HAS THE PATIENT BEEN EDUCATED REGARDING PAIN, THE RISK FOR PAIN, THE IMPORTANCE OF EFFECTIVE PAIN MANAGEMENT, AND THE PAIN ASSESSMENT PROCESS?YES LATEX QUESTIONNAIRE LATEX ALLERGY : HAVE YOU EVER DEVELOPED ANY TYPE OF REACTION AFTER HANDLING LATEX PRODUCTS SUCH RUBBER GLOVES, CONDOMS, DIAPHRAGMS, BALLOONS, SOCKS, OR UNDERWEAR?NO LATEX ALLERGY : HAVE YOU EVER DEVELOPED ANY TYPE OF REACTION DURING OR AFTER DENTAL APPOINTMENT, VAGINAL/RECTAL EXAMINATION, SURGICAL PROCEDURE, OR ANY OTHER EXPOSURE?NO LATEX RISK : HAVE YOU EVER HAD ANY DIFFICULTY BREATHING OR HIVES AFTER EATING OR HANDLING ANY FRUITS, OR VEGETABLES; SUCH KIWI, BANANAS, STONE FRUITS, OR CHESTNUTSNO LATEX RISK : DO YOU HAVE A PREVIOUS PERSONAL HISTORY OF MORE THAN NINE SURGERIES, SPINA BIFIDA, OR REPEATED CATHERIZATIONS? NO LATEX RISK : ARE YOU FREQUENTLY EXPOSED TO LATEX PRODUCTS IN YOUR OCCUPATION?NO DATE ASKED : 03/30/2019 CAFFEINE CAFFEINE USE?NO ADVANCE DIRECTIVE ADVANCE DIRECTIVE DISCUSSED WITH PATIENT:YES HCP - MU LEACH - SISTER [phone](C) [phone](W) ALSO HAS POA--SISTER-MU LEACH; LIVING WILL CHURCH TENRIISM. MARITAL STATUS: SINGLE, .. ALCOHOL SCREENING DID YOU HAVE A DRINK CONTAINING ALCOHOL IN THE PAST YEAR?NO POINTS0 INTERPRETATIONNEGATIVE OCCUPATION: DISABILITY WORKING AT [employer]. SEXUAL HX HAD SEX IN THE LAST 12 MONTHS (VAGINAL, ORAL, OR ANAL)?NO LMP:HYSTERECTOMY HAVE YOU EVER HAD AN STD?NO REVIEWED NL 05/12/18REVIEWED LAS 07/20/18 1215REVIEWED WITH PT 08/18/18 1113 BVREVIEWED WITH PT 09/17/18 1035 LASREVIEWED WITH PATIENT 12/07/18 0852 JS. HOSPITALIZATION/MAJOR DIAGNOSTIC PROCEDURE EATING DISORDER 01/20/2013 SURGERY REVIEW OF SYSTEMS REVIEWED BY: PROVIDER: SUKHI ARIAS . CONSTITUTIONAL: ANY CHANGE IN YOUR MEDICAL CONDITION? NO . CHILLS NO . FEVER NO . INFECTION: DO YOU HAVE NEW INFECTIONS? NO . DO YOU HAVE HISTORY OF MRSA? NO . MUSCULOSKELETAL: ANY NEW PATTERNS OF PAIN OR NUMBNESS? NO . GASTROENTEROLOGY: ANY NEW CHANGE IN BOWEL CONTROL? NO . GENITOURINARY: ANY NEW CHANGE IN BLADDER CONTROL? NO . IS THERE A CHANCE YOU COULD BE ? NO . HEMATOLOGY/LYMPH: DO YOU TAKE ANY BLOOD THINNERS? (FOR EXAMPLE- COUMADIN, PLAVIX, AGGRENOX, PLATEL, PRADAXA, OR XARELTO) NO . WHEN WAS YOUR LAST DOSE? DATE: TIME: . NEUROLOGY: HAVE YOU FALLEN IN THE PAST 12 MONTHS? NO . ANY NEW EXTREMITY NUMBNESS OR WEAKNESS? NO . CARDIOLOGY: DO YOU HAVE A PACEMAKER OR DEFIBRILLATOR? NO . RESPIRATORY: HAVE YOU BEEN SICK IN THE PAST WEEK? NO . FEVER NO . FLU LIKE SYMPTOMS? NO . COUGH NO . INTEGUMENTARY: DO YOU HAVE ANY RASHES OR OPEN SORES? NO . ALLERGIC/IMMUNO: ARE YOU ALLERGIC TO IV DYE? NO . ANY NEW ALLERGIES? NO . PSYCHIATRIC: DO YOU HAVE THOUGHTS OF HURTING YOURSELF OR SOMEONE ELSE? NO . ARE YOU ABUSED, NEGLECTED, OR IN AN UNSAFE ENVIRONMENT? NO . ENDOCRINOLOGY: ARE YOU DIABETIC? NO . OTHER: DO YOU NEED ANY PRESCRIPTIONS? NO . IF YES, PLEASE LIST: ____ . ANY NEW PROBLEMS WITH YOUR MEDICATIONS? NO . WHEN DID YOU LAST EAT? ____ . WHEN DID YOU LAST DRINK? ____ . WHAT DID YOU LAST DRINK? ____ . NAME OF PERSON DRIVING YOU HOME? ____ . DO YOU HAVE ANY OTHER QUESTIONS OR CONCERNS NO . VITAL SIGNS WT 98.4 LBS, HT 61 IN, BMI 18.59 INDEX, BP 120/65 MM HG, HR 77 /MIN, RR 18 /MIN, TEMP 97.4 F, OXYGEN SAT % 98%, SAFE IN ENV? (Y/N) Y, NA INITIALS DE 09:55, REVIEWED BY: GOYO. EXAMINATION GENERAL EXAMINATION: GENERAL AWAKE,ALERT ,PLEAASANT . PSYCH AFFECT NORMAL . LUNGS: LUNG VAZ ARE CLEAR TO AUSCULTATION BILATERALLY. GOOD MOVEMENT OF AIR . HEART: S1, S2 IN A REGULAR RATE AND RHYTHM. NO SIGNIFICANT MURMURS, RUBS OR GALLOPS NOTED . LUMBAR SACRAL SPINEPALPATION:TENDER OVER BILAT. L3/4-L4/5 AND L5/S1 LUMBAR FACETS WITH FACET LOADING.. DIAGNOSTIC TESTS REVIEWED MRI L/S SPINE-1/31/19. ASSESSMENTS FACET ARTHROPATHY, LUMBOSACRAL - M47.817 (PRIMARY) TREATMENT FACET ARTHROPATHY, LUMBOSACRAL NOTES: L4/5-L5/S1 LEFT RF. PROCEDURE CODES FA211 ESTABILISHED PATIENT [facility] CHARGE DISPOSITION & COMMUNICATION FOLLOW UP POST (REASON: L4/5-L5/S1 LEFT RF) ELECTRONICALLY SIGNED BY HUGO NICOLE ON 03/30/2019 AT 02:51 PM EDT DISCLAIMER : THIS IS A VISIT SUMMARY EXTRACTED FROM THE [facility] CHART. IT IS NOT A COPY OF THE [employer] PROGRESS NOTE. ROHAND
== END ==
LOC: M PAIN 10:30
PROVIDERS: ATTEND Nurse Practitioner Family
DX: M47.817 Spondylosis without myelopathy or radiculopathy, lumbosacral region (principal); Z86.59 Personal history of other mental and behavioral disorders; Z87.891 Personal history of nicotine dependence; Z88.1 Allergy status to other antibiotic agents; Z88.5 Allergy status to narcotic agent; Z88.8 Allergy status to other drugs, medicaments and biological substances; Z91.011 Allergy to milk products; Z91.013 Allergy to seafood; Z91.018 Allergy to other foods; Z79.899 Other long term (current) drug therapy

== ENCOUNTER → 2019-04-23 | Outpatient (REF) | payer MEDICARE, MEDICAID ==
[2019-04-23 21:24] LABS: AMORPHOUS SEDIMENT SMALL (NEGATIVE); APPEARANCE, URINE HAZY (CLEAR); BACTERIA, URINE AUTO NEGATIVE (NEGATIVE); BILIRUBIN, URINE AUTO NEGATIVE (NEGATIVE); BLOOD, URINE BLOOD NEGATIVE (NEGATIVE); COLOR, URINE YELLOW (YELLOW); GLUCOSE, URINE (UA) AUTO NEGATIVE (NEGATIVE); KETONE, URINE AUTO NEGATIVE (NEGATIVE); LEUKOCYTE ESTERASE, URINE AUTO NEGATIVE (NEGATIVE); NITRITE, URINE AUTO NEGATIVE (NEGATIVE); PROTEIN, URINE AUTO NEGATIVE (NEGATIVE); RBC, URINE AUTO 1 /HPF (0-3); SPECIFIC GRAVITY URINE AUTO 1.005 (1.002-1.035); SQUAMOUS EPITHELIAL CELL UR AU 1 /HPF (0-6); UROBILINOGEN, URINE AUTO 0.2 mg/dL (0.0-2.0); WBC, URINE AUTO 1 /HPF (0-3)
== END ==
LOC: M LAB REF 10:50
PROVIDERS: ATTEND Physician Assistant Medical
DX: N39.0 Urinary tract infection, site not specified (principal)

== ENCOUNTER → 2019-05-23 | Outpatient (CLI) | payer MEDICARE, MEDICAID ==
--- NOTE | 2019-06-10 02:51 | ECWPNPC ---
PATIENT NAME: BRIAN DAWSON : 1955 GENDER: FEMALE VISIT DATE: 05/23/2019 DISCHARGE DATE: 05/23/19 1435 VISIT LOCKED DATE TIME: PHYSICIAN: SUKHI GONZALES PHYSICIAN PAGER NO: [phone] RESOURCE: SUKHI GONZALES REASON FOR APPOINTMENT 1. 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 PAIN THE PATIENT DESCRIBES THE PAIN... FALL RISK SCREENING: SCREENING :NO FALLS REPORTED IN THE LAST YEAR CURRENT MEDICATIONS TAKING MAY HAVE - - PLANT FUSION PURE PROTEIN 1SCOOP IN FLAX MEAL ORAL 3X/DAY TAKING PROBIOTIC ACIDOPHILUS - TABLET DIRECTED ORALLY TAKING TOPAMAX 100 MG TABLET 1 TAB ORALLY TWICE A DAY TAKING FLUTICASONE PROPIONATE 50 MCG/ACT SUSPENSION 1 SPRAY IN EACH NOSTRIL NASALLY ONCE A DAY TAKING PANTOPRAZOLE SODIUM 40 MG TABLET DELAYED RELEASE 1 TABLET ORALLY ONCE A DAY TAKING ESTRING 2 MG RING DIRECTED VAGINAL TAKING BIOFREEZE 4 % GEL 1 APPLICATION TO AFFECTED AREA NEEDED EXTERNALLY THREE TIMES A DAY TAKING SALINE 0.65 % SOLUTION 2 SPRAYS IN EACH NOSTRIL NEEDED NASALLY EVERY 2 HRS TAKING MIRALAX - PACKET 1 PACKET MIXED WITH 8 OUNCES OF FLUID ORALLY ONCE A DAY, NOTES: NEEDED TAKING LINZESS 290 MCG CAPSULE 1 CAPSULE ORALLY ONCE A DAY NOT-TAKING CRANBERRY 450 MG CAPSULE 1 CAP ORALLY DAILY MEDICATION LIST REVIEWED AND RECONCILED WITH THE PATIENT PAST MEDICAL HISTORY LARYNGEAL NODULE CANDIDIASIS/BV-FREQUENTLY BULIMIA NERVOSA/SCHOZOAFFECTIVE D/O ([facility], 2013) 04-05-2014 DISTAL FIBULA FRACTURE 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 NODE, NEGATIVE BX, 2018 THYROID NODULE HIATAL HERNIA RUPTURE BACK PAIN BRAIN ANEURYSM ALLERGIES DOXYCYCLINE HYCLATE: PHOTODERMATITIS - ALLERGY LACTOSE INTOLERANT: DIARRHEA - ALLERGY DEMEROL: LOW BP - CONTRAINDICATION DARVOCET-N 100: LOW BP - CONTRAINDICATION AMOXICILLIN: SWELLING - ALLERGY SHELLFISH: HIVES - ALLERGY GLUTEN SURGICAL HISTORY NECK SURGERY X 2 LEFT KNEE SURGERY BUNIONECTOMY OBDULIO FEET HYSTERECTOMY ABDOMINAL LAPOROSCOPY ABD BEFORE HYSTERECTOMY LASER EYE SURGERY OBDULIO COLONOSCOPY 08/2013 STERIOD INJECTIONS TO NECK BY 02/2016 HERNIA REPAIR 03/2017 SKIN CANCER LESION REMOVED 2018 FAMILY HISTORY FATHER: 84 YRS, PANCREATIC CANCER, DIAGNOSED WITH OTHER MALIGNANT NEOPLASM OF UNSPECIFIED SITE MOTHER: ALIVE, HYPERLIPIDEMIA, DIABETES, HYPERTENSION, UNSPECIFIED HEART DISEASE, OTHER MALIGNANT NEOPLASM OF UNSPECIFIED SITE 1 BROTHER(S) , 4 SISTER(S) - HEALTHY. 1 SON(S) , 1 DAUGHTER(S) - HEALTHY. FATHER ALSO POSITIVE FOR COLON, PANCREATIC CANCER\\\\\\\\NMOM--SKIN CA\\\\\\\\NBROTHER-MD\\\\\\\\NSISTER BACK PROBLEMS\\\\\\\\NSISTER X 2 LUPUS\\\\\\\\NDAUGHTER-BRITTLE DIABETIC\\\\\\\\N\\\\N\\\\NFATHER OF PANCREATIC CANCER, MOTHER AND SISTER HAD SKIN CANCER, UNKNOWN IF IT WAS MELANOMA. SOCIAL HISTORY GENERAL: TOBACCO USE ARE YOU A:FORMER SMOKER FORMER SMOKER HOW LONG HAS IT BEEN SINCE YOU LAST SMOKED?> 10 YEARS QUIT 2006 ADDITIONAL FINDINGS: TOBACCO USER NO ADDITIONAL FINDINGS: TOBACCO NON-USERCURRENT NON-SMOKER VAPORNO E-CIGARETTENO HIV / HEP-C SCREENING HIV TEST OFFERED TO PATIENT:YES DATE OFFERED:01/20/2019 TEST ACCEPTED:NO HEP-C TEST OFFERED TO PATIENT:YES DATE OFFERED:01/20/2019 REASON:PATIENT DECLINED CONSENT ON FILE TEST ACCEPTED:YES CONSENT SIGNED BROCHURE PROVIDED TO PATIENTNO OTHERS AT HOME: LIVES ALONE. HOUSING: RENTS APARTMENT. EDUCATION SOME COLLEGE. DIET: DIET ANGELA.. LANGUAGE NEPALI. DOMESTIC VIOLENCE NONE. BMI CARE GOAL FOLLOW-UP BELOW NORMAL BMI FOLLOW-UPDIETARY EDUCATION FOR WEIGHT GAIN RECREATIONAL DRUG USE DRUG USE?NO DENIES 10/21/2018 EXERCISE: DAILY-- ABLE. LEARNING BARRIERS / SPECIAL NEEDS CHANGE FROM LAST VISIT?NO 01/20/2019 BARRIERS TO LEARNING?NO HEARING IMPAIRED?NO VISION IMPAIRED?YES COGNITIVELY IMPAIRED?NO :CORRECTIVE LENSES READINESS TO LEARN?YES LEARNING PREFERENCES?NO LEARNING CAPABILITIES PRESENT?YES EMOTIONAL BARRIERS?NO SPECIAL DEVICES?NO SOUND DESIGNER NEEDED?NO LUNG CANCER SCREENING SMOKING STATUS:FORMER SMOKER IS THE PATIENT BETWEEN THE AGE OF 57 AND 79?YES HAVE YOU QUIT SMOKING WITHIN THE PAST 15 YEARS?YES HAS THE PATIENT EVER BEEN DIAGNOSED WITH LUNG CANCER?NO PAIN CLINIC PFS, CLERGY, PUBLIC HEALTH REFERRALS WAS THE PROVIDER NOTIFIED OF ANY PERTINENT INFO?YES HAS THE PATIENT BEEN EDUCATED REGARDING HIS/HER PLAN OF CARE?YES HAS THE PATIENT BEEN EDUCATED REGARDING PAIN, THE RISK FOR PAIN, THE IMPORTANCE OF EFFECTIVE PAIN MANAGEMENT, AND THE PAIN ASSESSMENT PROCESS?YES LATEX QUESTIONNAIRE LATEX ALLERGY : HAVE YOU EVER DEVELOPED ANY TYPE OF REACTION AFTER HANDLING LATEX PRODUCTS SUCH RUBBER GLOVES, CONDOMS, DIAPHRAGMS, BALLOONS, SOCKS, OR UNDERWEAR?NO LATEX ALLERGY : HAVE YOU EVER DEVELOPED ANY TYPE OF REACTION DURING OR AFTER DENTAL APPOINTMENT, VAGINAL/RECTAL EXAMINATION, SURGICAL PROCEDURE, OR ANY OTHER EXPOSURE?NO LATEX RISK : HAVE YOU EVER HAD ANY DIFFICULTY BREATHING OR HIVES AFTER EATING OR HANDLING ANY FRUITS, OR VEGETABLES; SUCH KIWI, BANANAS, STONE FRUITS, OR CHESTNUTSNO LATEX RISK : DO YOU HAVE A PREVIOUS PERSONAL HISTORY OF MORE THAN NINE SURGERIES, SPINA BIFIDA, OR REPEATED CATHERIZATIONS? NO LATEX RISK : ARE YOU FREQUENTLY EXPOSED TO LATEX PRODUCTS IN YOUR OCCUPATION?NO DATE ASKED : 03/30/2019 CAFFEINE CAFFEINE USE?NO ADVANCE DIRECTIVE ADVANCE DIRECTIVE DISCUSSED WITH PATIENT:YES HCP - MABLE DASWON (BROTHER) [phone]; IS ALSO PATIENT'S POA AND LIVING WILL LATTER-DAY PENT[place]. MARITAL STATUS: SINGLE, .. ALCOHOL SCREENING DID YOU HAVE A DRINK CONTAINING ALCOHOL IN THE PAST YEAR?NO POINTS0 INTERPRETATIONNEGATIVE OCCUPATION: DISABILITY WORKING AT [employer]. SEXUAL HX HAD SEX IN THE LAST 12 MONTHS (VAGINAL, ORAL, OR ANAL)?NO LMP:HYSTERECTOMY HAVE YOU EVER HAD AN STD?NO REVIEWED NL 05/12/18REVIEWED LAS 07/20/18 1215REVIEWED WITH PT 08/18/18 1113 BVREVIEWED WITH PT 09/17/18 1035 LASREVIEWED WITH PATIENT 12/07/18 0852 JSREVIEWED WITH PATIENT 05/23/19 1401 JS. HOSPITALIZATION/MAJOR DIAGNOSTIC PROCEDURE EATING DISORDER 01/20/2013 SURGERY REVIEW OF SYSTEMS REVIEWED BY: PROVIDER: SUKHI ARIAS . CONSTITUTIONAL: ANY CHANGE IN YOUR MEDICAL CONDITION? NO . CHILLS NO . FEVER NO . INFECTION: DO YOU HAVE NEW INFECTIONS? YES, STATES SINUS AND EAR INFECTIONS . DO YOU HAVE HISTORY OF MRSA? NO . MUSCULOSKELETAL: ANY NEW PATTERNS OF PAIN OR NUMBNESS? YES, STATES INCREASED PAIN AND NUMBNESS TO BILATERAL SHOULDERS AND HANDS, ALSO STATES THAT EHR HEADACHES ARE BACK AGAIN AND SHE IS HAVING A LOT OF SHOULDER TIGHTNESS . GASTROENTEROLOGY: ANY NEW CHANGE IN BOWEL CONTROL? NO . GENITOURINARY: ANY NEW CHANGE IN BLADDER CONTROL? NO . IS THERE A CHANCE YOU COULD BE ? NO . HEMATOLOGY/LYMPH: DO YOU TAKE ANY BLOOD THINNERS? (FOR EXAMPLE- COUMADIN, PLAVIX, AGGRENOX, PLATEL, PRADAXA, OR XARELTO) NO . WHEN WAS YOUR LAST DOSE? DATE: TIME: . NEUROLOGY: HAVE YOU FALLEN IN THE PAST 12 MONTHS? NO . ANY NEW EXTREMITY NUMBNESS OR WEAKNESS? YES, WEAKNESS TO BILATERAL ARMS . CARDIOLOGY: DO YOU HAVE A PACEMAKER OR DEFIBRILLATOR? NO . RESPIRATORY: HAVE YOU BEEN SICK IN THE PAST WEEK? NO . FEVER NO . FLU LIKE SYMPTOMS? NO . COUGH NO . INTEGUMENTARY: DO YOU HAVE ANY RASHES OR OPEN SORES? NO . ALLERGIC/IMMUNO: ARE YOU ALLERGIC TO IV DYE? NO . ANY NEW ALLERGIES? NO . PSYCHIATRIC: DO YOU HAVE THOUGHTS OF HURTING YOURSELF OR SOMEONE ELSE? NO . ARE YOU ABUSED, NEGLECTED, OR IN AN UNSAFE ENVIRONMENT? NO . ENDOCRINOLOGY: ARE YOU DIABETIC? NO . OTHER: DO YOU NEED ANY PRESCRIPTIONS? NO . IF YES, PLEASE LIST: ____ . ANY NEW PROBLEMS WITH YOUR MEDICATIONS? NO . WHEN DID YOU LAST EAT? ____ . WHEN DID YOU LAST DRINK? ____ . WHAT DID YOU LAST DRINK? ____ . NAME OF PERSON DRIVING YOU HOME? ____ . DO YOU HAVE ANY OTHER QUESTIONS OR CONCERNS NO . VITAL SIGNS WT 100.6 LBS, HT 61 IN, BMI 19.01 INDEX, BP 131/90 MM HG, REPEAT BP 110/72 MANUAL, HR 99 /MIN, RR 18 /MIN, TEMP 96.0 F, OXYGEN SAT % 98%, SAFE IN ENV? (Y/N) YES, NA INITIALS AW 1351, REVIEWED BY: CLAUDY. EXAMINATION GENERAL EXAMINATION: GENERAL AWAKE,ALERT ,PLEASANT . PSYCH AFFECT NORMAL . LUNGS: LUNG VAZ ARE CLEAR TO AUSCULTATION BILATERALLY. GOOD MOVEMENT OF AIR . HEART: S1, S2 IN A REGULAR RATE AND RHYTHM. NO SIGNIFICANT MURMURS, RUBS OR GALLOPS NOTED . CERVICAL TRIGGER POINTS: CERVICAL AND TRAPEZIUS BILAT L>R..PAIN IS AGGREVATED WITH ROJM NECK AND ARMS. DIAGNOSTIC TESTS REVIEWED CERVIAL MRI-11/14/18. ASSESSMENTS MYALGIA OF MUSCLE OF NECK - M79.18 (PRIMARY) TREATMENT MYALGIA OF MUSCLE OF NECK NOTES: TPI NECK/SHOULDER/UPPER BACK L>R. PREVENTIVE MEDICINE PAIN CLINIC TEACHING: PROCEDURE TEACHING REVIEWED INFROMATION ON TRIGGER POINT INJECTION PROCEDURE WITH PATIENT. ALSO REVIEWED PRE-PROCEDURE INSTRUCTIONS. PATIENT VERBALIZED AN UNDERSTANDING. AMOL DEL RIO 05/23/2019 2:37:13 PM > . PROCEDURE CODES FA211 ESTABILISHED PATIENT [facility] CHARGE DISPOSITION & COMMUNICATION FOLLOW UP POST (REASON: TPI NECK/SHOULDER/UPPER BACK L>R) ELECTRONICALLY SIGNED BY HUGO NICOLE ON 06/09/2019 AT 09:30 AM EST DISCLAIMER : THIS IS A VISIT SUMMARY EXTRACTED FROM THE [email or web address] CHART. IT IS NOT A COPY OF THE [email or web address] PROGRESS NOTE. VARUN
== END ==
LOC: M PAIN 14:15
PROVIDERS: ATTEND Nurse Practitioner Family
DX: M79.18 Myalgia, other site (principal); Z87.891 Personal history of nicotine dependence; Z88.1 Allergy status to other antibiotic agents; Z88.5 Allergy status to narcotic agent; Z91.011 Allergy to milk products; Z91.013 Allergy to seafood; Z79.899 Other long term (current) drug therapy

== ENCOUNTER → 2019-06-01 | Outpatient (CLI) | payer MEDICARE, MEDICAID ==
[~2019-06-01] MED LIST changes: +BUPIVACAINE HCL 0.25% 10 ML VIAL As Ordered ONE; +BUPIVACAINE HCL 0.25% 30 ML VIAL As Ordered ONE; +TRIAMCINOLONE ACETONIDE SUSP 40 MG/ML VIAL (J3301) As Ordered ONE
--- NOTE | 2019-06-04 00:57 | ECWPNPC ---
PATIENT NAME: BRIAN DAWSON : 1955 GENDER: FEMALE VISIT DATE: 06/01/2019 DISCHARGE DATE: 06/01/19 1555 VISIT LOCKED DATE TIME: PHYSICIAN: MARY JANE DON MD PHYSICIAN PAGER NO: [phone] RESOURCE: MARY JANE DON MD REASON FOR APPOINTMENT 1. TPI BILAT NECK/SHOULDER HISTORY OF PRESENT ILLNESS HISTORY OF PRESENT ILLNESS: PAIN THE PATIENT DESCRIBES THE PAIN... FALL RISK SCREENING: SCREENING :NO FALLS REPORTED IN THE LAST YEAR CURRENT MEDICATIONS TAKING MAY HAVE - - PLANT FUSION PURE PROTEIN 1SCOOP IN FLAX MEAL ORAL 3X/DAY, NOTES: 0700 TAKING PROBIOTIC ACIDOPHILUS - TABLET DIRECTED ORALLY DAILY, NOTES: 0700 TAKING TOPAMAX 100 MG TABLET 1 TAB ORALLY TWICE A DAY, NOTES: 0700 TAKING FLUTICASONE PROPIONATE 50 MCG/ACT SUSPENSION 1 SPRAY IN EACH NOSTRIL NASALLY ONCE A DAY, NOTES: 05/31/18@2200 TAKING PANTOPRAZOLE SODIUM 40 MG TABLET DELAYED RELEASE 1 TABLET ORALLY ONCE A DAY, NOTES: 0700 TAKING ESTRING 2 MG RING DIRECTED VAGINAL INSERT Q 3 MONTHS, NOTES: USING NOW TAKING BIOFREEZE 4 % GEL 1 APPLICATION TO AFFECTED AREA NEEDED EXTERNALLY THREE TIMES A DAY, NOTES: 3 DAYS AGO TAKING MIRALAX - PACKET 1 PACKET MIXED WITH 8 OUNCES OF FLUID ORALLY ONCE A DAY, NOTES: 2 DAYS AGO TAKING LINZESS 290 MCG CAPSULE 1 CAPSULE ORALLY ONCE A DAY, NOTES: 0700 DISCONTINUED SALINE 0.65 % SOLUTION 2 SPRAYS IN EACH NOSTRIL NEEDED NASALLY EVERY 2 HRS DISCONTINUED CRANBERRY 450 MG CAPSULE 1 CAP ORALLY DAILY MEDICATION LIST REVIEWED AND RECONCILED WITH THE PATIENT PAST MEDICAL HISTORY LARYNGEAL NODULE CANDIDIASIS/BV-FREQUENTLY BULIMIA NERVOSA/SCHOZOAFFECTIVE D/O ([facility], 2013) 04-05-2014 DISTAL FIBULA FRACTURE 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 NODE, NEGATIVE BX, 2018 THYROID NODULE HIATAL HERNIA RUPTURE BACK PAIN BRAIN ANEURYSM ALLERGIES DOXYCYCLINE HYCLATE: PHOTODERMATITIS - ALLERGY LACTOSE INTOLERANT: DIARRHEA - ALLERGY DEMEROL: LOW BP - CONTRAINDICATION DARVOCET-N 100: LOW BP - CONTRAINDICATION AMOXICILLIN: SWELLING - ALLERGY SHELLFISH: HIVES - ALLERGY GLUTEN: DIARRHEA - ALLERGY SURGICAL HISTORY NECK SURGERY X 2 LEFT KNEE SURGERY BUNIONECTOMY OBDULIO FEET HYSTERECTOMY ABDOMINAL LAPOROSCOPY ABD BEFORE HYSTERECTOMY LASER EYE SURGERY OBDULIO COLONOSCOPY 08/2013 STERIOD INJECTIONS TO NECK BY 02/2016 HERNIA REPAIR 03/2017 SKIN CANCER LESION REMOVED 2018 FAMILY HISTORY FATHER: 84 YRS, PANCREATIC CANCER, DIAGNOSED WITH OTHER MALIGNANT NEOPLASM OF UNSPECIFIED SITE MOTHER: ALIVE, HYPERLIPIDEMIA, DIABETES, HYPERTENSION, UNSPECIFIED HEART DISEASE, OTHER MALIGNANT NEOPLASM OF UNSPECIFIED SITE 1 BROTHER(S) , 4 SISTER(S) - HEALTHY. 1 SON(S) , 1 DAUGHTER(S) - HEALTHY. FATHER ALSO POSITIVE FOR COLON, PANCREATIC CANCER\\\\\\\\NMOM--SKIN CA\\\\\\\\NBROTHER-PA\\\\\\\\NSISTER BACK PROBLEMS\\\\\\\\NSISTER X 2 LUPUS\\\\\\\\NDAUGHTER-BRITTLE DIABETIC\\\\\\\\N\\\\N\\\\NFATHER OF PANCREATIC CANCER, MOTHER AND SISTER HAD SKIN CANCER, UNKNOWN IF IT WAS MELANOMA. SOCIAL HISTORY GENERAL: TOBACCO USE ARE YOU A:FORMER SMOKER FORMER SMOKER HOW LONG HAS IT BEEN SINCE YOU LAST SMOKED?> 10 YEARS QUIT 2006 ADDITIONAL FINDINGS: TOBACCO USER NO ADDITIONAL FINDINGS: TOBACCO NON-USERCURRENT NON-SMOKER VAPORNO E-CIGARETTENO HIV / HEP-C SCREENING HIV TEST OFFERED TO PATIENT:YES DATE OFFERED:01/20/2019 TEST ACCEPTED:NO HEP-C TEST OFFERED TO PATIENT:YES DATE OFFERED:01/20/2019 REASON:PATIENT DECLINED CONSENT ON FILE TEST ACCEPTED:YES CONSENT SIGNED BROCHURE PROVIDED TO PATIENTNO OTHERS AT HOME: LIVES ALONE. HOUSING: RENTS APARTMENT. EDUCATION SOME COLLEGE. DIET: DIET ANGELA.. LANGUAGE POLISH. DOMESTIC VIOLENCE DO YOU FEEL SAFE IN YOUR ENVIRONMENT?YES BMI CARE GOAL FOLLOW-UP BELOW NORMAL BMI FOLLOW-UPDIETARY EDUCATION FOR WEIGHT GAIN RECREATIONAL DRUG USE DRUG USE?NO DENIES 10/21/2018 EXERCISE: DAILY-- ABLE. LEARNING BARRIERS / SPECIAL NEEDS BARRIERS TO LEARNING?NO HEARING IMPAIRED?NO VISION IMPAIRED?YES :CORRECTIVE LENSES COGNITIVELY IMPAIRED?NO READINESS TO LEARN?YES LEARNING PREFERENCES?NO LEARNING CAPABILITIES PRESENT?YES EMOTIONAL BARRIERS?NO SPECIAL DEVICES?NO ENTRY EXAMINER NEEDED?NO LUNG CANCER SCREENING SMOKING STATUS:FORMER SMOKER IS THE PATIENT BETWEEN THE AGE OF 57 AND 79?YES HAVE YOU QUIT SMOKING WITHIN THE PAST 15 YEARS?YES HAS THE PATIENT EVER BEEN DIAGNOSED WITH LUNG CANCER?NO PAIN CLINIC PFS, CLERGY, PUBLIC HEALTH REFERRALS HAS THE PATIENT BEEN EDUCATED REGARDING HIS/HER PLAN OF CARE?YES HAS THE PATIENT BEEN EDUCATED REGARDING PAIN, THE RISK FOR PAIN, THE IMPORTANCE OF EFFECTIVE PAIN MANAGEMENT, AND THE PAIN ASSESSMENT PROCESS?YES LATEX QUESTIONNAIRE LATEX ALLERGY : HAVE YOU EVER DEVELOPED ANY TYPE OF REACTION AFTER HANDLING LATEX PRODUCTS SUCH RUBBER GLOVES, CONDOMS, DIAPHRAGMS, BALLOONS, SOCKS, OR UNDERWEAR?NO LATEX ALLERGY : HAVE YOU EVER DEVELOPED ANY TYPE OF REACTION DURING OR AFTER DENTAL APPOINTMENT, VAGINAL/RECTAL EXAMINATION, SURGICAL PROCEDURE, OR ANY OTHER EXPOSURE?NO LATEX RISK : HAVE YOU EVER HAD ANY DIFFICULTY BREATHING OR HIVES AFTER EATING OR HANDLING ANY FRUITS, OR VEGETABLES; SUCH KIWI, BANANAS, STONE FRUITS, OR CHESTNUTSNO LATEX RISK : DO YOU HAVE A PREVIOUS PERSONAL HISTORY OF MORE THAN NINE SURGERIES, SPINA BIFIDA, OR REPEATED CATHERIZATIONS? YES - PLEASE INDICATE : > 9 SURGERIES LATEX RISK : ARE YOU FREQUENTLY EXPOSED TO LATEX PRODUCTS IN YOUR OCCUPATION?NO DATE ASKED : 05/24/2019 CAFFEINE CAFFEINE USE?NO ADVANCE DIRECTIVE ADVANCE DIRECTIVE DISCUSSED WITH PATIENT:YES HCP - MABLE DAWSON (BROTHER) [phone]; IS ALSO PATIENT'S POA AND LIVING [facility] [employer]. MARITAL STATUS: SINGLE, .. ALCOHOL SCREENING DID YOU HAVE A DRINK CONTAINING ALCOHOL IN THE PAST YEAR?NO POINTS0 INTERPRETATIONNEGATIVE OCCUPATION: DISABILITY WORKING AT [employer]. SEXUAL HX HAD SEX IN THE LAST 12 MONTHS (VAGINAL, ORAL, OR ANAL)?NO LMP:HYSTERECTOMY HAVE YOU EVER HAD AN STD?NO REVIEWED NL 05/12/18REVIEWED LAS 07/20/18 1215REVIEWED WITH PT 08/18/18 1113 BVREVIEWED WITH PT 09/17/18 1035 LASREVIEWED WITH PATIENT 12/07/18 0852 JS05/24/19 PRE-PROCEDURE SCREENING CALL COMPLETED AND ABOVE INFORMATION REVIEWED WITH PT. ADREVIEWED WITH PATIENT 05/23/19 1401 JS. HOSPITALIZATION/MAJOR DIAGNOSTIC PROCEDURE EATING DISORDER 01/20/2013 SURGERY REVIEW OF SYSTEMS REVIEWED BY: PROVIDER: . CONSTITUTIONAL: ANY CHANGE IN YOUR MEDICAL CONDITION? YES . CHILLS NO . FEVER NO . INFECTION: DO YOU HAVE NEW INFECTIONS? NO . DO YOU HAVE HISTORY OF MRSA? NO . MUSCULOSKELETAL: ANY NEW PATTERNS OF PAIN OR NUMBNESS? YES . GASTROENTEROLOGY: ANY NEW CHANGE IN BOWEL CONTROL? NO . GENITOURINARY: ANY NEW CHANGE IN BLADDER CONTROL? NO . IS THERE A CHANCE YOU COULD BE ? NO . HEMATOLOGY/LYMPH: DO YOU TAKE ANY BLOOD THINNERS? (FOR EXAMPLE- COUMADIN, PLAVIX, AGGRENOX, PLATEL, PRADAXA, OR XARELTO) NO . WHEN WAS YOUR LAST DOSE? DATE: TIME: . NEUROLOGY: HAVE YOU FALLEN IN THE PAST 12 MONTHS? NO . ANY NEW EXTREMITY NUMBNESS OR WEAKNESS? NO . CARDIOLOGY: DO YOU HAVE A PACEMAKER OR DEFIBRILLATOR? NO . RESPIRATORY: HAVE YOU BEEN SICK IN THE PAST WEEK? NO . FEVER NO . FLU LIKE SYMPTOMS? NO . COUGH NO . INTEGUMENTARY: DO YOU HAVE ANY RASHES OR OPEN SORES? NO . ALLERGIC/IMMUNO: ARE YOU ALLERGIC TO IV DYE? NO . ANY NEW ALLERGIES? NO . PSYCHIATRIC: DO YOU HAVE THOUGHTS OF HURTING YOURSELF OR SOMEONE ELSE? NO . ARE YOU ABUSED, NEGLECTED, OR IN AN UNSAFE ENVIRONMENT? NO . ENDOCRINOLOGY: ARE YOU DIABETIC? NO . OTHER: DO YOU NEED ANY PRESCRIPTIONS? NO . IF YES, PLEASE LIST: ____ . ANY NEW PROBLEMS WITH YOUR MEDICATIONS? NO . WHEN DID YOU LAST EAT? ____0800 . WHEN DID YOU LAST DRINK? ____1100 . WHAT DID YOU LAST DRINK? ____COFFEE/ WATER . NAME OF PERSON DRIVING YOU HOME? ____ . DO YOU HAVE ANY OTHER QUESTIONS OR CONCERNS NO . VITAL SIGNS WT 98.8 LBS, HT 61 IN, BMI 18.67 INDEX, BP 136/68 MM HG, HR 88 /MIN, RR 18 /MIN, TEMP 96.4 F, OXYGEN SAT % 99%, SAFE IN ENV? (Y/N) YES, NA INITIALS AW 1422, REVIEWED BY: VD. ASSESSMENTS MYALGIA, OTHER SITE - M79.18 (PRIMARY) PROCEDURES PN TRIGGER POINT INJECTION WITH STEROIDS PRE PROCEDURE DIAGNOSIS 1. MYALGIA 2. PAIN AT BILATERAL NECK AREA AND BILATERAL SHOULDER AREA. POST PROCEDURE DIAGNOSIS 1. MYALGIA 2. PAIN AT BILATERAL NECK AREA AND BILATERAL SHOULDER AREA. PROCEDURE TRIGGER POINT INJECTION AT RIGHT AND LEFT NECK AREA AND RIGHT AND LEFT SHOULDER AREA. SURGEON DR. MARY JANE DON AIR TOOL OPERATOR NONE ANESTHESIA LOCAL PRE PROCEDURE NOTE THE PATIENT HAS A HISTORY OF CHRONIC PAIN AT THE RIGHT AND LEFT NECK AREA AND RIGHT AND LEFT SHOULDER AREA. I EVALUATED THE PATIENT AND REVIEWED THE CHART. THERE IS EVIDENCE OF BANDS OF TISSUE WITH RESTRICTION OF MOVEMENT AND PRESENCE OF TRIGGER POINT AT THE AFFECTED AREA. I WENT OVER THE RISKS, ALTERNATIVES, AND BENEFITS ASSOCIATED WITH THIS PROCEDURE. THE PATIENT WOULD LIKE TO PROCEED AND GIVES CONSENT TO PERFORM THE PROCEDURE. THE PATIENT DENIES UNEXPLAINABLE WEIGHT LOSS, FEVER, CHILLS, OR NEW CHANGES IN URINARY OR BOWEL CONTROL DESCRIPTION OF PROCEDURE THE PATIENT WAS BROUGHT TO THE PROCEDURE ROOM AND PLACED IN THE SITTING POSITION. THE AREA WAS CLEANED WITH ALCOHOL. THE PROCEDURE WAS DONE USING ASEPTIC STERILE TECHNIQUE. I CHECKED LATERALITY AND THE LEVEL WHERE THE PROCEDURE WAS GOING TO BE PERFORMED WITH THE PATIENT AND THE SUPPORTING STAFF AT THE MOMENT OF THE TIME OUT IN THE PROCEDURE ROOM. USING A 25-GAUGE NEEDLE, TRIGGER POINTS WERE INJECTED AT THE RIGHT AND LEFT NECK AREA AND RIGHT AND LEFT SHOULDER AREA WITH A TOTAL OF 40 ML OF BUPIVACAINE 0.25% AND KENALOG 40 MG. THERE WAS NO EVIDENCE OF BLOOD, PARESTHESIA OR CEREBROSPINAL FLUID DURING THE PROCEDURE. THE PATIENT WAS SENT TO THE RECOVERY ROOM. THE PATIENT WAS MOVING THE EXTREMITIES AND DOING WELL. THERE WAS NO COMPLICATION DURING THE PROCEDURE POST PROCEDURE NOTE I AM LOOKING FOR LONG LASTING PAIN RELIEF WITH THIS INTERVENTION. THE PATIENT WILL BE SEEN IN A FOLLOW UP IN THE NEXT FEW WEEKS. INSTRUCTIONS WERE GIVEN, QUESTIONS WERE ANSWERED, AND THE PATIENT EXPRESSED UNDERSTANDING AND AGREES WITH THE PLAN. I, MONISHA DHALIWAL, DOCUMENTED THE ABOVE INFORMATION ACTING A SCRIBE FOR DR. DON. I HAVE REVIEWED THE ABOVE DOCUMENT, WRITTEN BY MONISHA RICEIBSerafin AND I VERIFY THAT IT IS ACCURATE. PROCEDURE CODES 71482 INJECT TRIGGER POINTS 3/> DISPOSITION & COMMUNICATION FOLLOW UP 3 WEEKS ELECTRONICALLY SIGNED BY MARY JANE DON MD, MD ON 06/03/2019 AT 12:43 PM EST DISCLAIMER : THIS IS A VISIT SUMMARY EXTRACTED FROM THE [employer] CHART. IT IS NOT A COPY OF THE [employer] PROGRESS NOTE. VARUN
== END ==
LOC: M PAIN 14:15
PROVIDERS: ATTEND Anesthesiology
DX: M79.18 Myalgia, other site (principal); Z86.59 Personal history of other mental and behavioral disorders; Z87.891 Personal history of nicotine dependence; Z88.1 Allergy status to other antibiotic agents; Z88.5 Allergy status to narcotic agent; Z91.011 Allergy to milk products; Z91.013 Allergy to seafood; Z79.899 Other long term (current) drug therapy
CPT/HCPCS: 20553; J3301

== ENCOUNTER → 2019-07-20 | Outpatient (CLI) | payer MEDICARE, MEDICAID ==
[~2019-07-20] MED LIST changes: -BUPIVACAINE HCL 0.25% 10 ML VIAL As Ordered ONE; +LIDOCAINE 1% SDV INJ 30 ML VIAL As Ordered ONE; +SUCR1ORA PO; -SUCR1SUS PO
--- NOTE | 2019-07-29 05:34 | ECWPNPC ---
PATIENT NAME: BRIAN DAWSON : 1955 GENDER: FEMALE VISIT DATE: 07/20/2019 DISCHARGE DATE: 07/20/19 1551 VISIT LOCKED DATE TIME: PHYSICIAN: MARY JANE DON MD PHYSICIAN PAGER NO: [phone] RESOURCE: MARY JANE DON MD REASON FOR APPOINTMENT 1. L4/5-L5/S1 LEFT RF HISTORY OF PRESENT ILLNESS HISTORY OF PRESENT ILLNESS: PAIN THE PATIENT DESCRIBES THE PAIN... FALL RISK SCREENING: SCREENING :NO FALLS REPORTED IN THE LAST YEAR CURRENT MEDICATIONS TAKING MAY HAVE - - PLANT FUSION PURE PROTEIN 1SCOOP IN FLAX MEAL ORAL 3X/DAY, NOTES: 07/19 1129 TAKING PROBIOTIC ACIDOPHILUS - TABLET DIRECTED ORALLY DAILY, NOTES: 07/20 599 TAKING TOPAMAX 100 MG TABLET 1 TAB ORALLY TWICE A DAY, NOTES: 07/20 599 TAKING FLUTICASONE PROPIONATE 50 MCG/ACT SUSPENSION 1 SPRAY IN EACH NOSTRIL NASALLY ONCE A DAY, NOTES: 07/20 599 TAKING PANTOPRAZOLE SODIUM 40 MG TABLET DELAYED RELEASE 1 TABLET ORALLY TWICE DAILY, NOTES: 07/20 599 TAKING ESTRING 2 MG RING DIRECTED VAGINAL INSERT Q 3 MONTHS, NOTES: INSERTED 07/15 TAKING BIOFREEZE 4 % GEL 1 APPLICATION TO AFFECTED AREA NEEDED EXTERNALLY THREE TIMES A DAY, NOTES: 3 DAYS AGO TAKING MIRALAX - PACKET 1 PACKET MIXED WITH 8 OUNCES OF FLUID ORALLY ONCE A DAY, NOTES: NEEDED NONE RECENT TAKING TRULANCE 3 MG TABLET 1 TABLET ORALLY ONCE A DAY, NOTES: 07/20 599 TAKING METAMUCIL 28.3 % POWDER 1 PACKET WITH 8 OUNCES OF LIQUID NEEDED ORALLY THREE TIMES A DAY, NOTES: 07/19 2129 MEDICATION LIST REVIEWED AND RECONCILED WITH THE PATIENT PAST MEDICAL HISTORY LARYNGEAL NODULE CANDIDIASIS/BV-FREQUENTLY BULIMIA NERVOSA/SCHOZOAFFECTIVE D/O ([facility], 2013) 04-05-2014 DISTAL FIBULA FRACTURE 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 NODE, NEGATIVE BX, 2018 THYROID NODULE HIATAL HERNIA RUPTURE BACK PAIN BRAIN ANEURYSM ALLERGIES DOXYCYCLINE HYCLATE: PHOTODERMATITIS - ALLERGY LACTOSE INTOLERANT: DIARRHEA - ALLERGY DEMEROL: LOW BP - CONTRAINDICATION DARVOCET-N 100: LOW BP - CONTRAINDICATION AMOXICILLIN: SWELLING - ALLERGY SHELLFISH: HIVES - ALLERGY GLUTEN: DIARRHEA - ALLERGY SURGICAL HISTORY NECK SURGERY X 2 LEFT KNEE SURGERY BUNIONECTOMY OBDULIO FEET HYSTERECTOMY ABDOMINAL LAPOROSCOPY ABD BEFORE HYSTERECTOMY LASER EYE SURGERY OBDULIO COLONOSCOPY 08/2013 STERIOD INJECTIONS TO NECK BY 02/2016 HERNIA REPAIR 03/2017 SKIN CANCER LESION REMOVED 2018 FAMILY HISTORY FATHER: 84 YRS, PANCREATIC CANCER, DIAGNOSED WITH OTHER MALIGNANT NEOPLASM OF UNSPECIFIED SITE MOTHER: ALIVE, HYPERLIPIDEMIA, DIABETES, HYPERTENSION, UNSPECIFIED HEART DISEASE, OTHER MALIGNANT NEOPLASM OF UNSPECIFIED SITE 1 BROTHER(S) , 4 SISTER(S) - HEALTHY. 1 SON(S) , 1 DAUGHTER(S) - HEALTHY. FATHER ALSO POSITIVE FOR COLON, PANCREATIC CANCER\\\\\\\\NMOM--SKIN CA\\\\\\\\NBROTHER-CO\\\\\\\\NSISTER BACK PROBLEMS\\\\\\\\NSISTER X 2 LUPUS\\\\\\\\NDAUGHTER-BRITTLE DIABETIC\\\\\\\\N\\\\N\\\\NFATHER OF PANCREATIC CANCER, MOTHER AND SISTER HAD SKIN CANCER, UNKNOWN IF IT WAS MELANOMA. SOCIAL HISTORY GENERAL: TOBACCO USE ARE YOU A:FORMER SMOKER FORMER SMOKER HOW LONG HAS IT BEEN SINCE YOU LAST SMOKED?> 10 YEARS QUIT 2006 ADDITIONAL FINDINGS: TOBACCO USER NO ADDITIONAL FINDINGS: TOBACCO NON-USERCURRENT NON-SMOKER VAPORNO E-CIGARETTENO HIV / HEP-C SCREENING HIV TEST OFFERED TO PATIENT:YES DATE OFFERED:01/20/2019 TEST ACCEPTED:NO HEP-C TEST OFFERED TO PATIENT:YES DATE OFFERED:01/20/2019 REASON:PATIENT DECLINED CONSENT ON FILE TEST ACCEPTED:YES CONSENT SIGNED BROCHURE PROVIDED TO PATIENTNO OTHERS AT HOME: LIVES ALONE. HOUSING: RENTS APARTMENT. EDUCATION SOME COLLEGE. DIET: DIET ANGELA.. LANGUAGE BANGLADESHI. DOMESTIC VIOLENCE DO YOU FEEL SAFE IN YOUR ENVIRONMENT?YES BMI CARE GOAL FOLLOW-UP BELOW NORMAL BMI FOLLOW-UPDIETARY EDUCATION FOR WEIGHT GAIN RECREATIONAL DRUG USE DRUG USE?NO DENIES 10/21/2018 EXERCISE: DAILY-- ABLE. LEARNING BARRIERS / SPECIAL NEEDS CHANGE FROM LAST VISIT?NO BARRIERS TO LEARNING?NO HEARING IMPAIRED?NO VISION IMPAIRED?YES :CORRECTIVE LENSES COGNITIVELY IMPAIRED?NO READINESS TO LEARN?YES LEARNING PREFERENCES?NO LEARNING CAPABILITIES PRESENT?YES EMOTIONAL BARRIERS?NO SPECIAL DEVICES?NO MAGNETIC TESTING TECHNICIAN NEEDED?NO LUNG CANCER SCREENING SMOKING STATUS:FORMER SMOKER IS THE PATIENT BETWEEN THE AGE OF 57 AND 79?YES HAVE YOU QUIT SMOKING WITHIN THE PAST 15 YEARS?YES HAS THE PATIENT EVER BEEN DIAGNOSED WITH LUNG CANCER?NO PAIN CLINIC PFS, CLERGY, PUBLIC HEALTH REFERRALS HAS THE PATIENT BEEN EDUCATED REGARDING HIS/HER PLAN OF CARE?YES HAS THE PATIENT BEEN EDUCATED REGARDING PAIN, THE RISK FOR PAIN, THE IMPORTANCE OF EFFECTIVE PAIN MANAGEMENT, AND THE PAIN ASSESSMENT PROCESS?YES LATEX QUESTIONNAIRE LATEX ALLERGY : HAVE YOU EVER DEVELOPED ANY TYPE OF REACTION AFTER HANDLING LATEX PRODUCTS SUCH RUBBER GLOVES, CONDOMS, DIAPHRAGMS, BALLOONS, SOCKS, OR UNDERWEAR?NO LATEX ALLERGY : HAVE YOU EVER DEVELOPED ANY TYPE OF REACTION DURING OR AFTER DENTAL APPOINTMENT, VAGINAL/RECTAL EXAMINATION, SURGICAL PROCEDURE, OR ANY OTHER EXPOSURE?NO LATEX RISK : HAVE YOU EVER HAD ANY DIFFICULTY BREATHING OR HIVES AFTER EATING OR HANDLING ANY FRUITS, OR VEGETABLES; SUCH KIWI, BANANAS, STONE FRUITS, OR CHESTNUTSNO LATEX RISK : DO YOU HAVE A PREVIOUS PERSONAL HISTORY OF MORE THAN NINE SURGERIES, SPINA BIFIDA, OR REPEATED CATHERIZATIONS? YES - PLEASE INDICATE : > 9 SURGERIES LATEX RISK : ARE YOU FREQUENTLY EXPOSED TO LATEX PRODUCTS IN YOUR OCCUPATION?NO DATE ASKED : 07/19/2019 CAFFEINE CAFFEINE USE?NO ADVANCE DIRECTIVE ADVANCE DIRECTIVE DISCUSSED WITH PATIENT:YES HCP - MABLE DAWSON (BROTHER) [phone]; IS ALSO PATIENT'S POA AND LIVING WILL BUDDHISM QUAKER. MARITAL STATUS: SINGLE, .. ALCOHOL SCREENING DID YOU HAVE A DRINK CONTAINING ALCOHOL IN THE PAST YEAR?NO POINTS0 INTERPRETATIONNEGATIVE OCCUPATION: DISABILITY WORKING AT [employer]. SEXUAL HX HAD SEX IN THE LAST 12 MONTHS (VAGINAL, ORAL, OR ANAL)?NO LMP:HYSTERECTOMY HAVE YOU EVER HAD AN STD?NO REVIEWED NL 05/12/18REVIEWED LAS 07/20/18 1215REVIEWED WITH PT 08/18/18 1113 BVREVIEWED WITH PT 09/17/18 1035 LASREVIEWED WITH PATIENT 12/07/18 0852 07/20/2019 1342 REVIEWED WITH PT. AD05/24/19 PRE-PROCEDURE SCREENING CALL COMPLETED AND ABOVE INFORMATION REVIEWED WITH PT. ADREVIEWED WITH PATIENT 05/23/19 1401 JSPRE SCREEN PHONE CALL COMPLETE 07/19/19 1000 BV. HOSPITALIZATION/MAJOR DIAGNOSTIC PROCEDURE EATING DISORDER 01/20/2013 SURGERY REVIEW OF SYSTEMS REVIEWED BY: PROVIDER: . CONSTITUTIONAL: ANY CHANGE IN YOUR MEDICAL CONDITION? NO . CHILLS NO . FEVER NO . INFECTION: DO YOU HAVE NEW INFECTIONS? NO . DO YOU HAVE HISTORY OF MRSA? NO . MUSCULOSKELETAL: ANY NEW PATTERNS OF PAIN OR NUMBNESS? YES . GASTROENTEROLOGY: ANY NEW CHANGE IN BOWEL CONTROL? NO . GENITOURINARY: ANY NEW CHANGE IN BLADDER CONTROL? NO . IS THERE A CHANCE YOU COULD BE ? NO . HEMATOLOGY/LYMPH: DO YOU TAKE ANY BLOOD THINNERS? (FOR EXAMPLE- COUMADIN, PLAVIX, AGGRENOX, PLATEL, PRADAXA, OR XARELTO) NO . WHEN WAS YOUR LAST DOSE? DATE: TIME: . NEUROLOGY: HAVE YOU FALLEN IN THE PAST 12 MONTHS? NO . ANY NEW EXTREMITY NUMBNESS OR WEAKNESS? YES, NUMBNESS AND WEAKNESS BOTH ARMS WITH LEFT GREATER THAN RIGHT. PROGRESSING OVER THE PAST COUPLE OF MONTHS . CARDIOLOGY: DO YOU HAVE A PACEMAKER OR DEFIBRILLATOR? NO . RESPIRATORY: HAVE YOU BEEN SICK IN THE PAST WEEK? NO . FEVER NO . FLU LIKE SYMPTOMS? NO . COUGH NO . INTEGUMENTARY: DO YOU HAVE ANY RASHES OR OPEN SORES? NO . ALLERGIC/IMMUNO: ARE YOU ALLERGIC TO IV DYE? NO . ANY NEW ALLERGIES? NO . PSYCHIATRIC: DO YOU HAVE THOUGHTS OF HURTING YOURSELF OR SOMEONE ELSE? NO . ARE YOU ABUSED, NEGLECTED, OR IN AN UNSAFE ENVIRONMENT? NO . ENDOCRINOLOGY: ARE YOU DIABETIC? NO . OTHER: DO YOU NEED ANY PRESCRIPTIONS? NO . IF YES, PLEASE LIST: ____ . ANY NEW PROBLEMS WITH YOUR MEDICATIONS? NO . WHEN DID YOU LAST EAT? 07/19 2330 . WHEN DID YOU LAST DRINK? 07-20-19 1030 . WHAT DID YOU LAST DRINK? WATER . NAME OF PERSON DRIVING YOU HOME? ANNEMARIE . DO YOU HAVE ANY OTHER QUESTIONS OR CONCERNS NO . VITAL SIGNS WT 100.0 LBS, HT 61 IN, BMI 18.89 INDEX, BP 132/82 MM HG, HR 107 /MIN, RR 16 /MIN, TEMP 97.8 F, OXYGEN SAT % 95%, SAFE IN ENV? (Y/N) YES, NA INITIALS AW 1302, REVIEWED BY: KG. ASSESSMENTS SPONDYLOSIS WITHOUT MYELOPATHY OR RADICULOPATHY, LUMBAR REGION - M47.816 (PRIMARY) SPONDYLOSIS WITHOUT MYELOPATHY OR RADICULOPATHY, LUMBOSACRAL REGION - M47.817 PROCEDURES PN RADIOFREQUENCY PRE PROCEDURE DIAGNOSES 1. LUMBAR SPONDYLOSIS. 2. LUMBOSACRAL SPONDYLOSIS POST PROCEDURE DIAGNOSES 1. LUMBAR SPONDYLOSIS. 2. LUMBOSACRAL SPONDYLOSIS PROCEDURE LEFT L4-L5 AND LEFT L5-S1 LUMBAR FACET RADIOFREQUENCY SURGEON DR. MARY JANE DON HOMICIDE SQUAD COMMANDING OFFICER NONE ANESTHESIA LOCAL PRE PROCEDURE REPORT THE PATIENT HAS HISTORY OF CHRONIC LOW BACK PAIN. I EVALUATED THE PATIENT AND REVIEWED THE CHART. I WENT OVER THE RISKS, ALTERNATIVES, AND BENEFITS ASSOCIATED WITH THIS PROCEDURE. THE PATIENT WOULD LIKE TO PROCEED AND GIVES CONSENT TO PERFORM THE PROCEDURE. THE PATIENT DENIES UNEXPLAINABLE WEIGHT LOSS, FEVER, CHILLS, OR NEW CHANGES IN URINARY OR BOWEL CONTROL DESCRIPTION OF PROCEDURE THE PATIENT WAS BROUGHT TO THE PROCEDURE ROOM AND PLACED IN THE PRONE POSITION. THE LUMBOSACRAL AREA WAS CLEANED WITH CHLORAPREP SOLUTION AND DRAPED ASEPTICALLY. THE PROCEDURE WAS DONE UNDER STERILE CONDITIONS. I CHECKED LATERALITY AND THE LEVEL WHERE THE PROCEDURE WAS GOING TO BE PERFORMED WITH THE PATIENT AND THE SUPPORTING STAFF AT THE MOMENT OF THE TIME OUT IN THE PROCEDURE ROOM. UNDER FLUOROSCOPIC GUIDANCE, TARGETS WERE SELECTED AT THE INTERSECTION OF THE LEFT TRANSVERSE PROCESS OF L4, L5 AND ALA OF S1 WITH ITS RESPECTIVE SUPERIOR ARTICULAR PROCESS. LIDOCAINE WAS USED TO NUMB THE SKIN AND THE SUBCUTANEOUS TISSUE BELOW IT. RADIOFREQUENCY NEEDLES 22-GAUGE 15 CM LONG WITH 10 MM ACTIVE CURVE TIP WERE ADVANCED UNDER FLUOROSCOPIC GUIDANCE AND FOLLOWING PATIENT FEEDBACK UNTIL THE TARGET AREA WAS REACHED. POSITION OF THE NEEDLES WAS VERIFIED WITH AP AND LATERAL VIEWS. AFTER PROPER POSITION OF THE NEEDLE WAS ACHIEVED, WE WORKED WITH THE LEFT SELECTED MEDIAN BRANCHES OF L3, L4 AND THE DORSAL RAMI OF L5. WE MEASURED THE CORRESPONDING IMPEDANCES, SENSORY STIMULATION AND MOTOR RESPONSES INDICATED IN THE RADIOFREQUENCY WORKSHEET. POSITION OF THE NEEDLES WAS VERIFIED AGAIN WITH AP AND LATERAL VIEWS. LIDOCAINE 1%, 2 ML, WAS INJECTED AT EACH LEVEL. RADIOFREQUENCY WAS DONE AT EACH LEVEL AT 80 DEGREES FOR 90 SECONDS. AFTER RADIOFREQUENCY WAS DONE, THE PATIENT RECEIVED BUPIVACAINE 0.125% 1 CC WITH KENALOG 5 MG AT EACH SITE. THERE WAS NO EVIDENCE OF BLOOD, PARESTHESIA OR CEREBROSPINAL FLUID DURING THE PROCEDURE. THE PATIENT WAS SENT TO THE RECOVERY ROOM. THE PATIENT WAS MOVING THE EXTREMITIES AND DOING WELL. THERE WAS NO COMPLICATION DURING THE PROCEDURE. FLUOROSCOPY TIME WAS 53 SECONDS POST PROCEDURE NOTE THE PATIENT WILL BE SEEN IN A FOLLOW UP IN THE NEXT FEW WEEKS. I AM LOOKING FOR LONG LASTING PAIN RELIEF WITH THIS PROCEDURE. INSTRUCTIONS WERE GIVEN, QUESTIONS WERE ANSWERED, AND THE PATIENT EXPRESSED UNDERSTANDING AND AGREES WITH THE PLAN. I, MONISHA DHALIWAL, DOCUMENTED THE ABOVE INFORMATION ACTING A SCRIBE FOR DR. DON. I HAVE REVIEWED THE ABOVE DOCUMENT, WRITTEN BY MONISHA RICEIBSerafin AND I VERIFY THAT IT IS ACCURATE. DIAGNOSTIC IMAGING [facility] FACET BLOCK (PAIN)[id number] PROCEDURE CODES 80838 DESTROY LUMB/SAC FACET JNT, [place]: [place] [address] DESTROY L/S FACET JNT ADDL, MODIFIERS: LT 6045F RADXPS IN END [id number] PXD DISPOSITION & COMMUNICATION FOLLOW UP 3 WEEKS ELECTRONICALLY SIGNED BY MARY JANE DON MD, MD ON 07/28/2019 AT 01:47 PM EST DISCLAIMER : THIS IS A VISIT SUMMARY EXTRACTED FROM THE [employer] CHART. IT IS NOT A COPY OF THE [employer] PROGRESS NOTE. MTDLoco
== END ==
LOC: M PAIN 13:00
PROVIDERS: ATTEND Anesthesiology
DX: M47.816 Spondylosis without myelopathy or radiculopathy, lumbar region (principal); M47.817 Spondylosis without myelopathy or radiculopathy, lumbosacral region; Z86.59 Personal history of other mental and behavioral disorders; Z87.891 Personal history of nicotine dependence; Z88.1 Allergy status to other antibiotic agents; Z88.5 Allergy status to narcotic agent; Z91.011 Allergy to milk products; Z91.013 Allergy to seafood; Z91.018 Allergy to other foods; Z79.899 Other long term (current) drug therapy
CPT/HCPCS: 64635; 64636; J3301

== ENCOUNTER → 2019-07-21 | Outpatient (CLI) | payer MEDICARE, MEDICAID ==
[~2019-07-21] MED LIST changes: -BUPIVACAINE HCL 0.25% 30 ML VIAL As Ordered ONE; -LIDOCAINE 1% SDV INJ 30 ML VIAL As Ordered ONE; -TRIAMCINOLONE ACETONIDE SUSP 40 MG/ML VIAL (J3301) As Ordered ONE
--- NOTE | 2019-07-21 12:41 | REP ---
Local spine three views: Comparison is 04/22/2013. There is surgical fusion from C4-C7 with stabilization plate and bone graft, unchanged from the prior study. There is a large anterior C3 osteophytes extending anterior to the superior margin of the stabilization plate, unchanged. There appears to be a nondisplaced fracture at the inferior tip of this large osteophyte, however, this is unchanged. The prevertebral soft tissues are unremarkable. The facets are normally aligned. There are no lytic, blastic or destructive skeletal changes. Impression: Postsurgical changes as described, unchanged. Large anterior osteophytes above the stabilization plate, extending anterior to the stabilization plate. This is unchanged. The prevertebral soft tissues are unremarkable. There is no change from the prior study. The Electronically Signed by Moses Yoon MD 07/21/2019 12:32 P
== END ==
LOC: M RAD 11:51
PROVIDERS: ATTEND Physician Assistant Medical
DX: M25.78 Osteophyte, vertebrae (principal); R49.0 Dysphonia; R13.19 Other dysphagia

== ENCOUNTER → 2019-08-05 | Outpatient (CLI) | payer MEDICARE, MEDICAID ==
--- NOTE | 2019-08-24 07:14 | ECWPNPC ---
PATIENT NAME: BRIAN DAWSON : 1955 GENDER: FEMALE VISIT DATE: 08/05/2019 DISCHARGE DATE: 08/05/19 1031 VISIT LOCKED DATE TIME: PHYSICIAN: SUKHI GONZALES PHYSICIAN PAGER NO: [phone] RESOURCE: SUKHI GONZALES REASON FOR APPOINTMENT 1. POST RF HISTORY OF PRESENT ILLNESS HISTORY OF PRESENT ILLNESS: HERE FOR POST PROCEDURE FOLLOW-UP. HAD LEFT L4-5, L5-S1 RADIOFREQUENCY ON 07/20/2019. FEELS HER LOWER BACK PAIN HAS IMPROVED SINCE PROCEDURE. STATES SHE IS ABLE TO TOLERATE STAIRSTEPPER, BUT NOT OVERDOING. CHIEF AREA OF PAIN IS HER NECK AND UPPER BACK, LEFT GREATER THAN RIGHT. HAD TRIGGER POINT INJECTIONS TO THAT AREA IN MAY AND REPORTS SIGNIFICANT REDUCTION OF PAIN UNTIL A FEW WEEKS AGO. SHE IS ALSO FOLLOWING WITH DR. LU NEUROSURGEON WHO DID HER NECK SURGERY SEVERAL YEARS AGO. FOLLOWING WITH [facility] FOR LEFT SHOULDER LABRAL TEAR. RATING PAIN LEVEL 2-5/10 VAS. PAIN THE PATIENT DESCRIBES THE PAIN... FALL RISK SCREENING: SCREENING :NO FALLS REPORTED IN THE LAST YEAR CURRENT MEDICATIONS TAKING MAY HAVE - - PLANT FUSION PURE PROTEIN 1SCOOP IN FLAX MEAL ORAL 3X/DAY, NOTES: 07/19 1129 TAKING PROBIOTIC ACIDOPHILUS - TABLET DIRECTED ORALLY DAILY, NOTES: 07/20 599 TAKING TOPAMAX 100 MG TABLET 1 TAB ORALLY TWICE A DAY, NOTES: 07/20 599 TAKING FLUTICASONE PROPIONATE 50 MCG/ACT SUSPENSION 1 SPRAY IN EACH NOSTRIL NASALLY ONCE A DAY, NOTES: 07/20 599 TAKING PANTOPRAZOLE SODIUM 40 MG TABLET DELAYED RELEASE 1 TABLET ORALLY TWICE DAILY, NOTES: 07/20 599 TAKING ESTRING 2 MG RING DIRECTED VAGINAL INSERT Q 3 MONTHS, NOTES: INSERTED 07/15 TAKING BIOFREEZE 4 % GEL 1 APPLICATION TO AFFECTED AREA NEEDED EXTERNALLY THREE TIMES A DAY, NOTES: 3 DAYS AGO TAKING MIRALAX - PACKET 1 PACKET MIXED WITH 8 OUNCES OF FLUID ORALLY ONCE A DAY, NOTES: NEEDED NONE RECENT TAKING TRULANCE 3 MG TABLET 1 TABLET ORALLY ONCE A DAY, NOTES: 07/20 599 TAKING METAMUCIL 28.3 % POWDER 1 PACKET WITH 8 OUNCES OF LIQUID NEEDED ORALLY THREE TIMES A DAY, NOTES: 07/19 2129 MEDICATION LIST REVIEWED AND RECONCILED WITH THE PATIENT PAST MEDICAL HISTORY LARYNGEAL NODULE CANDIDIASIS/BV-FREQUENTLY BULIMIA NERVOSA/SCHOZOAFFECTIVE D/O ([facility], 2012) 04-05-2014 DISTAL FIBULA FRACTURE 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 NODE, NEGATIVE BX, 2018 THYROID NODULE HIATAL HERNIA RUPTURE BACK PAIN BRAIN ANEURYSM ALLERGIES DOXYCYCLINE HYCLATE: PHOTODERMATITIS - ALLERGY LACTOSE INTOLERANT: DIARRHEA - ALLERGY DEMEROL: LOW BP - CONTRAINDICATION DARVOCET-N 100: LOW BP - CONTRAINDICATION AMOXICILLIN: SWELLING - ALLERGY SHELLFISH: HIVES - ALLERGY GLUTEN: DIARRHEA - ALLERGY SURGICAL HISTORY NECK SURGERY X 2 LEFT KNEE SURGERY BUNIONECTOMY OBDULIO FEET HYSTERECTOMY ABDOMINAL LAPOROSCOPY ABD BEFORE HYSTERECTOMY LASER EYE SURGERY OBDULIO COLONOSCOPY 08/2013 STERIOD INJECTIONS TO NECK BY 02/2016 HERNIA REPAIR 03/2017 SKIN CANCER LESION REMOVED 2018 FAMILY HISTORY FATHER: 84 YRS, PANCREATIC CANCER, DIAGNOSED WITH OTHER MALIGNANT NEOPLASM OF UNSPECIFIED SITE MOTHER: ALIVE, HYPERLIPIDEMIA, DIABETES, HYPERTENSION, UNSPECIFIED HEART DISEASE, OTHER MALIGNANT NEOPLASM OF UNSPECIFIED SITE 1 BROTHER(S) , 4 SISTER(S) - HEALTHY. 1 SON(S) , 1 DAUGHTER(S) - HEALTHY. FATHER ALSO POSITIVE FOR COLON, PANCREATIC CANCER\\\\\\\\NMOM--SKIN CA\\\\\\\\NBROTHER-NM\\\\\\\\NSISTER BACK PROBLEMS\\\\\\\\NSISTER X 2 LUPUS\\\\\\\\NDAUGHTER-BRITTLE DIABETIC\\\\\\\\N\\\\N\\\\NFATHER OF PANCREATIC CANCER, MOTHER AND SISTER HAD SKIN CANCER, UNKNOWN IF IT WAS MELANOMA. SOCIAL HISTORY GENERAL: TOBACCO USE ARE YOU A:FORMER SMOKER FORMER SMOKER HOW LONG HAS IT BEEN SINCE YOU LAST SMOKED?> 10 YEARS QUIT 2006 ADDITIONAL FINDINGS: TOBACCO USER NO ADDITIONAL FINDINGS: TOBACCO NON-USERCURRENT NON-SMOKER VAPORNO E-CIGARETTENO HIV / HEP-C SCREENING HIV TEST OFFERED TO PATIENT:YES DATE OFFERED:01/20/2019 TEST ACCEPTED:NO HEP-C TEST OFFERED TO PATIENT:YES DATE OFFERED:01/20/2019 REASON:PATIENT DECLINED CONSENT ON FILE TEST ACCEPTED:YES CONSENT SIGNED BROCHURE PROVIDED TO PATIENTNO OTHERS AT HOME: LIVES ALONE. HOUSING: RENTS APARTMENT. EDUCATION SOME COLLEGE. DIET: DIET ANGELA.. LANGUAGE JAPANESE. DOMESTIC VIOLENCE DO YOU FEEL SAFE IN YOUR ENVIRONMENT?YES BMI CARE GOAL FOLLOW-UP BELOW NORMAL BMI FOLLOW-UPDIETARY EDUCATION FOR WEIGHT GAIN RECREATIONAL DRUG USE DRUG USE?NO DENIES 10/21/2018 EXERCISE: DAILY-- ABLE. LEARNING BARRIERS / SPECIAL NEEDS CHANGE FROM LAST VISIT?NO BARRIERS TO LEARNING?NO HEARING IMPAIRED?NO VISION IMPAIRED?YES COGNITIVELY IMPAIRED?NO :CORRECTIVE LENSES READINESS TO LEARN?YES LEARNING PREFERENCES?NO LEARNING CAPABILITIES PRESENT?YES EMOTIONAL BARRIERS?NO SPECIAL DEVICES?NO INTERNET NETWORK SPECIALIST NEEDED?NO LUNG CANCER SCREENING SMOKING STATUS:FORMER SMOKER IS THE PATIENT BETWEEN THE AGE OF 57 AND 79?YES HAVE YOU QUIT SMOKING WITHIN THE PAST 15 YEARS?YES HAS THE PATIENT EVER BEEN DIAGNOSED WITH LUNG CANCER?NO PAIN CLINIC PFS, CLERGY, PUBLIC HEALTH REFERRALS HAS THE PATIENT BEEN EDUCATED REGARDING HIS/HER PLAN OF CARE?YES HAS THE PATIENT BEEN EDUCATED REGARDING PAIN, THE RISK FOR PAIN, THE IMPORTANCE OF EFFECTIVE PAIN MANAGEMENT, AND THE PAIN ASSESSMENT PROCESS?YES LATEX QUESTIONNAIRE LATEX ALLERGY : HAVE YOU EVER DEVELOPED ANY TYPE OF REACTION AFTER HANDLING LATEX PRODUCTS SUCH RUBBER GLOVES, CONDOMS, DIAPHRAGMS, BALLOONS, SOCKS, OR UNDERWEAR?NO LATEX ALLERGY : HAVE YOU EVER DEVELOPED ANY TYPE OF REACTION DURING OR AFTER DENTAL APPOINTMENT, VAGINAL/RECTAL EXAMINATION, SURGICAL PROCEDURE, OR ANY OTHER EXPOSURE?NO DATE ASKED : 07/19/2019 LATEX RISK : HAVE YOU EVER HAD ANY DIFFICULTY BREATHING OR HIVES AFTER EATING OR HANDLING ANY FRUITS, OR VEGETABLES; SUCH KIWI, BANANAS, STONE FRUITS, OR CHESTNUTSNO LATEX RISK : DO YOU HAVE A PREVIOUS PERSONAL HISTORY OF MORE THAN NINE SURGERIES, SPINA BIFIDA, OR REPEATED CATHERIZATIONS? YES - PLEASE INDICATE : > 9 SURGERIES LATEX RISK : ARE YOU FREQUENTLY EXPOSED TO LATEX PRODUCTS IN YOUR OCCUPATION?NO CAFFEINE CAFFEINE USE?NO ADVANCE DIRECTIVE ADVANCE DIRECTIVE DISCUSSED WITH PATIENT:YES HCP - MABLE DAWSON (BROTHER) [phone]; IS ALSO PATIENT'S POA AND LIVING WILL LATTER-DAY CAODAISM. MARITAL STATUS: SINGLE, .. ALCOHOL SCREENING DID YOU HAVE A DRINK CONTAINING ALCOHOL IN THE PAST YEAR?NO POINTS0 INTERPRETATIONNEGATIVE OCCUPATION: DISABILITY WORKING AT [employer] SEXUAL HX HAD SEX IN THE LAST 12 MONTHS (VAGINAL, ORAL, OR ANAL)?NO LMP:HYSTERECTOMY HAVE YOU EVER HAD AN STD?NO REVIEWED NL 05/12/18REVIEWED LAS 07/20/18 1215REVIEWED WITH PT 08/18/18 1113 BVREVIEWED WITH PT 09/17/18 1035 LASREVIEWED WITH PATIENT 12/07/18 0852 07/20/2019 1342 REVIEWED WITH PT. AD05/24/19 PRE-PROCEDURE SCREENING CALL COMPLETED AND ABOVE INFORMATION REVIEWED WITH PT. ADRSLIMEJORGE AWED WITH PATIENT 05/23/19 1401 JSPRE SCREEN PHONE CALL COMPLETE 07/19/19 1000 BV. HOSPITALIZATION/MAJOR DIAGNOSTIC PROCEDURE EATING DISORDER 01/20/2013 SURGERY REVIEW OF SYSTEMS REVIEWED BY: PROVIDER: SUKHI ARIAS . CONSTITUTIONAL: ANY CHANGE IN YOUR MEDICAL CONDITION? NO . CHILLS NO . FEVER NO . INFECTION: DO YOU HAVE NEW INFECTIONS? NO . DO YOU HAVE HISTORY OF MRSA? NO . MUSCULOSKELETAL: ANY NEW PATTERNS OF PAIN OR NUMBNESS? NO . GASTROENTEROLOGY: ANY NEW CHANGE IN BOWEL CONTROL? NO . GENITOURINARY: ANY NEW CHANGE IN BLADDER CONTROL? NO . IS THERE A CHANCE YOU COULD BE ? NO . HEMATOLOGY/LYMPH: DO YOU TAKE ANY BLOOD THINNERS? (FOR EXAMPLE- COUMADIN, PLAVIX, AGGRENOX, PLATEL, PRADAXA, OR XARELTO) NO . WHEN WAS YOUR LAST DOSE? DATE: TIME: . NEUROLOGY: HAVE YOU FALLEN IN THE PAST 12 MONTHS? NO . ANY NEW EXTREMITY NUMBNESS OR WEAKNESS? NO . CARDIOLOGY: DO YOU HAVE A PACEMAKER OR DEFIBRILLATOR? NO . RESPIRATORY: HAVE YOU BEEN SICK IN THE PAST WEEK? NO . FEVER NO . FLU LIKE SYMPTOMS? NO . COUGH NO . INTEGUMENTARY: DO YOU HAVE ANY RASHES OR OPEN SORES? NO . ALLERGIC/IMMUNO: ARE YOU ALLERGIC TO IV DYE? NO . ANY NEW ALLERGIES? NO . PSYCHIATRIC: DO YOU HAVE THOUGHTS OF HURTING YOURSELF OR SOMEONE ELSE? NO . ARE YOU ABUSED, NEGLECTED, OR IN AN UNSAFE ENVIRONMENT? NO . ENDOCRINOLOGY: ARE YOU DIABETIC? NO . OTHER: DO YOU NEED ANY PRESCRIPTIONS? NO . IF YES, PLEASE LIST: ____ . ANY NEW PROBLEMS WITH YOUR MEDICATIONS? NO . WHEN DID YOU LAST EAT? ____ . WHEN DID YOU LAST DRINK? ____ . WHAT DID YOU LAST DRINK? ____ . NAME OF PERSON DRIVING YOU HOME? ____ . DO YOU HAVE ANY OTHER QUESTIONS OR CONCERNS NO . VITAL SIGNS WT 100.0 LBS, HT 61 IN, BMI 18.89 INDEX, BP 118/76 MM HG, HR 95 /MIN, TEMP 98.0 F, OXYGEN SAT % 98%, SAFE IN ENV? (Y/N) YES, NA INITIALS AW 0947, REVIEWED BY: DEANDRE. EXAMINATION GENERAL EXAMINATION: GENERAL AWAKE,ALERT ,PLEASANT . PSYCH AFFECT NORMAL . LUNGS: LUNG VAZ ARE CLEAR TO AUSCULTATION BILATERALLY. GOOD MOVEMENT OF AIR . HEART: S1, S2 IN A REGULAR RATE AND RHYTHM. NO SIGNIFICANT MURMURS, RUBS OR GALLOPS NOTED . CERVICAL: TRIGGER POINTS: CERVICAL AND TRAPEZIUS BILAT L>R..PAIN IS AGGREVATED WITH ROJM NECK AND ARMS. DIAGNOSTIC TESTS REVIEWED CERVIAL MRI-11/14/18. ASSESSMENTS MYALGIA OF MUSCLE OF NECK - M79.18 (PRIMARY) FACET ARTHROPATHY, LUMBOSACRAL - M47.817 TREATMENT MYALGIA OF MUSCLE OF NECK NOTES: TRIGGER POINT INJECTION NECK, SHOULDERS, LEFT RHOMBOID. PREVENTIVE MEDICINE PAIN CLINIC TEACHING: PROCEDURE TEACHING TRIGGER POINT PROCEDURE AND PRE PROCEDURE INSTRUCTIONS REVIEWED WITH PATIENT, PATIENT VERBALIZES UNDERSTANDING. 08/05/2019 PROCEDURE CODES FA211 ESTABILISHED PATIENT [facility] CHARGE DISPOSITION & COMMUNICATION FOLLOW UP POST (REASON: TRIGGER POINT INJECTION NECK, SHOULDERS, LEFT RHOMBOID) ELECTRONICALLY SIGNED BY HUGO NICOLE ON 08/23/2019 AT 12:14 PM EDT DISCLAIMER : THIS IS A VISIT SUMMARY EXTRACTED FROM THE [employer] CHART. IT IS NOT A COPY OF THE [employer] PROGRESS NOTE. VARUN
== END ==
LOC: M PAIN 10:00
PROVIDERS: ATTEND Nurse Practitioner Family
DX: M79.18 Myalgia, other site (principal); M47.817 Spondylosis without myelopathy or radiculopathy, lumbosacral region

== ENCOUNTER → 2019-08-26 | Outpatient (CLI) | payer MEDICARE, MEDICAID ==
[~2019-08-26] MED LIST changes: +BUPIVACAINE HCL 0.25% 10 ML VIAL As Ordered ONE; +BUPIVACAINE HCL 0.25% 30 ML VIAL As Ordered ONE; +TRIAMCINOLONE ACETONIDE SUSP 40 MG/ML VIAL (J3301) As Ordered ONE
--- NOTE | 2019-09-09 02:54 | ECWPNPC ---
PATIENT NAME: BRIAN DAWSON : 1955 GENDER: FEMALE VISIT DATE: 08/26/2019 DISCHARGE DATE: 08/26/19 1227 VISIT LOCKED DATE TIME: PHYSICIAN: MARY JANE DON MD PHYSICIAN PAGER NO: [phone] RESOURCE: MARY JANE DON MD REASON FOR APPOINTMENT 1. TRIGGER POINT INJECTION NECK, SHOULDERS HISTORY OF PRESENT ILLNESS HISTORY OF PRESENT ILLNESS: PAIN THE PATIENT DESCRIBES THE PAIN... FALL RISK SCREENING: SCREENING :NO FALLS REPORTED IN THE LAST YEAR CURRENT MEDICATIONS TAKING MAY HAVE - - PLANT FUSION PURE PROTEIN 1SCOOP IN FLAX MEAL ORAL 3X/DAY TAKING PROBIOTIC ACIDOPHILUS - TABLET DIRECTED ORALLY DAILY, NOTES: 08/25 6AM TAKING TOPAMAX 100 MG TABLET 1 TAB ORALLY TWICE A DAY, NOTES: 08/25 6AM TAKING PANTOPRAZOLE SODIUM 40 MG TABLET DELAYED RELEASE 1 TABLET ORALLY TWICE DAILY, NOTES: 08/26 6AM TAKING ESTRING 2 MG RING DIRECTED VAGINAL INSERT Q 3 MONTHS TAKING BIOFREEZE 4 % GEL 1 APPLICATION TO AFFECTED AREA NEEDED EXTERNALLY THREE TIMES A DAY, NOTES: 08/24 7PM TAKING MIRALAX - PACKET 1 PACKET MIXED WITH 8 OUNCES OF FLUID ORALLY ONCE A DAY, NOTES: 3 DAYS AGO TAKING TRULANCE 3 MG TABLET 1 TABLET ORALLY ONCE A DAY, NOTES: 08/25 6AM TAKING METAMUCIL 28.3 % POWDER 1 PACKET WITH 8 OUNCES OF LIQUID NEEDED ORALLY THREE TIMES A DAY, NOTES: 08/24 8PM TAKING FLUTICASONE PROPIONATE 50 MCG/ACT SUSPENSION 1 SPRAY IN EACH NOSTRIL NASALLY ONCE A DAY, NOTES: 08/24 8PM MEDICATION LIST REVIEWED AND RECONCILED WITH THE PATIENT PAST MEDICAL HISTORY LARYNGEAL NODULE CANDIDIASIS/BV-FREQUENTLY BULIMIA NERVOSA/SCHOZOAFFECTIVE D/O ([facility], 2013) 04-05-2014 DISTAL FIBULA FRACTURE 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 NODE, NEGATIVE BX, 2018 THYROID NODULE HIATAL HERNIA RUPTURE BACK PAIN BRAIN ANEURYSM ALLERGIES DOXYCYCLINE HYCLATE: PHOTODERMATITIS - ALLERGY LACTOSE INTOLERANT: DIARRHEA - ALLERGY DEMEROL: LOW BP - CONTRAINDICATION DARVOCET-N 100: LOW BP - CONTRAINDICATION AMOXICILLIN: SWELLING - ALLERGY SHELLFISH: HIVES - ALLERGY GLUTEN: DIARRHEA - ALLERGY SURGICAL HISTORY NECK SURGERY X 2 LEFT KNEE SURGERY BUNIONECTOMY OBDULIO FEET HYSTERECTOMY ABDOMINAL LAPOROSCOPY ABD BEFORE HYSTERECTOMY LASER EYE SURGERY OBDULIO COLONOSCOPY 08/2013 STERIOD INJECTIONS TO NECK BY 02/2016 HERNIA REPAIR 03/2017 SKIN CANCER LESION REMOVED 2018 FAMILY HISTORY FATHER: 84 YRS, PANCREATIC CANCER, DIAGNOSED WITH OTHER MALIGNANT NEOPLASM OF UNSPECIFIED SITE MOTHER: ALIVE, HYPERLIPIDEMIA, DIABETES, HYPERTENSION, UNSPECIFIED HEART DISEASE, OTHER MALIGNANT NEOPLASM OF UNSPECIFIED SITE 1 BROTHER(S) , 4 SISTER(S) - HEALTHY. 1 SON(S) , 1 DAUGHTER(S) - HEALTHY. FATHER ALSO POSITIVE FOR COLON, PANCREATIC CANCER\\\\\\\\NMOM--SKIN CA\\\\\\\\NBROTHER-[place]\\\\\\\\NSISTER BACK PROBLEMS\\\\\\\\NSISTER X 2 LUPUS\\\\\\\\NDAUGHTER-BRITTLE DIABETIC\\\\\\\\N\\\\N\\\\NFATHER OF PANCREATIC CANCER, MOTHER AND SISTER HAD SKIN CANCER, UNKNOWN IF IT WAS MELANOMA. SOCIAL HISTORY GENERAL: TOBACCO USE ARE YOU A:FORMER SMOKER FORMER SMOKER HOW LONG HAS IT BEEN SINCE YOU LAST SMOKED?> 10 YEARS QUIT 2006 ADDITIONAL FINDINGS: TOBACCO USER NO ADDITIONAL FINDINGS: TOBACCO NON-USERCURRENT NON-SMOKER VAPORNO E-CIGARETTENO HIV / HEP-C SCREENING HIV TEST OFFERED TO PATIENT:YES DATE OFFERED:01/20/2019 TEST ACCEPTED:NO HEP-C TEST OFFERED TO PATIENT:YES DATE OFFERED:01/20/2019 REASON:PATIENT DECLINED CONSENT ON FILE TEST ACCEPTED:YES CONSENT SIGNED BROCHURE PROVIDED TO PATIENTNO OTHERS AT HOME: LIVES ALONE. HOUSING: RENTS APARTMENT. EDUCATION SOME COLLEGE. DIET: DIET ANGELA.. LANGUAGE [place]IZ[place]. DOMESTIC VIOLENCE DO YOU FEEL SAFE IN YOUR ENVIRONMENT?YES BMI CARE GOAL FOLLOW-UP BELOW NORMAL BMI FOLLOW-UPDIETARY EDUCATION FOR WEIGHT GAIN RECREATIONAL DRUG USE DRUG USE?NO DENIES 10/21/2018 EXERCISE: DAILY-- ABLE. LEARNING BARRIERS / SPECIAL NEEDS CHANGE FROM LAST VISIT?NO BARRIERS TO LEARNING?NO HEARING IMPAIRED?NO VISION IMPAIRED?YES COGNITIVELY IMPAIRED?NO :CORRECTIVE LENSES READINESS TO LEARN?YES LEARNING PREFERENCES?NO LEARNING CAPABILITIES PRESENT?YES EMOTIONAL BARRIERS?NO SPECIAL DEVICES?NO IMPACT RETAIL SERVICE MERCHANDISER NEEDED?NO LUNG CANCER SCREENING SMOKING STATUS:FORMER SMOKER IS THE PATIENT BETWEEN THE AGE OF 57 AND 79?YES HAVE YOU QUIT SMOKING WITHIN THE PAST 15 YEARS?YES HAS THE PATIENT EVER BEEN DIAGNOSED WITH LUNG CANCER?NO PAIN CLINIC PFS, CLERGY, PUBLIC HEALTH REFERRALS WAS THE PROVIDER NOTIFIED OF ANY PERTINENT INFO?YES HAS THE PATIENT BEEN EDUCATED REGARDING HIS/HER PLAN OF CARE?YES HAS THE PATIENT BEEN EDUCATED REGARDING PAIN, THE RISK FOR PAIN, THE IMPORTANCE OF EFFECTIVE PAIN MANAGEMENT, AND THE PAIN ASSESSMENT PROCESS?YES LATEX QUESTIONNAIRE LATEX ALLERGY : HAVE YOU EVER DEVELOPED ANY TYPE OF REACTION AFTER HANDLING LATEX PRODUCTS SUCH RUBBER GLOVES, CONDOMS, DIAPHRAGMS, BALLOONS, SOCKS, OR UNDERWEAR?NO LATEX ALLERGY : HAVE YOU EVER DEVELOPED ANY TYPE OF REACTION DURING OR AFTER DENTAL APPOINTMENT, VAGINAL/RECTAL EXAMINATION, SURGICAL PROCEDURE, OR ANY OTHER EXPOSURE?NO LATEX RISK : HAVE YOU EVER HAD ANY DIFFICULTY BREATHING OR HIVES AFTER EATING OR HANDLING ANY FRUITS, OR VEGETABLES; SUCH KIWI, BANANAS, STONE FRUITS, OR CHESTNUTSNO LATEX RISK : DO YOU HAVE A PREVIOUS PERSONAL HISTORY OF MORE THAN NINE SURGERIES, SPINA BIFIDA, OR REPEATED CATHERIZATIONS? YES - PLEASE INDICATE : > 9 SURGERIES LATEX RISK : ARE YOU FREQUENTLY EXPOSED TO LATEX PRODUCTS IN YOUR OCCUPATION?NO DATE ASKED : 08/26/2019 CAFFEINE CAFFEINE USE?NO ADVANCE DIRECTIVE ADVANCE DIRECTIVE DISCUSSED WITH PATIENT:YES HCP - MABLE DAWSON (BROTHER) [phone]; IS ALSO PATIENT'S POA AND LIVING WILL [facility]. MARITAL STATUS: SINGLE, .. ALCOHOL SCREENING DID YOU HAVE A DRINK CONTAINING ALCOHOL IN THE PAST YEAR?NO POINTS0 INTERPRETATIONNEGATIVE OCCUPATION: DISABILITY WORKING AT [employer]. SEXUAL HX HAD SEX IN THE LAST 12 MONTHS (VAGINAL, ORAL, OR ANAL)?NO LMP:HYSTERECTOMY HAVE YOU EVER HAD AN STD?NO HOSPITALIZATION/MAJOR DIAGNOSTIC PROCEDURE EATING DISORDER 01/20/2013 SURGERY REVIEW OF SYSTEMS REVIEWED BY: PROVIDER: . CONSTITUTIONAL: ANY CHANGE IN YOUR MEDICAL CONDITION? NO . CHILLS NO . FEVER NO . INFECTION: DO YOU HAVE NEW INFECTIONS? NO . DO YOU HAVE HISTORY OF MRSA? NO . MUSCULOSKELETAL: ANY NEW PATTERNS OF PAIN OR NUMBNESS? NO . GASTROENTEROLOGY: ANY NEW CHANGE IN BOWEL CONTROL? NO . GENITOURINARY: ANY NEW CHANGE IN BLADDER CONTROL? NO . IS THERE A CHANCE YOU COULD BE ? NO . HEMATOLOGY/LYMPH: DO YOU TAKE ANY BLOOD THINNERS? (FOR EXAMPLE- COUMADIN, PLAVIX, AGGRENOX, PLATEL, PRADAXA, OR XARELTO) NO . WHEN WAS YOUR LAST DOSE? DATE: TIME: . NEUROLOGY: HAVE YOU FALLEN IN THE PAST 12 MONTHS? YES, PT STATES THAT SHE FELL WHILE AT HOME, 2 WEEKS AGO, NO REPORT TO ED, NO INJURY.DS . ANY NEW EXTREMITY NUMBNESS OR WEAKNESS? NO . CARDIOLOGY: DO YOU HAVE A PACEMAKER OR DEFIBRILLATOR? NO . RESPIRATORY: HAVE YOU BEEN SICK IN THE PAST WEEK? NO . FEVER NO . FLU LIKE SYMPTOMS? NO . COUGH NO . INTEGUMENTARY: DO YOU HAVE ANY RASHES OR OPEN SORES? NO . ALLERGIC/IMMUNO: ARE YOU ALLERGIC TO IV DYE? NO . ANY NEW ALLERGIES? NO . PSYCHIATRIC: DO YOU HAVE THOUGHTS OF HURTING YOURSELF OR SOMEONE ELSE? NO . ARE YOU ABUSED, NEGLECTED, OR IN AN UNSAFE ENVIRONMENT? NO . ENDOCRINOLOGY: ARE YOU DIABETIC? NO . OTHER: DO YOU NEED ANY PRESCRIPTIONS? NO . IF YES, PLEASE LIST: ____ . ANY NEW PROBLEMS WITH YOUR MEDICATIONS? NO . WHEN DID YOU LAST EAT? 08/24 11PM . WHEN DID YOU LAST DRINK? 08/25 0830A . WHAT DID YOU LAST DRINK? COFFEE, WATER . NAME OF PERSON DRIVING YOU HOME? ANNEMARIE . DO YOU HAVE ANY OTHER QUESTIONS OR CONCERNS NO . VITAL SIGNS WT 102.8 LBS, HT 61 IN, BMI 19.42 INDEX, BP 108/88 MM HG, HR 77 /MIN, RR 16 /MIN, TEMP 97.0 F, OXYGEN SAT % 98, SAFE IN ENV? (Y/N) Y, NA INITIALS AW 1124, REVIEWED BY: DS. ASSESSMENTS MYALGIA, OTHER SITE - M79.18 (PRIMARY) PROCEDURES PN TRIGGER POINT INJECTION WITH STEROIDS PRE PROCEDURE DIAGNOSIS 1. MYALGIA 2. PAIN AT LEFT NECK AREA AND BILATERAL SHOULDER AREA. POST PROCEDURE DIAGNOSIS 1. MYALGIA 2. PAIN AT LEFT NECK AREA AND BILATERAL SHOULDER AREA. PROCEDURE TRIGGER POINT INJECTION AT LEFT NECK AREA AND RIGHT AND LEFT SHOULDER AREA. SURGEON DR. MARY JANE DON TOWBOAT CAPTAIN NONE ANESTHESIA LOCAL PRE PROCEDURE NOTE THE PATIENT HAS A HISTORY OF CHRONIC PAIN AT THE LEFT NECK AREA AND RIGHT AND LEFT SHOULDER AREA. I EVALUATED THE PATIENT AND REVIEWED THE CHART. THERE IS EVIDENCE OF BANDS OF TISSUE WITH RESTRICTION OF MOVEMENT AND PRESENCE OF TRIGGER POINT AT THE AFFECTED AREA. I WENT OVER THE RISKS, ALTERNATIVES, AND BENEFITS ASSOCIATED WITH THIS PROCEDURE. THE PATIENT WOULD LIKE TO PROCEED AND GIVE CONSENT TO PERFORMED THE PROCEDURE. THE PATIENT DENIES UNEXPLAINABLE WEIGHT LOSS, FEVER, CHILLS, OR NEW CHANGES IN URINARY OR BOWEL CONTROL DESCRIPTION OF PROCEDURE THE PATIENT WAS BROUGHT TO THE PROCEDURE ROOM AND PLACED IN THE SITTING POSITION. THE AREA WAS CLEANED WITH ALCOHOL. THE PROCEDURE WAS DONE USING ASEPTIC STERILE TECHNIQUE. I CHECKED LATERALITY AND THE LEVEL WHERE THE PROCEDURE WAS GOING TO BE PERFORMED WITH THE PATIENT AND THE SUPPORTING STAFF AT THE MOMENT OF THE TIME OUT IN THE PROCEDURE ROOM. USING A 25-GAUGE NEEDLE, TRIGGER POINTS WERE INJECTED AT THE LEFT NECK AREA WITH A TOTAL OF 40 ML OF BUPIVACAINE 0.25% AND KENALOG 40 MG. USING A 25-GAUGE NEEDLE, TRIGGER POINTS WERE INJECTED AT THE RIGHT AND LEFT SHOULDER AREA WITH A TOTAL OF 40 ML OF BUPIVACAINE 0.25%. THERE WAS NO EVIDENCE OF BLOOD, PARESTHESIA OR CEREBROSPINAL FLUID DURING THE PROCEDURE. THE PATIENT WAS SENT TO THE RECOVERY ROOM. THE PATIENT WAS MOVING THE EXTREMITIES AND DOING WELL. THERE WAS NO COMPLICATION DURING THE PROCEDURE POST PROCEDURE NOTE THE PATIENT WILL BE SEEN IN A FOLLOW UP IN THE NEXT FEW WEEKS. INSTRUCTIONS WERE GIVEN, QUESTIONS WERE ANSWERED, AND THE PATIENT EXPRESSED UNDERSTANDING AND AGREES WITH THE PLAN. I, MONISHA DHALIWAL, DOCUMENTED THE ABOVE INFORMATION ACTING A SCRIBE FOR DR. DON. I HAVE REVIEWED THE ABOVE DOCUMENT, WRITTEN BY MONISHA FISHER AND I VERIFY THAT IT IS ACCURATE. PROCEDURE CODES 40841 INJECT TRIGGER POINTS 3/> DISPOSITION & COMMUNICATION FOLLOW UP 3 WEEKS ELECTRONICALLY SIGNED BY MARY JANE DON MD, MD ON 09/08/2019 AT 10:03 AM EDT DISCLAIMER : THIS IS A VISIT SUMMARY EXTRACTED FROM THE [employer] CHART. IT IS NOT A COPY OF THE [employer] PROGRESS NOTE. VARUN
== END ==
LOC: M PAIN 11:45
PROVIDERS: ATTEND Anesthesiology
DX: M79.18 Myalgia, other site (principal); Z86.59 Personal history of other mental and behavioral disorders; Z87.891 Personal history of nicotine dependence; Z88.1 Allergy status to other antibiotic agents; Z88.5 Allergy status to narcotic agent; Z91.011 Allergy to milk products; Z91.013 Allergy to seafood; Z91.018 Allergy to other foods; Z79.899 Other long term (current) drug therapy
CPT/HCPCS: 20553; J3301

== ENCOUNTER → 2019-09-16 | Outpatient (CLI) | payer MEDICARE, MEDICAID ==
[~2019-09-16] MED LIST changes: -BUPIVACAINE HCL 0.25% 10 ML VIAL As Ordered ONE; -BUPIVACAINE HCL 0.25% 30 ML VIAL As Ordered ONE; -TRIAMCINOLONE ACETONIDE SUSP 40 MG/ML VIAL (J3301) As Ordered ONE
--- NOTE | 2019-09-17 00:29 | ECWPNPC ---
PATIENT NAME: BRIAN DAWSON : 1955 GENDER: FEMALE VISIT DATE: 09/16/2019 DISCHARGE DATE: 09/16/19 1604 VISIT LOCKED DATE TIME: PHYSICIAN: SUKHI GONZALES PHYSICIAN PAGER NO: [phone] RESOURCE: SUKHI GONZALES REASON FOR APPOINTMENT 1. POST TRIGGER POINT INJECTION NECK, SHOULDERS, LEFT RHOMBOID HISTORY OF PRESENT ILLNESS HISTORY OF PRESENT ILLNESS: PERMISSION GIVEN FOR TELEMED VISIT TODAY. HAD TRIGGER POINT INJECTIONS, LEFT NECK AND BILATERAL SHOULDERS ON 08/26/2019. REPORTING SIGNIFICANT IMPROVEMENT POST PROCEDURE. CONTINUES TO BENEFIT FROM RADIOFREQUENCY DONE SEVERAL MONTHS AGO LUMBAR SPINE. CURRENTLY BEING FOLLOWED WITH ORTHOPEDICS FOR LEFT SHOULDER AND KNEE PAIN. HAS BEEN USING CRUTCHES LATELY AND HAS HAD AGGRAVATION IN LOW BACK PAIN. RATING PAIN LEVEL IN NECK AND SHOULDERS A 3/10 VAS. PAIN THE PATIENT DESCRIBES THE PAIN... FALL RISK SCREENING: SCREENING :NO FALLS REPORTED IN THE LAST YEAR CURRENT MEDICATIONS TAKING MAY HAVE - - PLANT FUSION PURE PROTEIN 1SCOOP IN FLAX MEAL ORAL 3X/DAY TAKING PROBIOTIC ACIDOPHILUS - TABLET DIRECTED ORALLY DAILY TAKING TOPAMAX 100 MG TABLET 1 TAB ORALLY TWICE A DAY TAKING PANTOPRAZOLE SODIUM 40 MG TABLET DELAYED RELEASE 1 TABLET ORALLY TWICE DAILY TAKING ESTRING 2 MG RING DIRECTED VAGINAL INSERT Q 3 MONTHS TAKING BIOFREEZE 4 % GEL 1 APPLICATION TO AFFECTED AREA NEEDED EXTERNALLY THREE TIMES A DAY TAKING MIRALAX - PACKET 1 PACKET MIXED WITH 8 OUNCES OF FLUID ORALLY ONCE A DAY TAKING TRULANCE 3 MG TABLET 1 TABLET ORALLY ONCE A DAY TAKING METAMUCIL 28.3 % POWDER 1 PACKET WITH 8 OUNCES OF LIQUID NEEDED ORALLY THREE TIMES A DAY TAKING FLUTICASONE PROPIONATE 50 MCG/ACT SUSPENSION 1 SPRAY IN EACH NOSTRIL NASALLY ONCE A DAY PAST MEDICAL HISTORY LARYNGEAL NODULE CANDIDIASIS/BV-FREQUENTLY BULIMIA NERVOSA/SCHOZOAFFECTIVE D/O ([facility], 2013) 04-05-2014 DISTAL FIBULA FRACTURE 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 NODE, NEGATIVE BX, 2018 THYROID NODULE HIATAL HERNIA RUPTURE BACK PAIN BRAIN ANEURYSM ALLERGIES DOXYCYCLINE HYCLATE: PHOTODERMATITIS - ALLERGY LACTOSE INTOLERANT: DIARRHEA - ALLERGY DEMEROL: LOW BP - CONTRAINDICATION DARVOCET-N 100: LOW BP - CONTRAINDICATION AMOXICILLIN: SWELLING - ALLERGY SHELLFISH: HIVES - ALLERGY GLUTEN: DIARRHEA - ALLERGY SURGICAL HISTORY NECK SURGERY X 2 LEFT KNEE SURGERY BUNIONECTOMY OBDULIO FEET HYSTERECTOMY ABDOMINAL LAPOROSCOPY ABD BEFORE HYSTERECTOMY LASER EYE SURGERY OBDULIO COLONOSCOPY 08/2013 STERIOD INJECTIONS TO NECK BY 02/2016 HERNIA REPAIR 03/2017 SKIN CANCER LESION REMOVED 2018 FAMILY HISTORY FATHER: 84 YRS, PANCREATIC CANCER, DIAGNOSED WITH OTHER MALIGNANT NEOPLASM OF UNSPECIFIED SITE MOTHER: ALIVE, HYPERLIPIDEMIA, DIABETES, HYPERTENSION, UNSPECIFIED HEART DISEASE, OTHER MALIGNANT NEOPLASM OF UNSPECIFIED SITE 1 BROTHER(S) , 4 SISTER(S) - HEALTHY. 1 SON(S) , 1 DAUGHTER(S) - HEALTHY. FATHER ALSO POSITIVE FOR COLON, PANCREATIC CANCER\\\\\\\\NMOM--SKIN CA\\\\\\\\NBROTHER-[place]\\\\\\\\NSISTER BACK PROBLEMS\\\\\\\\NSISTER X 2 LUPUS\\\\\\\\NDAUGHTER-BRITTLE DIABETIC\\\\\\\\N\\\\N\\\\NFATHER OF PANCREATIC CANCER, MOTHER AND SISTER HAD SKIN CANCER, UNKNOWN IF IT WAS MELANOMA. SOCIAL HISTORY GENERAL: TOBACCO USE ARE YOU A:FORMER SMOKER FORMER SMOKER HOW LONG HAS IT BEEN SINCE YOU LAST SMOKED?> 10 YEARS QUIT 2006 ADDITIONAL FINDINGS: TOBACCO USER NO ADDITIONAL FINDINGS: TOBACCO NON-USERCURRENT NON-SMOKER VAPORNO E-CIGARETTENO HIV / HEP-C SCREENING HIV TEST OFFERED TO PATIENT:YES DATE OFFERED:01/20/2019 TEST ACCEPTED:NO HEP-C TEST OFFERED TO PATIENT:YES DATE OFFERED:01/20/2019 REASON:PATIENT DECLINED CONSENT ON FILE TEST ACCEPTED:YES CONSENT SIGNED BROCHURE PROVIDED TO PATIENTNO OTHERS AT HOME: LIVES ALONE. HOUSING: RENTS APARTMENT. EDUCATION SOME COLLEGE. DIET: DIET ANGELA.. LANGUAGE ARABIC. DOMESTIC VIOLENCE DO YOU FEEL SAFE IN YOUR ENVIRONMENT?YES BMI CARE GOAL FOLLOW-UP BELOW NORMAL BMI FOLLOW-UPDIETARY EDUCATION FOR WEIGHT GAIN RECREATIONAL DRUG USE DRUG USE?NO DENIES 10/21/2018 EXERCISE: DAILY-- ABLE. LEARNING BARRIERS / SPECIAL NEEDS CHANGE FROM LAST VISIT?NO BARRIERS TO LEARNING?NO HEARING IMPAIRED?NO VISION IMPAIRED?YES COGNITIVELY IMPAIRED?NO :CORRECTIVE LENSES READINESS TO LEARN?YES LEARNING PREFERENCES?NO LEARNING CAPABILITIES PRESENT?YES EMOTIONAL BARRIERS?NO SPECIAL DEVICES?NO HAIRSPRING ADJUSTER NEEDED?NO LUNG CANCER SCREENING SMOKING STATUS:FORMER SMOKER IS THE PATIENT BETWEEN THE AGE OF 57 AND 79?YES HAVE YOU QUIT SMOKING WITHIN THE PAST 15 YEARS?YES HAS THE PATIENT EVER BEEN DIAGNOSED WITH LUNG CANCER?NO PAIN CLINIC PFS, CLERGY, PUBLIC HEALTH REFERRALS WAS THE PROVIDER NOTIFIED OF ANY PERTINENT INFO?YES HAS THE PATIENT BEEN EDUCATED REGARDING HIS/HER PLAN OF CARE?YES HAS THE PATIENT BEEN EDUCATED REGARDING PAIN, THE RISK FOR PAIN, THE IMPORTANCE OF EFFECTIVE PAIN MANAGEMENT, AND THE PAIN ASSESSMENT PROCESS?YES LATEX QUESTIONNAIRE LATEX ALLERGY : HAVE YOU EVER DEVELOPED ANY TYPE OF REACTION AFTER HANDLING LATEX PRODUCTS SUCH RUBBER GLOVES, CONDOMS, DIAPHRAGMS, BALLOONS, SOCKS, OR UNDERWEAR?NO LATEX ALLERGY : HAVE YOU EVER DEVELOPED ANY TYPE OF REACTION DURING OR AFTER DENTAL APPOINTMENT, VAGINAL/RECTAL EXAMINATION, SURGICAL PROCEDURE, OR ANY OTHER EXPOSURE?NO DATE ASKED : 08/26/2019 LATEX RISK : HAVE YOU EVER HAD ANY DIFFICULTY BREATHING OR HIVES AFTER EATING OR HANDLING ANY FRUITS, OR VEGETABLES; SUCH KIWI, BANANAS, STONE FRUITS, OR CHESTNUTSNO LATEX RISK : DO YOU HAVE A PREVIOUS PERSONAL HISTORY OF MORE THAN NINE SURGERIES, SPINA BIFIDA, OR REPEATED CATHERIZATIONS? YES - PLEASE INDICATE : > 9 SURGERIES LATEX RISK : ARE YOU FREQUENTLY EXPOSED TO LATEX PRODUCTS IN YOUR OCCUPATION?NO CAFFEINE CAFFEINE USE?NO ADVANCE DIRECTIVE ADVANCE DIRECTIVE DISCUSSED WITH PATIENT:YES HCP - MABLE DAWSON (BROTHER) [phone]; IS ALSO PATIENT'S POA AND LIVING WILL DENOMINATIONAL ORTHODOX. MARITAL STATUS: SINGLE, .. ALCOHOL SCREENING DID YOU HAVE A DRINK CONTAINING ALCOHOL IN THE PAST YEAR?NO POINTS0 INTERPRETATIONNEGATIVE OCCUPATION: DISABILITY WORKING AT [employer]. SEXUAL HX HAD SEX IN THE LAST 12 MONTHS (VAGINAL, ORAL, OR ANAL)?NO LMP:HYSTERECTOMY HAVE YOU EVER HAD AN STD?NO HOSPITALIZATION/MAJOR DIAGNOSTIC PROCEDURE EATING DISORDER 01/20/2013 SURGERY REVIEW OF SYSTEMS REVIEWED BY: PROVIDER: SUKHI ARIAS . CONSTITUTIONAL: ANY CHANGE IN YOUR MEDICAL CONDITION? NO . CHILLS NO . FEVER NO . INFECTION: DO YOU HAVE NEW INFECTIONS? NO . DO YOU HAVE HISTORY OF MRSA? NO . MUSCULOSKELETAL: ANY NEW PATTERNS OF PAIN OR NUMBNESS? NO . GASTROENTEROLOGY: ANY NEW CHANGE IN BOWEL CONTROL? NO . GENITOURINARY: ANY NEW CHANGE IN BLADDER CONTROL? NO . IS THERE A CHANCE YOU COULD BE ? NO . HEMATOLOGY/LYMPH: DO YOU TAKE ANY BLOOD THINNERS? (FOR EXAMPLE- COUMADIN, PLAVIX, AGGRENOX, PLATEL, PRADAXA, OR XARELTO) NO . WHEN WAS YOUR LAST DOSE? DATE: TIME: . NEUROLOGY: HAVE YOU FALLEN IN THE PAST 12 MONTHS? NO . ANY NEW EXTREMITY NUMBNESS OR WEAKNESS? YES LEFT LEG WEAKNESS . CARDIOLOGY: DO YOU HAVE A PACEMAKER OR DEFIBRILLATOR? NO . RESPIRATORY: HAVE YOU BEEN SICK IN THE PAST WEEK? NO . FEVER NO . FLU LIKE SYMPTOMS? NO . COUGH NO . INTEGUMENTARY: DO YOU HAVE ANY RASHES OR OPEN SORES? NO . ALLERGIC/IMMUNO: ARE YOU ALLERGIC TO IV DYE? NO . ANY NEW ALLERGIES? NO . PSYCHIATRIC: DO YOU HAVE THOUGHTS OF HURTING YOURSELF OR SOMEONE ELSE? NO . ARE YOU ABUSED, NEGLECTED, OR IN AN UNSAFE ENVIRONMENT? NO . ENDOCRINOLOGY: ARE YOU DIABETIC? NO . OTHER: DO YOU NEED ANY PRESCRIPTIONS? NO . IF YES, PLEASE LIST: ____ . ANY NEW PROBLEMS WITH YOUR MEDICATIONS? NO . WHEN DID YOU LAST EAT? ____ . WHEN DID YOU LAST DRINK? ____ . WHAT DID YOU LAST DRINK? ____ . NAME OF PERSON DRIVING YOU HOME? ____ . DO YOU HAVE ANY OTHER QUESTIONS OR CONCERNS NO . ASSESSMENTS MYALGIA OF MUSCLE OF NECK - M79.18 (PRIMARY) FACET ARTHROPATHY, LUMBOSACRAL - M47.817 TREATMENT MYALGIA OF MUSCLE OF NECK NOTES: CONTINUE HOME EXERCISE AND STRETCHING. FOLLOW UP AT PAIN CLINIC IN 2 MONTHS. OVERALL TIME SPENT DURING TELEMED VISIT WAS APPROXIMATELY 11 MINUTES. DISPOSITION & COMMUNICATION FOLLOW UP 2 MONTHS (REASON: NECK/LOW BACK) ELECTRONICALLY SIGNED BY HUGO NICOLE ON 09/16/2019 AT 03:55 PM EDT DISCLAIMER : THIS IS A VISIT SUMMARY EXTRACTED FROM THE [employer] CHART. IT IS NOT A COPY OF THE [employer] PROGRESS NOTE. VARUN
== END ==
LOC: M PAIN 11:15
PROVIDERS: ATTEND Nurse Practitioner Family
DX: M79.18 Myalgia, other site (principal); M47.817 Spondylosis without myelopathy or radiculopathy, lumbosacral region; Z86.59 Personal history of other mental and behavioral disorders; Z87.891 Personal history of nicotine dependence; Z88.1 Allergy status to other antibiotic agents; Z88.5 Allergy status to narcotic agent; Z88.8 Allergy status to other drugs, medicaments and biological substances; Z91.011 Allergy to milk products; Z91.013 Allergy to seafood; Z91.018 Allergy to other foods; Z79.899 Other long term (current) drug therapy

== ENCOUNTER 2019-10-05 15:57 | Emergency (ER) | payer MEDICARE, MEDICAID ==
[~2019-10-05] VITALS: Ht 167.6 cm; Wt 45.0 kg
[2019-10-05] MEDS ORDERED: TRUL3TAB (16:25)
[2019-10-05] MEDS ORDERED: SULF1TAB93 (16:25)
[2019-10-05] MEDS ORDERED: PANT40TA3 (16:25)
[2019-10-05] MEDS ORDERED: ESTR1MIS (16:25)
[2019-10-05] MEDS ORDERED: OXYMETAZOLINE NASAL SPRAY (AFRIN) ONE (16:30)
[2019-10-05 16:56] LABS: BASO % 0.8 % (0.0-1.0); EOS # 0.1 10^3/uL (0.0-0.5); EOS % 1.4 % (0.0-3.0); HEMOGLOBIN 14.7 g/dl (12.0-15.5); LYMPH % 40.5 % (24.0-44.0); MEAN CORPUSCULAR HEMOGLOBIN 31.5 pg (27.0-33.0); MEAN CORPUSCULAR HGB CONC 34.2 g/dl (32.0-36.5); MEAN CORPUSCULAR VOLUME 92.3 fl (80.0-96.0); MONO # 0.5 10^3/uL (0.0-0.8); MONO % 9.9 % (0.0-5.0); NEUTROPHILS # 2.3 10^3/uL (1.5-8.5); NEUTROPHILS % 47.2 % (36.0-66.0); PLATELET COUNT, AUTOMATED 244 10^3/uL (150-450); RED BLOOD COUNT 4.66 10^6/uL (4.00-5.40); WHITE BLOOD COUNT 4.8 10^3/uL (4.0-10.0)
[2019-10-05 17:10] VITALS: BP 149/73
[2019-10-05 17:20] LABS: INR 1.1; PROTHROMBIN TIME 13.9 SECONDS (11.8-14.0)
[2019-10-05 17:21] LABS: PARTIAL THROMBOPLASTIN TIME 29.6 SECONDS (25.0-38.4)
== END 2019-10-05 17:36 | disposition home or self-care (01) ==
LOC: M ED 15:57
DX: R04.0 Epistaxis (principal); Z79.899 Other long term (current) drug therapy; Z79.2 Long term (current) use of antibiotics; Z79.890 Hormone replacement therapy

== ENCOUNTER → 2019-11-16 | Outpatient (CLI) | payer MEDICARE, MEDICAID ==
[~2019-11-16] MED LIST changes: +ESTR1MIS; +PANT40TA3; +SULF1TAB93; +TRUL3TAB
--- NOTE | 2019-11-19 02:05 | ECWPNPC ---
PATIENT NAME: BRIAN DAWSON : 1955 GENDER: FEMALE VISIT DATE: 11/16/2019 DISCHARGE DATE: 11/16/19 1001 VISIT LOCKED DATE TIME: PHYSICIAN: SUKHI GONZALES PHYSICIAN PAGER NO: [phone] RESOURCE: SUKHI GONZALES REASON FOR APPOINTMENT 1. NEED RECENT LS MRI; NECK/LOW BACK HISTORY OF PRESENT ILLNESS GENERAL: BEING SEEN TODAY FOR PERSISTENT LOW BACK AND NECK PAIN. RECENT FALL INJURY. THIS WAS IN [place]UL[place]. CURRENTLY FOLLOWING WITH ORTHOPEDICS FOR LEFT SHOULDER PAIN AND LEFT KNEE PAIN. REVIEWED MRI DONE ON 10/27/2019 AND ORDERED BY BIANCA EDEN PA-C. DISCUSSED TREATMENT OPTIONS. IT SHOULD BE NOTED THE PATIENT HAS BEEN USING EITHER A CANE OR WALKER AND HAS NOTICED INCREASE IN LEFT LOW BACK PAIN SINCE USING THESE DEVICES. -. FALL RISK SCREENING: SCREENING :TWO OR MORE FALLS WITH INJURY IN THE PAST YEAR PAIN SCREENING: PATIENT HAS A COMPLAINT OF ACUTE OR CHRONIC PAIN :YES LOCATION OF PAIN:NECK, LOW BACK INTENSITY OF PAIN (SCALE OF 1 TO 10):6 WHAT DOES YOUR PAIN FEEL LIKE:ACHING, CONTINOUS, SHARP DURATION:CONSTANT PAIN IS INCREASED BY:ACTIVITIES, PROLONGED STANDING PAIN IS DECREASED BY:USE OF PAIN MEDICATIONS, OTHERS MASSAGE NURSING NOTE: -. PAIN CENTER INTAKE QUESTIONS: DO YOU HAVE A HISTORY OF MRSA? :NO DO YOU TAKE A BLOOD THINNERS? :NO DO YOU HAVE ANY BLEEDING DISORDERS? :NO ANY NEW NUMBNESS OR WEAKNESS IN YOUR LEGS OR ARMS? :YES STATES SHE HAS BEEN HAVING INCRESED NUMBNESS IN HER LEFT ARM ANY PACEMAKER,DEFIBRILLATOR, OR DORSAL COLUMN STIMULATOR? :NO DO YOU HAVE ANY RASHES OR OPEN SORES? :NO ARE YOU ALLERGIC TO IV DYE? :NO ARE YOU DIABETIC? :NO ANY NEW PROBLEMS WITH YOUR MEDICATIONS? :NO HAVE YOU RECEIVED A VACCINE IN THE PAST 30 DAYS? :NO DO YOU PLAN TO RECEIVE A VACCINE IN THE NEXT 21 DAYS? :NO DO YOU NEED ANY PRESCRIPTION? :NO DO YOU TAKE ANY IMMUNOSUPPRESSIVE MEDICATIONS? :NO ANY HISTORY OF SEIZURES? :YES NONE IN THE PAST 15 YEARS ANY RECENT HEAD INJURY? :YES AUGUST 2019 HAVE YOU HAD A CHANGE IN YOUR PAIN OR NUMBNESS? :YES NUMBNESS HAS INCREASED IN HER LEFT ARM ANY CHANGE IN YOUR ABILITY TO CONTROL YOUR BLADDER? :NO DO YOU HAVE ANY OTHER QUESTIONS OR CONCERNS? : NO CURRENT MEDICATIONS TAKING MAY HAVE - - PLANT FUSION PURE PROTEIN 1SCOOP IN FLAX MEAL ORAL 3X/DAY TAKING PROBIOTIC ACIDOPHILUS - TABLET DIRECTED ORALLY DAILY TAKING TOPAMAX 100 MG TABLET 1 TAB ORALLY TWICE A DAY TAKING PANTOPRAZOLE SODIUM 40 MG TABLET DELAYED RELEASE 1 TABLET ORALLY TWICE DAILY TAKING ESTRING 2 MG RING DIRECTED VAGINAL INSERT Q 3 MONTHS TAKING BIOFREEZE 4 % GEL 1 APPLICATION TO AFFECTED AREA NEEDED EXTERNALLY THREE TIMES A DAY TAKING MIRALAX - PACKET 1 PACKET MIXED WITH 8 OUNCES OF FLUID ORALLY ONCE A DAY TAKING TRULANCE 3 MG TABLET 1 TABLET ORALLY ONCE A DAY TAKING ROLLING WALKER 1 1 DIRECTED WITH BRAKES AND SEAT NOT-TAKING METAMUCIL 28.3 % POWDER 1 PACKET WITH 8 OUNCES OF LIQUID NEEDED ORALLY THREE TIMES A DAY NOT-TAKING FLUTICASONE PROPIONATE 50 MCG/ACT SUSPENSION 1 SPRAY IN EACH NOSTRIL NASALLY ONCE A DAY NOT-TAKING LEVOFLOXACIN 500 MG TABLET 1 TABLET ORALLY ONCE A DAY NOT-TAKING SULFAMETHOXAZOLE-TRIMETHOPRIM 800-160 MG TABLET 1 TABLET ORALLY TWICE A DAY NOT-TAKING PREDNISONE 20 MG TABLET 2 TABLET ORALLY ONCE A DAY MEDICATION LIST REVIEWED AND RECONCILED WITH THE PATIENT PAST MEDICAL HISTORY LARYNGEAL NODULE CANDIDIASIS/BV-FREQUENTLY BULIMIA NERVOSA/SCHOZOAFFECTIVE D/O ([facility], 2012) 04-05-2014 DISTAL FIBULA FRACTURE 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 NODE, NEGATIVE BX, 2018 THYROID NODULE HIATAL HERNIA RUPTURE BACK PAIN BRAIN ANEURYSM ALLERGIES DOXYCYCLINE HYCLATE: PHOTODERMATITIS - ALLERGY LACTOSE INTOLERANT: DIARRHEA - ALLERGY DEMEROL: LOW BP - CONTRAINDICATION DARVOCET-N 100: LOW BP - CONTRAINDICATION AMOXICILLIN: SWELLING - ALLERGY SHELLFISH: HIVES - ALLERGY GLUTEN: DIARRHEA - ALLERGY SURGICAL HISTORY NECK SURGERY X 2 LEFT KNEE SURGERY BUNIONECTOMY OBDULIO FEET HYSTERECTOMY ABDOMINAL LAPOROSCOPY ABD BEFORE HYSTERECTOMY LASER EYE SURGERY OBDULIO COLONOSCOPY 08/2013 STERIOD INJECTIONS TO NECK BY 02/2016 HERNIA REPAIR 03/2017 SKIN CANCER LESION REMOVED 2018 FAMILY HISTORY FATHER: 84 YRS, PANCREATIC CANCER, DIAGNOSED WITH OTHER MALIGNANT NEOPLASM OF UNSPECIFIED SITE MOTHER: ALIVE, HYPERLIPIDEMIA, DIABETES, HYPERTENSION, UNSPECIFIED HEART DISEASE, OTHER MALIGNANT NEOPLASM OF UNSPECIFIED SITE 1 BROTHER(S) , 4 SISTER(S) - HEALTHY. 1 SON(S) , 1 DAUGHTER(S) - HEALTHY. FATHER ALSO POSITIVE FOR COLON, PANCREATIC CANCER\\\\\\\\NMOM--SKIN CA\\\\\\\\NBROTHER-NE\\\\\\\\NSISTER BACK PROBLEMS\\\\\\\\NSISTER X 2 LUPUS\\\\\\\\NDAUGHTER-BRITTLE DIABETIC\\\\\\\\N\\\\N\\\\NFATHER OF PANCREATIC CANCER, MOTHER AND SISTER HAD SKIN CANCER, UNKNOWN IF IT WAS MELANOMA. SOCIAL HISTORY GENERAL: TOBACCO USE ARE YOU A:FORMER SMOKER FORMER SMOKER HOW LONG HAS IT BEEN SINCE YOU LAST SMOKED?> 10 YEARS QUIT 2006 ADDITIONAL FINDINGS: TOBACCO USER NO ADDITIONAL FINDINGS: TOBACCO NON-USERCURRENT NON-SMOKER VAPORNO E-CIGARETTENO LATEX QUESTIONNAIRE LATEX ALLERGY : HAVE YOU EVER DEVELOPED ANY TYPE OF REACTION AFTER HANDLING LATEX PRODUCTS SUCH RUBBER GLOVES, CONDOMS, DIAPHRAGMS, BALLOONS, SOCKS, OR UNDERWEAR?NO LATEX ALLERGY : HAVE YOU EVER DEVELOPED ANY TYPE OF REACTION DURING OR AFTER DENTAL APPOINTMENT, VAGINAL/RECTAL EXAMINATION, SURGICAL PROCEDURE, OR ANY OTHER EXPOSURE?NO LATEX RISK : HAVE YOU EVER HAD ANY DIFFICULTY BREATHING OR HIVES AFTER EATING OR HANDLING ANY FRUITS, OR VEGETABLES; SUCH KIWI, BANANAS, STONE FRUITS, OR CHESTNUTSNO LATEX RISK : DO YOU HAVE A PREVIOUS PERSONAL HISTORY OF MORE THAN NINE SURGERIES, SPINA BIFIDA, OR REPEATED CATHERIZATIONS? YES - PLEASE INDICATE : > 9 SURGERIES LATEX RISK : ARE YOU FREQUENTLY EXPOSED TO LATEX PRODUCTS IN YOUR OCCUPATION?NO DATE ASKED : 11/16/2019 LUNG CANCER SCREENING SMOKING STATUS:FORMER SMOKER IS THE PATIENT BETWEEN THE AGE OF 57 AND 79?YES HAVE YOU QUIT SMOKING WITHIN THE PAST 15 YEARS?YES HAS THE PATIENT EVER BEEN DIAGNOSED WITH LUNG CANCER?NO BMI CARE GOAL FOLLOW-UP BELOW NORMAL BMI FOLLOW-UPDIETARY EDUCATION FOR WEIGHT GAIN ALCOHOL SCREENING DID YOU HAVE A DRINK CONTAINING ALCOHOL IN THE PAST YEAR?NO POINTS0 INTERPRETATIONNEGATIVE RECREATIONAL DRUG USE DRUG USE?NO DENIES 10/21/2018 CAFFEINE CAFFEINE USE?NO SEXUAL HX HAD SEX IN THE LAST 12 MONTHS (VAGINAL, ORAL, OR ANAL)?NO LMP:HYSTERECTOMY HAVE YOU EVER HAD AN STD?NO HIV / HEP-C SCREENING HIV TEST OFFERED TO PATIENT:YES DATE OFFERED:01/20/2019 TEST ACCEPTED:NO HEP-C TEST OFFERED TO PATIENT:YES DATE OFFERED:01/20/2019 REASON:PATIENT DECLINED CONSENT ON FILE TEST ACCEPTED:YES CONSENT SIGNED BROCHURE PROVIDED TO PATIENTNO RASTAFARIAN PROTESTANT. LANGUAGE [employer] HELENIAN. EDUCATION SOME COLLEGE. 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 DIET: DIET ANGELA.. EXERCISE: DAILY-- ABLE. MARITAL STATUS: SINGLE, .. OTHERS AT HOME: LIVES ALONE. PAIN CLINIC PFS, CLERGY, PUBLIC HEALTH REFERRALS WAS THE PROVIDER NOTIFIED OF ANY PERTINENT INFO?YES HAS THE PATIENT BEEN EDUCATED REGARDING HIS/HER PLAN OF CARE?YES HAS THE PATIENT BEEN EDUCATED REGARDING PAIN, THE RISK FOR PAIN, THE IMPORTANCE OF EFFECTIVE PAIN MANAGEMENT, AND THE PAIN ASSESSMENT PROCESS?YES HOUSING: RENTS APARTMENT. ADVANCE DIRECTIVE ADVANCE DIRECTIVE DISCUSSED WITH PATIENT:YES HCP - MABLE DAWSON (BROTHER) [phone]; IS ALSO PATIENT'S POA AND LIVING WILL HOSPITALIZATION/MAJOR DIAGNOSTIC PROCEDURE EATING DISORDER 01/20/2013 SURGERY REVIEW OF SYSTEMS CONSTITUTIONAL: ANY RECENT FEVER OR ILLNESS NO . CHILLS NO . GASTROENTEROLOGY: BOWEL INCONTINENCE NO . ANY NEW CHANGE IN BOWEL CONTROL? NO . ABDOMINAL PAIN NO . CONSTIPATION NO . GENITOURINARY: ANY NEW CHANGE IN BLADDER CONTROL? NO . IS THERE A CHANCE YOU COULD BE ? NO . URINARY INCONTINENCE NO . CARDIOLOGY: CHEST PRESSURE NO . CHEST PAIN NO . RESPIRATORY: COUGH NO . SHORTNESS OF BREATH NO . VITAL SIGNS WT 97.0 LBS, HT 61 IN, BMI 18.33 INDEX, BP 130/74 MM HG, HR 107 /MIN, RR 18 /MIN, TEMP 98.5 F, OXYGEN SAT % 99%, NA INITIALS AW 0903, REVIEWED BY: NLJ. EXAMINATION GENERAL EXAMINATION: GENERAL ALERT,NO DISTRESS . PSYCH AFFECT NORMAL . LUNGS: LUNG SOUNDS ARE CLEAR . HEART: HEART RATE REGULAR . MUSCULOSKELETAL: MST 5/5 BILAT. LOWER EXTREMITIES . LUMBAR:SPECIFIC POINT TENDERNESS NOTED OVER LEFT SIJ. POSITIVE ALBERTA'S TESTING OVER LEFT LEG.. DIAGNOSTIC TESTS REVIEWEDMRI L/S SPINE 10/27/2019. ASSESSMENTS SACROILIITIS - M46.1 (PRIMARY) TREATMENT SACROILIITIS NOTES: LEFT SIJ. PREVENTIVE MEDICINE PAIN CLINIC TEACHING: PROCEDURE TEACHING SACROILAIC JOINT INJECTION MATERIAL PRINTED AND REVIEWED WITH PATIENT. PATIENT VERBLAIZES UNDERSTANDING OF PROCEDURE AND OF PRE PROCEDURE INSTRUCTIONS REVIEWED. ERICK AGUAYO 11/16/2019 10:10:53 AM > . PROCEDURE CODES FA211 ESTABILISHED PATIENT [facility] CHARGE DISPOSITION & COMMUNICATION FOLLOW UP POST (REASON: LEFT SIJ) ELECTRONICALLY SIGNED BY HUGO NICOLE ON 11/18/2019 AT 01:46 PM EDT DISCLAIMER : THIS IS A VISIT SUMMARY EXTRACTED FROM THE [employer] CHART. IT IS NOT A COPY OF THE [employer] PROGRESS NOTE. VARUN
== END ==
LOC: M PAIN 09:30
PROVIDERS: ATTEND Nurse Practitioner Family
DX: M46.1 Sacroiliitis, not elsewhere classified (principal)

== ENCOUNTER → 2019-11-27 | Outpatient (CLI) | payer MEDICARE, MEDICAID | LOC: M LABSMTC 09:12 | PROVIDERS: ATTEND Anesthesiology | DX: Z03.818 Encounter for observation for suspected exposure to other biological agents ruled out (principal); Z11.59 Encounter for screening for other viral diseases | CPT/HCPCS: C9803; U0003 ==

== ENCOUNTER → 2019-11-28 | Outpatient (CLI) | payer MEDICARE, MEDICAID ==
--- NOTE | 2019-11-28 15:07 | REPMRS ---
Patient History The patient states she had a clinical breast exam in October 2019. Family history of colorectal cancer at age 50 or over in father, breast cancer in mother, breast cancer at age 50 or over in paternal aunt, colorectal cancer in maternal grandmother. US Guided Breast Biopsy of the left breast, November 11, 2017. Taking estrogen for 2 years. Took unspecified hormones for 4 years. Digital Woman Screen Mammo: November 28, 2019 - Exam #: [id number] Bilateral CC and MLO view(s) were taken. Technologist: Hue Bautista, Technologist Prior study comparison: November 23, 2018, bilateral digital mammo screening bilat, performed at [facility]. November 03, 2017, bilateral digital mammo screening bilat, performed at [facility]. May 07, 2016, bilateral breast ultrasound unilateral limited, performed at [facility]. FINDINGS: The breast tissue is heterogeneously dense. This may lower the sensitivity of mammography. The Volpara volumetric breast density category is: C. There is a moderate amount of heterogeneously dense fibroglandular tissue which is fairly symmetric. There is no interval development of dominant mass, architectural distortion, or grouped microcalcification typical of malignancy. There has been no change in the appearance of the mammogram from the prior studies. 3-D tomosynthesis shows no additional findings. Assessment: BI-RADS/ACR category 1 mammogram. Negative Mammogram. Recommendation Routine screening mammogram of both breasts in 1 year (for women over age 40). This patient's Lifetime Breast Cancer RIsk is estimated at 9.3 %. This mammogram was interpreted with the aid of an FDA-approved computer-aided dectection system. Electronically Signed By: Artur Rain MD 11/28/19 1699
== END ==
LOC: M WHC 14:03
PROVIDERS: ATTEND Obstetrics & Gynecology
DX: Z12.31 Encounter for screening mammogram for malignant neoplasm of breast (principal); Z80.0 Family history of malignant neoplasm of digestive organs; Z80.3 Family history of malignant neoplasm of breast

== ENCOUNTER → 2019-11-30 | Outpatient (CLI) | payer MEDICARE, MEDICAID ==
[~2019-11-30] MED LIST changes: +BUPIVACAINE HCL 0.25% 30ML VIAL As Ordered ONE; +ISOVUE-M 300 61% 15ML VIAL As Ordered ONE; +LIDOCAINE 1% SDV 30ML VIAL As Ordered ONE; +TRIAMCINOLONE ACETONIDE SUSP 40 MG/ML VIAL (J3301) As Ordered ONE
--- NOTE | 2019-11-30 13:14 | REP ---
Partial SI joint series: Two views. History: Left SI joint injection for pain. 21 seconds of fluoroscopy time is reported. Findings: A sequence of two last image hold fluoroscopically obtained spot radiographs document needle position and contrast injection associated with injection procedure. Electronically Signed by Melquiades Rain MD 11/30/2019 01:06 P
--- NOTE | 2019-12-01 01:22 | ECWPNPC ---
PATIENT NAME: BRIAN DAWSON : 1955 GENDER: FEMALE VISIT DATE: 11/30/2019 DISCHARGE DATE: 11/30/19 1040 VISIT LOCKED DATE TIME: PHYSICIAN: MARY JANE DON MD PHYSICIAN PAGER NO: [phone] RESOURCE: MARY JANE DON MD REASON FOR APPOINTMENT 1. LEFT SIJ PAT DONE HISTORY OF PRESENT ILLNESS GENERAL: -. FALL RISK SCREENING: SCREENING :ONE FALL WITH INJURY IN THE PAST YEAR PAIN SCREENING: PATIENT HAS A COMPLAINT OF ACUTE OR CHRONIC PAIN :YES 11/29/19 INTENSITY OF PAIN (SCALE OF 1 TO 10):7 WHAT DOES YOUR PAIN FEEL LIKE:ACHING, CONTINOUS, SHARP, STABBING, THROBBING PAIN IS INCREASED BY: ACTIVITY PAIN IS DECREASED BY: REST, ICE NURSING NOTE: -. PAIN CENTER INTAKE QUESTIONS: DO YOU HAVE A HISTORY OF MRSA? :NO DO YOU TAKE A BLOOD THINNERS? :NO DO YOU HAVE ANY BLEEDING DISORDERS? :NO ANY NEW NUMBNESS OR WEAKNESS IN YOUR LEGS OR ARMS? :NO ANY PACEMAKER,DEFIBRILLATOR, OR DORSAL COLUMN STIMULATOR? :NO DO YOU HAVE ANY RASHES OR OPEN SORES? :NO ARE YOU ALLERGIC TO IV DYE? :NO ARE YOU DIABETIC? :NO ANY NEW PROBLEMS WITH YOUR MEDICATIONS? :NO HAVE YOU RECEIVED A VACCINE IN THE PAST 30 DAYS? :NO DO YOU PLAN TO RECEIVE A VACCINE IN THE NEXT 21 DAYS? :NO DO YOU TAKE ANY IMMUNOSUPPRESSIVE MEDICATIONS? :NO ANY HISTORY OF SEIZURES? :NO ANY HISTORY OF CARDIAC ISSUES OR EVENTS? :NO DO YOU HAVE SLEEP APNEA? : NO. ANY RECENT HEAD INJURY? :NO DO YOU HAVE ANY NEW INFECTIONS? :NO IS THERE A CHANCE YOU COULD BE ? :NO ARE YOU BREAST FEEDING? :NO WHEN DID YOU LAST EAT? : 11/30/2019 2300 WHEN DID YOU LAST DRINK? : 11/30/2019 0530 WHAT DID YOU LAST DRINK? : BLACK COFFEE NAME OF PERSON DRIVING YOU HOME? : ANNEMARIE DO YOU HAVE ANY OTHER QUESTIONS OR CONCERNS? : - CURRENT MEDICATIONS TAKING MAY HAVE - - PLANT FUSION PURE PROTEIN 1SCOOP IN FLAX MEAL ORAL 3X/DAY, NOTES: 11/29/2019 2330 TAKING PROBIOTIC ACIDOPHILUS - TABLET DIRECTED ORALLY DAILY, NOTES: 11/30/2019 0530 TAKING TOPAMAX 100 MG TABLET 1 TAB ORALLY TWICE A DAY, NOTES: 11/30/2019 05 TAKING PANTOPRAZOLE SODIUM 40 MG TABLET DELAYED RELEASE 1 TABLET ORALLY TWICE DAILY, NOTES: 11/30/2019529 TAKING ESTRING 2 MG RING DIRECTED VAGINAL INSERT Q 3 MONTHS, NOTES: EVERY 3 MONTHS TAKING BIOFREEZE 4 % GEL 1 APPLICATION TO AFFECTED AREA NEEDED EXTERNALLY THREE TIMES A DAY, NOTES: PRN TAKING MIRALAX - PACKET 1 PACKET MIXED WITH 8 OUNCES OF FLUID ORALLY ONCE A DAY, NOTES: 11/29/2019 2330 TAKING TRULANCE 3 MG TABLET 1 TABLET ORALLY ONCE A DAY, NOTES: 11/30/2019529 TAKING ROLLING WALKER 1 1 DIRECTED WITH BRAKES AND SEAT NOT-TAKING METAMUCIL 28.3 % POWDER 1 PACKET WITH 8 OUNCES OF LIQUID NEEDED ORALLY THREE TIMES A DAY NOT-TAKING FLUTICASONE PROPIONATE 50 MCG/ACT SUSPENSION 1 SPRAY IN EACH NOSTRIL NASALLY ONCE A DAY NOT-TAKING LEVOFLOXACIN 500 MG TABLET 1 TABLET ORALLY ONCE A DAY NOT-TAKING SULFAMETHOXAZOLE-TRIMETHOPRIM 800-160 MG TABLET 1 TABLET ORALLY TWICE A DAY NOT-TAKING PREDNISONE 20 MG TABLET 2 TABLET ORALLY ONCE A DAY MEDICATION LIST REVIEWED AND RECONCILED WITH THE PATIENT PAST MEDICAL HISTORY LARYNGEAL NODULE CANDIDIASIS/BV-FREQUENTLY BULIMIA NERVOSA/SCHOZOAFFECTIVE D/O ([facility], 2012) 04-05-2014 DISTAL FIBULA FRACTURE 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 NODE, NEGATIVE BX, 2018 THYROID NODULE HIATAL HERNIA RUPTURE BACK PAIN BRAIN ANEURYSM ALLERGIES DOXYCYCLINE HYCLATE: PHOTODERMATITIS - ALLERGY LACTOSE INTOLERANT: DIARRHEA - ALLERGY DEMEROL: LOW BP - CONTRAINDICATION DARVOCET-N 100: LOW BP - CONTRAINDICATION AMOXICILLIN: SWELLING - ALLERGY SHELLFISH: HIVES - ALLERGY GLUTEN: DIARRHEA - ALLERGY SURGICAL HISTORY NECK SURGERY X 2 LEFT KNEE SURGERY BUNIONECTOMY OBDULIO FEET HYSTERECTOMY ABDOMINAL LAPOROSCOPY ABD BEFORE HYSTERECTOMY LASER EYE SURGERY OBDULIO COLONOSCOPY 08/2013 STERIOD INJECTIONS TO NECK BY 02/2016 HERNIA REPAIR 03/2017 SKIN CANCER LESION REMOVED 2018 FAMILY HISTORY FATHER: 84 YRS, PANCREATIC CANCER, DIAGNOSED WITH OTHER MALIGNANT NEOPLASM OF UNSPECIFIED SITE MOTHER: ALIVE, HYPERLIPIDEMIA, DIABETES, HYPERTENSION, UNSPECIFIED HEART DISEASE, OTHER MALIGNANT NEOPLASM OF UNSPECIFIED SITE 1 BROTHER(S) , 4 SISTER(S) - HEALTHY. 1 SON(S) , 1 DAUGHTER(S) - HEALTHY. FATHER ALSO POSITIVE FOR COLON, PANCREATIC CANCER\\\\\\\\NMOM--SKIN CA\\\\\\\\NBROTHER-CT\\\\\\\\NSISTER BACK PROBLEMS\\\\\\\\NSISTER X 2 LUPUS\\\\\\\\NDAUGHTER-BRITTLE DIABETIC\\\\\\\\N\\\\N\\\\NFATHER OF PANCREATIC CANCER, MOTHER AND SISTER HAD SKIN CANCER, UNKNOWN IF IT WAS MELANOMA. SOCIAL HISTORY GENERAL: TOBACCO USE ARE YOU A:FORMER SMOKER FORMER SMOKER HOW LONG HAS IT BEEN SINCE YOU LAST SMOKED?> 10 YEARS QUIT 2006 ADDITIONAL FINDINGS: TOBACCO USER NO ADDITIONAL FINDINGS: TOBACCO NON-USERCURRENT NON-SMOKER VAPORNO E-CIGARETTENO LATEX QUESTIONNAIRE LATEX ALLERGY : HAVE YOU EVER DEVELOPED ANY TYPE OF REACTION AFTER HANDLING LATEX PRODUCTS SUCH RUBBER GLOVES, CONDOMS, DIAPHRAGMS, BALLOONS, SOCKS, OR UNDERWEAR?NO LATEX ALLERGY : HAVE YOU EVER DEVELOPED ANY TYPE OF REACTION DURING OR AFTER DENTAL APPOINTMENT, VAGINAL/RECTAL EXAMINATION, SURGICAL PROCEDURE, OR ANY OTHER EXPOSURE?NO DATE ASKED : 11/16/2019 LATEX RISK : HAVE YOU EVER HAD ANY DIFFICULTY BREATHING OR HIVES AFTER EATING OR HANDLING ANY FRUITS, OR VEGETABLES; SUCH KIWI, BANANAS, STONE FRUITS, OR CHESTNUTSNO LATEX RISK : DO YOU HAVE A PREVIOUS PERSONAL HISTORY OF MORE THAN NINE SURGERIES, SPINA BIFIDA, OR REPEATED CATHERIZATIONS? YES - PLEASE INDICATE : > 9 SURGERIES LATEX RISK : ARE YOU FREQUENTLY EXPOSED TO LATEX PRODUCTS IN YOUR OCCUPATION?NO LUNG CANCER SCREENING SMOKING STATUS:FORMER SMOKER IS THE PATIENT BETWEEN THE AGE OF 57 AND 79?YES HAVE YOU QUIT SMOKING WITHIN THE PAST 15 YEARS?YES HAS THE PATIENT EVER BEEN DIAGNOSED WITH LUNG CANCER?NO BMI CARE GOAL FOLLOW-UP BELOW NORMAL BMI FOLLOW-UPDIETARY EDUCATION FOR WEIGHT GAIN ALCOHOL SCREENING DID YOU HAVE A DRINK CONTAINING ALCOHOL IN THE PAST YEAR?NO POINTS0 INTERPRETATIONNEGATIVE RECREATIONAL DRUG USE DRUG USE?NO DENIES 10/21/2018 CAFFEINE CAFFEINE USE?NO SEXUAL HX HAD SEX IN THE LAST 12 MONTHS (VAGINAL, ORAL, OR ANAL)?NO LMP:HYSTERECTOMY HAVE YOU EVER HAD AN STD?NO HIV / HEP-C SCREENING HIV TEST OFFERED TO PATIENT:YES DATE OFFERED:01/20/2019 TEST ACCEPTED:NO HEP-C TEST OFFERED TO PATIENT:YES DATE OFFERED:01/20/2019 REASON:PATIENT DECLINED CONSENT ON FILE TEST ACCEPTED:YES CONSENT SIGNED BROCHURE PROVIDED TO PATIENTNO JUDAISM MU-ISM. LANGUAGE HEBREW. EDUCATION SOME COLLEGE. 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 DIET: DIET ANGELA.. EXERCISE: DAILY-- ABLE. MARITAL STATUS: SINGLE, .. OTHERS AT HOME: LIVES ALONE. PAIN CLINIC PFS, CLERGY, PUBLIC HEALTH REFERRALS WAS THE PROVIDER NOTIFIED OF ANY PERTINENT INFO?YES HAS THE PATIENT BEEN EDUCATED REGARDING HIS/HER PLAN OF CARE?YES HAS THE PATIENT BEEN EDUCATED REGARDING PAIN, THE RISK FOR PAIN, THE IMPORTANCE OF EFFECTIVE PAIN MANAGEMENT, AND THE PAIN ASSESSMENT PROCESS?YES HOUSING: RENTS APARTMENT. ADVANCE DIRECTIVE ADVANCE DIRECTIVE DISCUSSED WITH PATIENT:YES HCP - MABLE DAWSON (BROTHER) [phone]; IS ALSO PATIENT'S POA AND LIVING WILL HOSPITALIZATION/MAJOR DIAGNOSTIC PROCEDURE EATING DISORDER 01/20/2013 SURGERY VITAL SIGNS WT 99 LBS, HT 61 IN, BMI 18.70 INDEX, BP 114/67 MM HG, HR 79 /MIN, RR 18 /MIN, TEMP 98.7 F, OXYGEN SAT % 100%, SAFE IN ENV? (Y/N) YES, NA INITIALS SC 08:45, REVIEWED BY: MARIAN. EXAMINATION GENERAL EXAMINATION: THE PATIENT IS ALERT, ORIENTED TIMES THREE AND COOPERATIVE. HEART SHOWS REGULAR RHYTHM, NO MURMURS AND NO GALLOPS. LUNGS ARE CLEAR TO AUSCULTATION. ASSESSMENTS SACROILIITIS - M46.1 SACROILIAC JOINT DYSFUNCTION - M53.3 TREATMENT SACROILIITIS [facility] FLUORO GUIDANCE (PAIN)[id number] OTHERS CLINICAL NOTES: PRE SCREENING CALL DONE 11/29/19 EM. PROCEDURES PAIN NURSING RECORD PRE-PROCEDURE IV SITE N/A, PRE-PROCEDURE ORAL MEDICATIONS NO PRE SEDATION MEDS ADMINISTERED PROCEDURE IN ROOM 0930, PHYSICIAN IN ROOM 1019, START 1023, FINISH 1027, PHYSICIAN OUT OF ROOM 1029, OUT OF ROOM 1035, STEROID KENALOG, O2 RA, ECG NORMAL SINUS, PATIENT SHIELDED YES, SAFETY STRAP YES, PREP CHLOROPREP BY Jenn LOPEZ RN, IV INFUSED N/A, DRESSING TEGADERM BY DR DON LOC: ERICK AGUAYO 11/30/2019 9:36:58 AM > , 1. ALERT, ORIENTED RESP: ERICK AGUAYO 11/30/2019 9:37:04 AM > , 1. REGULAR, NO DYSPNEA COLOR: ERICK AGUAYO 11/30/2019 9:37:11 AM > , 1. PINK SKIN: ERICK AGUAYO 11/30/2019 9:37:15 AM > , 1. WARM, DRY POSITION: ERICK AGUAYO 11/30/2019 9:37:20 AM > , 1. PRONE VITALS: ERICK AGUAYO 11/30/2019 9:37:24 AM > 133/75-64-18-99% ERICK AGUAYO 11/30/2019 9:52:10 AM > 118/57-70-18-97% ERICK AGUAYO 11/30/2019 10:05:58 AM > 112/59-79-18-98% ERICK AGUAYO 11/30/2019 10:24:24 AM > 114/66-74-18-99% ERICK AGUAYO 11/30/2019 1037 AM> 129/07-47-39-100% DISCHARGE: POST PAIN 5-11/22, DRESSING SITE DRY AND INTACT, IV N/A, GAIT STEADY, TEACHING COMPLETED, PATIENT ACKNOWLEDGES UNDERSTANDING YES, PATIENT DISCHARGED AT 1040 PN SI PRE PROCEDURE DIAGNOSIS SACROILIITIS, SACROILIAC JOINT DYSFUNCTION POST PROCEDURE DIAGNOSIS SACROILIITIS, SACROILIAC JOINT DYSFUNCTION PROCEDURE LEFT SACROILIAC JOINT BLOCK SURGEON DR. MARY JANE DON SUPERVISOR OF INSTRUCTION NONE ANESTHESIA LOCAL PRE PROCEDURE NOTE THE PATIENT WITH HISTORY OF CHRONIC LOW BACK PAIN. I EVALUATED THE PATIENT AND REVIEWED THE CHART. I WENT OVER THE RISKS, ALTERNATIVES, AND BENEFITS ASSOCIATED WITH THIS PROCEDURE. I DISCUSSED THAT THE USE OF STEROIDS MAY CONTRIBUTE TO IMMUNOSUPPRESSION OF THE PATIENT'S BODY AGAINST INFECTIONS SUCH COVID-19. THE PATIENT IS AWARE OF THE POTENTIAL COMPLICATIONS ASSOCIATED WITH THIS VIRUS, INCLUDING, BUT NOT LIMITED TO, . I DISCUSSED THE USE OF DEXAMETHASONE INSTEAD OF KENALOG; HOWEVER, THE PATIENT WOULD LIKE TO MOVE FORWARD WITH KENALOG. THE PATIENT WOULD LIKE TO PROCEED AND GAVE CONSENT TO PERFORM THE PROCEDURE. THE PATIENT DENIES UNEXPLAINABLE WEIGHT LOSS, FEVER, CHILLS, OR NEW CHANGES IN URINARY OR BOWEL CONTROL. THE PATIENT IS COVID-19 NEGATIVE DESCRIPTION OF PROCEDURE THE PATIENT WAS BROUGHT TO THE PROCEDURE ROOM AND PLACED IN THE PRONE POSITION. THE LUMBOSACRAL AREA WAS CLEANED WITH CHLORAPREP SOLUTION AND DRAPED ASEPTICALLY. THE PROCEDURE WAS DONE UNDER STERILE CONDITIONS. A TIMEOUT WAS PERFORMED WHERE LATERALITY AND THE SITE OF THE PROCEDURE WERE CHECKED AND CONFIRMED WITH EVERYONE IN THE ROOM. UNDER FLUOROSCOPIC GUIDANCE, TARGET POINT WAS SELECTED AT THE LOWER BORDER OF THE LEFT SACROILIAC JOINT. TARGET POINT WAS SELECTED AFTER MEDIAL ROTATION AND TILT OF THE MAGNIFIER OF THE C-ARM. LIDOCAINE WAS USED TO NUMB THE SKIN AND SUBCUTANEOUS TISSUE BELOW IT. A SPINAL NEEDLE, 22-GAUGE, WAS ADVANCED UNDER FLUOROSCOPIC GUIDANCE AND FOLLOWING PATIENT FEEDBACK UNTIL THE TARGET AREA WAS REACHED. THE POSITION OF THE NEEDLE WAS VERIFIED WITH AP AND LATERAL VIEWS. AFTER PROPER POSITION OF THE NEEDLE WAS ACHIEVED, ISOVUE-M DYE 30%, 0.25 ML, WAS INJECTED SHOWING ADEQUATE SPREAD OF THE DYE. KENALOG 40 MG WAS THEN INJECTED IN THE LEFT JOINT. THEN, A SOLUTION OF 3 ML OF BUPIVACAINE 0.125% WAS INJECTED. THERE WAS NO EVIDENCE OF BLOOD, PARESTHESIA OR CEREBROSPINAL FLUID DURING THE PROCEDURE. THE PATIENT WAS SENT TO THE RECOVERY ROOM. THE PATIENT WAS MOVING THE EXTREMITIES AND DOING WELL. THERE WERE NO COMPLICATIONS DURING THE PROCEDURE. EBL LESS THAN 5 ML. FLUOROSCOPY TIME WAS 21 SECONDS POST PROCEDURE NOTE CONSIDER DOING A LUMBAR EPIDURAL ON THE PATIENT. THE PROCEDURE DONE WAS DISCUSSED WITH THE PATIENT. THE PATIENT WILL BE SEEN IN A FOLLOW UP IN THE NEXT FEW WEEKS. I AM LOOKING FOR LONG LASTING PAIN RELIEF FOR THE PATIENT WITH THIS INTERVENTION. INSTRUCTIONS WERE GIVEN, QUESTIONS WERE ANSWERED, AND THE PATIENT EXPRESSED UNDERSTANDING AND AGREES WITH THE PLAN. THE PATIENT IS AWARE TO STAY HOME FOR THE NEXT WEEK, IF POSSIBLE, DUE TO COVID-19. I, CHRIS POTTER, DOCUMENTED THE ABOVE INFORMATION ACTING A SCRIBE FOR DR. DON. I HAVE REVIEWED THE ABOVE DOCUMENT, WRITTEN BY CHRIS POTTER, DIE TRY OUT WORKER, AND I VERIFY THAT IT IS ACCURATE PROCEDURE CODES 40612 INJECT SACROILIAC JOINT, MODIFIERS: LT DISPOSITION & COMMUNICATION FOLLOW UP F/UP WITH TURN DOWN ATTENDANT (REASON: POST LEFT SIJ) ELECTRONICALLY SIGNED BY MARY JANE DON MD, MD ON 11/30/2019 AT 05:28 PM EDT DISCLAIMER : THIS IS A VISIT SUMMARY EXTRACTED FROM THE [employer] CHART. IT IS NOT A COPY OF THE [employer] PROGRESS NOTE. VARUN
== END ==
LOC: M PAIN 09:00
PROVIDERS: ATTEND Anesthesiology
DX: M46.1 Sacroiliitis, not elsewhere classified (principal); M53.3 Sacrococcygeal disorders, not elsewhere classified
CPT/HCPCS: G0260; J3301; Q9967

== ENCOUNTER 2019-12-12 07:00 | Outpatient (RCR) | payer MEDICARE, MEDICAID ==
[~2019-12-12 07:00] MED LIST changes: -BUPIVACAINE HCL 0.25% 30ML VIAL As Ordered ONE; -ISOVUE-M 300 61% 15ML VIAL As Ordered ONE; -LIDOCAINE 1% SDV 30ML VIAL As Ordered ONE; -TRIAMCINOLONE ACETONIDE SUSP 40 MG/ML VIAL (J3301) As Ordered ONE
== END 2019-12-13 | disposition home or self-care (01) ==
LOC: M PT 07:00
PROVIDERS: ATTEND Physician Assistant Medical
DX: S82.125D Nondisplaced fracture of lateral condyle of left tibia, subsequent encounter for closed fracture with routine healing (principal); M17.12 Unilateral primary osteoarthritis, left knee

== ENCOUNTER → 2019-12-15 | Outpatient (CLI) | payer MEDICARE, MEDICAID ==
--- NOTE | 2019-12-29 04:05 | ECWPNPC ---
PATIENT NAME: BRIAN DAWSON : 1955 GENDER: FEMALE VISIT DATE: 12/15/2019 DISCHARGE DATE: 12/15/19 1028 VISIT LOCKED DATE TIME: PHYSICIAN: SUKHI GONZALES PHYSICIAN PAGER NO: [phone] RESOURCE: SUKHI GONZALES REASON FOR APPOINTMENT 1. POST SIJ HISTORY OF PRESENT ILLNESS GENERAL: PATIENT IS AGREEABLE TO TELEPHONE VISIT TODAY. THIS IS A POST PROCEDURE FOLLOW-UP. HAD LEFT SIJ ON 11/30/2019. REPORTING SOME IMPROVEMENT IN HER PAIN POST PROCEDURE THAT CONTINUES TODAY. DR. DON HAD SUGGESTED A LUMBAR EPIDURAL STEROID INJECTION. CURRENTLY SHE IS ON A PREDNISONE TAPER FOR HER LEFT SHOULDER. SHE IS SCHEDULED FOR LEFT SHOULDER STEROID INJECTION IN 3 WEEKS. DISCUSSED TREATMENT PLAN. -. FALL RISK SCREENING: SCREENING :TWO OR MORE FALLS WITH INJURY IN THE PAST YEAR PAIN SCREENING: PATIENT HAS A COMPLAINT OF ACUTE OR CHRONIC PAIN :YES 12/15/19 INTENSITY OF PAIN (SCALE OF 1 TO 10):6 WHAT DOES YOUR PAIN FEEL LIKE:ACHING, CONTINOUS, SHARP PAIN IS INCREASED BY: ACTIVITY PAIN IS DECREASED BY: REST, ICE NURSING NOTE: -. PAIN CENTER INTAKE QUESTIONS: DO YOU HAVE A HISTORY OF MRSA? :NO DO YOU TAKE A BLOOD THINNERS? :NO DO YOU HAVE ANY BLEEDING DISORDERS? :NO ANY NEW NUMBNESS OR WEAKNESS IN YOUR LEGS OR ARMS? :YES LEFT LEG ANY PACEMAKER,DEFIBRILLATOR, OR DORSAL COLUMN STIMULATOR? :NO DO YOU HAVE ANY RASHES OR OPEN SORES? :NO ARE YOU ALLERGIC TO IV DYE? :NO ARE YOU DIABETIC? :NO ANY NEW PROBLEMS WITH YOUR MEDICATIONS? :NO HAVE YOU RECEIVED A VACCINE IN THE PAST 30 DAYS? :NO DO YOU PLAN TO RECEIVE A VACCINE IN THE NEXT 21 DAYS? :NO DO YOU NEED ANY PRESCRIPTION? :NO DO YOU TAKE ANY IMMUNOSUPPRESSIVE MEDICATIONS? :NO IS THERE A CHANCE YOU COULD BE ? :NO ARE YOU BREAST FEEDING? :NO CURRENT MEDICATIONS TAKING MAY HAVE - - PLANT FUSION PURE PROTEIN 1SCOOP IN FLAX MEAL ORAL 3X/DAY TAKING PROBIOTIC ACIDOPHILUS - TABLET DIRECTED ORALLY DAILY TAKING TOPAMAX 100 MG TABLET 1 TAB ORALLY TWICE A DAY TAKING PANTOPRAZOLE SODIUM 40 MG TABLET DELAYED RELEASE 1 TABLET ORALLY TWICE DAILY TAKING ESTRING 2 MG RING DIRECTED VAGINAL INSERT Q 3 MONTHS TAKING BIOFREEZE 4 % GEL 1 APPLICATION TO AFFECTED AREA NEEDED EXTERNALLY THREE TIMES A DAY TAKING MIRALAX - PACKET 1 PACKET MIXED WITH 8 OUNCES OF FLUID ORALLY ONCE A DAY TAKING TRULANCE 3 MG TABLET 1 TABLET ORALLY ONCE A DAY TAKING ROLLING WALKER 1 1 DIRECTED WITH BRAKES AND SEAT TAKING FLUCONAZOLE 150 MG TABLET 1 TABLET ORALLY ONCE, REPEAT IN 3 DAYS TAKING PREDNISONE TAPER 1 TAB ORAL MEDICATION LIST REVIEWED AND RECONCILED WITH THE PATIENT PAST MEDICAL HISTORY LARYNGEAL NODULE CANDIDIASIS/BV-FREQUENTLY BULIMIA NERVOSA/SCHOZOAFFECTIVE D/O ([facility], 2013) 04-05-2014 DISTAL FIBULA FRACTURE 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 NODE, NEGATIVE BX, 2018 THYROID NODULE HIATAL HERNIA RUPTURE BACK PAIN BRAIN ANEURYSM ALLERGIES DOXYCYCLINE HYCLATE: PHOTODERMATITIS - ALLERGY LACTOSE INTOLERANT: DIARRHEA - ALLERGY DEMEROL: LOW BP - CONTRAINDICATION DARVOCET-N 100: LOW BP - CONTRAINDICATION AMOXICILLIN: SWELLING - ALLERGY SHELLFISH: HIVES - ALLERGY GLUTEN: DIARRHEA - ALLERGY SURGICAL HISTORY NECK SURGERY X 2 LEFT KNEE SURGERY BUNIONECTOMY OBDULIO FEET HYSTERECTOMY ABDOMINAL LAPOROSCOPY ABD BEFORE HYSTERECTOMY LASER EYE SURGERY OBDULIO COLONOSCOPY 08/2013 STERIOD INJECTIONS TO NECK BY 02/2016 HERNIA REPAIR 03/2017 SKIN CANCER LESION REMOVED 2019 FAMILY HISTORY FATHER: 84 YRS, PANCREATIC CANCER, DIAGNOSED WITH OTHER MALIGNANT NEOPLASM OF UNSPECIFIED SITE MOTHER: ALIVE, HYPERLIPIDEMIA, HYPERTENSION, UNSPECIFIED HEART DISEASE, DIABETES, OTHER MALIGNANT NEOPLASM OF UNSPECIFIED SITE 1 BROTHER(S) , 4 SISTER(S) - HEALTHY. 1 SON(S) , 1 DAUGHTER(S) - HEALTHY. FATHER ALSO POSITIVE FOR COLON, PANCREATIC CANCER\\\\\\\\NMOM--SKIN CA\\\\\\\\NBROTHER-AL\\\\\\\\NSISTER BACK PROBLEMS\\\\\\\\NSISTER X 2 LUPUS\\\\\\\\NDAUGHTER-BRITTLE DIABETIC\\\\\\\\N\\\\N\\\\NFATHER OF PANCREATIC CANCER, MOTHER AND SISTER HAD SKIN CANCER, UNKNOWN IF IT WAS MELANOMA. SOCIAL HISTORY GENERAL: TOBACCO USE ARE YOU A:FORMER SMOKER FORMER SMOKER UPDATED 12/08/2019 HOW LONG HAS IT BEEN SINCE YOU LAST SMOKED?> 10 YEARS QUIT 2006 ADDITIONAL FINDINGS: TOBACCO USER NO ADDITIONAL FINDINGS: TOBACCO NON-USERCURRENT NON-SMOKER VAPORNO E-CIGARETTENO LATEX QUESTIONNAIRE LATEX ALLERGY : HAVE YOU EVER DEVELOPED ANY TYPE OF REACTION AFTER HANDLING LATEX PRODUCTS SUCH RUBBER GLOVES, CONDOMS, DIAPHRAGMS, BALLOONS, SOCKS, OR UNDERWEAR?NO LATEX ALLERGY : HAVE YOU EVER DEVELOPED ANY TYPE OF REACTION DURING OR AFTER DENTAL APPOINTMENT, VAGINAL/RECTAL EXAMINATION, SURGICAL PROCEDURE, OR ANY OTHER EXPOSURE?NO DATE ASKED : 12/08/2019 LATEX RISK : HAVE YOU EVER HAD ANY DIFFICULTY BREATHING OR HIVES AFTER EATING OR HANDLING ANY FRUITS, OR VEGETABLES; SUCH KIWI, BANANAS, STONE FRUITS, OR CHESTNUTSNO LATEX RISK : DO YOU HAVE A PREVIOUS PERSONAL HISTORY OF MORE THAN NINE SURGERIES, SPINA BIFIDA, OR REPEATED CATHERIZATIONS? YES - PLEASE INDICATE : > 9 SURGERIES LATEX RISK : ARE YOU FREQUENTLY EXPOSED TO LATEX PRODUCTS IN YOUR OCCUPATION?NO LUNG CANCER SCREENING SMOKING STATUS:FORMER SMOKER IS THE PATIENT BETWEEN THE AGE OF 57 AND 79?YES HAVE YOU QUIT SMOKING WITHIN THE PAST 15 YEARS?YES HAS THE PATIENT EVER BEEN DIAGNOSED WITH LUNG CANCER?NO BMI CARE GOAL FOLLOW-UP BELOW NORMAL BMI FOLLOW-UPDIETARY EDUCATION FOR WEIGHT GAIN ALCOHOL SCREENING DID YOU HAVE A DRINK CONTAINING ALCOHOL IN THE PAST YEAR?NO POINTS0 INTERPRETATIONNEGATIVE RECREATIONAL DRUG USE DRUG USE?NO DENIES 12/08/2019 CAFFEINE CAFFEINE USE?NO SEXUAL HX HAD SEX IN THE LAST 12 MONTHS (VAGINAL, ORAL, OR ANAL)?NO LMP:HYSTERECTOMY HAVE YOU EVER HAD AN STD?NO HIV / HEP-C SCREENING HIV TEST OFFERED TO PATIENT:YES DATE OFFERED:12/08/2019 TEST ACCEPTED:NO HEP-C TEST OFFERED TO PATIENT:YES DATE OFFERED:12/08/2019 REASON:PATIENT DECLINED CONSENT ON FILE TEST ACCEPTED:YES CONSENT SIGNED BROCHURE PROVIDED TO PATIENTNO JAIN RESTORATIONIST. LANGUAGE WOLOF. EDUCATION SOME COLLEGE. 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 DIET: DIET ANGELA.. EXERCISE: DAILY-- ABLE. MARITAL STATUS: SINGLE, .. OTHERS AT HOME: LIVES ALONE. PAIN CLINIC PFS, CLERGY, PUBLIC HEALTH REFERRALS WAS THE PROVIDER NOTIFIED OF ANY PERTINENT INFO?YES HAS THE PATIENT BEEN EDUCATED REGARDING HIS/HER PLAN OF CARE?YES HAS THE PATIENT BEEN EDUCATED REGARDING PAIN, THE RISK FOR PAIN, THE IMPORTANCE OF EFFECTIVE PAIN MANAGEMENT, AND THE PAIN ASSESSMENT PROCESS?YES HOUSING: RENTS APARTMENT. ADVANCE DIRECTIVE ADVANCE DIRECTIVE DISCUSSED WITH PATIENT:YES HCP - MABLE DAWSON (BROTHER) [phone]; IS ALSO PATIENT'S POA AND LIVING WILL HOSPITALIZATION/MAJOR DIAGNOSTIC PROCEDURE EATING DISORDER 01/20/2013 SURGERY REVIEW OF SYSTEMS CONSTITUTIONAL: ANY RECENT FEVER NO . CHILLS NO . WEIGHT CHANGE OF UNKNOWN REASONS NO . GASTROENTEROLOGY: NEW UNEXPLAINABLE CHANGES IN BOWEL CONTROL NO . CONSTIPATION NO . GENITOURINARY: ANY NEW CHANGE IN BLADDER CONTROL? NO . NEUROLOGY: NEW ONSET DIZZINESS OR NEUROLOGICAL CHANGES NOT MENTIONED NO . NEW NUMBNESS OR PAIN PATTERNS NOT MENTIONED AND PERTINENT TO TODAY'S VISIT NO . CARDIOLOGY: NEW CHEST PRESSURE NO . NEW CHEST PAIN NO . RESPIRATORY: UNEXPLAINABLE COUGH NO . NEW SHORTNESS OF BREATH NO . ASSESSMENTS SACROILIITIS - M46.1 (PRIMARY) TREATMENT SACROILIITIS NOTES: PLAN IS TO SCHEDULE LUMBAR EPIDURAL STEROID INJECTION 2 WEEKS AFTER LEFT SHOULDER STEROID INJECTION. I WILL SEE HER BACK IN CLINIC TO DO PHYSICAL EXAM AND REQUEST PROCEDURE. TOTAL TIME SPENT DURING TELEPHONE VISIT WAS APPROXIMATELY 12 MINUTES. OTHERS CLINICAL NOTES: PRE SCREENING CALL DONE 12/15/19 EM. DISPOSITION & COMMUNICATION FOLLOW UP 6 WEEKS (REASON: LOW BACK PAINEVALUATE FOR LESI) ELECTRONICALLY SIGNED BY HUGO NICOLE ON 12/28/2019 AT 09:27 AM EDT DISCLAIMER : THIS IS A VISIT SUMMARY EXTRACTED FROM THE [employer] CHART. IT IS NOT A COPY OF THE [employer] PROGRESS NOTE. VARUN
== END ==
LOC: M PAIN 10:15
PROVIDERS: ATTEND Nurse Practitioner Family
DX: M46.1 Sacroiliitis, not elsewhere classified (principal)

== ENCOUNTER → 2019-12-28 | Outpatient (CLI) | payer MEDICARE, MEDICAID ==
[~2019-12-28] MED LIST changes: +PANT40TA29; +PANT40TA29 PO; -PANT40TA3; -PANT40TA3 PO
[2019-12-28 08:18] LABS: HEMATOCRIT 40.5 % (36.0-47.0); HEMOGLOBIN 13.3 g/dl (12.0-15.5); MEAN CORPUSCULAR HEMOGLOBIN 31.8 pg (27.0-33.0); MEAN CORPUSCULAR HGB CONC 32.8 g/dl (32.0-36.5); MEAN CORPUSCULAR VOLUME 96.9 fl (80.0-96.0); PLATELET COUNT, AUTOMATED 247 10^3/uL (150-450); RED BLOOD COUNT 4.18 10^6/uL (4.00-5.40); WHITE BLOOD COUNT 4.6 10^3/uL (4.0-10.0)
[2019-12-28 08:21] LABS: APPEARANCE, URINE CLEAR (CLEAR); BACTERIA, URINE AUTO 1+ (NEGATIVE); BILIRUBIN, URINE AUTO NEGATIVE (NEGATIVE); BLOOD, URINE BLOOD NEGATIVE (NEGATIVE); COLOR, URINE STRAW (YELLOW); GLUCOSE, URINE (UA) AUTO NEGATIVE (NEGATIVE); KETONE, URINE AUTO NEGATIVE (NEGATIVE); LEUKOCYTE ESTERASE, URINE AUTO NEGATIVE (NEGATIVE); NITRITE, URINE AUTO NEGATIVE (NEGATIVE); PROTEIN, URINE AUTO NEGATIVE (NEGATIVE); RBC, URINE AUTO 0 /HPF (0-3); SPECIFIC GRAVITY URINE AUTO 1.002 (1.002-1.035); SQUAMOUS EPITHELIAL CELL UR AU 0 /HPF (0-6); UROBILINOGEN, URINE AUTO 0.2 mg/dL (0.0-2.0); WBC, URINE AUTO 0 /HPF (0-3)
[2019-12-28 08:45] LABS: ERYTHROCYTE SEDIMENTATION RATE 12 mm/hr (0-30)
[2019-12-28 08:47] LABS: ALBUMIN 3.3 GM/DL (3.2-5.2); ALT/SGPT 20 U/L (12-78); BILIRUBIN,TOTAL 0.4 MG/DL (0.2-1.0); BLOOD UREA NITROGEN 14 MG/DL (7-18); CALCIUM LEVEL 8.6 MG/DL (8.8-10.2); CARBON DIOXIDE LEVEL 26 MEQ/L (21-32); CHLORIDE LEVEL 107 MEQ/L (98-107); CREATININE FOR GFR 0.87 MG/DL (0.55-1.30); GLOMERULAR FILTRATION RATE > 60.0 (>45); GLUCOSE, FASTING 51 MG/DL (70-100); POTASSIUM SERUM 3.5 MEQ/L (3.5-5.1); SODIUM LEVEL 141 MEQ/L (136-145); TOTAL PROTEIN 6.1 GM/DL (6.4-8.2)
[2019-12-29 13:14] LABS: ALBUMIN 3.78 GM/DL (3.29-5.55); ALBUMIN % 61.9 % (55.8-66.1); ALPHA-1-GLOBULIN % 4.9 % (2.9-4.9); ALPHA-2-GLOBULINS 0.77 GM/DL (0.42-0.99); ALPHA-2-GLOBULINS % 12.6 % (7.1-11.8); BETA-1-GLOBULINS % 6.7 % (4.7-7.2); BETA-2-GLOBULINS % 4.1 % (3.2-6.5); GAMMA GLOBULIN % 9.8 % (11.1-18.8)
[2019-12-29 13:15] LABS: BETA-1-GLOBULINS 0.41 GM/DL (0.28-0.60); BETA-2-GLOBULINS 0.25 GM/DL (0.19-0.55)
== END ==
LOC: M LAB 07:23
PROVIDERS: ATTEND Family Medicine
DX: M50.20 Other cervical disc displacement, unspecified cervical region (principal); M54.5 Low back pain; R39.89 Other symptoms and signs involving the genitourinary system; R07.9 Chest pain, unspecified

== ENCOUNTER 2020-01-12 07:45 | Outpatient (RCR) | payer MEDICARE, MEDICAID | END 2020-01-13 | LOC: M PT 07:45 | PROVIDERS: ATTEND Orthopaedic Surgery | DX: M54.5 Low back pain (principal); M25.552 Pain in left hip ==

== ENCOUNTER → 2020-01-13 | Outpatient (REF) | payer MEDICARE, MEDICAID ==
[2020-02-10 12:45] LABS: APPEARANCE, URINE CLEAR (CLEAR); BACTERIA, URINE AUTO 1+ (NEGATIVE); BILIRUBIN, URINE AUTO NEGATIVE (NEGATIVE); BLOOD, URINE BLOOD NEGATIVE (NEGATIVE); COLOR, URINE STRAW (YELLOW); GLUCOSE, URINE (UA) AUTO NEGATIVE (NEGATIVE); KETONE, URINE AUTO NEGATIVE (NEGATIVE); LEUKOCYTE ESTERASE, URINE AUTO NEGATIVE (NEGATIVE); MUCUS, URINE SMALL (NEGATIVE); NITRITE, URINE AUTO NEGATIVE (NEGATIVE); PROTEIN, URINE AUTO NEGATIVE (NEGATIVE); RBC, URINE AUTO 1 /HPF (0-3); SPECIFIC GRAVITY URINE AUTO 1.003 (1.002-1.035); SQUAMOUS EPITHELIAL CELL UR AU 0 /HPF (0-6); UROBILINOGEN, URINE AUTO 0.2 mg/dL (0.0-2.0); WBC, URINE AUTO 0 /HPF (0-3)
== END ==
LOC: M LAB REF 11:16
PROVIDERS: ATTEND Obstetrics & Gynecology
DX: N30.00 Acute cystitis without hematuria (principal)
CPT/HCPCS: 81001; 87086; G0463

== ENCOUNTER → 2020-01-13 | Outpatient (POV) | payer MEDICARE, MEDICAID | LOC: M PAIN 09:00 | PROVIDERS: ATTEND Nurse Practitioner Family | DX: M51.16 Intervertebral disc disorders with radiculopathy, lumbar region (principal) ==

== ENCOUNTER → 2020-01-17 | Outpatient (CLI) | payer MEDICARE, MEDICAID | LOC: M LABSMTC 09:30 | PROVIDERS: ATTEND Anesthesiology | DX: Z11.59 Encounter for screening for other viral diseases (principal); Z20.828 Contact with and (suspected) exposure to other viral communicable diseases | CPT/HCPCS: C9803; U0002 ==

== ENCOUNTER → 2020-01-19 | Outpatient (POV) | payer MEDICARE, MEDICAID ==
[~2020-01-19] MED LIST changes: +ISOVUE-M 300 61% 15ML VIAL ONE; +LIDOCAINE 1% SDV 30ML VIAL ONE; +methylPREDNISolone SUSP 40MG/ML 1ML VIAL (DEPO MEDROL) ONE
--- NOTE | 2020-03-09 13:56 | REP ---
PARTIAL LUMBAR SPINE SERIES: 3-VIEWS Fluoroscopy time is recorded as 12 seconds. FINDINGS: A sequence of 3 last image hold fluoroscopically obtained spot radiographs of the lumbar spine document needle position and contrast injection associated with lumbar spine injection procedure. [facility]
== END ==
LOC: M PAIN 11:45
PROVIDERS: ATTEND Anesthesiology
DX: M51.16 Intervertebral disc disorders with radiculopathy, lumbar region (principal)

== ENCOUNTER → 2020-02-01 | Outpatient (CLI) | payer MEDICARE, MEDICAID ==
[~2020-02-01] MED LIST changes: -ISOVUE-M 300 61% 15ML VIAL ONE; -LIDOCAINE 1% SDV 30ML VIAL ONE; -methylPREDNISolone SUSP 40MG/ML 1ML VIAL (DEPO MEDROL) ONE
[2020-02-01 16:56] LABS: BASO % 0.8 % (0.0-1.0); EOS # 0.1 10^3/uL (0.0-0.5); EOS % 1.3 % (0.0-3.0); HEMATOCRIT 44.3 % (36.0-47.0); HEMOGLOBIN 14.6 g/dl (12.0-15.5); LYMPH # 2.1 10^3/uL (1.5-5.0); LYMPH % 39.3 % (24.0-44.0); MEAN CORPUSCULAR HEMOGLOBIN 31.4 pg (27.0-33.0); MEAN CORPUSCULAR VOLUME 95.3 fl (80.0-96.0); MONO # 0.4 10^3/uL (0.0-0.8); MONO % 8.1 % (0.0-5.0); NEUTROPHILS # 2.6 10^3/uL (1.5-8.5); NEUTROPHILS % 50.3 % (36.0-66.0); PLATELET COUNT, AUTOMATED 232 10^3/uL (150-450); RED BLOOD COUNT 4.65 10^6/uL (4.00-5.40); WHITE BLOOD COUNT 5.2 10^3/uL (4.0-10.0)
[2020-02-01 17:46] LABS: ALBUMIN 3.9 GM/DL (3.2-5.2); ALT/SGPT 28 U/L (12-78); AMYLASE 77 U/L (25-115); BILIRUBIN,TOTAL 0.5 MG/DL (0.2-1.0); BLOOD UREA NITROGEN 10 MG/DL (7-18); CALCIUM LEVEL 9.2 MG/DL (8.8-10.2); CARBON DIOXIDE LEVEL 29 MEQ/L (21-32); CHLORIDE LEVEL 108 MEQ/L (98-107); CREATININE FOR GFR 0.89 MG/DL (0.55-1.30); GLOMERULAR FILTRATION RATE > 60.0 (>45); GLUCOSE, FASTING 91 MG/DL (70-100); POTASSIUM SERUM 3.7 MEQ/L (3.5-5.1); SODIUM LEVEL 139 MEQ/L (136-145); TOTAL PROTEIN 6.9 GM/DL (6.4-8.2)
== END ==
LOC: M LAB 15:39
PROVIDERS: ATTEND Nurse Practitioner Family
DX: R74.8 Abnormal levels of other serum enzymes (principal)

== ENCOUNTER → 2020-02-02 | Outpatient (POV) | payer MEDICARE, MEDICAID ==
[~2020-02-02] MED LIST changes: -PANT40TA29; -PANT40TA29 PO; +PANT40TA3; +PANT40TA3 PO
== END ==
LOC: M PAIN 09:00
PROVIDERS: ATTEND Nurse Practitioner Family
DX: M54.5 Low back pain (principal)

== ENCOUNTER → 2020-02-03 | Outpatient (CLI) | payer MEDICARE, MEDICAID ==
[~2020-02-03] MED LIST changes: +E-Z-GAS II EFFERVESCENT PACKET (SODIUM BICARB./CITRIC ACID/SIMETHICONE) As Ordered ONE; +E-Z-HD 98% w/w 340GM SUSP BTL As Ordered ONE; +E-Z-PAQUE 96% w/w SUSP 176GM BTL As Ordered ONE; +PANT40TA29; +PANT40TA29 PO; -PANT40TA3; -PANT40TA3 PO
--- NOTE | 2020-03-09 13:54 | REP ---
UPPER GI SINGLE CONTRAST AND SMALL BOWEL FOLLOW-THROUGH The procedure was performed under the direct supervision of Dr. Rain. The images were reviewed with Dr. Rain. FINDINGS: The export documents clerk film shows no organomegaly or pathologic masses. The intestinal gas pattern is nonspecific. There is a pessary disc in place. Liquid barium was given in the erect and prone oblique positions in order to perform a single contrast upper GI examination. Additionally, liquid barium was given at the end of the examination in order to perform a small bowel follow- through. The oral and pharyngeal stages of deglutition are unremarkable. Esophageal transport is prompt and efficient and there is no esophagitis, stricture, mucosal ring, or hiatal hernia. Gastroesophageal reflux disease is not demonstrated on this examination. There are postsurgical changes of the stomach consistent with the patients history of Celi fundoplasty. The stomach is grossly normal. The rugal folds are smooth and regular. There is no evidence of gastritis, neoplasm, or ulcer disease. In the postbulbar duodenum there are thickened folds, which may represent duodenitis. There is no staci ulcer identified. The visualized portion of the proximal small bowel appears normal in course and caliber. The barium column was followed through the small bowel to the level of the terminal ileum. Small bowel transit time was approximately one hour and 40 minutes. During fluoroscopy, gentle palpation shows all loops are freely mobile and pliable. There are no fixed or angulated loops. The small bowel mucosal pattern is normal in course and caliber. There is no transition to suggest a partial small bowel obstruction. Spot filming of the terminal ileum shows it to be unremarkable. IMPRESSION: There are thickened folds in the postbulbar duodenum, which may represent duodenitis. There is no staci ulcer identified. There are postsurgical changes consistent with the patients history of Celi fundoplasty. 2.4 minutes of fluoroscopy time was utilized for this procedure. [facility]
== END ==
LOC: M RAD 08:46
PROVIDERS: ATTEND Nurse Practitioner Family
DX: R14.0 Abdominal distension (gaseous) (principal)

== ENCOUNTER 2020-02-09 07:35 | Outpatient (RCR) | payer MEDICARE, MEDICAID | END 2020-02-13 | LOC: M PT 07:35 | PROVIDERS: ATTEND Orthopaedic Surgery | DX: M54.5 Low back pain (principal) ==

== ENCOUNTER → 2020-02-09 | Outpatient (CLI) | payer MEDICARE, MEDICAID ==
[~2020-02-09] MED LIST changes: -E-Z-GAS II EFFERVESCENT PACKET (SODIUM BICARB./CITRIC ACID/SIMETHICONE) As Ordered ONE; -E-Z-HD 98% w/w 340GM SUSP BTL As Ordered ONE; -E-Z-PAQUE 96% w/w SUSP 176GM BTL As Ordered ONE
== END ==
LOC: M LABSMTC 09:40
PROVIDERS: ATTEND Nurse Practitioner Family
DX: Z03.818 Encounter for observation for suspected exposure to other biological agents ruled out (principal); Z11.59 Encounter for screening for other viral diseases
CPT/HCPCS: C9803; U0003

== ENCOUNTER → 2020-03-14 | Outpatient (RCR) | payer MEDICARE, MEDICAID | END | disposition home or self-care (01) | LOC: M PT 02-15 09:33 | PROVIDERS: ATTEND Orthopaedic Surgery | DX: M54.5 Low back pain (principal) ==

== ENCOUNTER 2020-03-22 07:19 | Outpatient (RCR) | payer MEDICARE, MEDICAID | END 2020-04-14 | LOC: M PT 07:19 | PROVIDERS: ATTEND Orthopaedic Surgery | DX: M54.5 Low back pain (principal); M25.552 Pain in left hip ==

== ENCOUNTER → 2020-03-27 | Outpatient (CLI) | payer MEDICARE, MEDICAID ==
--- NOTE | 2020-04-05 22:05 | ECWPNPC ---
PATIENT NAME: BRIAN DAWSON : 1955 GENDER: FEMALE VISIT DATE: 03/27/2020 DISCHARGE DATE: 03/27/20 1156 VISIT LOCKED DATE TIME: PHYSICIAN: SUKHI GONZALES PHYSICIAN PAGER NO: ACTIVE RESOURCE: SUKHI GONZALES REASON FOR APPOINTMENT 1. NO PLAN AT CHECK OUT. PATIENT IS REQUESTING INJECTIONS HISTORY OF PRESENT ILLNESS GENERAL: HERE FOR FOLLOW-UP OF CHRONIC LOW BACK PAIN. RATING PAIN LEVEL A 4/10 VAS. PAIN IS AGGRAVATED BY PROLONGED WALKING OR STANDING. CHIEF COMPLAINT IS SHOULDER PAIN. OVERALL FEELS HER LOWER BACK IS DOING FINE. CONTINUES WITH HOME EXERCISE AND STRETCHING. -. FALL RISK SCREENING: SCREENING :ONE FALL WITH INJURY IN THE PAST YEAR PAIN SCREENING: PATIENT HAS A COMPLAINT OF ACUTE OR CHRONIC PAIN :NO NURSING NOTE: -. PAIN CENTER INTAKE QUESTIONS: DO YOU HAVE A HISTORY OF MRSA? :NO DO YOU TAKE A BLOOD THINNERS? :NO DO YOU HAVE ANY BLEEDING DISORDERS? :NO ANY NEW NUMBNESS OR WEAKNESS IN YOUR LEGS OR ARMS? :NO ANY PACEMAKER,DEFIBRILLATOR, OR DORSAL COLUMN STIMULATOR? :NO DO YOU HAVE ANY RASHES OR OPEN SORES? :NO ARE YOU ALLERGIC TO IV DYE? :NO ARE YOU DIABETIC? :NO ANY NEW PROBLEMS WITH YOUR MEDICATIONS? :NO HAVE YOU RECEIVED A VACCINE IN THE PAST 30 DAYS? :NO DO YOU PLAN TO RECEIVE A VACCINE IN THE NEXT 21 DAYS? :NO DO YOU NEED ANY PRESCRIPTION? :NO DO YOU TAKE ANY IMMUNOSUPPRESSIVE MEDICATIONS? :NO IS THERE A CHANCE YOU COULD BE ? :NO ARE YOU BREAST FEEDING? :NO CURRENT MEDICATIONS TAKING MAY HAVE - - PLANT FUSION PURE PROTEIN 1SCOOP IN FLAX MEAL ORAL 3X/DAY TAKING PROBIOTIC ACIDOPHILUS - TABLET DIRECTED ORALLY DAILY TAKING TOPAMAX 100 MG TABLET 1 TAB ORALLY TWICE A DAY TAKING PANTOPRAZOLE SODIUM 40 MG TABLET DELAYED RELEASE 1 TABLET ORALLY TWICE DAILY TAKING ESTRING 2 MG RING DIRECTED VAGINAL INSERT Q 3 MONTHS TAKING BIOFREEZE 4 % GEL 1 APPLICATION TO AFFECTED AREA NEEDED EXTERNALLY THREE TIMES A DAY TAKING TRULANCE 3 MG TABLET 1 TABLET ORALLY ONCE A DAY TAKING ROLLING WALKER 1 1 DIRECTED WITH BRAKES AND SEAT TAKING FLUCONAZOLE 150 MG TABLET 1 TABLET ORALLY ONCE, REPEAT IN 3 DAYS TAKING EXERCISE EQUIPMENT STATIONARY BIKE DIRECTED TAKING MIRALAX 17 GM/SCOOP POWDER DIRECTED ORALLY NOT-TAKING PREDNISONE TAPER 1 TAB ORAL NOT-TAKING METAMUCIL 28 % PACKET 1 PACKET WITH 8 OUNCES OF LIQUID NEEDED ORALLY DAILY OR DIRECTED MEDICATION LIST REVIEWED AND RECONCILED WITH THE PATIENT PAST MEDICAL HISTORY LARYNGEAL NODULE CANDIDIASIS/BV-FREQUENTLY BULIMIA NERVOSA/SCHOZOAFFECTIVE D/O ([facility], 2013) 04-05-2014 DISTAL FIBULA FRACTURE 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 NODE, NEGATIVE BX, 2018 THYROID NODULE HIATAL HERNIA RUPTURE BACK PAIN BRAIN ANEURYSM ALLERGIES DOXYCYCLINE HYCLATE: PHOTODERMATITIS - ALLERGY LACTOSE INTOLERANT: DIARRHEA - ALLERGY DEMEROL: LOW BP - CONTRAINDICATION DARVOCET-N 100: LOW BP - CONTRAINDICATION AMOXICILLIN: SWELLING - ALLERGY SHELLFISH: HIVES - ALLERGY GLUTEN: DIARRHEA - ALLERGY SURGICAL HISTORY NECK SURGERY X 2 LEFT KNEE SURGERY BUNIONECTOMY OBDULIO FEET HYSTERECTOMY ABDOMINAL LAPOROSCOPY ABD BEFORE HYSTERECTOMY LASER EYE SURGERY OBDULIO COLONOSCOPY 08/2013 STERIOD INJECTIONS TO NECK BY 02/2016 HERNIA REPAIR 03/2017 SKIN CANCER LESION REMOVED 2018 FAMILY HISTORY FATHER: 84 YRS, PANCREATIC CANCER, DIAGNOSED WITH OTHER MALIGNANT NEOPLASM OF UNSPECIFIED SITE MOTHER: ALIVE, HYPERLIPIDEMIA, HYPERTENSION, UNSPECIFIED HEART DISEASE, DIABETES, OTHER MALIGNANT NEOPLASM OF UNSPECIFIED SITE 1 BROTHER(S) , 4 SISTER(S) - HEALTHY. 1 SON(S) , 1 DAUGHTER(S) - HEALTHY. FATHER ALSO POSITIVE FOR COLON, PANCREATIC CANCER\\\\\\\\NMOM--SKIN CA\\\\\\\\NBROTHER-[place]\\\\\\\\NSISTER BACK PROBLEMS\\\\\\\\NSISTER X 2 LUPUS\\\\\\\\NDAUGHTER-BRITTLE DIABETIC\\\\\\\\N\\\\N\\\\NFATHER OF PANCREATIC CANCER, MOTHER AND SISTER HAD SKIN CANCER, UNKNOWN IF IT WAS MELANOMA. SOCIAL HISTORY GENERAL: TOBACCO USE ARE YOU A:FORMER SMOKER FORMER SMOKER UPDATED 12/08/2019 HOW LONG HAS IT BEEN SINCE YOU LAST SMOKED?> 10 YEARS QUIT 2006 ADDITIONAL FINDINGS: TOBACCO USER NO ADDITIONAL FINDINGS: TOBACCO NON-USERCURRENT NON-SMOKER VAPORNO E-CIGARETTENO LATEX QUESTIONNAIRE LATEX ALLERGY : HAVE YOU EVER DEVELOPED ANY TYPE OF REACTION AFTER HANDLING LATEX PRODUCTS SUCH RUBBER GLOVES, CONDOMS, DIAPHRAGMS, BALLOONS, SOCKS, OR UNDERWEAR?NO LATEX ALLERGY : HAVE YOU EVER DEVELOPED ANY TYPE OF REACTION DURING OR AFTER DENTAL APPOINTMENT, VAGINAL/RECTAL EXAMINATION, SURGICAL PROCEDURE, OR ANY OTHER EXPOSURE?NO DATE ASKED : 01/03/2020 LATEX RISK : HAVE YOU EVER HAD ANY DIFFICULTY BREATHING OR HIVES AFTER EATING OR HANDLING ANY FRUITS, OR VEGETABLES; SUCH KIWI, BANANAS, STONE FRUITS, OR CHESTNUTSNO LATEX RISK : DO YOU HAVE A PREVIOUS PERSONAL HISTORY OF MORE THAN NINE SURGERIES, SPINA BIFIDA, OR REPEATED CATHERIZATIONS? YES - PLEASE INDICATE : > 9 SURGERIES LATEX RISK : ARE YOU FREQUENTLY EXPOSED TO LATEX PRODUCTS IN YOUR OCCUPATION?NO LUNG CANCER SCREENING SMOKING STATUS:FORMER SMOKER IS THE PATIENT BETWEEN THE AGE OF 57 AND 79?YES HAVE YOU QUIT SMOKING WITHIN THE PAST 15 YEARS?YES HAS THE PATIENT EVER BEEN DIAGNOSED WITH LUNG CANCER?NO BMI CARE GOAL FOLLOW-UP BELOW NORMAL BMI FOLLOW-UPDIETARY EDUCATION FOR WEIGHT GAIN ALCOHOL SCREENING DID YOU HAVE A DRINK CONTAINING ALCOHOL IN THE PAST YEAR?NO POINTS0 INTERPRETATIONNEGATIVE RECREATIONAL DRUG USE DRUG USE?NO DENIES 12/08/2019 CAFFEINE CAFFEINE USE?NO SEXUAL HX HAD SEX IN THE LAST 12 MONTHS (VAGINAL, ORAL, OR ANAL)?NO LMP:HYSTERECTOMY HAVE YOU EVER HAD AN STD?NO HIV / HEP-C SCREENING HIV TEST OFFERED TO PATIENT:YES DATE OFFERED:12/08/2019 TEST ACCEPTED:NO HEP-C TEST OFFERED TO PATIENT:YES DATE OFFERED:12/08/2019 REASON:PATIENT DECLINED CONSENT ON FILE TEST ACCEPTED:YES CONSENT SIGNED BROCHURE PROVIDED TO PATIENTNO ORTHODOXY JEHOVAH'S WITNESS. LANGUAGE TAMAZIGHT. EDUCATION SOME COLLEGE. 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 DIET: DIET ANGELA.. EXERCISE: DAILY-- ABLE. MARITAL STATUS: SINGLE, .. OTHERS AT HOME: LIVES ALONE. PAIN CLINIC PFS, CLERGY, PUBLIC HEALTH REFERRALS WAS THE PROVIDER NOTIFIED OF ANY PERTINENT INFO?YES HAS THE PATIENT BEEN EDUCATED REGARDING HIS/HER PLAN OF CARE?YES HAS THE PATIENT BEEN EDUCATED REGARDING PAIN, THE RISK FOR PAIN, THE IMPORTANCE OF EFFECTIVE PAIN MANAGEMENT, AND THE PAIN ASSESSMENT PROCESS?YES HOUSING: RENTS APARTMENT. ADVANCE DIRECTIVE ADVANCE DIRECTIVE DISCUSSED WITH PATIENT:YES HCP - MABLE DAWSON (BROTHER) [phone]; IS ALSO PATIENT'S POA AND LIVING WILL HOSPITALIZATION/MAJOR DIAGNOSTIC PROCEDURE EATING DISORDER 01/20/2013 SURGERY REVIEW OF SYSTEMS CONSTITUTIONAL: ANY RECENT FEVER NO . CHILLS NO . WEIGHT CHANGE OF UNKNOWN REASONS NO . GASTROENTEROLOGY: NEW UNEXPLAINABLE CHANGES IN BOWEL CONTROL NO . CONSTIPATION NO . GENITOURINARY: ANY NEW CHANGE IN BLADDER CONTROL? NO . NEUROLOGY: NEW ONSET DIZZINESS OR NEUROLOGICAL CHANGES NOT MENTIONED NO . NEW NUMBNESS OR PAIN PATTERNS NOT MENTIONED AND PERTINENT TO TODAY'S VISIT NO . CARDIOLOGY: NEW CHEST PRESSURE NO . NEW CHEST PAIN NO . RESPIRATORY: UNEXPLAINABLE COUGH NO . NEW SHORTNESS OF BREATH NO . VITAL SIGNS WT 102.6 LBS, HT 61 IN, BMI 19.38 INDEX, BP 88/60 MM HG, HR 95 /MIN, RR 18 /MIN, TEMP 97.6 F, OXYGEN SAT % 99%, NA INITIALS AW 1122, REVIEWED BY: EMLET NURSE KNOW ABOUT BP TOOK IT IN RIGHT ARM 88/60 88/59 THEN DID IN LEFT ARM 88/57PT STATES SHE IS ASYMPTOMATIC AND SHE HAS FORGOTTEN TO EAT TODAY. EM. EXAMINATION GENERAL EXAMINATION: GENERALAWAKE,ALERT ,PLEASANT . PSYCHAFFECT NORMAL . LUNGS:LUNG VZA ARE CLEAR TO AUSCULTATION BILATERALLY. GOOD MOVEMENT OF AIR . HEART:S1, S2 IN A REGULAR RATE AND RHYTHM. NO SIGNIFICANT MURMURS, RUBS OR GALLOPS NOTED . ASSESSMENTS SPONDYLOSIS OF LUMBOSACRAL REGION WITHOUT MYELOPATHY OR RADICULOPATHY - M47.817 (PRIMARY) TREATMENT SPONDYLOSIS OF LUMBOSACRAL REGION WITHOUT MYELOPATHY OR RADICULOPATHY NOTES: CONTINUE HOME EXCERSISE AND STRETCHING. PROCEDURE CODES FA211 ESTABILISHED PATIENT [facility] CHARGE DISPOSITION & COMMUNICATION FOLLOW UP 3 MONTHS (REASON: LOW BACK PAIN) ELECTRONICALLY SIGNED BY HUGO NICOLE ON 04/05/2020 AT 04:20 PM EDT DISCLAIMER : THIS IS A VISIT SUMMARY EXTRACTED FROM THE [employer] CHART. IT IS NOT A COPY OF THE [employer] PROGRESS NOTE. VARUN
== END ==
LOC: M PAIN 10:45
PROVIDERS: ATTEND Nurse Practitioner Family
DX: M47.817 Spondylosis without myelopathy or radiculopathy, lumbosacral region (principal); G89.29 Other chronic pain; Z86.59 Personal history of other mental and behavioral disorders; Z87.891 Personal history of nicotine dependence; Z88.1 Allergy status to other antibiotic agents; Z88.5 Allergy status to narcotic agent; Z91.011 Allergy to milk products; Z91.013 Allergy to seafood; Z79.899 Other long term (current) drug therapy

== ENCOUNTER → 2020-04-26 | Outpatient (CLI) | payer MEDICARE | LOC: M LABSMTC 10:29 | PROVIDERS: ATTEND Transplant Surgery | DX: Z20.828 Contact with and (suspected) exposure to other viral communicable diseases (principal) ==

== ENCOUNTER → 2020-06-14 | Outpatient (CLI) | payer MEDICARE, MEDICAID ==
[2020-06-14 10:23] LABS: HEMATOCRIT 44.8 % (36.0-47.0); HEMOGLOBIN 14.6 g/dl (12.0-15.5); MEAN CORPUSCULAR HEMOGLOBIN 31.3 pg (27.0-33.0); MEAN CORPUSCULAR HGB CONC 32.6 g/dl (32.0-36.5); MEAN CORPUSCULAR VOLUME 95.9 fl (80.0-96.0); PLATELET COUNT, AUTOMATED 241 10^3/uL (150-450); RED BLOOD COUNT 4.67 10^6/uL (4.00-5.40)
[2020-06-14 10:42] LABS: BLOOD UREA NITROGEN 19 MG/DL (7-18); CALCIUM LEVEL 8.6 MG/DL (8.8-10.2); CARBON DIOXIDE LEVEL 28 MEQ/L (21-32); CHLORIDE LEVEL 109 MEQ/L (98-107); CREATININE FOR GFR 0.92 MG/DL (0.55-1.30); GLOMERULAR FILTRATION RATE > 60.0 (>45); GLUCOSE, FASTING 89 MG/DL (70-100); POTASSIUM SERUM 3.7 MEQ/L (3.5-5.1); SODIUM LEVEL 142 MEQ/L (136-145)
== END ==
LOC: M LAB 09:36
PROVIDERS: ATTEND Family Medicine
DX: K44.9 Diaphragmatic hernia without obstruction or gangrene (principal)

== ENCOUNTER → 2020-07-16 | Outpatient (CLI) | payer MEDICARE, MEDICAID ==
[~2020-07-16] MED LIST changes: +PLEC3TAB; -TRUL3TAB
--- NOTE | 2020-07-16 23:11 | ECWPNPC ---
PATIENT NAME: BRIAN DAWSON : 1955 GENDER: FEMALE VISIT DATE: 07/16/2020 DISCHARGE DATE: 07/16/20 1113 VISIT LOCKED DATE TIME: PHYSICIAN: SUKHI GONZALES PHYSICIAN PAGER NO: ACTIVE RESOURCE: SUKHI GONZALES REASON FOR APPOINTMENT 1. LBP HISTORY OF PRESENT ILLNESS GENERAL: BEING SEEN FOR FOLLOW-UP OF CHRONIC LOW BACK PAIN. PAIN IS INCREASED ACROSS THE LOWER BACK RIGHT GREATER THAN LEFT OVER THE PAST FEW MONTHS. DENIES PRECIPITATING EVENT. SHE IS AWAITING GASTRIC SURGERY FOR REFLUX BUT HAS BEEN DELAYED DUE TO COVID. DISCUSSED TREATMENT OPTIONS. - -. FALL RISK SCREENING: SCREENING :NO FALLS REPORTED IN THE LAST YEAR PAIN SCREENING: PATIENT HAS A COMPLAINT OF ACUTE OR CHRONIC PAIN :YES LOCATION OF PAIN:LOW BACK MORE ON RIGHT SIDE INTENSITY OF PAIN (SCALE OF 1 TO 10):7 WHAT DOES YOUR PAIN FEEL LIKE:OTHER PULLING DURATION:CONTINOUS, CONSTANT, ALL DAY PAIN IS INCREASED BY:PROLONGED STANDING, OTHERS SITTING TOO LONG PAIN IS DECREASED BY:OTHERS NOT DOING ONE THING AT THE TIME NURSING NOTE: - -. PAIN CENTER INTAKE QUESTIONS: DO YOU HAVE A HISTORY OF MRSA? :NO DO YOU TAKE A BLOOD THINNERS? :NO DO YOU HAVE ANY BLEEDING DISORDERS? :NO ANY NEW NUMBNESS OR WEAKNESS IN YOUR LEGS OR ARMS? :NO ANY PACEMAKER,DEFIBRILLATOR, OR DORSAL COLUMN STIMULATOR? :NO DO YOU HAVE ANY RASHES OR OPEN SORES? :NO ARE YOU ALLERGIC TO IV DYE? :NO ARE YOU DIABETIC? :NO ANY NEW PROBLEMS WITH YOUR MEDICATIONS? :NO HAVE YOU RECEIVED A VACCINE IN THE PAST 30 DAYS? :NO DO YOU PLAN TO RECEIVE A VACCINE IN THE NEXT 21 DAYS? :YES IF SO WHAT VACCINE AND WHEN? COVID DO YOU NEED ANY PRESCRIPTION? :NO DO YOU TAKE ANY IMMUNOSUPPRESSIVE MEDICATIONS? :NO IS THERE A CHANCE YOU COULD BE ? :NO ARE YOU BREAST FEEDING? :NO CURRENT MEDICATIONS TAKING MAY HAVE - - PLANT FUSION PURE PROTEIN 1SCOOP IN FLAX MEAL ORAL 3X/DAY TAKING PROBIOTIC ACIDOPHILUS - TABLET DIRECTED ORALLY DAILY TAKING TOPAMAX 100 MG TABLET 1 TAB ORALLY TWICE A DAY TAKING PANTOPRAZOLE SODIUM 40 MG TABLET DELAYED RELEASE 1 TABLET ORALLY TWICE DAILY TAKING ESTRING 2 MG RING DIRECTED VAGINAL _INSERT Q 3 MONTHS TAKING BIOFREEZE 4 % GEL 1 APPLICATION TO AFFECTED AREA NEEDED EXTERNALLY THREE TIMES A DAY TAKING TRULANCE 3 MG TABLET 1 TABLET ORALLY ONCE A DAY TAKING MIRALAX 17 GM/SCOOP POWDER DIRECTED ORALLY TAKING CIMETIDINE 400 MG TABLET 1 TAB ORALLY BID TAKING DICYCLOMINE HCL 10 MG CAPSULE 1 CAP ORALLY 3 X DAILY AND AT BEDTIME TAKING ROLLING WALKER 1 1 DIRECTED WITH BRAKES AND SEAT MEDICATION LIST REVIEWED AND RECONCILED WITH THE PATIENT PAST MEDICAL HISTORY LARYNGEAL NODULE CANDIDIASIS/BV-FREQUENTLY 04-05-2014 DISTAL FIBULA FRACTURE 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 NODE, NEGATIVE BX, 2018 THYROID NODULE HIATAL HERNIA RUPTURE BACK PAIN BRAIN ANEURYSM ALLERGIES DOXYCYCLINE HYCLATE: PHOTODERMATITIS - ALLERGY LACTOSE INTOLERANT: DIARRHEA - ALLERGY DEMEROL: LOW BP - CONTRAINDICATION DARVOCET-N 100: LOW BP - CONTRAINDICATION AMOXICILLIN: SWELLING - ALLERGY SHELLFISH: HIVES - ALLERGY GLUTEN: DIARRHEA - ALLERGY SOCIAL HISTORY GENERAL: TOBACCO USE ARE YOU A:FORMER SMOKER FORMER SMOKER UPDATED 06/19/2020 HOW LONG HAS IT BEEN SINCE YOU LAST SMOKED?> 10 YEARS QUIT 2006 ADDITIONAL FINDINGS: TOBACCO USER NO ADDITIONAL FINDINGS: TOBACCO NON-USERCURRENT NON-SMOKER VAPORNO E-CIGARETTENO LATEX QUESTIONNAIRE LATEX ALLERGY : HAVE YOU EVER DEVELOPED ANY TYPE OF REACTION AFTER HANDLING LATEX PRODUCTS SUCH RUBBER GLOVES, CONDOMS, DIAPHRAGMS, BALLOONS, SOCKS, OR UNDERWEAR?NO LATEX ALLERGY : HAVE YOU EVER DEVELOPED ANY TYPE OF REACTION DURING OR AFTER DENTAL APPOINTMENT, VAGINAL/RECTAL EXAMINATION, SURGICAL PROCEDURE, OR ANY OTHER EXPOSURE?NO LATEX RISK : HAVE YOU EVER HAD ANY DIFFICULTY BREATHING OR HIVES AFTER EATING OR HANDLING ANY FRUITS, OR VEGETABLES; SUCH KIWI, BANANAS, STONE FRUITS, OR CHESTNUTSNO LATEX RISK : DO YOU HAVE A PREVIOUS PERSONAL HISTORY OF MORE THAN NINE SURGERIES, SPINA BIFIDA, OR REPEATED CATHERIZATIONS? YES - PLEASE INDICATE : > 9 SURGERIES LATEX RISK : ARE YOU FREQUENTLY EXPOSED TO LATEX PRODUCTS IN YOUR OCCUPATION?NO DATE ASKED : 07/16/2020 ALCOHOL USE: NO. LUNG CANCER SCREENING SMOKING STATUS:FORMER SMOKER IS THE PATIENT BETWEEN THE AGE OF 57 AND 79?YES HAVE YOU QUIT SMOKING WITHIN THE PAST 15 YEARS?YES HAS THE PATIENT EVER BEEN DIAGNOSED WITH LUNG CANCER?NO BMI CARE GOAL FOLLOW-UP BELOW NORMAL BMI FOLLOW-UPDIETARY EDUCATION FOR WEIGHT GAIN ALCOHOL SCREENING DID YOU HAVE A DRINK CONTAINING ALCOHOL IN THE PAST YEAR?NO POINTS0 INTERPRETATIONNEGATIVE RECREATIONAL DRUG USE DRUG USE?NO DENIES 12/08/2019 CAFFEINE CAFFEINE USE?NO SEXUAL HX HAD SEX IN THE LAST 12 MONTHS (VAGINAL, ORAL, OR ANAL)?NO LMP:HYSTERECTOMY HAVE YOU EVER HAD AN STD?NO HIV / HEP-C SCREENING HIV TEST OFFERED TO PATIENT:YES DATE OFFERED:06/19/2020 TEST ACCEPTED:NO HEP-C TEST OFFERED TO PATIENT:YES DATE OFFERED:06/19/2020 REASON:PATIENT DECLINED CONSENT ON FILE TEST ACCEPTED:YES CONSENT SIGNED BROCHURE PROVIDED TO PATIENTNO PROTESTANT MANDAEN. LANGUAGE LITHUANIAN. EDUCATION SOME COLLEGE. 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 DIET: DIET ANGELA.. EXERCISE: DAILY-- ABLE. MARITAL STATUS: SINGLE, .. OTHERS AT HOME: LIVES ALONE. - WAS THE PROVIDER NOTIFIED OF ANY PERTINENT INFO?YES HAS THE PATIENT BEEN EDUCATED REGARDING HIS/HER PLAN OF CARE?YES HAS THE PATIENT BEEN EDUCATED REGARDING PAIN, THE RISK FOR PAIN, THE IMPORTANCE OF EFFECTIVE PAIN MANAGEMENT, AND THE PAIN ASSESSMENT PROCESS?YES HOUSING: RENTS APARTMENT. ADVANCE DIRECTIVE ADVANCE DIRECTIVE DISCUSSED WITH PATIENT:YES HCP - MABLE DAWSON (BROTHER) [phone]; IS ALSO PATIENT'S POA AND LIVING WILL REVIEW OF SYSTEMS CONSTITUTIONAL: ANY RECENT FEVER NO . CHILLS NO . WEIGHT CHANGE OF UNKNOWN REASONS NO . GASTROENTEROLOGY: NEW UNEXPLAINABLE CHANGES IN BOWEL CONTROL NO . CONSTIPATION NO . GENITOURINARY: ANY NEW CHANGE IN BLADDER CONTROL? NO . NEUROLOGY: NEW ONSET DIZZINESS OR NEUROLOGICAL CHANGES NOT MENTIONED NO . NEW NUMBNESS OR PAIN PATTERNS NOT MENTIONED AND PERTINENT TO TODAY'S VISIT NO . CARDIOLOGY: NEW CHEST PRESSURE NO . NEW CHEST PAIN NO . RESPIRATORY: UNEXPLAINABLE COUGH NO . NEW SHORTNESS OF BREATH NO . VITAL SIGNS WT 103 LBS, HT 61 IN, BMI 19.46 INDEX, BP 117/67 MM HG, HR 82 /MIN, RR 18 /MIN, TEMP 96.5 F, OXYGEN SAT % 100%, SAFE IN ENV? (Y/N) YEST.GRICEL HANSON. EXAMINATION GENERAL EXAMINATION: LUNGS: LUNG SOUNDS ARE CLEAR . HEART: HEART RATE REGULAR . MUSCULOSKELETAL:*, MUSCLE STRENGTH TESTING 5/5 BILATERAL LOWER EXTREMITIES., ,PALPATION: POSITIVE FOR PAIN OVER L/S SPINE. POSITIVE FOR PAIN OVER L/S PARSPINALS.SPECIFIC POINT TENDERNESS OVER BILAT L4/5-L5/S1 LUMBR FACETS WITH FACET LOADING . DIAGNOSTIC TESTS REVIEWED MRI L/S SPINE-10/27/19. ASSESSMENTS SPONDYLOSIS WITHOUT MYELOPATHY OR RADICULOPATHY, LUMBAR REGION - M47.816 (PRIMARY) TREATMENT SPONDYLOSIS WITHOUT MYELOPATHY OR RADICULOPATHY, LUMBAR REGION NOTES: BILATERAL LUMBAR THERAPEUTIC FACET BLOCK L4-5 ,L5-S1. DISPOSITION & COMMUNICATION FOLLOW UP POSTPROCEDURE (REASON: BILATERAL LUMBAR THERAPEUTIC FACET BLOCK L4-5 ,L5-S1) ELECTRONICALLY SIGNED BY HUGO NICOLE ON 07/16/2020 AT 02:09 PM EST DISCLAIMER : THIS IS A VISIT SUMMARY EXTRACTED FROM THE [employer] CHART. IT IS NOT A COPY OF THE [employer] PROGRESS NOTE. VARUN
== END ==
LOC: M PAIN 11:00
PROVIDERS: ATTEND Nurse Practitioner Family
DX: M47.816 Spondylosis without myelopathy or radiculopathy, lumbar region (principal); G89.29 Other chronic pain; Z87.891 Personal history of nicotine dependence; Z88.1 Allergy status to other antibiotic agents; Z88.5 Allergy status to narcotic agent; Z88.8 Allergy status to other drugs, medicaments and biological substances; Z91.011 Allergy to milk products; Z91.013 Allergy to seafood; Z91.018 Allergy to other foods; Z79.899 Other long term (current) drug therapy

== ENCOUNTER → 2020-07-22 | Outpatient (CLI) | payer MEDICARE, MEDICAID | LOC: M LABSMTC 08:25 | PROVIDERS: ATTEND Transplant Surgery | DX: Z01.812 Encounter for preprocedural laboratory examination (principal); Z20.822 Contact with and (suspected) exposure to COVID-19; K44.9 Diaphragmatic hernia without obstruction or gangrene ==

== ENCOUNTER → 2020-08-21 | Outpatient (REF) | payer MEDICARE, MEDICAID | LOC: M LAB REF 09:21 | PROVIDERS: ATTEND Nurse Practitioner Family | DX: R19.7 Diarrhea, unspecified (principal) ==

== ENCOUNTER → 2020-08-23 | Outpatient (CLI) | payer MEDICARE, MEDICAID ==
[~2020-08-23] MED LIST changes: +GASTROGRAFIN SOLUTION 30ML (Q9963) As Ordered ONE; +ISOVUE-370 76% 100ML VIAL As Ordered ONE
--- NOTE | 2020-08-23 12:08 | REP ---
INDICATION: RUQ ABD PAIN R10.11 RECENT LAPAROSCOPY/LABS AFTER CAT SCAN COMPARISON: 11/16/2018. TECHNIQUE: CT Scan of the abdomen and pelvis was performed with intravenous administration of 100 cc of Isovue 370, and oral contrast. FINDINGS: Lung bases: Unremarkable. Liver: A subcentimeter cyst is seen in the right lobe of the liver. Gallbladder: Unremarkable. Spleen: Normal. Adrenals: Normal. Pancreas: Normal. Kidneys: Normal. Small and large bowel: Unremarkable. There is evidence of prior Celi fundoplasty. Free fluid: None. Abdominal aorta: No aneurysm or dissection. Adenopathy: None. Appendix: Not inflamed. Osseous structures: Unremarkable. Pelvis: No mass. A pessary device is again noted. Prior hysterectomy. There is focal ill-defined thickening of the soft tissues in the region of the umbilicus, likely inflammatory. No fluid collection is seen. IMPRESSION: There is focal ill-defined thickening of the soft tissues in the region of the umbilicus, likely inflammatory. No fluid collection is seen. <Electronically signed by Moses Acosta > 08/23/20 0180
== END ==
LOC: M RAD 09:22
PROVIDERS: ATTEND Nurse Practitioner Family
DX: R10.11 Right upper quadrant pain (principal); R51.9 Headache, unspecified
CPT/HCPCS: 36415; 74177; 85652; Q9963; Q9967

== ENCOUNTER → 2020-08-23 | Outpatient (CLI) | payer MEDICARE, MEDICAID ==
[~2020-08-23] MED LIST changes: -GASTROGRAFIN SOLUTION 30ML (Q9963) As Ordered ONE; -ISOVUE-370 76% 100ML VIAL As Ordered ONE
== END ==
LOC: M LAB 09:30
PROVIDERS: ATTEND Physician Assistant Medical
DX: R51.9 Headache, unspecified (principal)

== ENCOUNTER → 2020-09-10 | Outpatient (REF) | payer MEDICARE, MEDICAID ==
[2020-09-10 18:01] LABS: HEMATOCRIT 38.2 % (36.0-47.0); HEMOGLOBIN 12.1 g/dl (12.0-15.5); MEAN CORPUSCULAR HEMOGLOBIN 30.2 pg (27.0-33.0); MEAN CORPUSCULAR HGB CONC 31.7 g/dl (32.0-36.5); MEAN CORPUSCULAR VOLUME 95.3 fl (80.0-96.0); PLATELET COUNT, AUTOMATED 239 10^3/uL (150-450); RED BLOOD COUNT 4.01 10^6/uL (4.00-5.40); WHITE BLOOD COUNT 3.7 10^3/uL (4.0-10.0)
[2020-09-10 18:36] LABS: ALBUMIN 3.6 GM/DL (3.2-5.2); ALT/SGPT 19 U/L (12-78); BILIRUBIN,TOTAL 0.3 MG/DL (0.2-1.0); BLOOD UREA NITROGEN 17 MG/DL (7-18); CALCIUM LEVEL 8.3 MG/DL (8.8-10.2); CARBON DIOXIDE LEVEL 25 MEQ/L (21-32); CHLORIDE LEVEL 109 MEQ/L (98-107); CREATININE FOR GFR 0.73 MG/DL (0.55-1.30); GLOMERULAR FILTRATION RATE > 60.0 (>45); GLUCOSE, FASTING 83 MG/DL (70-100); MAGNESIUM LEVEL 2.3 MG/DL (1.8-2.4); PHOSPHORUS LEVEL 3.5 MG/DL (2.5-4.9); POTASSIUM SERUM 3.7 MEQ/L (3.5-5.1); SODIUM LEVEL 141 MEQ/L (136-145); TOTAL PROTEIN 6.4 GM/DL (6.4-8.2)
== END ==
LOC: M SHH 17:20
DX: K59.9 Functional intestinal disorder, unspecified (principal); E44.0 Moderate protein-calorie malnutrition; K22.4 Dyskinesia of esophagus; K91.89 Other postprocedural complications and disorders of digestive system

== ENCOUNTER → 2020-09-24 | Outpatient (REF) | payer MEDICARE, MEDICAID ==
[~2020-09-24] MED LIST changes: +CLOT1CRE27; +DICY10CA13; +[UNRECOGNIZED DRUG - CODE]
[2020-09-24 18:25] LABS: HEMATOCRIT 38.2 % (36.0-47.0); MEAN CORPUSCULAR HEMOGLOBIN 30.8 pg (27.0-33.0); MEAN CORPUSCULAR HGB CONC 31.4 g/dl (32.0-36.5); MEAN CORPUSCULAR VOLUME 98.2 fl (80.0-96.0); PLATELET COUNT, AUTOMATED 193 10^3/uL (150-450); RED BLOOD COUNT 3.89 10^6/uL (4.00-5.40)
[2020-09-24 18:49] LABS: ALBUMIN 3.5 GM/DL (3.2-5.2); ALT/SGPT 32 U/L (12-78); BILIRUBIN,TOTAL 0.5 MG/DL (0.2-1.0); BLOOD UREA NITROGEN 27 MG/DL (7-18); CALCIUM LEVEL 8.7 MG/DL (8.8-10.2); CARBON DIOXIDE LEVEL 24 MEQ/L (21-32); CHLORIDE LEVEL 112 MEQ/L (98-107); CREATININE FOR GFR 0.83 MG/DL (0.55-1.30); FERRITIN 86 NG/ML (8-252); GLOMERULAR FILTRATION RATE > 60.0 (>45); GLUCOSE, FASTING 67 MG/DL (70-100); IRON (FE) 90 UG/DL (50-170); MAGNESIUM LEVEL 2.3 MG/DL (1.8-2.4); PERCENT SATURATION 31.7 % (13.2-45.0); PHOSPHORUS LEVEL 3.4 MG/DL (2.5-4.9); POTASSIUM SERUM 3.8 MEQ/L (3.5-5.1); SODIUM LEVEL 144 MEQ/L (136-145); TOTAL IRON BINDING CAPACITY 284 UG/DL (250-450); TOTAL PROTEIN 6.3 GM/DL (6.4-8.2)
== END ==
LOC: M SHH 17:20
DX: K59.9 Functional intestinal disorder, unspecified (principal); K22.4 Dyskinesia of esophagus; K91.89 Other postprocedural complications and disorders of digestive system; E44.0 Moderate protein-calorie malnutrition

== ENCOUNTER → 2020-09-27 | Outpatient (REF) | payer MEDICARE, MEDICAID | LOC: M LAB REF 13:35 | PROVIDERS: ATTEND Nurse Practitioner Family | DX: R19.7 Diarrhea, unspecified (principal) ==

== ENCOUNTER → 2020-10-01 | Outpatient (REF) | payer MEDICARE, MEDICAID ==
[2020-10-01 15:58] LABS: BLOOD UREA NITROGEN 24 MG/DL (7-18); CARBON DIOXIDE LEVEL 24 MEQ/L (21-32); CHLORIDE LEVEL 108 MEQ/L (98-107); GLOMERULAR FILTRATION RATE > 60.0 (>45); GLUCOSE, FASTING 78 MG/DL (70-100); MAGNESIUM LEVEL 2.3 MG/DL (1.8-2.4); PHOSPHORUS LEVEL 3.8 MG/DL (2.5-4.9); POTASSIUM SERUM 3.8 MEQ/L (3.5-5.1); SODIUM LEVEL 141 MEQ/L (136-145)
== END ==
LOC: M SHH 14:44
PROVIDERS: ATTEND Independent Medical Examiner
DX: K59.9 Functional intestinal disorder, unspecified (principal); E44.0 Moderate protein-calorie malnutrition; K22.4 Dyskinesia of esophagus; K91.89 Other postprocedural complications and disorders of digestive system

== ENCOUNTER 2020-10-02 17:55 | Emergency (ER) | payer MEDICARE, MEDICAID ==
[~2020-10-02] VITALS: Ht 152.4 cm; Wt 45.9 kg
[~2020-10-02 17:55] MED LIST changes: -CLOT1CRE27; -DICY10CA13; -[UNRECOGNIZED DRUG - CODE]
[2020-10-02] MEDS ORDERED: [UNRECOGNIZED DRUG - CODE] (18:07)
[2020-10-02] MEDS ORDERED: CLOT1CRE27 (18:07)
[2020-10-02] MEDS ORDERED: DICY10CA13 (18:07)
[2020-10-02 22:33] VITALS: BP 130/63
== END 2020-10-02 22:35 | disposition home or self-care (01) ==
LOC: M ED 17:55
DX: R21 Rash and other nonspecific skin eruption (principal); Z95.828 Presence of other vascular implants and grafts; Z79.890 Hormone replacement therapy; Z79.899 Other long term (current) drug therapy; Z88.0 Allergy status to penicillin; Z88.2 Allergy status to sulfonamides; Z88.8 Allergy status to other drugs, medicaments and biological substances

== ENCOUNTER → 2020-10-09 | Outpatient (REF) | payer MEDICARE, MEDICAID ==
[~2020-10-09] MED LIST changes: +CLOT1CRE27; +DICY10CA13; +[UNRECOGNIZED DRUG - CODE]
[2020-10-09 15:51] LABS: BLOOD UREA NITROGEN 24 MG/DL (7-18); CALCIUM LEVEL 8.8 MG/DL (8.8-10.2); CARBON DIOXIDE LEVEL 24 MEQ/L (21-32); CHLORIDE LEVEL 110 MEQ/L (98-107); CREATININE FOR GFR 0.65 MG/DL (0.55-1.30); GLOMERULAR FILTRATION RATE > 60.0 (>45); GLUCOSE, FASTING 74 MG/DL (70-100); MAGNESIUM LEVEL 2.5 MG/DL (1.8-2.4); PHOSPHORUS LEVEL 3.6 MG/DL (2.5-4.9); POTASSIUM SERUM 3.9 MEQ/L (3.5-5.1); SODIUM LEVEL 141 MEQ/L (136-145)
== END ==
LOC: M SHH 15:12
PROVIDERS: ATTEND Internal Medicine
DX: E86.0 Dehydration (principal); E87.6 Hypokalemia; E83.42 Hypomagnesemia; K90.9 Intestinal malabsorption, unspecified

== ENCOUNTER → 2020-10-23 | Outpatient (CLI) | payer MEDICARE, MEDICAID ==
[~2020-10-23] MED LIST changes: +BACTDSTA; -SULF1TAB93
--- NOTE | 2020-10-23 10:10 | REP ---
INDICATION: THYROID NODULE. COMPARISON: 08/01/2009. TECHNIQUE: Real-time sonographic evaluation of thyroid performed. FINDINGS: Right lobe measures 5.1 x 1.6 x 1.7 cm and left lobe 4.7 x 1.4 x 1.1 cm. In the right lobe there is a 3 mm cyst in the upper pole. There is a 5 mm hypoechoic nodule in the mid right lobe which may represent a complex cyst. Slightly more inferiorly there is a complex cystic nodule with mild internal solid components measuring 1.2 x 1.9 x 1.1 cm. On the left there are few 2 mm cysts in the mid to upper aspect. There is a solid isoechoic nodule in the lower pole measuring 2.0 x 1.1 x 1.1 cm. IMPRESSION: Bilateral cysts and nodules as discussed above. According to TI-RADS criteria, the complex cystic nodule in the right lower pole is a TR 2 lesion for which no follow-up is needed. The solid nodule in the left lower pole is a TR 3 lesion for which follow-up ultrasound is recommended in 6 months. <Electronically signed by Moses Acosta > 10/23/20 1003
== END ==
LOC: M RAD 07:12
PROVIDERS: ATTEND Family Medicine
DX: E04.1 Nontoxic single thyroid nodule (principal); E86.0 Dehydration; E87.6 Hypokalemia; E43 Unspecified severe protein-calorie malnutrition

== ENCOUNTER → 2020-10-23 | Outpatient (REF) | payer MEDICARE, MEDICAID ==
[2020-10-23 15:43] LABS: HEMATOCRIT 38.1 % (36.0-47.0); HEMOGLOBIN 12.5 g/dl (12.0-15.5); MEAN CORPUSCULAR HEMOGLOBIN 30.4 pg (27.0-33.0); MEAN CORPUSCULAR HGB CONC 32.8 g/dl (32.0-36.5); MEAN CORPUSCULAR VOLUME 92.7 fl (80.0-96.0); PLATELET COUNT, AUTOMATED 214 10^3/uL (150-450); RED BLOOD COUNT 4.11 10^6/uL (4.00-5.40); WHITE BLOOD COUNT 7.5 10^3/uL (4.0-10.0)
[2020-10-23 16:07] LABS: ALBUMIN 3.8 GM/DL (3.2-5.2); ALT/SGPT 76 U/L (12-78); BILIRUBIN,TOTAL 0.6 MG/DL (0.2-1.0); BLOOD UREA NITROGEN 26 MG/DL (7-18); CALCIUM LEVEL 9.2 MG/DL (8.8-10.2); CARBON DIOXIDE LEVEL 25 MEQ/L (21-32); CHLORIDE LEVEL 109 MEQ/L (98-107); CREATININE FOR GFR 0.87 MG/DL (0.55-1.30); FERRITIN 78 NG/ML (8-252); GLOMERULAR FILTRATION RATE > 60.0 (>45); GLUCOSE, FASTING 73 MG/DL (70-100); IRON (FE) 114 UG/DL (50-170); MAGNESIUM LEVEL 2.2 MG/DL (1.8-2.4); PHOSPHORUS LEVEL 3.4 MG/DL (2.5-4.9); POTASSIUM SERUM 3.6 MEQ/L (3.5-5.1); SODIUM LEVEL 142 MEQ/L (136-145); TOTAL IRON BINDING CAPACITY 308 UG/DL (250-450); TOTAL PROTEIN 6.8 GM/DL (6.4-8.2)
== END ==
LOC: M SHH 15:18
PROVIDERS: ATTEND Internal Medicine
DX: E86.0 Dehydration (principal); E87.6 Hypokalemia; E43 Unspecified severe protein-calorie malnutrition

== ENCOUNTER → 2020-11-16 | Outpatient (CLI) | payer MEDICARE, MEDICAID ==
--- NOTE | 2020-11-17 02:05 | ECWPNPC ---
PATIENT NAME: BRIAN DAWSON : 1955 GENDER: FEMALE VISIT DATE: 11/16/2020 DISCHARGE DATE: 11/16/20 1051 VISIT LOCKED DATE TIME: PHYSICIAN: SUKHI GONZALES PHYSICIAN PAGER NO: ACTIVE RESOURCE: SUKHI GONZALES REASON FOR APPOINTMENT 1. 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 PATIENT IS RECUPERATING FROM ABDOMINAL SURGERY/FUNDOPLICATION WITH COMPLICATIONS THAT WAS PERFORMED IN AUGUST AT [facility]. SHE IS GETTING BETTER BUT SHE IS NOT TAKING ANY FOOD BY MOUTH. SHE HAS A PORT IN PLACE AND GETTING TPN NUTRIENTS THROUGH THIS DAILY. HAS RECENTLY FINISHED IN HOUSE PHYSICAL THERAPY FOR REHABILITATION / LEARNING TO WALK AGAIN. IS SCHEDULED FOR THYROID SURGERY IN 2 WEEKS. RECENT MRI OF CERVICAL AND LUMBAR SPINE ARE REVIEWED. WE WILL TRY TO HELP HER WITH INJECTIONS AND POSSIBLY PHYSICAL THERAPY ONCE SHE IS MEDICALLY STABILIZED. -. FALL RISK SCREENING: SCREENING : NO FALLS REPORTED IN THE LAST YEAR. PAIN SCREENING: PATIENT HAS A COMPLAINT OF ACUTE OR CHRONIC PAIN :YES LOCATION OF PAIN:NECK, LOW BACK INTENSITY OF PAIN (SCALE OF 1 TO 10):7 WHAT DOES YOUR PAIN FEEL LIKE:CONTINOUS, THROBBING, SHOOTING DURATION:CONTINOUS, CONSTANT, ALL DAY PAIN IS INCREASED BY:ACTIVITIES PAIN IS DECREASED BY:OTHERS WALKING AND BRACE NURSING NOTE: -. PAIN CENTER INTAKE QUESTIONS: DO YOU HAVE A HISTORY OF MRSA? :NO DO YOU TAKE A BLOOD THINNERS? :YES DO YOU HAVE ANY BLEEDING DISORDERS? :NO ANY NEW NUMBNESS OR WEAKNESS IN YOUR LEGS OR ARMS? :YES BOTH LEGS, MOSTLY IN THE LEFT LEG, IN THE ARMS ITS MOSTYL IN THE RIGHT ANY PACEMAKER,DEFIBRILLATOR, OR DORSAL COLUMN STIMULATOR? :NO DO YOU HAVE ANY RASHES OR OPEN SORES? :NO ARE YOU ALLERGIC TO IV DYE? :NO ARE YOU DIABETIC? :NO ANY NEW PROBLEMS WITH YOUR MEDICATIONS? :NO HAVE YOU RECEIVED A VACCINE IN THE PAST 30 DAYS? :NO DO YOU PLAN TO RECEIVE A VACCINE IN THE NEXT 21 DAYS? :NO DO YOU NEED ANY PRESCRIPTION? :NO DO YOU TAKE ANY IMMUNOSUPPRESSIVE MEDICATIONS? :NO DO YOU HAVE ANY KIDNEY OR LIVER DISEASE? :NO IS THERE A CHANCE YOU COULD BE ? :NO ARE YOU BREAST FEEDING? :NO CURRENT MEDICATIONS TAKING TOPAMAX 100 MG TABLET 1 TAB ORALLY TWICE A DAY TAKING DICYCLOMINE HCL 10 MG CAPSULE 1 CAPSULE ORALLY FOUR TIMES A DAY TAKING AClarence SOLOMONCH QUIN - PAD DIRECTED EXTERNALLY NEEDED HEMORRHOIDS TAKING GUAIFENESIN 100 MG/5ML SYRUP 10 ML NEEDED ORALLY EVERY 4 HRS TAKING CLOTRIMAZOLE 1 % CREAM 1 APPLICATION EXTERNALLY TWICE A DAY TAKING ESTRING 2 MG RING DIRECTED VAGINAL _INSERT Q 3 MONTHS TAKING RESTASIS 0.05 % EMULSION 1 DROP INTO AFFECTED EYE OPHTHALMIC TWICE A DAY TAKING FLUTICASONE PROPIONATE 50 MCG/ACT SUSPENSION 1 SPRAY IN EACH NOSTRIL NASALLY ONCE A DAY TAKING TYLENOL CHILDRENS 160 MG/5ML SUSPENSION 10-20ML ORALLY BID TAKING TPN ELECTROLYTES - CONCENTRATE DIRECTED INTRAVENOUS 1 BAG DAILY AT 1800, NOTES: PT REPORTS 3 DAYS A WEEK ADDITIONAL VITAMINS ARE ADDED TAKING HYDROCORTISONE ANTI-ITCH 1 % CREAM 1 APPLICATION EXTERNALLY ONCE A DAY TAKING ALUMINUM CHLORIDE 20 % SOLUTION 1 APPLICATION AT BEDTIME EXTERNALLY NIGHTLY TAKING MAY HAVE - - DIRECTED WEDGE PILLOW,12 INCH ELEVATION TAKING PREGABALIN 20 MG/ML SOLUTION 5 ML ORALLY TWICE A DAY, NOTES: MAKES HER SICK TAKING FAMOTIDINE 40 MG/4ML SOLUTION 2 ML INTRAVENOUS TWICE A DAY NOT-TAKING PANTOPRAZOLE SODIUM - POWDER 1 PACKET MIXED WITH APPLE JUICE OR APPLESAUCE ORALLY TWICE DAILY NOT-TAKING CLOTRIMAZOLE 1 % CREAM 1 APPLICATION EXTERNALLY TWICE A DAY NOT-TAKING PREGABALIN 20 MG/ML SOLUTION 1ML ORALLY BID MDD 2ML NOT-TAKING ONDANSETRON 4 MG TABLET DISINTEGRATING 1 TABLET ON THE TONGUE AND ALLOW TO DISSOLVE ORALLY THREE TIMES A DAY NEEDED NOT-TAKING TRULANCE 3 MG TABLET 1 TABLET ORALLY ONCE A DAY NOT-TAKING OXYCODONE HCL 5 MG/5ML SOLUTION 5 ML NEEDED ORALLY EVERY 4 HRS NEEDED FOR PAIN NOT-TAKING CIMETIDINE HCL 300 MG/5ML SOLUTION 5 ML WITH MEALS ORALLY TWICE A DAY NOT-TAKING LOPERAMIDE HCL 2 MG CAPSULE 1 CAPSULE NEEDED ORALLY AFTER EACH UNFORMED STOOL, MAX 16 MG PER DAY NOT-TAKING MIRALAX 17 GM/SCOOP POWDER DIRECTED ORALLY TWICE A DAY NEEDED NOT-TAKING SHOWER CHAIR WITHOUT WHEELS DIRECTED DAILY USE NOT-TAKING MAY HAVE - - DIRECTED AIR PURIFIER NOT-TAKING ROLLING WALKER 1 1 DIRECTED WITH BRAKES AND SEAT NOT-TAKING MAY HAVE - - PLANT FUSION PURE PROTEIN 1SCOOP IN FLAX MEAL ORAL 3X/DAY NOT-TAKING PROBIOTIC ACIDOPHILUS - TABLET DIRECTED ORALLY DAILY NOT-TAKING BIOFREEZE 4 % GEL 1 APPLICATION TO AFFECTED AREA NEEDED EXTERNALLY THREE TIMES A DAY MEDICATION LIST REVIEWED AND RECONCILED WITH THE PATIENT PAST MEDICAL HISTORY LARYNGEAL NODULE CANDIDIASIS/BV-FREQUENTLY 04-05-2014 DISTAL FIBULA FRACTURE 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 NODE, NEGATIVE BX, 2018 THYROID NODULE HIATAL HERNIA RUPTURE BACK PAIN BRAIN ANEURYSM ALLERGIES DOXYCYCLINE HYCLATE: PHOTODERMATITIS - ALLERGY LACTOSE INTOLERANT: DIARRHEA - ALLERGY DEMEROL: LOW BP - CONTRAINDICATION DARVOCET-N 100: LOW BP - CONTRAINDICATION AMOXICILLIN: SWELLING - ALLERGY SHELLFISH: HIVES - ALLERGY GLUTEN: DIARRHEA - ALLERGY KEFLEX PENICILLIN (FOR ALLERGIES USE ONLY) SURGICAL HISTORY NECK SURGERY X 2 LEFT KNEE SURGERY BUNIONECTOMY OBDULIO FEET HYSTERECTOMY ABDOMINAL LAPOROSCOPY ABD BEFORE HYSTERECTOMY LASER EYE SURGERY OBDULIO COLONOSCOPY 08/2013 [facility] INJECTIONS TO NECK BY 02/2016 HERNIA REPAIR 03/2017 SKIN CANCER LESION REMOVED 2018 HETIAL HERNIA REPAIR THROID SRUG TAKEN OUT 12/04/2020 FAMILY HISTORY FATHER: 84 YRS, PANCREATIC CANCER, DIAGNOSED WITH OTHER MALIGNANT NEOPLASM OF UNSPECIFIED SITE MOTHER: ALIVE, HYPERLIPIDEMIA, HYPERTENSION, UNSPECIFIED HEART DISEASE, DIABETES, OTHER MALIGNANT NEOPLASM OF UNSPECIFIED SITE 1 BROTHER(S) , 4 SISTER(S) - HEALTHY. 1 SON(S) , 1 DAUGHTER(S) - HEALTHY. FATHER ALSO POSITIVE FOR COLON, PANCREATIC CANCER\\\\\\\\NMOM--SKIN [place]\\\\\\\\NBROTHER-[place]\\\\\\\\NSISTER BACK PROBLEMS\\\\\\\\NSISTER X 2 LUPUS\\\\\\\\NDAUGHTER-BRITTLE DIABETIC\\\\\\\\N\\\\N\\\\NFATHER OF PANCREATIC CANCER, MOTHER AND SISTER HAD SKIN CANCER, UNKNOWN IF IT WAS MELANOMA. SOCIAL HISTORY GENERAL: TOBACCO USE ARE YOU A:FORMER SMOKER FORMER SMOKER UPDATED 10/25/2020 HOW LONG HAS IT BEEN SINCE YOU LAST SMOKED?> 10 YEARS QUIT 2006 ADDITIONAL FINDINGS: TOBACCO USER NO ADDITIONAL FINDINGS: TOBACCO NON-USERCURRENT NON-SMOKER VAPORNO E-CIGARETTENO LATEX QUESTIONNAIRE LATEX ALLERGY : HAVE YOU EVER DEVELOPED ANY TYPE OF REACTION AFTER HANDLING LATEX PRODUCTS SUCH RUBBER GLOVES, CONDOMS, DIAPHRAGMS, BALLOONS, SOCKS, OR UNDERWEAR?NO LATEX ALLERGY : HAVE YOU EVER DEVELOPED ANY TYPE OF REACTION DURING OR AFTER DENTAL APPOINTMENT, VAGINAL/RECTAL EXAMINATION, SURGICAL PROCEDURE, OR ANY OTHER EXPOSURE?NO LATEX RISK : HAVE YOU EVER HAD ANY DIFFICULTY BREATHING OR HIVES AFTER EATING OR HANDLING ANY FRUITS, OR VEGETABLES; SUCH KIWI, BANANAS, STONE FRUITS, OR CHESTNUTSNO LATEX RISK : DO YOU HAVE A PREVIOUS PERSONAL HISTORY OF MORE THAN NINE SURGERIES, SPINA BIFIDA, OR REPEATED CATHERIZATIONS? YES - PLEASE INDICATE : > 9 SURGERIES LATEX RISK : ARE YOU FREQUENTLY EXPOSED TO LATEX PRODUCTS IN YOUR OCCUPATION?NO DATE ASKED : 11/16/2020 ALCOHOL USE: NO. LUNG CANCER SCREENING SMOKING STATUS:FORMER SMOKER IS THE PATIENT BETWEEN THE AGE OF 57 AND 79?YES HAVE YOU QUIT SMOKING WITHIN THE PAST 15 YEARS?YES HAS THE PATIENT EVER BEEN DIAGNOSED WITH LUNG CANCER?NO BMI CARE GOAL FOLLOW-UP BELOW NORMAL BMI FOLLOW-UPDIETARY EDUCATION FOR WEIGHT GAIN ALCOHOL SCREENING DID YOU HAVE A DRINK CONTAINING ALCOHOL IN THE PAST YEAR?NO POINTS0 INTERPRETATIONNEGATIVE RECREATIONAL DRUG USE DRUG USE?NO CAFFEINE CAFFEINE USE?NO SEXUAL HX HAD SEX IN THE LAST 12 MONTHS (VAGINAL, ORAL, OR ANAL)?NO LMP:HYSTERECTOMY HAVE YOU EVER HAD AN STD?NO HIV / HEP-C SCREENING HIV TEST OFFERED TO PATIENT:YES DATE OFFERED:10/25/2020 TEST ACCEPTED:NO HEP-C TEST OFFERED TO PATIENT:YES DATE OFFERED:10/25/2020 REASON:PATIENT DECLINED CONSENT ON FILE TEST ACCEPTED:YES CONSENT SIGNED BROCHURE PROVIDED TO PATIENTNO MORMON LATTER-DAY. LANGUAGE FILIPINO. EDUCATION SOME COLLEGE. 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 DIET: DIET ANGELA.. EXERCISE: DAILY-- ABLE. MARITAL STATUS: SINGLE, .. OTHERS AT HOME: LIVES ALONE. - WAS THE PROVIDER NOTIFIED OF ANY PERTINENT INFO?YES HAS THE PATIENT BEEN EDUCATED REGARDING HIS/HER PLAN OF CARE?YES HAS THE PATIENT BEEN EDUCATED REGARDING PAIN, THE RISK FOR PAIN, THE IMPORTANCE OF EFFECTIVE PAIN MANAGEMENT, AND THE PAIN ASSESSMENT PROCESS?YES HOUSING: RENTS APARTMENT. ADVANCE DIRECTIVE ADVANCE DIRECTIVE DISCUSSED WITH PATIENT:YES HCP - MABLE DAWSON (BROTHER) [phone]; IS ALSO PATIENT'S POA AND LIVING WILL HOSPITALIZATION/MAJOR DIAGNOSTIC PROCEDURE EATING DISORDER 01/20/2013 SURGERY HITAL HERNIA REPAIR 07/2020 [facility] ABD PAIN 08/28/2020` REVIEW OF SYSTEMS CONSTITUTIONAL: ANY RECENT FEVER NO . CHILLS NO . WEIGHT CHANGE OF UNKNOWN REASONS NO . GASTROENTEROLOGY: NEW UNEXPLAINABLE CHANGES IN BOWEL CONTROL NO . CONSTIPATION NO . GENITOURINARY: ANY NEW CHANGE IN BLADDER CONTROL? NO . NEUROLOGY: NEW ONSET DIZZINESS OR NEUROLOGICAL CHANGES NOT MENTIONED NO . NEW NUMBNESS OR PAIN PATTERNS NOT MENTIONED AND PERTINENT TO TODAY'S VISIT NO . CARDIOLOGY: NEW CHEST PRESSURE NO . PATIENT DENIES NO . RESPIRATORY: UNEXPLAINABLE COUGH NO . NEW SHORTNESS OF BREATH NO . VITAL SIGNS WT 101.4 LBS, HT 61 IN, BMI 19.16 INDEX, BP 126/64 MM HG, HR 78 /MIN, RR 18 /MIN, TEMP 97.2 F, OXYGEN SAT % 97%, SAFE IN ENV? (Y/N) YES, NA INITIALS AW 1002T.GRICEL HANSON. EXAMINATION GENERAL EXAMINATION: GENERALNO ACUTE DISTRESS, WELL NOURISHED AND HYDRATED. NECK:PATIENT HAS SEVERE HYPERSENSITIVITY TO LIGHT TOUCH OVER ANTERIOR CERVICAL/THYROID REGION . LUNGS:CLEAR TO AUSCULTATION BILATERALLY, NO WHEEZES, RHONCHI, RALES. HEART:NO MURMURS, REGULAR RATE AND RHYTHM. MUSCULOSKELETAL:MULTIPLE AREAS OF TENDER SPOTS ENTIRE SPINAL COLUMN AND PARASPINAL REGION.MST 4/5 UPPER /LOWER EXTREMITIES. DIAGNOSTIC TESTS REVIEWED MRI L/S AND C-SPINE 09/2020. 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 FOLLOW-UP WILL BE SCHEDULED IN 2 MONTHS. PROCEDURE CODES FA211 ESTABILISHED PATIENT [facility] FACILITY CHARGE DISPOSITION & COMMUNICATION FOLLOW UP 2 MONTHS (REASON: FOLLOW-UP NECK AND LOW BACK PAIN CONSIDER INTERVENTIONS) ELECTRONICALLY SIGNED BY HUGO NICOLE ON 11/16/2020 AT 01:19 PM EDT DISCLAIMER : THIS IS A VISIT SUMMARY EXTRACTED FROM THE [employer] CHART. IT IS NOT A COPY OF THE [employer] PROGRESS NOTE. VARUN
--- NOTE | 2020-11-17 02:08 | ECWPNPC ---
PATIENT NAME: BRIAN DAWSON : 1955 GENDER: FEMALE VISIT DATE: 11/16/2020 DISCHARGE DATE: 11/16/20 1051 VISIT LOCKED DATE TIME: PHYSICIAN: SUKHI GONZALES PHYSICIAN PAGER NO: ACTIVE RESOURCE: SUKHI GONZALES REASON FOR APPOINTMENT 1. 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 PATIENT IS RECUPERATING FROM ABDOMINAL SURGERY/FUNDOPLICATION WITH COMPLICATIONS THAT WAS PERFORMED IN AUGUST AT [facility]. SHE IS GETTING BETTER BUT SHE IS NOT TAKING ANY FOOD BY MOUTH. SHE HAS A PORT IN PLACE AND GETTING TPN NUTRIENTS THROUGH THIS DAILY. HAS RECENTLY FINISHED IN HOUSE PHYSICAL THERAPY FOR REHABILITATION / LEARNING TO WALK AGAIN. IS SCHEDULED FOR THYROID SURGERY IN 2 WEEKS. RECENT MRI OF CERVICAL AND LUMBAR SPINE ARE REVIEWED. WE WILL TRY TO HELP HER WITH INJECTIONS AND POSSIBLY PHYSICAL THERAPY ONCE SHE IS MEDICALLY STABILIZED. -. FALL RISK SCREENING: SCREENING : NO FALLS REPORTED IN THE LAST YEAR. PAIN SCREENING: PATIENT HAS A COMPLAINT OF ACUTE OR CHRONIC PAIN :YES LOCATION OF PAIN:NECK, LOW BACK INTENSITY OF PAIN (SCALE OF 1 TO 10):7 WHAT DOES YOUR PAIN FEEL LIKE:CONTINOUS, THROBBING, SHOOTING DURATION:CONTINOUS, CONSTANT, ALL DAY PAIN IS INCREASED BY:ACTIVITIES PAIN IS DECREASED BY:OTHERS WALKING AND BRACE NURSING NOTE: -. PAIN CENTER INTAKE QUESTIONS: DO YOU HAVE A HISTORY OF MRSA? :NO DO YOU TAKE A BLOOD THINNERS? :YES DO YOU HAVE ANY BLEEDING DISORDERS? :NO ANY NEW NUMBNESS OR WEAKNESS IN YOUR LEGS OR ARMS? :YES BOTH LEGS, MOSTLY IN THE LEFT LEG, IN THE ARMS ITS MOSTYL IN THE RIGHT ANY PACEMAKER,DEFIBRILLATOR, OR DORSAL COLUMN STIMULATOR? :NO DO YOU HAVE ANY RASHES OR OPEN SORES? :NO ARE YOU ALLERGIC TO IV DYE? :NO ARE YOU DIABETIC? :NO ANY NEW PROBLEMS WITH YOUR MEDICATIONS? :NO HAVE YOU RECEIVED A VACCINE IN THE PAST 30 DAYS? :NO DO YOU PLAN TO RECEIVE A VACCINE IN THE NEXT 21 DAYS? :NO DO YOU NEED ANY PRESCRIPTION? :NO DO YOU TAKE ANY IMMUNOSUPPRESSIVE MEDICATIONS? :NO DO YOU HAVE ANY KIDNEY OR LIVER DISEASE? :NO IS THERE A CHANCE YOU COULD BE ? :NO ARE YOU BREAST FEEDING? :NO CURRENT MEDICATIONS TAKING TOPAMAX 100 MG TABLET 1 TAB ORALLY TWICE A DAY TAKING DICYCLOMINE HCL 10 MG CAPSULE 1 CAPSULE ORALLY FOUR TIMES A DAY TAKING AClarence SOLOMONCH QUIN - PAD DIRECTED EXTERNALLY NEEDED HEMORRHOIDS TAKING GUAIFENESIN 100 MG/5ML SYRUP 10 ML NEEDED ORALLY EVERY 4 HRS TAKING CLOTRIMAZOLE 1 % CREAM 1 APPLICATION EXTERNALLY TWICE A DAY TAKING ESTRING 2 MG RING DIRECTED VAGINAL _INSERT Q 3 MONTHS TAKING RESTASIS 0.05 % EMULSION 1 DROP INTO AFFECTED EYE OPHTHALMIC TWICE A DAY TAKING FLUTICASONE PROPIONATE 50 MCG/ACT SUSPENSION 1 SPRAY IN EACH NOSTRIL NASALLY ONCE A DAY TAKING TYLENOL CHILDRENS 160 MG/5ML SUSPENSION 10-20ML ORALLY BID TAKING TPN ELECTROLYTES - CONCENTRATE DIRECTED INTRAVENOUS 1 BAG DAILY AT 1800, NOTES: PT REPORTS 3 DAYS A WEEK ADDITIONAL VITAMINS ARE ADDED TAKING HYDROCORTISONE ANTI-ITCH 1 % CREAM 1 APPLICATION EXTERNALLY ONCE A DAY TAKING ALUMINUM CHLORIDE 20 % SOLUTION 1 APPLICATION AT BEDTIME EXTERNALLY NIGHTLY TAKING MAY HAVE - - DIRECTED WEDGE PILLOW,12 INCH ELEVATION TAKING PREGABALIN 20 MG/ML SOLUTION 5 ML ORALLY TWICE A DAY, NOTES: MAKES HER SICK TAKING FAMOTIDINE 40 MG/4ML SOLUTION 2 ML INTRAVENOUS TWICE A DAY NOT-TAKING PANTOPRAZOLE SODIUM - POWDER 1 PACKET MIXED WITH APPLE JUICE OR APPLESAUCE ORALLY TWICE DAILY NOT-TAKING CLOTRIMAZOLE 1 % CREAM 1 APPLICATION EXTERNALLY TWICE A DAY NOT-TAKING PREGABALIN 20 MG/ML SOLUTION 1ML ORALLY BID MDD 2ML NOT-TAKING ONDANSETRON 4 MG TABLET DISINTEGRATING 1 TABLET ON THE TONGUE AND ALLOW TO DISSOLVE ORALLY THREE TIMES A DAY NEEDED NOT-TAKING TRULANCE 3 MG TABLET 1 TABLET ORALLY ONCE A DAY NOT-TAKING OXYCODONE HCL 5 MG/5ML SOLUTION 5 ML NEEDED ORALLY EVERY 4 HRS NEEDED FOR PAIN NOT-TAKING CIMETIDINE HCL 300 MG/5ML SOLUTION 5 ML WITH MEALS ORALLY TWICE A DAY NOT-TAKING LOPERAMIDE HCL 2 MG CAPSULE 1 CAPSULE NEEDED ORALLY AFTER EACH UNFORMED STOOL, MAX 16 MG PER DAY NOT-TAKING MIRALAX 17 GM/SCOOP POWDER DIRECTED ORALLY TWICE A DAY NEEDED NOT-TAKING SHOWER CHAIR WITHOUT WHEELS DIRECTED DAILY USE NOT-TAKING MAY HAVE - - DIRECTED AIR PURIFIER NOT-TAKING ROLLING WALKER 1 1 DIRECTED WITH BRAKES AND SEAT NOT-TAKING MAY HAVE - - PLANT FUSION PURE PROTEIN 1SCOOP IN FLAX MEAL ORAL 3X/DAY NOT-TAKING PROBIOTIC ACIDOPHILUS - TABLET DIRECTED ORALLY DAILY NOT-TAKING BIOFREEZE 4 % GEL 1 APPLICATION TO AFFECTED AREA NEEDED EXTERNALLY THREE TIMES A DAY MEDICATION LIST REVIEWED AND RECONCILED WITH THE PATIENT PAST MEDICAL HISTORY LARYNGEAL NODULE CANDIDIASIS/BV-FREQUENTLY 04-05-2014 DISTAL FIBULA FRACTURE 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 NODE, NEGATIVE BX, 2018 THYROID NODULE HIATAL HERNIA RUPTURE BACK PAIN BRAIN ANEURYSM ALLERGIES DOXYCYCLINE HYCLATE: PHOTODERMATITIS - ALLERGY LACTOSE INTOLERANT: DIARRHEA - ALLERGY DEMEROL: LOW BP - CONTRAINDICATION DARVOCET-N 100: LOW BP - CONTRAINDICATION AMOXICILLIN: SWELLING - ALLERGY SHELLFISH: HIVES - ALLERGY GLUTEN: DIARRHEA - ALLERGY KEFLEX PENICILLIN (FOR ALLERGIES USE ONLY) SURGICAL HISTORY NECK SURGERY X 2 LEFT KNEE SURGERY BUNIONECTOMY BODULIO FEET HYSTERECTOMY ABDOMINAL LAPOROSCOPY ABD BEFORE HYSTERECTOMY LASER EYE SURGERY OBDULIO COLONOSCOPY 08/2013 STERIOD INJECTIONS TO NECK BY 02/2016 HERNIA REPAIR 03/2017 SKIN CANCER LESION REMOVED 2018 HETIAL HERNIA REPAIR THROID SRUG TAKEN OUT 12/04/2020 FAMILY HISTORY FATHER: 84 YRS, PANCREATIC CANCER, DIAGNOSED WITH OTHER MALIGNANT NEOPLASM OF UNSPECIFIED SITE MOTHER: ALIVE, HYPERLIPIDEMIA, HYPERTENSION, UNSPECIFIED HEART DISEASE, DIABETES, OTHER MALIGNANT NEOPLASM OF UNSPECIFIED SITE 1 BROTHER(S) , 4 SISTER(S) - HEALTHY. 1 SON(S) , 1 DAUGHTER(S) - HEALTHY. FATHER ALSO POSITIVE FOR COLON, PANCREATIC CANCER\\\\\\\\NMOM--SKIN CA\\\\\\\\NBROTHER-[place]\\\\\\\\NSISTER BACK PROBLEMS\\\\\\\\NSISTER X 2 LUPUS\\\\\\\\NDAUGHTER-BRITTLE DIABETIC\\\\\\\\N\\\\N\\\\NFATHER OF PANCREATIC CANCER, MOTHER AND SISTER HAD SKIN CANCER, UNKNOWN IF IT WAS MELANOMA. SOCIAL HISTORY GENERAL: TOBACCO USE ARE YOU A:FORMER SMOKER FORMER SMOKER UPDATED 10/25/2020 HOW LONG HAS IT BEEN SINCE YOU LAST SMOKED?> 10 YEARS QUIT 2006 ADDITIONAL FINDINGS: TOBACCO USER NO ADDITIONAL FINDINGS: TOBACCO NON-USERCURRENT NON-SMOKER VAPORNO E-CIGARETTENO LATEX QUESTIONNAIRE LATEX ALLERGY : HAVE YOU EVER DEVELOPED ANY TYPE OF REACTION AFTER HANDLING LATEX PRODUCTS SUCH RUBBER GLOVES, CONDOMS, DIAPHRAGMS, BALLOONS, SOCKS, OR UNDERWEAR?NO LATEX ALLERGY : HAVE YOU EVER DEVELOPED ANY TYPE OF REACTION DURING OR AFTER DENTAL APPOINTMENT, VAGINAL/RECTAL EXAMINATION, SURGICAL PROCEDURE, OR ANY OTHER EXPOSURE?NO LATEX RISK : HAVE YOU EVER HAD ANY DIFFICULTY BREATHING OR HIVES AFTER EATING OR HANDLING ANY FRUITS, OR VEGETABLES; SUCH KIWI, BANANAS, STONE FRUITS, OR CHESTNUTSNO LATEX RISK : DO YOU HAVE A PREVIOUS PERSONAL HISTORY OF MORE THAN NINE SURGERIES, SPINA BIFIDA, OR REPEATED CATHERIZATIONS? YES - PLEASE INDICATE : > 9 SURGERIES LATEX RISK : ARE YOU FREQUENTLY EXPOSED TO LATEX PRODUCTS IN YOUR OCCUPATION?NO DATE ASKED : 11/16/2020 ALCOHOL USE: NO. LUNG CANCER SCREENING SMOKING STATUS:FORMER SMOKER IS THE PATIENT BETWEEN THE AGE OF 57 AND 79?YES HAVE YOU QUIT SMOKING WITHIN THE PAST 15 YEARS?YES HAS THE PATIENT EVER BEEN DIAGNOSED WITH LUNG CANCER?NO BMI CARE GOAL FOLLOW-UP BELOW NORMAL BMI FOLLOW-UPDIETARY EDUCATION FOR WEIGHT GAIN ALCOHOL SCREENING DID YOU HAVE A DRINK CONTAINING ALCOHOL IN THE PAST YEAR?NO POINTS0 INTERPRETATIONNEGATIVE RECREATIONAL DRUG USE DRUG USE?NO CAFFEINE CAFFEINE USE?NO SEXUAL HX HAD SEX IN THE LAST 12 MONTHS (VAGINAL, ORAL, OR ANAL)?NO LMP:HYSTERECTOMY HAVE YOU EVER HAD AN STD?NO HIV / HEP-C SCREENING HIV TEST OFFERED TO PATIENT:YES DATE OFFERED:10/25/2020 TEST ACCEPTED:NO HEP-C TEST OFFERED TO PATIENT:YES DATE OFFERED:10/25/2020 REASON:PATIENT DECLINED CONSENT ON FILE TEST ACCEPTED:YES CONSENT SIGNED BROCHURE PROVIDED TO PATIENTNO [employer]TIST [employer]HAI. LANGUAGE SWISS. EDUCATION SOME COLLEGE. 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. DIET: DIET ANGELA.. EXERCISE: DAILY-- ABLE. MARITAL STATUS: SINGLE, .. OTHERS AT HOME: LIVES ALONE. - WAS THE PROVIDER NOTIFIED OF ANY PERTINENT INFO?YES HAS THE PATIENT BEEN EDUCATED REGARDING HIS/HER PLAN OF CARE?YES HAS THE PATIENT BEEN EDUCATED REGARDING PAIN, THE RISK FOR PAIN, THE IMPORTANCE OF EFFECTIVE PAIN MANAGEMENT, AND THE PAIN ASSESSMENT PROCESS?YES HOUSING: RENTS APARTMENT. ADVANCE DIRECTIVE ADVANCE DIRECTIVE DISCUSSED WITH PATIENT:YES HCP - MABLE DAWSON (BROTHER) [phone]; IS ALSO PATIENT'S POA AND LIVING WILL HOSPITALIZATION/MAJOR DIAGNOSTIC PROCEDURE EATING DISORDER 01/20/2013 SURGERY HITAL HERNIA REPAIR 07/2020 [facility] ABD PAIN 08/28/2020` REVIEW OF SYSTEMS CONSTITUTIONAL: ANY RECENT FEVER NO . CHILLS NO . WEIGHT CHANGE OF UNKNOWN REASONS NO . GASTROENTEROLOGY: NEW UNEXPLAINABLE CHANGES IN BOWEL CONTROL NO . CONSTIPATION NO . GENITOURINARY: ANY NEW CHANGE IN BLADDER CONTROL? NO . NEUROLOGY: NEW ONSET DIZZINESS OR NEUROLOGICAL CHANGES NOT MENTIONED NO . NEW NUMBNESS OR PAIN PATTERNS NOT MENTIONED AND PERTINENT TO TODAY'S VISIT NO . CARDIOLOGY: NEW CHEST PRESSURE NO . PATIENT DENIES NO . RESPIRATORY: UNEXPLAINABLE COUGH NO . NEW SHORTNESS OF BREATH NO . VITAL SIGNS WT 101.4 LBS, HT 61 IN, BMI 19.16 INDEX, BP 126/64 MM HG, HR 78 /MIN, RR 18 /MIN, TEMP 97.2 F, OXYGEN SAT % 97%, SAFE IN ENV? (Y/N) YES, NA INITIALS AW 1002T.GRICEL HANSON. EXAMINATION GENERAL EXAMINATION: GENERALNO ACUTE DISTRESS, WELL NOURISHED AND HYDRATED. NECK:PATIENT HAS SEVERE HYPERSENSITIVITY TO LIGHT TOUCH OVER ANTERIOR CERVICAL/THYROID REGION . LUNGS:CLEAR TO AUSCULTATION BILATERALLY, NO WHEEZES, RHONCHI, RALES. HEART:NO MURMURS, REGULAR RATE AND RHYTHM. MUSCULOSKELETAL:MULTIPLE AREAS OF TENDER SPOTS ENTIRE SPINAL COLUMN AND PARASPINAL REGION.MST 4/5 UPPER /LOWER EXTREMITIES. DIAGNOSTIC TESTS REVIEWED MRI L/S AND C-SPINE 09/2020. 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 FOLLOW-UP WILL BE SCHEDULED IN 2 MONTHS. PROCEDURE CODES FA211 ESTABILISHED PATIENT [facility] FAC[facility] CHARGE DISPOSITION & COMMUNICATION FOLLOW UP 2 MONTHS (REASON: FOLLOW-UP NECK AND LOW BACK PAIN CONSIDER INTERVENTIONS) ELECTRONICALLY SIGNED BY HUGO NICOLE ON 11/16/2020 AT 01:19 PM EDT DISCLAIMER : THIS IS A VISIT SUMMARY EXTRACTED FROM THE [employer] CHART. IT IS NOT A COPY OF THE [employer] PROGRESS NOTE. VARUN
--- NOTE | 2020-11-17 02:10 | ECWPNPC ---
PATIENT NAME: BRIAN DAWSON : 1955 GENDER: FEMALE VISIT DATE: 11/16/2020 DISCHARGE DATE: 11/16/20 1051 VISIT LOCKED DATE TIME: PHYSICIAN: SUKHI GONZALES PHYSICIAN PAGER NO: ACTIVE RESOURCE: SUKHI GONZALES REASON FOR APPOINTMENT 1. 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 PATIENT IS RECUPERATING FROM ABDOMINAL SURGERY/FUNDOPLICATION WITH COMPLICATIONS THAT WAS PERFORMED IN AUGUST AT [facility]. SHE IS GETTING BETTER BUT SHE IS NOT TAKING ANY FOOD BY MOUTH. SHE HAS A PORT IN PLACE AND GETTING TPN NUTRIENTS THROUGH THIS DAILY. HAS RECENTLY FINISHED IN HOUSE PHYSICAL THERAPY FOR REHABILITATION / LEARNING TO WALK AGAIN. IS SCHEDULED FOR THYROID SURGERY IN 2 WEEKS. RECENT MRI OF CERVICAL AND LUMBAR SPINE ARE REVIEWED. WE WILL TRY TO HELP HER WITH INJECTIONS AND POSSIBLY PHYSICAL THERAPY ONCE SHE IS MEDICALLY STABILIZED. -. FALL RISK SCREENING: SCREENING : NO FALLS REPORTED IN THE LAST YEAR. PAIN SCREENING: PATIENT HAS A COMPLAINT OF ACUTE OR CHRONIC PAIN :YES LOCATION OF PAIN:NECK, LOW BACK INTENSITY OF PAIN (SCALE OF 1 TO 10):7 WHAT DOES YOUR PAIN FEEL LIKE:CONTINOUS, THROBBING, SHOOTING DURATION:CONTINOUS, CONSTANT, ALL DAY PAIN IS INCREASED BY:ACTIVITIES PAIN IS DECREASED BY:OTHERS WALKING AND BRACE NURSING NOTE: -. PAIN CENTER INTAKE QUESTIONS: DO YOU HAVE A HISTORY OF MRSA? :NO DO YOU TAKE A BLOOD THINNERS? :YES DO YOU HAVE ANY BLEEDING DISORDERS? :NO ANY NEW NUMBNESS OR WEAKNESS IN YOUR LEGS OR ARMS? :YES BOTH LEGS, MOSTLY IN THE LEFT LEG, IN THE ARMS ITS MOSTYL IN THE RIGHT ANY PACEMAKER,DEFIBRILLATOR, OR DORSAL COLUMN STIMULATOR? :NO DO YOU HAVE ANY RASHES OR OPEN SORES? :NO ARE YOU ALLERGIC TO IV DYE? :NO ARE YOU DIABETIC? :NO ANY NEW PROBLEMS WITH YOUR MEDICATIONS? :NO HAVE YOU RECEIVED A VACCINE IN THE PAST 30 DAYS? :NO DO YOU PLAN TO RECEIVE A VACCINE IN THE NEXT 21 DAYS? :NO DO YOU NEED ANY PRESCRIPTION? :NO DO YOU TAKE ANY IMMUNOSUPPRESSIVE MEDICATIONS? :NO DO YOU HAVE ANY KIDNEY OR LIVER DISEASE? :NO IS THERE A CHANCE YOU COULD BE ? :NO ARE YOU BREAST FEEDING? :NO CURRENT MEDICATIONS TAKING TOPAMAX 100 MG TABLET 1 TAB ORALLY TWICE A DAY TAKING DICYCLOMINE HCL 10 MG CAPSULE 1 CAPSULE ORALLY FOUR TIMES A DAY TAKING AClarence SOLOMONCH QUIN - PAD DIRECTED EXTERNALLY NEEDED HEMORRHOIDS TAKING GUAIFENESIN 100 MG/5ML SYRUP 10 ML NEEDED ORALLY EVERY 4 HRS TAKING CLOTRIMAZOLE 1 % CREAM 1 APPLICATION EXTERNALLY TWICE A DAY TAKING ESTRING 2 MG RING DIRECTED VAGINAL _INSERT Q 3 MONTHS TAKING RESTASIS 0.05 % EMULSION 1 DROP INTO AFFECTED EYE OPHTHALMIC TWICE A DAY TAKING FLUTICASONE PROPIONATE 50 MCG/ACT SUSPENSION 1 SPRAY IN EACH NOSTRIL NASALLY ONCE A DAY TAKING TYLENOL CHILDRENS 160 MG/5ML SUSPENSION 10-20ML ORALLY BID TAKING TPN ELECTROLYTES - CONCENTRATE DIRECTED INTRAVENOUS 1 BAG DAILY AT 1800, NOTES: PT REPORTS 3 DAYS A WEEK ADDITIONAL VITAMINS ARE ADDED TAKING HYDROCORTISONE ANTI-ITCH 1 % CREAM 1 APPLICATION EXTERNALLY ONCE A DAY TAKING ALUMINUM CHLORIDE 20 % SOLUTION 1 APPLICATION AT BEDTIME EXTERNALLY NIGHTLY TAKING MAY HAVE - - DIRECTED WEDGE PILLOW,12 INCH ELEVATION TAKING PREGABALIN 20 MG/ML SOLUTION 5 ML ORALLY TWICE A DAY, NOTES: MAKES HER SICK TAKING FAMOTIDINE 40 MG/4ML SOLUTION 2 ML INTRAVENOUS TWICE A DAY NOT-TAKING PANTOPRAZOLE SODIUM - POWDER 1 PACKET MIXED WITH APPLE JUICE OR APPLESAUCE ORALLY TWICE DAILY NOT-TAKING CLOTRIMAZOLE 1 % CREAM 1 APPLICATION EXTERNALLY TWICE A DAY NOT-TAKING PREGABALIN 20 MG/ML SOLUTION 1ML ORALLY BID MDD 2ML NOT-TAKING ONDANSETRON 4 MG TABLET DISINTEGRATING 1 TABLET ON THE TONGUE AND ALLOW TO DISSOLVE ORALLY THREE TIMES A DAY NEEDED NOT-TAKING TRULANCE 3 MG TABLET 1 TABLET ORALLY ONCE A DAY NOT-TAKING OXYCODONE HCL 5 MG/5ML SOLUTION 5 ML NEEDED ORALLY EVERY 4 HRS NEEDED FOR PAIN NOT-TAKING CIMETIDINE HCL 300 MG/5ML SOLUTION 5 ML WITH MEALS ORALLY TWICE A DAY NOT-TAKING LOPERAMIDE HCL 2 MG CAPSULE 1 CAPSULE NEEDED ORALLY AFTER EACH UNFORMED STOOL, MAX 16 MG PER DAY NOT-TAKING MIRALAX 17 GM/SCOOP POWDER DIRECTED ORALLY TWICE A DAY NEEDED NOT-TAKING SHOWER CHAIR WITHOUT WHEELS DIRECTED DAILY USE NOT-TAKING MAY HAVE - - DIRECTED AIR PURIFIER NOT-TAKING ROLLING WALKER 1 1 DIRECTED WITH BRAKES AND SEAT NOT-TAKING MAY HAVE - - PLANT FUSION PURE PROTEIN 1SCOOP IN FLAX MEAL ORAL 3X/DAY NOT-TAKING PROBIOTIC ACIDOPHILUS - TABLET DIRECTED ORALLY DAILY NOT-TAKING BIOFREEZE 4 % GEL 1 APPLICATION TO AFFECTED AREA NEEDED EXTERNALLY THREE TIMES A DAY MEDICATION LIST REVIEWED AND RECONCILED WITH THE PATIENT PAST MEDICAL HISTORY LARYNGEAL NODULE CANDIDIASIS/BV-FREQUENTLY 04-05-2014 DISTAL FIBULA FRACTURE 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 NODE, NEGATIVE BX, 2018 THYROID NODULE HIATAL HERNIA RUPTURE BACK PAIN BRAIN ANEURYSM ALLERGIES DOXYCYCLINE HYCLATE: PHOTODERMATITIS - ALLERGY LACTOSE INTOLERANT: DIARRHEA - ALLERGY DEMEROL: LOW BP - CONTRAINDICATION DARVOCET-N 100: LOW BP - CONTRAINDICATION AMOXICILLIN: SWELLING - ALLERGY SHELLFISH: HIVES - ALLERGY GLUTEN: DIARRHEA - ALLERGY KEFLEX PENICILLIN (FOR ALLERGIES USE ONLY) SURGICAL HISTORY NECK SURGERY X 2 LEFT KNEE SURGERY BUNIONECTOMY OBDULIO FEET HYSTERECTOMY ABDOMINAL LAPOROSCOPY ABD BEFORE HYSTERECTOMY LASER EYE SURGERY OBDULIO COLONOSCOPY 08/2013 [facility] INJECTIONS TO NECK BY 02/2016 HERNIA REPAIR 03/2017 SKIN CANCER LESION REMOVED 2018 HETIAL HERNIA REPAIR THROID SRUG TAKEN OUT 12/04/2020 FAMILY HISTORY FATHER: 84 YRS, PANCREATIC CANCER, DIAGNOSED WITH OTHER MALIGNANT NEOPLASM OF UNSPECIFIED SITE MOTHER: ALIVE, HYPERLIPIDEMIA, HYPERTENSION, UNSPECIFIED HEART DISEASE, DIABETES, OTHER MALIGNANT NEOPLASM OF UNSPECIFIED SITE 1 BROTHER(S) , 4 SISTER(S) - HEALTHY. 1 SON(S) , 1 DAUGHTER(S) - HEALTHY. FATHER ALSO POSITIVE FOR COLON, PANCREATIC CANCER\\\\\\\\NMOM--SKIN [place]\\\\\\\\NBROTHER-[place]\\\\\\\\NSISTER BACK PROBLEMS\\\\\\\\NSISTER X 2 LUPUS\\\\\\\\NDAUGHTER-BRITTLE DIABETIC\\\\\\\\N\\\\N\\\\NFATHER OF PANCREATIC CANCER, MOTHER AND SISTER HAD SKIN CANCER, UNKNOWN IF IT WAS MELANOMA. SOCIAL HISTORY GENERAL: TOBACCO USE ARE YOU A:FORMER SMOKER FORMER SMOKER UPDATED 10/25/2020 HOW LONG HAS IT BEEN SINCE YOU LAST SMOKED?> 10 YEARS QUIT 2006 ADDITIONAL FINDINGS: TOBACCO USER NO ADDITIONAL FINDINGS: TOBACCO NON-USERCURRENT NON-SMOKER VAPORNO E-CIGARETTENO LATEX QUESTIONNAIRE LATEX ALLERGY : HAVE YOU EVER DEVELOPED ANY TYPE OF REACTION AFTER HANDLING LATEX PRODUCTS SUCH RUBBER GLOVES, CONDOMS, DIAPHRAGMS, BALLOONS, SOCKS, OR UNDERWEAR?NO LATEX ALLERGY : HAVE YOU EVER DEVELOPED ANY TYPE OF REACTION DURING OR AFTER DENTAL APPOINTMENT, VAGINAL/RECTAL EXAMINATION, SURGICAL PROCEDURE, OR ANY OTHER EXPOSURE?NO LATEX RISK : HAVE YOU EVER HAD ANY DIFFICULTY BREATHING OR HIVES AFTER EATING OR HANDLING ANY FRUITS, OR VEGETABLES; SUCH KIWI, BANANAS, STONE FRUITS, OR CHESTNUTSNO LATEX RISK : DO YOU HAVE A PREVIOUS PERSONAL HISTORY OF MORE THAN NINE SURGERIES, SPINA BIFIDA, OR REPEATED CATHERIZATIONS? YES - PLEASE INDICATE : > 9 SURGERIES LATEX RISK : ARE YOU FREQUENTLY EXPOSED TO LATEX PRODUCTS IN YOUR OCCUPATION?NO DATE ASKED : 11/16/2020 ALCOHOL USE: NO. LUNG CANCER SCREENING SMOKING STATUS:FORMER SMOKER IS THE PATIENT BETWEEN THE AGE OF 57 AND 79?YES HAVE YOU QUIT SMOKING WITHIN THE PAST 15 YEARS?YES HAS THE PATIENT EVER BEEN DIAGNOSED WITH LUNG CANCER?NO BMI CARE GOAL FOLLOW-UP BELOW NORMAL BMI FOLLOW-UPDIETARY EDUCATION FOR WEIGHT GAIN ALCOHOL SCREENING DID YOU HAVE A DRINK CONTAINING ALCOHOL IN THE PAST YEAR?NO POINTS0 INTERPRETATIONNEGATIVE RECREATIONAL DRUG USE DRUG USE?NO CAFFEINE CAFFEINE USE?NO SEXUAL HX HAD SEX IN THE LAST 12 MONTHS (VAGINAL, ORAL, OR ANAL)?NO LMP:HYSTERECTOMY HAVE YOU EVER HAD AN STD?NO HIV / HEP-C SCREENING HIV TEST OFFERED TO PATIENT:YES DATE OFFERED:10/25/2020 TEST ACCEPTED:NO HEP-C TEST OFFERED TO PATIENT:YES DATE OFFERED:10/25/2020 REASON:PATIENT DECLINED CONSENT ON FILE TEST ACCEPTED:YES CONSENT SIGNED BROCHURE PROVIDED TO PATIENTNO YAZDANISM ANGLICAN. LANGUAGE EMIRATI. EDUCATION SOME COLLEGE. 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 DIET: DIET ANGELA.. EXERCISE: DAILY-- ABLE. MARITAL STATUS: SINGLE, .. OTHERS AT HOME: LIVES ALONE. - WAS THE PROVIDER NOTIFIED OF ANY PERTINENT INFO?YES HAS THE PATIENT BEEN EDUCATED REGARDING HIS/HER PLAN OF CARE?YES HAS THE PATIENT BEEN EDUCATED REGARDING PAIN, THE RISK FOR PAIN, THE IMPORTANCE OF EFFECTIVE PAIN MANAGEMENT, AND THE PAIN ASSESSMENT PROCESS?YES HOUSING: RENTS APARTMENT. ADVANCE DIRECTIVE ADVANCE DIRECTIVE DISCUSSED WITH PATIENT:YES HCP - MABLE DAWSON (BROTHER) [phone]; IS ALSO PATIENT'S POA AND LIVING WILL HOSPITALIZATION/MAJOR DIAGNOSTIC PROCEDURE EATING DISORDER 01/20/2013 SURGERY HITAL HERNIA REPAIR 07/2020 [facility] ABD PAIN 08/28/2020` REVIEW OF SYSTEMS CONSTITUTIONAL: ANY RECENT FEVER NO . CHILLS NO . WEIGHT CHANGE OF UNKNOWN REASONS NO . GASTROENTEROLOGY: NEW UNEXPLAINABLE CHANGES IN BOWEL CONTROL NO . CONSTIPATION NO . GENITOURINARY: ANY NEW CHANGE IN BLADDER CONTROL? NO . NEUROLOGY: NEW ONSET DIZZINESS OR NEUROLOGICAL CHANGES NOT MENTIONED NO . NEW NUMBNESS OR PAIN PATTERNS NOT MENTIONED AND PERTINENT TO TODAY'S VISIT NO . CARDIOLOGY: NEW CHEST PRESSURE NO . PATIENT DENIES NO . RESPIRATORY: UNEXPLAINABLE COUGH NO . NEW SHORTNESS OF BREATH NO . VITAL SIGNS WT 101.4 LBS, HT 61 IN, BMI 19.16 INDEX, BP 126/64 MM HG, HR 78 /MIN, RR 18 /MIN, TEMP 97.2 F, OXYGEN SAT % 97%, SAFE IN ENV? (Y/N) YES, NA INITIALS AW 1002T.GRICEL HANSON. EXAMINATION GENERAL EXAMINATION: GENERALNO ACUTE DISTRESS, WELL NOURISHED AND HYDRATED. NECK:PATIENT HAS SEVERE HYPERSENSITIVITY TO LIGHT TOUCH OVER ANTERIOR CERVICAL/THYROID REGION . LUNGS:CLEAR TO AUSCULTATION BILATERALLY, NO WHEEZES, RHONCHI, RALES. HEART:NO MURMURS, REGULAR RATE AND RHYTHM. MUSCULOSKELETAL:MULTIPLE AREAS OF TENDER SPOTS ENTIRE SPINAL COLUMN AND PARASPINAL REGION.MST 4/5 UPPER /LOWER EXTREMITIES. DIAGNOSTIC TESTS REVIEWED MRI L/S AND C-SPINE 09/2020. 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 FOLLOW-UP WILL BE SCHEDULED IN 2 MONTHS. PROCEDURE CODES FA211 ESTABILISHED PATIENT [facility] FACILITY CHARGE DISPOSITION & COMMUNICATION FOLLOW UP 2 MONTHS (REASON: FOLLOW-UP NECK AND LOW BACK PAIN CONSIDER INTERVENTIONS) ELECTRONICALLY SIGNED BY HUGO NICOLE ON 11/16/2020 AT 01:19 PM EDT DISCLAIMER : THIS IS A VISIT SUMMARY EXTRACTED FROM THE [facility] CHART. IT IS NOT A COPY OF THE [facility] PROGRESS NOTE. VARUN
--- NOTE | 2020-11-17 02:15 | ECWPNPC ---
PATIENT NAME: BRIAN DAWSON : 1955 GENDER: FEMALE VISIT DATE: 11/16/2020 DISCHARGE DATE: 11/16/20 1051 VISIT LOCKED DATE TIME: PHYSICIAN: SUKHI GONZALES PHYSICIAN PAGER NO: ACTIVE RESOURCE: SUKHI GONZALES REASON FOR APPOINTMENT 1. 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 PATIENT IS RECUPERATING FROM ABDOMINAL SURGERY/FUNDOPLICATION WITH COMPLICATIONS THAT WAS PERFORMED IN AUGUST AT [facility]. SHE IS GETTING BETTER BUT SHE IS NOT TAKING ANY FOOD BY MOUTH. SHE HAS A PORT IN PLACE AND GETTING TPN NUTRIENTS THROUGH THIS DAILY. HAS RECENTLY FINISHED IN HOUSE PHYSICAL THERAPY FOR REHABILITATION / LEARNING TO WALK AGAIN. IS SCHEDULED FOR THYROID SURGERY IN 2 WEEKS. RECENT MRI OF CERVICAL AND LUMBAR SPINE ARE REVIEWED. WE WILL TRY TO HELP HER WITH INJECTIONS AND POSSIBLY PHYSICAL THERAPY ONCE SHE IS MEDICALLY STABILIZED. -. FALL RISK SCREENING: SCREENING : NO FALLS REPORTED IN THE LAST YEAR. PAIN SCREENING: PATIENT HAS A COMPLAINT OF ACUTE OR CHRONIC PAIN :YES LOCATION OF PAIN:NECK, LOW BACK INTENSITY OF PAIN (SCALE OF 1 TO 10):7 WHAT DOES YOUR PAIN FEEL LIKE:CONTINOUS, THROBBING, SHOOTING DURATION:CONTINOUS, CONSTANT, ALL DAY PAIN IS INCREASED BY:ACTIVITIES PAIN IS DECREASED BY:OTHERS WALKING AND BRACE NURSING NOTE: -. PAIN CENTER INTAKE QUESTIONS: DO YOU HAVE A HISTORY OF MRSA? :NO DO YOU TAKE A BLOOD THINNERS? :YES DO YOU HAVE ANY BLEEDING DISORDERS? :NO ANY NEW NUMBNESS OR WEAKNESS IN YOUR LEGS OR ARMS? :YES BOTH LEGS, MOSTLY IN THE LEFT LEG, IN THE ARMS ITS MOSTYL IN THE RIGHT ANY PACEMAKER,DEFIBRILLATOR, OR DORSAL COLUMN STIMULATOR? :NO DO YOU HAVE ANY RASHES OR OPEN SORES? :NO ARE YOU ALLERGIC TO IV DYE? :NO ARE YOU DIABETIC? :NO ANY NEW PROBLEMS WITH YOUR MEDICATIONS? :NO HAVE YOU RECEIVED A VACCINE IN THE PAST 30 DAYS? :NO DO YOU PLAN TO RECEIVE A VACCINE IN THE NEXT 21 DAYS? :NO DO YOU NEED ANY PRESCRIPTION? :NO DO YOU TAKE ANY IMMUNOSUPPRESSIVE MEDICATIONS? :NO DO YOU HAVE ANY KIDNEY OR LIVER DISEASE? :NO IS THERE A CHANCE YOU COULD BE ? :NO ARE YOU BREAST FEEDING? :NO CURRENT MEDICATIONS TAKING TOPAMAX 100 MG TABLET 1 TAB ORALLY TWICE A DAY TAKING DICYCLOMINE HCL 10 MG CAPSULE 1 CAPSULE ORALLY FOUR TIMES A DAY TAKING AClarence SOLOMONCH QUIN - PAD DIRECTED EXTERNALLY NEEDED HEMORRHOIDS TAKING GUAIFENESIN 100 MG/5ML SYRUP 10 ML NEEDED ORALLY EVERY 4 HRS TAKING CLOTRIMAZOLE 1 % CREAM 1 APPLICATION EXTERNALLY TWICE A DAY TAKING ESTRING 2 MG RING DIRECTED VAGINAL _INSERT Q 3 MONTHS TAKING RESTASIS 0.05 % EMULSION 1 DROP INTO AFFECTED EYE OPHTHALMIC TWICE A DAY TAKING FLUTICASONE PROPIONATE 50 MCG/ACT SUSPENSION 1 SPRAY IN EACH NOSTRIL NASALLY ONCE A DAY TAKING TYLENOL CHILDRENS 160 MG/5ML SUSPENSION 10-20ML ORALLY BID TAKING TPN ELECTROLYTES - CONCENTRATE DIRECTED INTRAVENOUS 1 BAG DAILY AT 1800, NOTES: PT REPORTS 3 DAYS A WEEK ADDITIONAL VITAMINS ARE ADDED TAKING HYDROCORTISONE ANTI-ITCH 1 % CREAM 1 APPLICATION EXTERNALLY ONCE A DAY TAKING ALUMINUM CHLORIDE 20 % SOLUTION 1 APPLICATION AT BEDTIME EXTERNALLY NIGHTLY TAKING MAY HAVE - - DIRECTED WEDGE PILLOW,12 INCH ELEVATION TAKING PREGABALIN 20 MG/ML SOLUTION 5 ML ORALLY TWICE A DAY, NOTES: MAKES HER SICK TAKING FAMOTIDINE 40 MG/4ML SOLUTION 2 ML INTRAVENOUS TWICE A DAY NOT-TAKING PANTOPRAZOLE SODIUM - POWDER 1 PACKET MIXED WITH APPLE JUICE OR APPLESAUCE ORALLY TWICE DAILY NOT-TAKING CLOTRIMAZOLE 1 % CREAM 1 APPLICATION EXTERNALLY TWICE A DAY NOT-TAKING PREGABALIN 20 MG/ML SOLUTION 1ML ORALLY BID MDD 2ML NOT-TAKING ONDANSETRON 4 MG TABLET DISINTEGRATING 1 TABLET ON THE TONGUE AND ALLOW TO DISSOLVE ORALLY THREE TIMES A DAY NEEDED NOT-TAKING TRULANCE 3 MG TABLET 1 TABLET ORALLY ONCE A DAY NOT-TAKING OXYCODONE HCL 5 MG/5ML SOLUTION 5 ML NEEDED ORALLY EVERY 4 HRS NEEDED FOR PAIN NOT-TAKING CIMETIDINE HCL 300 MG/5ML SOLUTION 5 ML WITH MEALS ORALLY TWICE A DAY NOT-TAKING LOPERAMIDE HCL 2 MG CAPSULE 1 CAPSULE NEEDED ORALLY AFTER EACH UNFORMED STOOL, MAX 16 MG PER DAY NOT-TAKING MIRALAX 17 GM/SCOOP POWDER DIRECTED ORALLY TWICE A DAY NEEDED NOT-TAKING SHOWER CHAIR WITHOUT WHEELS DIRECTED DAILY USE NOT-TAKING MAY HAVE - - DIRECTED AIR PURIFIER NOT-TAKING ROLLING WALKER 1 1 DIRECTED WITH BRAKES AND SEAT NOT-TAKING MAY HAVE - - PLANT FUSION PURE PROTEIN 1SCOOP IN FLAX MEAL ORAL 3X/DAY NOT-TAKING PROBIOTIC ACIDOPHILUS - TABLET DIRECTED ORALLY DAILY NOT-TAKING BIOFREEZE 4 % GEL 1 APPLICATION TO AFFECTED AREA NEEDED EXTERNALLY THREE TIMES A DAY MEDICATION LIST REVIEWED AND RECONCILED WITH THE PATIENT PAST MEDICAL HISTORY LARYNGEAL NODULE CANDIDIASIS/BV-FREQUENTLY 04-05-2014 DISTAL FIBULA FRACTURE 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 NODE, NEGATIVE BX, 2018 THYROID NODULE HIATAL HERNIA RUPTURE BACK PAIN BRAIN ANEURYSM ALLERGIES DOXYCYCLINE HYCLATE: PHOTODERMATITIS - ALLERGY LACTOSE INTOLERANT: DIARRHEA - ALLERGY DEMEROL: LOW BP - CONTRAINDICATION DARVOCET-N 100: LOW BP - CONTRAINDICATION AMOXICILLIN: SWELLING - ALLERGY SHELLFISH: HIVES - ALLERGY GLUTEN: DIARRHEA - ALLERGY KEFLEX PENICILLIN (FOR ALLERGIES USE ONLY) SURGICAL HISTORY NECK SURGERY X 2 LEFT KNEE SURGERY BUNIONECTOMY OBDULIO FEET HYSTERECTOMY ABDOMINAL LAPOROSCOPY ABD BEFORE HYSTERECTOMY LASER EYE SURGERY OBDULIO COLONOSCOPY 08/2013 STERIOD INJECTIONS TO NECK BY 02/2016 HERNIA REPAIR 03/2017 SKIN CANCER LESION REMOVED 2018 HETIAL HERNIA REPAIR THROID SRUG TAKEN OUT 12/04/2020 FAMILY HISTORY FATHER: 84 YRS, PANCREATIC CANCER, DIAGNOSED WITH OTHER MALIGNANT NEOPLASM OF UNSPECIFIED SITE MOTHER: ALIVE, HYPERLIPIDEMIA, HYPERTENSION, UNSPECIFIED HEART DISEASE, DIABETES, OTHER MALIGNANT NEOPLASM OF UNSPECIFIED SITE 1 BROTHER(S) , 4 SISTER(S) - HEALTHY. 1 SON(S) , 1 DAUGHTER(S) - HEALTHY. FATHER ALSO POSITIVE FOR COLON, PANCREATIC CANCER\\\\\\\\NMOM--SKIN CA\\\\\\\\NBROTHER-[place]\\\\\\\\NSISTER BACK PROBLEMS\\\\\\\\NSISTER X 2 LUPUS\\\\\\\\NDAUGHTER-BRITTLE DIABETIC\\\\\\\\N\\\\N\\\\NFATHER OF PANCREATIC CANCER, MOTHER AND SISTER HAD SKIN CANCER, UNKNOWN IF IT WAS MELANOMA. SOCIAL HISTORY GENERAL: TOBACCO USE ARE YOU A:FORMER SMOKER FORMER SMOKER UPDATED 10/25/2020 HOW LONG HAS IT BEEN SINCE YOU LAST SMOKED?> 10 YEARS QUIT 2006 ADDITIONAL FINDINGS: TOBACCO USER NO ADDITIONAL FINDINGS: TOBACCO NON-USERCURRENT NON-SMOKER VAPORNO E-CIGARETTENO LATEX QUESTIONNAIRE LATEX ALLERGY : HAVE YOU EVER DEVELOPED ANY TYPE OF REACTION AFTER HANDLING LATEX PRODUCTS SUCH RUBBER GLOVES, CONDOMS, DIAPHRAGMS, BALLOONS, SOCKS, OR UNDERWEAR?NO LATEX ALLERGY : HAVE YOU EVER DEVELOPED ANY TYPE OF REACTION DURING OR AFTER DENTAL APPOINTMENT, VAGINAL/RECTAL EXAMINATION, SURGICAL PROCEDURE, OR ANY OTHER EXPOSURE?NO LATEX RISK : HAVE YOU EVER HAD ANY DIFFICULTY BREATHING OR HIVES AFTER EATING OR HANDLING ANY FRUITS, OR VEGETABLES; SUCH KIWI, BANANAS, STONE FRUITS, OR CHESTNUTSNO LATEX RISK : DO YOU HAVE A PREVIOUS PERSONAL HISTORY OF MORE THAN NINE SURGERIES, SPINA BIFIDA, OR REPEATED CATHERIZATIONS? YES - PLEASE INDICATE : > 9 SURGERIES LATEX RISK : ARE YOU FREQUENTLY EXPOSED TO LATEX PRODUCTS IN YOUR OCCUPATION?NO DATE ASKED : 11/16/2020 ALCOHOL USE: NO. LUNG CANCER SCREENING SMOKING STATUS:FORMER SMOKER IS THE PATIENT BETWEEN THE AGE OF 57 AND 79?YES HAVE YOU QUIT SMOKING WITHIN THE PAST 15 YEARS?YES HAS THE PATIENT EVER BEEN DIAGNOSED WITH LUNG CANCER?NO BMI CARE GOAL FOLLOW-UP BELOW NORMAL BMI FOLLOW-UPDIETARY EDUCATION FOR WEIGHT GAIN ALCOHOL SCREENING DID YOU HAVE A DRINK CONTAINING ALCOHOL IN THE PAST YEAR?NO POINTS0 INTERPRETATIONNEGATIVE RECREATIONAL DRUG USE DRUG USE?NO CAFFEINE CAFFEINE USE?NO SEXUAL HX HAD SEX IN THE LAST 12 MONTHS (VAGINAL, ORAL, OR ANAL)?NO LMP:HYSTERECTOMY HAVE YOU EVER HAD AN STD?NO HIV / HEP-C SCREENING HIV TEST OFFERED TO PATIENT:YES DATE OFFERED:10/25/2020 TEST ACCEPTED:NO HEP-C TEST OFFERED TO PATIENT:YES DATE OFFERED:10/25/2020 REASON:PATIENT DECLINED CONSENT ON FILE TEST ACCEPTED:YES CONSENT SIGNED BROCHURE PROVIDED TO PATIENTNO HINDU SPIRITISM. LANGUAGE CYMRAES. EDUCATION SOME COLLEGE. 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 DIET: DIET ANGELA.. EXERCISE: DAILY-- ABLE. MARITAL STATUS: SINGLE, .. OTHERS AT HOME: LIVES ALONE. - WAS THE PROVIDER NOTIFIED OF ANY PERTINENT INFO?YES HAS THE PATIENT BEEN EDUCATED REGARDING HIS/HER PLAN OF CARE?YES HAS THE PATIENT BEEN EDUCATED REGARDING PAIN, THE RISK FOR PAIN, THE IMPORTANCE OF EFFECTIVE PAIN MANAGEMENT, AND THE PAIN ASSESSMENT PROCESS?YES HOUSING: RENTS APARTMENT. ADVANCE DIRECTIVE ADVANCE DIRECTIVE DISCUSSED WITH PATIENT:YES HCP - MABLE DAWSON (BROTHER) [phone]; IS ALSO PATIENT'S POA AND LIVING WILL HOSPITALIZATION/MAJOR DIAGNOSTIC PROCEDURE EATING DISORDER 01/20/2013 SURGERY HITAL HERNIA REPAIR 07/2020 [facility] ABD PAIN 08/28/2020` REVIEW OF SYSTEMS CONSTITUTIONAL: ANY RECENT FEVER NO . CHILLS NO . WEIGHT CHANGE OF UNKNOWN REASONS NO . GASTROENTEROLOGY: NEW UNEXPLAINABLE CHANGES IN BOWEL CONTROL NO . CONSTIPATION NO . GENITOURINARY: ANY NEW CHANGE IN BLADDER CONTROL? NO . NEUROLOGY: NEW ONSET DIZZINESS OR NEUROLOGICAL CHANGES NOT MENTIONED NO . NEW NUMBNESS OR PAIN PATTERNS NOT MENTIONED AND PERTINENT TO TODAY'S VISIT NO . CARDIOLOGY: NEW CHEST PRESSURE NO . PATIENT DENIES NO . RESPIRATORY: UNEXPLAINABLE COUGH NO . NEW SHORTNESS OF BREATH NO . VITAL SIGNS WT 101.4 LBS, HT 61 IN, BMI 19.16 INDEX, BP 126/64 MM HG, HR 78 /MIN, RR 18 /MIN, TEMP 97.2 F, OXYGEN SAT % 97%, SAFE IN ENV? (Y/N) YES, NA INITIALS AW 1002T.GRICEL HANSON. EXAMINATION GENERAL EXAMINATION: GENERALNO ACUTE DISTRESS, WELL NOURISHED AND HYDRATED. NECK:PATIENT HAS SEVERE HYPERSENSITIVITY TO LIGHT TOUCH OVER ANTERIOR CERVICAL/THYROID REGION . LUNGS:CLEAR TO AUSCULTATION BILATERALLY, NO WHEEZES, RHONCHI, RALES. HEART:NO MURMURS, REGULAR RATE AND RHYTHM. MUSCULOSKELETAL:MULTIPLE AREAS OF TENDER SPOTS ENTIRE SPINAL COLUMN AND PARASPINAL REGION.MST 4/5 UPPER /LOWER EXTREMITIES. DIAGNOSTIC TESTS REVIEWED MRI L/S AND C-SPINE 09/2020. 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 FOLLOW-UP WILL BE SCHEDULED IN 2 MONTHS. PROCEDURE CODES [id number] ESTABILISHED PATIENT [facility] CHARGE DISPOSITION & COMMUNICATION FOLLOW UP 2 MONTHS (REASON: FOLLOW-UP NECK AND LOW BACK PAIN CONSIDER INTERVENTIONS) ELECTRONICALLY SIGNED BY HUGO NICOLE ON 11/16/2020 AT 01:19 PM EDT DISCLAIMER : THIS IS A VISIT SUMMARY EXTRACTED FROM THE [employer] CHART. IT IS NOT A COPY OF THE [employer] PROGRESS NOTE. VARUN
--- NOTE | 2020-11-17 02:18 | ECWPNPC ---
PATIENT NAME: BRIAN DAWSON : 1955 GENDER: FEMALE VISIT DATE: 11/16/2020 DISCHARGE DATE: 11/16/20 1051 VISIT LOCKED DATE TIME: PHYSICIAN: SUKHI GONZALES PHYSICIAN PAGER NO: ACTIVE RESOURCE: SUKHI GONZALES REASON FOR APPOINTMENT 1. 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 PATIENT IS RECUPERATING FROM ABDOMINAL SURGERY/FUNDOPLICATION WITH COMPLICATIONS THAT WAS PERFORMED IN AUGUST AT [facility]. SHE IS GETTING BETTER BUT SHE IS NOT TAKING ANY FOOD BY MOUTH. SHE HAS A PORT IN PLACE AND GETTING TPN NUTRIENTS THROUGH THIS DAILY. HAS RECENTLY FINISHED IN HOUSE PHYSICAL THERAPY FOR REHABILITATION / LEARNING TO WALK AGAIN. IS SCHEDULED FOR THYROID SURGERY IN 2 WEEKS. RECENT MRI OF CERVICAL AND LUMBAR SPINE ARE REVIEWED. WE WILL TRY TO HELP HER WITH INJECTIONS AND POSSIBLY PHYSICAL THERAPY ONCE SHE IS MEDICALLY STABILIZED. -. FALL RISK SCREENING: SCREENING : NO FALLS REPORTED IN THE LAST YEAR. PAIN SCREENING: PATIENT HAS A COMPLAINT OF ACUTE OR CHRONIC PAIN :YES LOCATION OF PAIN:NECK, LOW BACK INTENSITY OF PAIN (SCALE OF 1 TO 10):7 WHAT DOES YOUR PAIN FEEL LIKE:CONTINOUS, THROBBING, SHOOTING DURATION:CONTINOUS, CONSTANT, ALL DAY PAIN IS INCREASED BY:ACTIVITIES PAIN IS DECREASED BY:OTHERS WALKING AND BRACE NURSING NOTE: -. PAIN CENTER INTAKE QUESTIONS: DO YOU HAVE A HISTORY OF MRSA? :NO DO YOU TAKE A BLOOD THINNERS? :YES DO YOU HAVE ANY BLEEDING DISORDERS? :NO ANY NEW NUMBNESS OR WEAKNESS IN YOUR LEGS OR ARMS? :YES BOTH LEGS, MOSTLY IN THE LEFT LEG, IN THE ARMS ITS MOSTYL IN THE RIGHT ANY PACEMAKER,DEFIBRILLATOR, OR DORSAL COLUMN STIMULATOR? :NO DO YOU HAVE ANY RASHES OR OPEN SORES? :NO ARE YOU ALLERGIC TO IV DYE? :NO ARE YOU DIABETIC? :NO ANY NEW PROBLEMS WITH YOUR MEDICATIONS? :NO HAVE YOU RECEIVED A VACCINE IN THE PAST 30 DAYS? :NO DO YOU PLAN TO RECEIVE A VACCINE IN THE NEXT 21 DAYS? :NO DO YOU NEED ANY PRESCRIPTION? :NO DO YOU TAKE ANY IMMUNOSUPPRESSIVE MEDICATIONS? :NO DO YOU HAVE ANY KIDNEY OR LIVER DISEASE? :NO IS THERE A CHANCE YOU COULD BE ? :NO ARE YOU BREAST FEEDING? :NO CURRENT MEDICATIONS TAKING TOPAMAX 100 MG TABLET 1 TAB ORALLY TWICE A DAY TAKING DICYCLOMINE HCL 10 MG CAPSULE 1 CAPSULE ORALLY FOUR TIMES A DAY TAKING AClarence SOLOMONCH QUIN - PAD DIRECTED EXTERNALLY NEEDED HEMORRHOIDS TAKING GUAIFENESIN 100 MG/5ML SYRUP 10 ML NEEDED ORALLY EVERY 4 HRS TAKING CLOTRIMAZOLE 1 % CREAM 1 APPLICATION EXTERNALLY TWICE A DAY TAKING ESTRING 2 MG RING DIRECTED VAGINAL _INSERT Q 3 MONTHS TAKING RESTASIS 0.05 % EMULSION 1 DROP INTO AFFECTED EYE OPHTHALMIC TWICE A DAY TAKING FLUTICASONE PROPIONATE 50 MCG/ACT SUSPENSION 1 SPRAY IN EACH NOSTRIL NASALLY ONCE A DAY TAKING TYLENOL CHILDRENS 160 MG/5ML SUSPENSION 10-20ML ORALLY BID TAKING TPN ELECTROLYTES - CONCENTRATE DIRECTED INTRAVENOUS 1 BAG DAILY AT 1800, NOTES: PT REPORTS 3 DAYS A WEEK ADDITIONAL VITAMINS ARE ADDED TAKING HYDROCORTISONE ANTI-ITCH 1 % CREAM 1 APPLICATION EXTERNALLY ONCE A DAY TAKING ALUMINUM CHLORIDE 20 % SOLUTION 1 APPLICATION AT BEDTIME EXTERNALLY NIGHTLY TAKING MAY HAVE - - DIRECTED WEDGE PILLOW,12 INCH ELEVATION TAKING PREGABALIN 20 MG/ML SOLUTION 5 ML ORALLY TWICE A DAY, NOTES: MAKES HER SICK TAKING FAMOTIDINE 40 MG/4ML SOLUTION 2 ML INTRAVENOUS TWICE A DAY NOT-TAKING PANTOPRAZOLE SODIUM - POWDER 1 PACKET MIXED WITH APPLE JUICE OR APPLESAUCE ORALLY TWICE DAILY NOT-TAKING CLOTRIMAZOLE 1 % CREAM 1 APPLICATION EXTERNALLY TWICE A DAY NOT-TAKING PREGABALIN 20 MG/ML SOLUTION 1ML ORALLY BID MDD 2ML NOT-TAKING ONDANSETRON 4 MG TABLET DISINTEGRATING 1 TABLET ON THE TONGUE AND ALLOW TO DISSOLVE ORALLY THREE TIMES A DAY NEEDED NOT-TAKING TRULANCE 3 MG TABLET 1 TABLET ORALLY ONCE A DAY NOT-TAKING OXYCODONE HCL 5 MG/5ML SOLUTION 5 ML NEEDED ORALLY EVERY 4 HRS NEEDED FOR PAIN NOT-TAKING CIMETIDINE HCL 300 MG/5ML SOLUTION 5 ML WITH MEALS ORALLY TWICE A DAY NOT-TAKING LOPERAMIDE HCL 2 MG CAPSULE 1 CAPSULE NEEDED ORALLY AFTER EACH UNFORMED STOOL, MAX 16 MG PER DAY NOT-TAKING MIRALAX 17 GM/SCOOP POWDER DIRECTED ORALLY TWICE A DAY NEEDED NOT-TAKING SHOWER CHAIR WITHOUT WHEELS DIRECTED DAILY USE NOT-TAKING MAY HAVE - - DIRECTED AIR PURIFIER NOT-TAKING ROLLING WALKER 1 1 DIRECTED WITH BRAKES AND SEAT NOT-TAKING MAY HAVE - - PLANT FUSION PURE PROTEIN 1SCOOP IN FLAX MEAL ORAL 3X/DAY NOT-TAKING PROBIOTIC ACIDOPHILUS - TABLET DIRECTED ORALLY DAILY NOT-TAKING BIOFREEZE 4 % GEL 1 APPLICATION TO AFFECTED AREA NEEDED EXTERNALLY THREE TIMES A DAY MEDICATION LIST REVIEWED AND RECONCILED WITH THE PATIENT PAST MEDICAL HISTORY LARYNGEAL NODULE CANDIDIASIS/BV-FREQUENTLY 04-05-2014 DISTAL FIBULA FRACTURE 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 NODE, NEGATIVE BX, 2018 THYROID NODULE HIATAL HERNIA RUPTURE BACK PAIN BRAIN ANEURYSM ALLERGIES DOXYCYCLINE HYCLATE: PHOTODERMATITIS - ALLERGY LACTOSE INTOLERANT: DIARRHEA - ALLERGY DEMEROL: LOW BP - CONTRAINDICATION DARVOCET-N 100: LOW BP - CONTRAINDICATION AMOXICILLIN: SWELLING - ALLERGY SHELLFISH: HIVES - ALLERGY GLUTEN: DIARRHEA - ALLERGY KEFLEX PENICILLIN (FOR ALLERGIES USE ONLY) SURGICAL HISTORY NECK SURGERY X 2 LEFT KNEE SURGERY BUNIONECTOMY OBDULIO FEET HYSTERECTOMY ABDOMINAL LAPOROSCOPY ABD BEFORE HYSTERECTOMY LASER EYE SURGERY OBDULIO COLONOSCOPY 08/2013 STERIOD INJECTIONS TO NECK BY 02/2016 HERNIA REPAIR 03/2017 SKIN CANCER LESION REMOVED 2018 HETIAL HERNIA REPAIR THROID SRUG TAKEN OUT 12/04/2020 FAMILY HISTORY FATHER: 84 YRS, PANCREATIC CANCER, DIAGNOSED WITH OTHER MALIGNANT NEOPLASM OF UNSPECIFIED SITE MOTHER: ALIVE, HYPERLIPIDEMIA, HYPERTENSION, UNSPECIFIED HEART DISEASE, DIABETES, OTHER MALIGNANT NEOPLASM OF UNSPECIFIED SITE 1 BROTHER(S) , 4 SISTER(S) - HEALTHY. 1 SON(S) , 1 DAUGHTER(S) - HEALTHY. FATHER ALSO POSITIVE FOR COLON, PANCREATIC CANCER\\\\\\\\NMOM--SKIN CA\\\\\\\\NBROTHER-HI\\\\\\\\NSISTER BACK PROBLEMS\\\\\\\\NSISTER X 2 LUPUS\\\\\\\\NDAUGHTER-BRITTLE DIABETIC\\\\\\\\N\\\\N\\\\NFATHER OF PANCREATIC CANCER, MOTHER AND SISTER HAD SKIN CANCER, UNKNOWN IF IT WAS MELANOMA. SOCIAL HISTORY GENERAL: TOBACCO USE ARE YOU A:FORMER SMOKER FORMER SMOKER UPDATED 10/25/2020 HOW LONG HAS IT BEEN SINCE YOU LAST SMOKED?> 10 YEARS QUIT 2006 ADDITIONAL FINDINGS: TOBACCO USER NO ADDITIONAL FINDINGS: TOBACCO NON-USERCURRENT NON-SMOKER VAPORNO E-CIGARETTENO LATEX QUESTIONNAIRE LATEX ALLERGY : HAVE YOU EVER DEVELOPED ANY TYPE OF REACTION AFTER HANDLING LATEX PRODUCTS SUCH RUBBER GLOVES, CONDOMS, DIAPHRAGMS, BALLOONS, SOCKS, OR UNDERWEAR?NO LATEX ALLERGY : HAVE YOU EVER DEVELOPED ANY TYPE OF REACTION DURING OR AFTER DENTAL APPOINTMENT, VAGINAL/RECTAL EXAMINATION, SURGICAL PROCEDURE, OR ANY OTHER EXPOSURE?NO LATEX RISK : HAVE YOU EVER HAD ANY DIFFICULTY BREATHING OR HIVES AFTER EATING OR HANDLING ANY FRUITS, OR VEGETABLES; SUCH KIWI, BANANAS, STONE FRUITS, OR CHESTNUTSNO LATEX RISK : DO YOU HAVE A PREVIOUS PERSONAL HISTORY OF MORE THAN NINE SURGERIES, SPINA BIFIDA, OR REPEATED CATHERIZATIONS? YES - PLEASE INDICATE : > 9 SURGERIES LATEX RISK : ARE YOU FREQUENTLY EXPOSED TO LATEX PRODUCTS IN YOUR OCCUPATION?NO DATE ASKED : 11/16/2020 ALCOHOL USE: NO. LUNG CANCER SCREENING SMOKING STATUS:FORMER SMOKER IS THE PATIENT BETWEEN THE AGE OF 57 AND 79?YES HAVE YOU QUIT SMOKING WITHIN THE PAST 15 YEARS?YES HAS THE PATIENT EVER BEEN DIAGNOSED WITH LUNG CANCER?NO BMI CARE GOAL FOLLOW-UP BELOW NORMAL BMI FOLLOW-UPDIETARY EDUCATION FOR WEIGHT GAIN ALCOHOL SCREENING DID YOU HAVE A DRINK CONTAINING ALCOHOL IN THE PAST YEAR?NO POINTS0 INTERPRETATIONNEGATIVE RECREATIONAL DRUG USE DRUG USE?NO CAFFEINE CAFFEINE USE?NO SEXUAL HX HAD SEX IN THE LAST 12 MONTHS (VAGINAL, ORAL, OR ANAL)?NO LMP:HYSTERECTOMY HAVE YOU EVER HAD AN STD?NO HIV / HEP-C SCREENING HIV TEST OFFERED TO PATIENT:YES DATE OFFERED:10/25/2020 TEST ACCEPTED:NO HEP-C TEST OFFERED TO PATIENT:YES DATE OFFERED:10/25/2020 REASON:PATIENT DECLINED CONSENT ON FILE TEST ACCEPTED:YES CONSENT SIGNED BROCHURE PROVIDED TO PATIENTNO RESTORATIONIST LUTHERAN. LANGUAGE FRENCH. EDUCATION SOME COLLEGE. 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 DIET: DIET ANGELA.. EXERCISE: DAILY-- ABLE. MARITAL STATUS: SINGLE, .. OTHERS AT HOME: LIVES ALONE. - WAS THE PROVIDER NOTIFIED OF ANY PERTINENT INFO?YES HAS THE PATIENT BEEN EDUCATED REGARDING HIS/HER PLAN OF CARE?YES HAS THE PATIENT BEEN EDUCATED REGARDING PAIN, THE RISK FOR PAIN, THE IMPORTANCE OF EFFECTIVE PAIN MANAGEMENT, AND THE PAIN ASSESSMENT PROCESS?YES HOUSING: RENTS APARTMENT. ADVANCE DIRECTIVE ADVANCE DIRECTIVE DISCUSSED WITH PATIENT:YES HCP - MABLE DAWSON (BROTHER) [phone]; IS ALSO PATIENT'S POA AND LIVING WILL HOSPITALIZATION/MAJOR DIAGNOSTIC PROCEDURE EATING DISORDER 01/20/2013 SURGERY HITAL HERNIA REPAIR 07/2020 [facility] ABD PAIN 08/28/2020` REVIEW OF SYSTEMS CONSTITUTIONAL: ANY RECENT FEVER NO . CHILLS NO . WEIGHT CHANGE OF UNKNOWN REASONS NO . GASTROENTEROLOGY: NEW UNEXPLAINABLE CHANGES IN BOWEL CONTROL NO . CONSTIPATION NO . GENITOURINARY: ANY NEW CHANGE IN BLADDER CONTROL? NO . NEUROLOGY: NEW ONSET DIZZINESS OR NEUROLOGICAL CHANGES NOT MENTIONED NO . NEW NUMBNESS OR PAIN PATTERNS NOT MENTIONED AND PERTINENT TO TODAY'S VISIT NO . CARDIOLOGY: NEW CHEST PRESSURE NO . PATIENT DENIES NO . RESPIRATORY: UNEXPLAINABLE COUGH NO . NEW SHORTNESS OF BREATH NO . VITAL SIGNS WT 101.4 LBS, HT 61 IN, BMI 19.16 INDEX, BP 126/64 MM HG, HR 78 /MIN, RR 18 /MIN, TEMP 97.2 F, OXYGEN SAT % 97%, SAFE IN ENV? (Y/N) YES, NA INITIALS AW 1002T.GRICEL HANSON. EXAMINATION GENERAL EXAMINATION: GENERALNO ACUTE DISTRESS, WELL NOURISHED AND HYDRATED. NECK:PATIENT HAS SEVERE HYPERSENSITIVITY TO LIGHT TOUCH OVER ANTERIOR CERVICAL/THYROID REGION . LUNGS:CLEAR TO AUSCULTATION BILATERALLY, NO WHEEZES, RHONCHI, RALES. HEART:NO MURMURS, REGULAR RATE AND RHYTHM. MUSCULOSKELETAL:MULTIPLE AREAS OF TENDER SPOTS ENTIRE SPINAL COLUMN AND PARASPINAL REGION.MST 4/5 UPPER /LOWER EXTREMITIES. DIAGNOSTIC TESTS REVIEWED MRI L/S AND C-SPINE 09/2020. 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 FOLLOW-UP WILL BE SCHEDULED IN 2 MONTHS. PROCEDURE CODES FA211 ESTABILISHED PATIENT [facility] FACILITY CHARGE DISPOSITION & COMMUNICATION FOLLOW UP 2 MONTHS (REASON: FOLLOW-UP NECK AND LOW BACK PAIN CONSIDER INTERVENTIONS) ELECTRONICALLY SIGNED BY HUGO NICOLE ON 11/16/2020 AT 01:19 PM EDT DISCLAIMER : THIS IS A VISIT SUMMARY EXTRACTED FROM THE Apps [employer] CHART. IT IS NOT A COPY OF THE Apps [employer] PROGRESS NOTE. VARUN
--- NOTE | 2020-11-17 02:20 | ECWPNPC ---
PATIENT NAME: BRIAN DAWSON : 1955 GENDER: FEMALE VISIT DATE: 11/16/2020 DISCHARGE DATE: 11/16/20 1051 VISIT LOCKED DATE TIME: PHYSICIAN: SUKHI GONZALES PHYSICIAN PAGER NO: ACTIVE RESOURCE: SUKHI GONZALES REASON FOR APPOINTMENT 1. 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 PATIENT IS RECUPERATING FROM ABDOMINAL SURGERY/FUNDOPLICATION WITH COMPLICATIONS THAT WAS PERFORMED IN AUGUST AT [facility]. SHE IS GETTING BETTER BUT SHE IS NOT TAKING ANY FOOD BY MOUTH. SHE HAS A PORT IN PLACE AND GETTING TPN NUTRIENTS THROUGH THIS DAILY. HAS RECENTLY FINISHED IN HOUSE PHYSICAL THERAPY FOR REHABILITATION / LEARNING TO WALK AGAIN. IS SCHEDULED FOR THYROID SURGERY IN 2 WEEKS. RECENT MRI OF CERVICAL AND LUMBAR SPINE ARE REVIEWED. WE WILL TRY TO HELP HER WITH INJECTIONS AND POSSIBLY PHYSICAL THERAPY ONCE SHE IS MEDICALLY STABILIZED. -. FALL RISK SCREENING: SCREENING : NO FALLS REPORTED IN THE LAST YEAR. PAIN SCREENING: PATIENT HAS A COMPLAINT OF ACUTE OR CHRONIC PAIN :YES LOCATION OF PAIN:NECK, LOW BACK INTENSITY OF PAIN (SCALE OF 1 TO 10):7 WHAT DOES YOUR PAIN FEEL LIKE:CONTINOUS, THROBBING, SHOOTING DURATION:CONTINOUS, CONSTANT, ALL DAY PAIN IS INCREASED BY:ACTIVITIES PAIN IS DECREASED BY:OTHERS WALKING AND BRACE NURSING NOTE: -. PAIN CENTER INTAKE QUESTIONS: DO YOU HAVE A HISTORY OF MRSA? :NO DO YOU TAKE A BLOOD THINNERS? :YES DO YOU HAVE ANY BLEEDING DISORDERS? :NO ANY NEW NUMBNESS OR WEAKNESS IN YOUR LEGS OR ARMS? :YES BOTH LEGS, MOSTLY IN THE LEFT LEG, IN THE ARMS ITS MOSTYL IN THE RIGHT ANY PACEMAKER,DEFIBRILLATOR, OR DORSAL COLUMN STIMULATOR? :NO DO YOU HAVE ANY RASHES OR OPEN SORES? :NO ARE YOU ALLERGIC TO IV DYE? :NO ARE YOU DIABETIC? :NO ANY NEW PROBLEMS WITH YOUR MEDICATIONS? :NO HAVE YOU RECEIVED A VACCINE IN THE PAST 30 DAYS? :NO DO YOU PLAN TO RECEIVE A VACCINE IN THE NEXT 21 DAYS? :NO DO YOU NEED ANY PRESCRIPTION? :NO DO YOU TAKE ANY IMMUNOSUPPRESSIVE MEDICATIONS? :NO DO YOU HAVE ANY KIDNEY OR LIVER DISEASE? :NO IS THERE A CHANCE YOU COULD BE ? :NO ARE YOU BREAST FEEDING? :NO CURRENT MEDICATIONS TAKING TOPAMAX 100 MG TABLET 1 TAB ORALLY TWICE A DAY TAKING DICYCLOMINE HCL 10 MG CAPSULE 1 CAPSULE ORALLY FOUR TIMES A DAY TAKING AClarence SOLOMONCH QUIN - PAD DIRECTED EXTERNALLY NEEDED HEMORRHOIDS TAKING GUAIFENESIN 100 MG/5ML SYRUP 10 ML NEEDED ORALLY EVERY 4 HRS TAKING CLOTRIMAZOLE 1 % CREAM 1 APPLICATION EXTERNALLY TWICE A DAY TAKING ESTRING 2 MG RING DIRECTED VAGINAL _INSERT Q 3 MONTHS TAKING RESTASIS 0.05 % EMULSION 1 DROP INTO AFFECTED EYE OPHTHALMIC TWICE A DAY TAKING FLUTICASONE PROPIONATE 50 MCG/ACT SUSPENSION 1 SPRAY IN EACH NOSTRIL NASALLY ONCE A DAY TAKING TYLENOL CHILDRENS 160 MG/5ML SUSPENSION 10-20ML ORALLY BID TAKING TPN ELECTROLYTES - CONCENTRATE DIRECTED INTRAVENOUS 1 BAG DAILY AT 1800, NOTES: PT REPORTS 3 DAYS A WEEK ADDITIONAL VITAMINS ARE ADDED TAKING HYDROCORTISONE ANTI-ITCH 1 % CREAM 1 APPLICATION EXTERNALLY ONCE A DAY TAKING ALUMINUM CHLORIDE 20 % SOLUTION 1 APPLICATION AT BEDTIME EXTERNALLY NIGHTLY TAKING MAY HAVE - - DIRECTED WEDGE PILLOW,12 INCH ELEVATION TAKING PREGABALIN 20 MG/ML SOLUTION 5 ML ORALLY TWICE A DAY, NOTES: MAKES HER SICK TAKING FAMOTIDINE 40 MG/4ML SOLUTION 2 ML INTRAVENOUS TWICE A DAY NOT-TAKING PANTOPRAZOLE SODIUM - POWDER 1 PACKET MIXED WITH APPLE JUICE OR APPLESAUCE ORALLY TWICE DAILY NOT-TAKING CLOTRIMAZOLE 1 % CREAM 1 APPLICATION EXTERNALLY TWICE A DAY NOT-TAKING PREGABALIN 20 MG/ML SOLUTION 1ML ORALLY BID MDD 2ML NOT-TAKING ONDANSETRON 4 MG TABLET DISINTEGRATING 1 TABLET ON THE TONGUE AND ALLOW TO DISSOLVE ORALLY THREE TIMES A DAY NEEDED NOT-TAKING TRULANCE 3 MG TABLET 1 TABLET ORALLY ONCE A DAY NOT-TAKING OXYCODONE HCL 5 MG/5ML SOLUTION 5 ML NEEDED ORALLY EVERY 4 HRS NEEDED FOR PAIN NOT-TAKING CIMETIDINE HCL 300 MG/5ML SOLUTION 5 ML WITH MEALS ORALLY TWICE A DAY NOT-TAKING LOPERAMIDE HCL 2 MG CAPSULE 1 CAPSULE NEEDED ORALLY AFTER EACH UNFORMED STOOL, MAX 16 MG PER DAY NOT-TAKING MIRALAX 17 GM/SCOOP POWDER DIRECTED ORALLY TWICE A DAY NEEDED NOT-TAKING SHOWER CHAIR WITHOUT WHEELS DIRECTED DAILY USE NOT-TAKING MAY HAVE - - DIRECTED AIR PURIFIER NOT-TAKING ROLLING WALKER 1 1 DIRECTED WITH BRAKES AND SEAT NOT-TAKING MAY HAVE - - PLANT FUSION PURE PROTEIN 1SCOOP IN FLAX MEAL ORAL 3X/DAY NOT-TAKING PROBIOTIC ACIDOPHILUS - TABLET DIRECTED ORALLY DAILY NOT-TAKING BIOFREEZE 4 % GEL 1 APPLICATION TO AFFECTED AREA NEEDED EXTERNALLY THREE TIMES A DAY MEDICATION LIST REVIEWED AND RECONCILED WITH THE PATIENT PAST MEDICAL HISTORY LARYNGEAL NODULE CANDIDIASIS/BV-FREQUENTLY 04-05-2014 DISTAL FIBULA FRACTURE 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 NODE, NEGATIVE BX, 2018 THYROID NODULE HIATAL HERNIA RUPTURE BACK PAIN BRAIN ANEURYSM ALLERGIES DOXYCYCLINE HYCLATE: PHOTODERMATITIS - ALLERGY LACTOSE INTOLERANT: DIARRHEA - ALLERGY DEMEROL: LOW BP - CONTRAINDICATION DARVOCET-N 100: LOW BP - CONTRAINDICATION AMOXICILLIN: SWELLING - ALLERGY SHELLFISH: HIVES - ALLERGY GLUTEN: DIARRHEA - ALLERGY KEFLEX PENICILLIN (FOR ALLERGIES USE ONLY) SURGICAL HISTORY NECK SURGERY X 2 LEFT KNEE SURGERY BUNIONECTOMY OBDULIO FEET HYSTERECTOMY ABDOMINAL LAPOROSCOPY ABD BEFORE HYSTERECTOMY LASER EYE SURGERY OBDULIO COLONOSCOPY 08/2013 STERIOD INJECTIONS TO NECK BY 02/2016 HERNIA REPAIR 03/2017 SKIN CANCER LESION REMOVED 2018 HETIAL HERNIA REPAIR THROID SRUG TAKEN OUT 12/04/2020 FAMILY HISTORY FATHER: 84 YRS, PANCREATIC CANCER, DIAGNOSED WITH OTHER MALIGNANT NEOPLASM OF UNSPECIFIED SITE MOTHER: ALIVE, HYPERLIPIDEMIA, HYPERTENSION, UNSPECIFIED HEART DISEASE, DIABETES, OTHER MALIGNANT NEOPLASM OF UNSPECIFIED SITE 1 BROTHER(S) , 4 SISTER(S) - HEALTHY. 1 SON(S) , 1 DAUGHTER(S) - HEALTHY. FATHER ALSO POSITIVE FOR COLON, PANCREATIC CANCER\\\\\\\\NMOM--SKIN CA\\\\\\\\NBROTHER-MS\\\\\\\\NSISTER BACK PROBLEMS\\\\\\\\NSISTER X 2 LUPUS\\\\\\\\NDAUGHTER-BRITTLE DIABETIC\\\\\\\\N\\\\N\\\\NFATHER OF PANCREATIC CANCER, MOTHER AND SISTER HAD SKIN CANCER, UNKNOWN IF IT WAS MELANOMA. SOCIAL HISTORY GENERAL: TOBACCO USE ARE YOU A:FORMER SMOKER FORMER SMOKER UPDATED 10/25/2020 HOW LONG HAS IT BEEN SINCE YOU LAST SMOKED?> 10 YEARS QUIT 2006 ADDITIONAL FINDINGS: TOBACCO USER NO ADDITIONAL FINDINGS: TOBACCO NON-USERCURRENT NON-SMOKER VAPORNO E-CIGARETTENO LATEX QUESTIONNAIRE LATEX ALLERGY : HAVE YOU EVER DEVELOPED ANY TYPE OF REACTION AFTER HANDLING LATEX PRODUCTS SUCH RUBBER GLOVES, CONDOMS, DIAPHRAGMS, BALLOONS, SOCKS, OR UNDERWEAR?NO LATEX ALLERGY : HAVE YOU EVER DEVELOPED ANY TYPE OF REACTION DURING OR AFTER DENTAL APPOINTMENT, VAGINAL/RECTAL EXAMINATION, SURGICAL PROCEDURE, OR ANY OTHER EXPOSURE?NO LATEX RISK : HAVE YOU EVER HAD ANY DIFFICULTY BREATHING OR HIVES AFTER EATING OR HANDLING ANY FRUITS, OR VEGETABLES; SUCH KIWI, BANANAS, STONE FRUITS, OR CHESTNUTSNO LATEX RISK : DO YOU HAVE A PREVIOUS PERSONAL HISTORY OF MORE THAN NINE SURGERIES, SPINA BIFIDA, OR REPEATED CATHERIZATIONS? YES - PLEASE INDICATE : > 9 SURGERIES LATEX RISK : ARE YOU FREQUENTLY EXPOSED TO LATEX PRODUCTS IN YOUR OCCUPATION?NO DATE ASKED : 11/16/2020 ALCOHOL USE: NO. LUNG CANCER SCREENING SMOKING STATUS:FORMER SMOKER IS THE PATIENT BETWEEN THE AGE OF 57 AND 79?YES HAVE YOU QUIT SMOKING WITHIN THE PAST 15 YEARS?YES HAS THE PATIENT EVER BEEN DIAGNOSED WITH LUNG CANCER?NO BMI CARE GOAL FOLLOW-UP BELOW NORMAL BMI FOLLOW-UPDIETARY EDUCATION FOR WEIGHT GAIN ALCOHOL SCREENING DID YOU HAVE A DRINK CONTAINING ALCOHOL IN THE PAST YEAR?NO POINTS0 INTERPRETATIONNEGATIVE RECREATIONAL DRUG USE DRUG USE?NO CAFFEINE CAFFEINE USE?NO SEXUAL HX HAD SEX IN THE LAST 12 MONTHS (VAGINAL, ORAL, OR ANAL)?NO LMP:HYSTERECTOMY HAVE YOU EVER HAD AN STD?NO HIV / HEP-C SCREENING HIV TEST OFFERED TO PATIENT:YES DATE OFFERED:10/25/2020 TEST ACCEPTED:NO HEP-C TEST OFFERED TO PATIENT:YES DATE OFFERED:10/25/2020 REASON:PATIENT DECLINED CONSENT ON FILE TEST ACCEPTED:YES CONSENT SIGNED BROCHURE PROVIDED TO PATIENTNO RESTORATIONISM RESTORATION. LANGUAGE KYRGYZ. EDUCATION SOME COLLEGE. 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 DIET: DIET ANGELA.. EXERCISE: DAILY-- ABLE. MARITAL STATUS: SINGLE, .. OTHERS AT HOME: LIVES ALONE. - WAS THE PROVIDER NOTIFIED OF ANY PERTINENT INFO?YES HAS THE PATIENT BEEN EDUCATED REGARDING HIS/HER PLAN OF CARE?YES HAS THE PATIENT BEEN EDUCATED REGARDING PAIN, THE RISK FOR PAIN, THE IMPORTANCE OF EFFECTIVE PAIN MANAGEMENT, AND THE PAIN ASSESSMENT PROCESS?YES HOUSING: RENTS APARTMENT. ADVANCE DIRECTIVE ADVANCE DIRECTIVE DISCUSSED WITH PATIENT:YES HCP - MABLE DAWSON (BROTHER) [phone]; IS ALSO PATIENT'S POA AND LIVING WILL HOSPITALIZATION/MAJOR DIAGNOSTIC PROCEDURE EATING DISORDER 01/20/2013 SURGERY HITAL HERNIA REPAIR 07/2020 [facility] ABD PAIN 08/28/2020` REVIEW OF SYSTEMS CONSTITUTIONAL: ANY RECENT FEVER NO . CHILLS NO . WEIGHT CHANGE OF UNKNOWN REASONS NO . GASTROENTEROLOGY: NEW UNEXPLAINABLE CHANGES IN BOWEL CONTROL NO . CONSTIPATION NO . GENITOURINARY: ANY NEW CHANGE IN BLADDER CONTROL? NO . NEUROLOGY: NEW ONSET DIZZINESS OR NEUROLOGICAL CHANGES NOT MENTIONED NO . NEW NUMBNESS OR PAIN PATTERNS NOT MENTIONED AND PERTINENT TO TODAY'S VISIT NO . CARDIOLOGY: NEW CHEST PRESSURE NO . PATIENT DENIES NO . RESPIRATORY: UNEXPLAINABLE COUGH NO . NEW SHORTNESS OF BREATH NO . VITAL SIGNS WT 101.4 LBS, HT 61 IN, BMI 19.16 INDEX, BP 126/64 MM HG, HR 78 /MIN, RR 18 /MIN, TEMP 97.2 F, OXYGEN SAT % 97%, SAFE IN ENV? (Y/N) YES, NA INITIALS AW 1002T.GRICEL HANSON. EXAMINATION GENERAL EXAMINATION: GENERALNO ACUTE DISTRESS, WELL NOURISHED AND HYDRATED. NECK:PATIENT HAS SEVERE HYPERSENSITIVITY TO LIGHT TOUCH OVER ANTERIOR CERVICAL/THYROID REGION . LUNGS:CLEAR TO AUSCULTATION BILATERALLY, NO WHEEZES, RHONCHI, RALES. HEART:NO MURMURS, REGULAR RATE AND RHYTHM. MUSCULOSKELETAL:MULTIPLE AREAS OF TENDER SPOTS ENTIRE SPINAL COLUMN AND PARASPINAL REGION.MST 4/5 UPPER /LOWER EXTREMITIES. DIAGNOSTIC TESTS REVIEWED MRI L/S AND C-SPINE 09/2020. 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 FOLLOW-UP WILL BE SCHEDULED IN 2 MONTHS. PROCEDURE CODES FA211 ESTABILISHED PATIENT [facility] FACILITY CHARGE DISPOSITION & COMMUNICATION FOLLOW UP 2 MONTHS (REASON: FOLLOW-UP NECK AND LOW BACK PAIN CONSIDER INTERVENTIONS) ELECTRONICALLY SIGNED BY HUGO NICOLE ON 11/16/2020 AT 01:19 PM EDT DISCLAIMER : THIS IS A VISIT SUMMARY EXTRACTED FROM THE [employer] CHART. IT IS NOT A COPY OF THE [employer] PROGRESS NOTE. VARUN
== END ==
LOC: M PAIN 10:15
PROVIDERS: ATTEND Nurse Practitioner Family
DX: M46.92 Unspecified inflammatory spondylopathy, cervical region (principal); M54.5 Low back pain; K90.0 Celiac disease; E73.9 Lactose intolerance, unspecified; Z79.899 Other long term (current) drug therapy; Z87.891 Personal history of nicotine dependence; Z88.0 Allergy status to penicillin; Z88.1 Allergy status to other antibiotic agents; Z88.8 Allergy status to other drugs, medicaments and biological substances; Z91.013 Allergy to seafood

== ENCOUNTER → 2020-11-20 | Outpatient (CLI) | payer MEDICARE, MEDICAID ==
[2020-11-20 11:05] LABS: BASO % 0.9 % (0.0-1.0); EOS # 0.1 10^3/uL (0.0-0.5); EOS % 1.4 % (0.0-3.0); HEMATOCRIT 38.7 % (36.0-47.0); HEMOGLOBIN 12.5 g/dl (12.0-15.5); LYMPH # 1.3 10^3/uL (1.5-5.0); LYMPH % 30.5 % (24.0-44.0); MEAN CORPUSCULAR HEMOGLOBIN 30.6 pg (27.0-33.0); MEAN CORPUSCULAR HGB CONC 32.3 g/dl (32.0-36.5); MEAN CORPUSCULAR VOLUME 94.6 fl (80.0-96.0); MONO # 0.4 10^3/uL (0.0-0.8); MONO % 8.4 % (2.0-8.0); NEUTROPHILS # 2.6 10^3/uL (1.5-8.5); NEUTROPHILS % 58.6 % (36.0-66.0); PLATELET COUNT, AUTOMATED 175 10^3/uL (150-450); RED BLOOD COUNT 4.09 10^6/uL (4.00-5.40); WHITE BLOOD COUNT 4.4 10^3/uL (4.0-10.0)
== END ==
LOC: M LAB 10:26
DX: R19.7 Diarrhea, unspecified (principal); K92.1 Melena

== ENCOUNTER → 2020-11-26 | Outpatient (REF) | payer MEDICARE, MEDICAID ==
[2020-11-26 11:49] LABS: ALBUMIN 3.5 GM/DL (3.2-5.2); ALT/SGPT 62 U/L (12-78); BILIRUBIN,TOTAL 0.4 MG/DL (0.2-1.0); BLOOD UREA NITROGEN 23 MG/DL (7-18); CALCIUM LEVEL 8.5 MG/DL (8.8-10.2); CARBON DIOXIDE LEVEL 24 MEQ/L (21-32); CHLORIDE LEVEL 106 MEQ/L (98-107); GLOMERULAR FILTRATION RATE > 60.0 (>45); GLUCOSE, FASTING 95 MG/DL (70-100); MAGNESIUM LEVEL 2.2 MG/DL (1.8-2.4); PHOSPHORUS LEVEL 3.6 MG/DL (2.5-4.9); POTASSIUM SERUM 3.9 MEQ/L (3.5-5.1); SODIUM LEVEL 138 MEQ/L (136-145); TOTAL PROTEIN 6.6 GM/DL (6.4-8.2)
== END ==
LOC: M SHH 10:41
PROVIDERS: ATTEND Internal Medicine
DX: E86.0 Dehydration (principal); E87.6 Hypokalemia; E43 Unspecified severe protein-calorie malnutrition

== ENCOUNTER 2020-12-12 11:01 | Emergency (ER) | payer MEDICARE, MEDICAID ==
[~2020-12-12] VITALS: Ht 152.4 cm; Wt 45.9 kg
[2020-12-12] MEDS ORDERED: LEVO75TA4 PO (12:53)
[2020-12-12] MEDS ORDERED: ACET1SOL10 PO (12:53)
[2020-12-12] MEDS ORDERED: LEVO500T3 PO (12:53)
[2020-12-12 15:01] LABS: BASO % 0.6 % (0.0-1.0); EOS # 0.1 10^3/uL (0.0-0.5); EOS % 2.4 % (0.0-3.0); HEMOGLOBIN 11.7 g/dl (12.0-15.5); LYMPH # 1.6 10^3/uL (1.5-5.0); MEAN CORPUSCULAR HEMOGLOBIN 30.2 pg (27.0-33.0); MEAN CORPUSCULAR HGB CONC 32.5 g/dl (32.0-36.5); MEAN CORPUSCULAR VOLUME 92.8 fl (80.0-96.0); MONO # 0.5 10^3/uL (0.0-0.8); NEUTROPHILS # 3.1 10^3/uL (1.5-8.5); NEUTROPHILS % 58.8 % (36.0-66.0); PLATELET COUNT, AUTOMATED 209 10^3/uL (150-450); RED BLOOD COUNT 3.88 10^6/uL (4.00-5.40); WHITE BLOOD COUNT 5.3 10^3/uL (4.0-10.0)
[2020-12-12 15:22] LABS: BLOOD UREA NITROGEN 18 MG/DL (7-18); CARBON DIOXIDE LEVEL 25 MEQ/L (21-32); CHLORIDE LEVEL 109 MEQ/L (98-107); CREATININE FOR GFR 0.65 MG/DL (0.55-1.30); GLOMERULAR FILTRATION RATE > 60.0 (>45); GLUCOSE, FASTING 95 MG/DL (70-100); POTASSIUM SERUM 3.7 MEQ/L (3.5-5.1); SODIUM LEVEL 142 MEQ/L (136-145)
[2020-12-12 15:23] LABS: ALBUMIN 3.3 GM/DL (3.2-5.2); ALT/SGPT 158 U/L (12-78); BILIRUBIN,DIRECT 0.1 MG/DL (0.0-0.2); BILIRUBIN,TOTAL 0.3 MG/DL (0.2-1.0); TOTAL PROTEIN 6.8 GM/DL (6.4-8.2)
[2020-12-12 16:05] VITALS: BP 137/70
== END 2020-12-12 16:20 | disposition left against medical advice (07) ==
LOC: M ED 11:01
DX: Z53.21 Procedure and treatment not carried out due to patient leaving prior to being seen by health care provider (principal)
CPT/HCPCS: 80048; 80076; 85025; 87505; 99283; J1642

== ENCOUNTER → 2020-12-21 | Outpatient (CLI) | payer MEDICARE, MEDICAID ==
[~2020-12-21] MED LIST changes: +ACET1SOL10 PO; -CEFD1CAP8 PO; +CEFD300C41 PO; +LEVO500T4 PO; +LEVO75TA4 PO
[2020-12-21 14:18] LABS: HEMATOCRIT 38.2 % (36.0-47.0); HEMOGLOBIN 12.5 g/dl (12.0-15.5); MEAN CORPUSCULAR HEMOGLOBIN 30.6 pg (27.0-33.0); MEAN CORPUSCULAR HGB CONC 32.7 g/dl (32.0-36.5); MEAN CORPUSCULAR VOLUME 93.4 fl (80.0-96.0); PLATELET COUNT, AUTOMATED 265 10^3/uL (150-450); RED BLOOD COUNT 4.09 10^6/uL (4.00-5.40); WHITE BLOOD COUNT 5.5 10^3/uL (4.0-10.0)
[2020-12-21 15:03] LABS: BLOOD UREA NITROGEN 18 MG/DL (7-18); CALCIUM LEVEL 9.2 MG/DL (8.8-10.2); CARBON DIOXIDE LEVEL 26 MEQ/L (21-32); CHLORIDE LEVEL 106 MEQ/L (98-107); CREATININE FOR GFR 0.65 MG/DL (0.55-1.30); GLOMERULAR FILTRATION RATE > 60.0 (>45); GLUCOSE, FASTING 78 MG/DL (70-100); POTASSIUM SERUM 3.9 MEQ/L (3.5-5.1); SODIUM LEVEL 139 MEQ/L (136-145)
== END ==
LOC: M LAB 12:38
PROVIDERS: ATTEND Family Medicine
DX: K44.9 Diaphragmatic hernia without obstruction or gangrene (principal)

== ENCOUNTER → 2020-12-22 | Outpatient (CLI) | payer MEDICARE, MEDICAID ==
[~2020-12-22] MED LIST changes: +CEFD1CAP8 PO; -CEFD300C41 PO; +LEVO500T3 PO; -LEVO500T4 PO
[2020-12-22 10:17] LABS: FREE T4 2.35 NG/DL (0.76-1.46); THYROID STIMULATING HORMONE 0.024 uIU/ML (0.358-3.740)
== END ==
LOC: M LAB 08:48
PROVIDERS: ATTEND Family Medicine
DX: E89.0 Postprocedural hypothyroidism (principal)

== ENCOUNTER → 2020-12-25 | Outpatient (REF) | payer MEDICARE, MEDICAID | LOC: M SHH 09:12 | PROVIDERS: ATTEND Family Medicine | DX: R19.7 Diarrhea, unspecified (principal) ==

== ENCOUNTER → 2021-01-03 | Outpatient (CLI) | payer MEDICARE, MEDICAID ==
--- NOTE | 2021-01-09 00:12 | ECWPNPC ---
PATIENT NAME: BRIAN DAWSON : 1955 GENDER: FEMALE VISIT DATE: 01/03/2021 DISCHARGE DATE: 01/03/21 1100 VISIT LOCKED DATE TIME: PHYSICIAN: SUKHI GONZALES PHYSICIAN PAGER NO: ACTIVE RESOURCE: SUKHI GONZALES REASON FOR APPOINTMENT 1. FOLLOW-UP NECK AND LOW BACK PAIN CONSIDER INTERVENTIONS HISTORY OF PRESENT ILLNESS GENERAL: HERE FOR FOLLOW-UP OF CHRONIC NECK AND LOW BACK PAIN. PATIENT HAD HER GALLBLADDER REMOVED 3 DAYS AGO. THEY ARE CONTEMPLATING DOING SURGERY ON HER NECK IN THE NEAR FUTURE. OVERALL DOING FAIRLY WELL CONSIDERING. WEARING A BINDER THAT HELPS WITH HER ABDOMINAL AND LOW BACK PAIN. -. FALL RISK SCREENING: SCREENING : NO FALLS REPORTED IN THE LAST YEAR. PAIN SCREENING: PATIENT HAS A COMPLAINT OF ACUTE OR CHRONIC PAIN :YES LOCATION OF PAIN:NECK, LOW BACK INTENSITY OF PAIN (SCALE OF 1 TO 10):6 WHAT DOES YOUR PAIN FEEL LIKE:ACHING, BURNING, THROBBING, SORE DURATION:CONTINOUS, CONSTANT, ALL DAY PAIN IS INCREASED BY:OTHERS SITTING FOR LONG TIME PAIN IS DECREASED BY:OTHERS HEAT NURSING NOTE: -. PAIN CENTER INTAKE QUESTIONS: DO YOU HAVE A HISTORY OF MRSA? :NO DO YOU TAKE A BLOOD THINNERS? :YES DO YOU HAVE ANY BLEEDING DISORDERS? :NO ANY NEW NUMBNESS OR WEAKNESS IN YOUR LEGS OR ARMS? :YES BOTH LEGS, MOSTLY IN THE LEFT LEG, IN THE ARMS ITS MOSTYL IN THE RIGHT ANY PACEMAKER,DEFIBRILLATOR, OR DORSAL COLUMN STIMULATOR? :NO DO YOU HAVE ANY RASHES OR OPEN SORES? :NO ARE YOU ALLERGIC TO IV DYE? :NO ARE YOU DIABETIC? :NO ANY NEW PROBLEMS WITH YOUR MEDICATIONS? :NO HAVE YOU RECEIVED A VACCINE IN THE PAST 30 DAYS? :NO DO YOU PLAN TO RECEIVE A VACCINE IN THE NEXT 21 DAYS? :NO DO YOU NEED ANY PRESCRIPTION? :NO DO YOU TAKE ANY IMMUNOSUPPRESSIVE MEDICATIONS? :NO DO YOU HAVE ANY KIDNEY OR LIVER DISEASE? :YES ABDOMNAL LIVER TEST IS THERE A CHANCE YOU COULD BE ? :NO ARE YOU BREAST FEEDING? :NO CURRENT MEDICATIONS TAKING DICYCLOMINE HCL 10 MG CAPSULE 1 CAPSULE ORALLY FOUR TIMES A DAY TAKING A.E.R. WITCH QUIN - PAD DIRECTED EXTERNALLY NEEDED HEMORRHOIDS TAKING GUAIFENESIN 100 MG/5ML SYRUP 10 ML NEEDED ORALLY EVERY 4 HRS TAKING CLOTRIMAZOLE 1 % CREAM 1 APPLICATION EXTERNALLY TWICE A DAY TAKING ESTRING 2 MG RING DIRECTED VAGINAL _INSERT Q 3 MONTHS TAKING RESTASIS 0.05 % EMULSION 1 DROP INTO AFFECTED EYE OPHTHALMIC TWICE A DAY TAKING FLUTICASONE PROPIONATE 50 MCG/ACT SUSPENSION 1 SPRAY IN EACH NOSTRIL NASALLY ONCE A DAY TAKING TPN ELECTROLYTES - CONCENTRATE DIRECTED INTRAVENOUS 1 BAG DAILY AT 1800, NOTES: PT REPORTS 3 DAYS A WEEK ADDITIONAL VITAMINS ARE ADDED TAKING HYDROCORTISONE ANTI-ITCH 1 % CREAM 1 APPLICATION EXTERNALLY ONCE A DAY TAKING ALUMINUM CHLORIDE 20 % SOLUTION 1 APPLICATION AT BEDTIME EXTERNALLY NIGHTLY TAKING MAY HAVE - - DIRECTED WEDGE PILLOW,12 INCH ELEVATION TAKING FAMOTIDINE 40 MG/4ML SOLUTION 2 ML INTRAVENOUS TWICE A DAY TAKING TOPAMAX 100 MG TABLET 1 TAB ORALLY TWICE A DAY TAKING TYLENOL CHILDRENS 160 MG/5ML SUSPENSION 10-20ML ORALLY BID NOT-TAKING PANTOPRAZOLE SODIUM - POWDER 1 PACKET MIXED WITH APPLE JUICE OR APPLESAUCE ORALLY TWICE DAILY NOT-TAKING CLOTRIMAZOLE 1 % CREAM 1 APPLICATION EXTERNALLY TWICE A DAY NOT-TAKING PREGABALIN 20 MG/ML SOLUTION 1ML ORALLY BID MDD 2ML NOT-TAKING ONDANSETRON 4 MG TABLET DISINTEGRATING 1 TABLET ON THE TONGUE AND ALLOW TO DISSOLVE ORALLY THREE TIMES A DAY NEEDED NOT-TAKING TRULANCE 3 MG TABLET 1 TABLET ORALLY ONCE A DAY NOT-TAKING OXYCODONE HCL 5 MG/5ML SOLUTION 5 ML NEEDED ORALLY EVERY 4 HRS NEEDED FOR PAIN NOT-TAKING CIMETIDINE HCL 300 MG/5ML SOLUTION 5 ML WITH MEALS ORALLY TWICE A DAY NOT-TAKING LOPERAMIDE HCL 2 MG CAPSULE 1 CAPSULE NEEDED ORALLY AFTER EACH UNFORMED STOOL, MAX 16 MG PER DAY NOT-TAKING MIRALAX 17 GM/SCOOP POWDER DIRECTED ORALLY TWICE A DAY NEEDED NOT-TAKING SHOWER CHAIR WITHOUT WHEELS DIRECTED DAILY USE NOT-TAKING MAY HAVE - - DIRECTED AIR PURIFIER NOT-TAKING ROLLING WALKER 1 1 DIRECTED WITH BRAKES AND SEAT NOT-TAKING MAY HAVE - - PLANT FUSION PURE PROTEIN 1SCOOP IN FLAX MEAL ORAL 3X/DAY NOT-TAKING PROBIOTIC ACIDOPHILUS - TABLET DIRECTED ORALLY DAILY NOT-TAKING BIOFREEZE 4 % GEL 1 APPLICATION TO AFFECTED AREA NEEDED EXTERNALLY THREE TIMES A DAY NOT-TAKING PREGABALIN 20 MG/ML SOLUTION 5 ML ORALLY TWICE A DAY, NOTES: MAKES HER SICK MEDICATION LIST REVIEWED AND RECONCILED WITH THE PATIENT PAST MEDICAL HISTORY LARYNGEAL NODULE CANDIDIASIS/BV-FREQUENTLY 04-05-2014 DISTAL FIBULA FRACTURE 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 NODE, NEGATIVE BX, 2018 THYROID NODULE HIATAL HERNIA RUPTURE BACK PAIN BRAIN ANEURYSM ABDOMNAL LIVER TEST ALLERGIES DOXYCYCLINE HYCLATE: PHOTODERMATITIS - ALLERGY LACTOSE INTOLERANT: DIARRHEA - ALLERGY DEMEROL: LOW BP - CONTRAINDICATION DARVOCET-N 100: LOW BP - CONTRAINDICATION AMOXICILLIN: SWELLING - ALLERGY SHELLFISH: HIVES - ALLERGY GLUTEN: DIARRHEA - ALLERGY KEFLEX: HIVES - ALLERGY PENICILLIN (FOR ALLERGIES USE ONLY): HIVES - ALLERGY SURGICAL HISTORY NECK SURGERY X 2 LEFT KNEE SURGERY BUNIONECTOMY OBDULIO FEET HYSTERECTOMY ABDOMINAL LAPOROSCOPY ABD BEFORE HYSTERECTOMY LASER EYE SURGERY OBDULIO COLONOSCOPY 08/2013 STERIOD INJECTIONS TO NECK BY 02/2016 HERNIA REPAIR 03/2017 SKIN CANCER LESION REMOVED 2018 HETIAL HERNIA REPAIR THROID SRUG TAKEN OUT 12/04/2020 LIVER BIOPSY GALLBLADDER REMOVED 12/2020 SOCIAL HISTORY GENERAL: TOBACCO USE ARE YOU A:FORMER SMOKER FORMER SMOKER UPDATED 12/27/2020 HOW LONG HAS IT BEEN SINCE YOU LAST SMOKED?> 10 YEARS QUIT 2006 ADDITIONAL FINDINGS: TOBACCO USER NO ADDITIONAL FINDINGS: TOBACCO NON-USERCURRENT NON-SMOKER VAPORNO E-CIGARETTENO LATEX QUESTIONNAIRE LATEX ALLERGY : HAVE YOU EVER DEVELOPED ANY TYPE OF REACTION AFTER HANDLING LATEX PRODUCTS SUCH RUBBER GLOVES, CONDOMS, DIAPHRAGMS, BALLOONS, SOCKS, OR UNDERWEAR?NO LATEX ALLERGY : HAVE YOU EVER DEVELOPED ANY TYPE OF REACTION DURING OR AFTER DENTAL APPOINTMENT, VAGINAL/RECTAL EXAMINATION, SURGICAL PROCEDURE, OR ANY OTHER EXPOSURE?NO LATEX RISK : HAVE YOU EVER HAD ANY DIFFICULTY BREATHING OR HIVES AFTER EATING OR HANDLING ANY FRUITS, OR VEGETABLES; SUCH KIWI, BANANAS, STONE FRUITS, OR CHESTNUTSNO LATEX RISK : DO YOU HAVE A PREVIOUS PERSONAL HISTORY OF MORE THAN NINE SURGERIES, SPINA BIFIDA, OR REPEATED CATHERIZATIONS? YES - PLEASE INDICATE : > 9 SURGERIES LATEX RISK : ARE YOU FREQUENTLY EXPOSED TO LATEX PRODUCTS IN YOUR OCCUPATION?NO DATE ASKED : 01/03/2021 ALCOHOL USE: NO. LUNG CANCER SCREENING SMOKING STATUS:FORMER SMOKER IS THE PATIENT BETWEEN THE AGE OF 57 AND 79?YES HAVE YOU QUIT SMOKING WITHIN THE PAST 15 YEARS?YES HAS THE PATIENT EVER BEEN DIAGNOSED WITH LUNG CANCER?NO BMI CARE GOAL FOLLOW-UP BELOW NORMAL BMI FOLLOW-UPDIETARY EDUCATION FOR WEIGHT GAIN ALCOHOL SCREENING DID YOU HAVE A DRINK CONTAINING ALCOHOL IN THE PAST YEAR?NO POINTS0 INTERPRETATIONNEGATIVE RECREATIONAL DRUG USE DRUG USE?NO CAFFEINE CAFFEINE USE?NO SEXUAL HX HAD SEX IN THE LAST 12 MONTHS (VAGINAL, ORAL, OR ANAL)?NO LMP:HYSTERECTOMY HAVE YOU EVER HAD AN STD?NO HIV / HEP-C SCREENING HIV TEST OFFERED TO PATIENT:YES DATE OFFERED:10/25/2020 TEST ACCEPTED:NO HEP-C TEST OFFERED TO PATIENT:YES DATE OFFERED:10/25/2020 REASON:PATIENT DECLINED CONSENT ON FILE TEST ACCEPTED:YES CONSENT SIGNED BROCHURE PROVIDED TO PATIENTNO MORMON [employer]KH[employer]. LANGUAGE CITIZEN OF [place]. EDUCATION SOME COLLEGE. 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 DIET: DIET ANGELA.. EXERCISE: DAILY-- ABLE. MARITAL STATUS: SINGLE, .. OTHERS AT HOME: LIVES ALONE. - WAS THE PROVIDER NOTIFIED OF ANY PERTINENT INFO?YES HAS THE PATIENT BEEN EDUCATED REGARDING HIS/HER PLAN OF CARE?YES HAS THE PATIENT BEEN EDUCATED REGARDING PAIN, THE RISK FOR PAIN, THE IMPORTANCE OF EFFECTIVE PAIN MANAGEMENT, AND THE PAIN ASSESSMENT PROCESS?YES HOUSING: RENTS APARTMENT. ADVANCE DIRECTIVE ADVANCE DIRECTIVE DISCUSSED WITH PATIENT:YES HCP - MABLE DAWSON (BROTHER) [phone]; IS ALSO PATIENT'S POA AND LIVING WILL HOSPITALIZATION/MAJOR DIAGNOSTIC PROCEDURE EATING DISORDER 01/20/2013 SURGERY HITAL HERNIA REPAIR 07/2020 [facility] ABD PAIN 08/28/2020` REVIEW OF SYSTEMS CONSTITUTIONAL: ANY RECENT FEVER NO . CHILLS NO . WEIGHT CHANGE OF UNKNOWN REASONS NO . GASTROENTEROLOGY: NEW UNEXPLAINABLE CHANGES IN BOWEL CONTROL NO . CONSTIPATION NO . GENITOURINARY: ANY NEW CHANGE IN BLADDER CONTROL? NO . NEUROLOGY: NEW ONSET DIZZINESS OR NEUROLOGICAL CHANGES NOT MENTIONED NO . NEW NUMBNESS OR PAIN PATTERNS NOT MENTIONED AND PERTINENT TO TODAY'S VISIT NO . CARDIOLOGY: NEW CHEST PRESSURE NO . PATIENT DENIES NO . RESPIRATORY: UNEXPLAINABLE COUGH NO . NEW SHORTNESS OF BREATH NO . VITAL SIGNS WT 99.2 LBS, HT 61 IN, BMI 18.74 INDEX, BP 111/65 MM HG, HR 94 /MIN, RR 18 /MIN, TEMP 95.8 F, OXYGEN SAT % 93%, SAFE IN ENV? (Y/N) YES, NA INITIALS SC 10:30T.GRICEL HANSON. EXAMINATION GENERAL EXAMINATION: GENERALNO ACUTE DISTRESS, WELL NOURISHED AND HYDRATED. PSYCHAPPROPRIATE MOOD AND AFFECT . LUNGS:CLEAR TO AUSCULTATION BILATERALLY, NO WHEEZES, RHONCHI, RALES. HEART:NO MURMURS, REGULAR RATE AND RHYTHM. 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 PROCEDURE CODES FA211 ESTABILISHED PATIENT [facility] FACILITY CHARGE DISPOSITION & COMMUNICATION FOLLOW UP NO F/U APT NEEDED (REASON: NECK/LOW BACK PAIN) ELECTRONICALLY SIGNED BY HUGO NICOLE ON 01/08/2021 AT 01:19 PM EDT DISCLAIMER : THIS IS A VISIT SUMMARY EXTRACTED FROM THE [employer] CHART. IT IS NOT A COPY OF THE [employer] PROGRESS NOTE. VARUN
== END ==
LOC: M PAIN 10:15
PROVIDERS: ATTEND Nurse Practitioner Family
DX: M46.92 Unspecified inflammatory spondylopathy, cervical region (principal); M54.5 Low back pain; K90.0 Celiac disease; E04.1 Nontoxic single thyroid nodule; K44.9 Diaphragmatic hernia without obstruction or gangrene; Z87.891 Personal history of nicotine dependence; Z79.899 Other long term (current) drug therapy; Z88.0 Allergy status to penicillin; Z88.1 Allergy status to other antibiotic agents; Z88.8 Allergy status to other drugs, medicaments and biological substances; E73.9 Lactose intolerance, unspecified

== ENCOUNTER → 2021-01-04 | Outpatient (REF) | payer MEDICARE, MEDICAID ==
[2021-01-04 17:05] LABS: APPEARANCE, URINE CLEAR (CLEAR); BACTERIA, URINE AUTO NEGATIVE (NEGATIVE); BILIRUBIN, URINE AUTO NEGATIVE (NEGATIVE); BLOOD, URINE BLOOD NEGATIVE (NEGATIVE); COLOR, URINE STRAW (YELLOW); GLUCOSE, URINE (UA) AUTO NEGATIVE (NEGATIVE); KETONE, URINE AUTO NEGATIVE (NEGATIVE); LEUKOCYTE ESTERASE, URINE AUTO 1+ (NEGATIVE); NITRITE, URINE AUTO NEGATIVE (NEGATIVE); PROTEIN, URINE AUTO NEGATIVE (NEGATIVE); RBC, URINE AUTO 1 /HPF (0-3); SPECIFIC GRAVITY URINE AUTO 1.003 (1.002-1.035); SQUAMOUS EPITHELIAL CELL UR AU 0 /HPF (0-6); UROBILINOGEN, URINE AUTO 0.2 mg/dL (0.0-2.0); WBC, URINE AUTO 1 /HPF (0-3)
== END ==
LOC: M LAB REF 16:27
PROVIDERS: ATTEND Obstetrics & Gynecology
DX: N30.00 Acute cystitis without hematuria (principal)

== ENCOUNTER → 2021-01-14 | Outpatient (REF) | payer MEDICARE, MEDICAID ==
[2021-01-14 09:35] LABS: BASO % 0.7 % (0.0-1.0); EOS # 0.2 10^3/uL (0.0-0.5); EOS % 3.8 % (0.0-3.0); HEMATOCRIT 36.6 % (36.0-47.0); HEMOGLOBIN 11.7 g/dl (12.0-15.5); LYMPH # 1.5 10^3/uL (1.5-5.0); LYMPH % 35.9 % (24.0-44.0); MEAN CORPUSCULAR HEMOGLOBIN 30.4 pg (27.0-33.0); MEAN CORPUSCULAR VOLUME 95.1 fl (80.0-96.0); MONO # 0.4 10^3/uL (0.0-0.8); MONO % 10.1 % (2.0-8.0); NEUTROPHILS # 2.1 10^3/uL (1.5-8.5); NEUTROPHILS % 49.3 % (36.0-66.0); PLATELET COUNT, AUTOMATED 246 10^3/uL (150-450); RED BLOOD COUNT 3.85 10^6/uL (4.00-5.40); WHITE BLOOD COUNT 4.3 10^3/uL (4.0-10.0)
[2021-01-14 09:50] LABS: ALBUMIN 3.3 GM/DL (3.2-5.2); ALT/SGPT 45 U/L (12-78); BILIRUBIN,TOTAL 0.3 MG/DL (0.2-1.0); BLOOD UREA NITROGEN 15 MG/DL (7-18); CALCIUM LEVEL 8.6 MG/DL (8.8-10.2); CARBON DIOXIDE LEVEL 25 MEQ/L (21-32); CHLORIDE LEVEL 112 MEQ/L (98-107); CREATININE FOR GFR 0.75 MG/DL (0.55-1.30); FERRITIN 36 NG/ML (8-252); GLOMERULAR FILTRATION RATE > 60.0 (>45); GLUCOSE, FASTING 82 MG/DL (70-100); IRON (FE) 44 UG/DL (50-170); MAGNESIUM LEVEL 2.3 MG/DL (1.8-2.4); PERCENT SATURATION 13.2 % (13.2-45.0); PHOSPHORUS LEVEL 2.6 MG/DL (2.5-4.9); SODIUM LEVEL 143 MEQ/L (136-145); TOTAL IRON BINDING CAPACITY 334 UG/DL (250-450); TOTAL PROTEIN 6.5 GM/DL (6.4-8.2)
== END ==
LOC: M SHH 09:04
PROVIDERS: ATTEND Internal Medicine
DX: E86.0 Dehydration (principal); E87.6 Hypokalemia; E43 Unspecified severe protein-calorie malnutrition